=== PATIENT | female | born 1935 | race Caucasian/White ===

== ENCOUNTER 2016-01-14 10:55 | Outpatient (RCR) | payer MEDICARE ==
[2016-01-06 12:04] LABS: BASOPHILS # (AUTO) 0.1 10^3/uL (0.0-0.1); BASOPHILS % (AUTO) 1 % (0-10); EOSINOPHILS # (AUTO) 0.6 10^3/uL (0.0-0.3); EOSINOPHILS % (AUTO) 6 % (0-10); LYMPHOCYTES # (AUTO) 0.8 X 10^3 (1.0-4.0); LYMPHOCYTES % (AUTO) 7 % (12-44); MEAN CORPUSCULAR HEMOGLOBIN 24 PG (25-34); MEAN CORPUSCULAR HGB CONC 30 G/DL (32-36); MEAN CORPUSCULAR VOLUME 80 FL (80-99); MEAN PLATELET VOLUME 9.3 FL (7.4-10.4); MONOCYTES # (AUTO) 1.4 X 10^3 (0.0-1.0); MONOCYTES % (AUTO) 13 % (0-12); NEUTROPHILS # (AUTO) 7.8 X 10^3 (1.8-7.8); NEUTROPHILS % (AUTO) 73 % (42-75); PLATELET COUNT 612 10^3/uL (130-400); RED BLOOD COUNT 3.65 10^6/uL (4.35-5.85); RED CELL DISTRIBUTION WIDTH 15.9 % (10.0-14.5); WHITE BLOOD COUNT 10.7 10^3/uL (4.3-11.0)
[2016-01-06 12:27] LABS: ALANINE AMINOTRANSFERASE < 6 U/L (0-55); ALBUMIN 3.4 G/DL (3.2-4.5); ANION GAP 9 MMOL/L (5-14); ASPARTATE AMINO TRANSFERASE 8 U/L (5-34); BILIRUBIN,TOTAL 0.4 MG/DL (0.1-1.0); BLOOD UREA NITROGEN 13 MG/DL (7-18); BUN/CREATININE RATIO 13; CALCIUM 8.8 MG/DL (8.5-10.1); CARBON DIOXIDE 27 MMOL/L (21-32); CHLORIDE 101 MMOL/L (98-107); CREATININE SERUM 0.99 MG/DL (0.60-1.30); GFR ESTIMATED 54; GLUCOSE 98 MG/DL (70-105); POTASSIUM 5.1 MMOL/L (3.6-5.0); SODIUM 137 MMOL/L (135-145)
[2016-01-06 17:18] LABS: %SAT TOTAL IRON BINDING CAPIC 5 % (15-50); TIBC 229 ug/dL (280-380)
[2016-01-07 07:00] LABS: FERRITIN 762 ng/mL (15-150); UIBC 218 ug/dL (55-450)
[2016-01-10 09:39] LABS: JAK2 MUTATION Not Detected
[2016-01-11 09:56] LABS: BCR ABL FISH QL SEE FOOTNOTE
[~2016-01-14 10:55] MED LIST: ASP81TEC PO; BISO5TAB8 PO; FURO20TA PO; HYDR-3454 PO; LVT.025T PO; MULT-608 PO; OMEP-10 PO; PARO10TA21 PO; VISCOUS LIDOCAINE 2% PO
[2016-01-14] MEDS ORDERED: FLU TRIvalent (5 YOA+) 2016-17 (CANCER CTR) 0.5 ML IM ONE (12:15)
== END 2016-04-05 | disposition home or self-care (01) ==
LOC: ONC 10:55
PROVIDERS: ATTEND Internal Medicine Hematology & Oncology
DX: C82.90 Follicular lymphoma, unspecified, unspecified site (principal); Z85.3 Personal history of malignant neoplasm of breast; D50.9 Iron deficiency anemia, unspecified; I48.91 Unspecified atrial fibrillation; I50.9 Heart failure, unspecified; M17.0 Bilateral primary osteoarthritis of knee; Z95.0 Presence of cardiac pacemaker; Z90.11 Acquired absence of right breast and nipple; Z79.899 Other long term (current) drug therapy; Z92.21 Personal history of antineoplastic chemotherapy; Z23 Encounter for immunization
CPT/HCPCS: 36591; 80053; 81270; 82607; 82728; 82746; 83540; 85025; 85045; 88368; 88369; 90471; 99213

== ENCOUNTER → 2016-05-30 | Outpatient (CLI) | payer MEDICARE | LOC: FS 11:06 | PROVIDERS: ATTEND Internal Medicine Hematology & Oncology | DX: C82.90 Follicular lymphoma, unspecified, unspecified site (principal); Z85.3 Personal history of malignant neoplasm of breast; D50.9 Iron deficiency anemia, unspecified; I48.91 Unspecified atrial fibrillation; I50.9 Heart failure, unspecified; M17.0 Bilateral primary osteoarthritis of knee; Z95.0 Presence of cardiac pacemaker; Z90.11 Acquired absence of right breast and nipple; Z79.899 Other long term (current) drug therapy; Z92.21 Personal history of antineoplastic chemotherapy | CPT/HCPCS: 99213 ==

== ENCOUNTER → 2016-11-14 | Outpatient (CLI) | payer MEDICARE | LOC: FS 11-13 16:45 | PROVIDERS: ATTEND Internal Medicine Hematology & Oncology | DX: C82.28 Follicular lymphoma grade III, unspecified, lymph nodes of multiple sites (principal); Z85.3 Personal history of malignant neoplasm of breast; D50.9 Iron deficiency anemia, unspecified; I48.91 Unspecified atrial fibrillation; I50.9 Heart failure, unspecified; M17.0 Bilateral primary osteoarthritis of knee; Z95.0 Presence of cardiac pacemaker; Z90.11 Acquired absence of right breast and nipple; Z79.899 Other long term (current) drug therapy; Z92.21 Personal history of antineoplastic chemotherapy | CPT/HCPCS: 99213 ==

== ENCOUNTER 2017-02-10 15:14 | Emergency (ER) | payer MEDICARE ==
[~2017-02-10] VITALS: Ht 172.7 cm; Wt 79.8 kg
--- OUTSIDE RECORDS SUMMARY | 2017-02-10 15:20 | XMS REPORT | Continuity of Care Document ---
Author Author [employer] Organization [place] Address Unknown Phone Unavailable Care Team Providers Care Security Investigator Name Role Phone [employer] Unavailable Unavailable Problems Problem Status Onset Date Classification Date Reported Comments Source Other dyspnea and respiratory abnormality 09/29/2014 Diagnosis 10/03/2014 [facility], [facility] Other sleep disturbances Diagnosis 10/03/2014 [facility] Other hypersomnia 2014 Diagnosis 10/03/2014 [facility] Unspecified chest pain 09/29 Diagnosis 10/03/2014 [facility] Cardiac pacemaker in situ Diagnosis 10/03/2014 [facility] Paroxysmal supraventricular tachycardia 09/29/2014 Diagnosis 10/03/2014 [facility] Coronary atherosclerosis of unspecified type of vessel, point lay ira or graft 03/02/2014 Diagnosis 03/06/2014 [facility] Atrial fibrillation 2013 Diagnosis 03/06/2014 [facility] Preoperative respiratory examination 01/01/2014 Diagnosis 01/05/2014 [facility] Chronic diastolic heart failure 01/01/2014 Diagnosis [facility] Nonspecific abnormal results of function study of pulmonary system 01/01/2014 Diagnosis 01/05/2014 [facility] Obesity, unspecified 2013 Diagnosis 01/05/2014 [facility], [facility] Sinoatrial node dysfunction 12/01/2013 Diagnosis 2013 [facility] Unspecified essential hypertension 12/01/2013 Diagnosis 12/05/2013 [facility] Cardiac pacemaker in situ Diagnosis 12/05/2013 [facility] Palpitations 12/01/2013 Diagnosis 12/05/2013 [facility] Other chest pain 08/14/2013 Diagnosis 08/18/2013 [facility] Unspecified chest pain 07/31 Diagnosis 08/04/2013 [facility], [facility]. Coronary atherosclerosis of unspecified type of vessel, point lay ira or graft 07/22/2013 Diagnosis 07/26/2013 [facility] Paroxysmal atrial tachycardia (disorder) Active Problem 10/25/2014 [facility], [facility], [facility] Malignant tumor of breast (disorder) Active Problem 10/25 [facility], [facility], [facility] Coronary arteriosclerosis (disorder) Active Problem 10/25 [facility], [facility], [facility] Cardiac pacemaker, device (physical object) Active Problem 10/25/2014 [facility], [facility], [facility], [facility] Chest pain (finding) Active Problem 10/25/2014 [facility], [facility], [facility] Cough (finding) Active Problem 10/25/2014 [facility], [facility], [facility], [facility] Dizziness (finding) Active Problem 10/25/2014 [facility], [facility], [facility], [facility] Dyspnea (finding) Active Problem 10/25/2014 [facility], [facility], [facility], [facility] Gastroesophageal reflux disease (disorder) Active Problem 10/25/2014 [facility], [facility], [facility], [facility] Hypertensive disorder, systemic arterial (disorder) Active Problem 10/25/2014 [facility], [facility], [facility], [facility]. Hypothyroidism (disorder) Active Problem 10/25/2014 [facility], [facility], [facility] Lymphoma finding (finding) Active Problem 10/25/2014 [facility], [facility], [facility] Malaise and fatigue (finding) Active Problem 10/25/2014 [facility], [facility], [facility] Obesity (disorder) Active Problem 10/25/2014 [facility], [facility], [facility] Palpitations (finding) Active Problem 10/25/2014 [facility], [facility], [facility] Paroxysmal atrial fibrillation (disorder) Active Problem 10/25/2014 [facility], [facility], [facility] Sick sinus syndrome (disorder) Active Problem 10/25/2014 [facility], [facility], [facility] Medications Medication Details Route Status Patient Instructions Ordering Provider Order Date Source No Known Medications No known medications Active [facility] Allergies, Adverse Reactions, Alerts Substance Category Reaction Severity Reaction type Status Date Reported Comments Source Levofloxacin Assertion Drug allergy [facility], [facility], [facility], [facility] Morphine Assertion Drug allergy [facility], [facility], [facility], [facility]. Verapamil Assertion lip swelling Drug allergy [facility], [facility], [facility], [facility] Immunizations Immunization Date Given Site Status Last Updated Comments Source No data available for this section No data available for this section [facility], [facility], [facility], [facility] , [facility]. Results Vital Signs Encounters Location Location Details Encounter Type Encounter Number Reason For Visit Attending Provider ADM Date DC Date Status Source [facility]iology Services Clinic [id number] [facility] 07/22/2013 07/23/2013 [facility]patient [id number] [facility] 07/22/2013 07/23/2013 [facility], [facility], [facility] [id number] Noah Duran 08[facility]01/2013 [facility] [id number] [place] 08/14/2013 08/15/2013 [facility] [id number] [facility] 12/01/2013 12/02/2013 [facility], [facility] [id number] [facility] 12/06/2013 [facility] [id number] . CS Peripheral Vascular 12/05/2013 12/06/2013 [facility] [id number] 01/01/2014 01/02/2014 [facility] [id number] [facility] 01/07/2014 01[facility]09/2014 [facility] [id number] [facility] 03/02/2014 03/03/2014 [facility] [id number] [facility] 06/17/2014 06/18/2014 [facility] [id number] Mathieu Cruz 06/17/2014 06/18/2014 [facility] Control [facility] in Pulmonary Medicine Clinic [id number] Roberta Carrington 06/29/2014 06/30/2014 [facility] Clinic [id number] Reggie Koch 09/29/2014 09/30/2014 [facility] [id number] [facility] 09/29/2014 09/30/2014 [facility] [id number] [facility] 10/06/2014 [facility], [facility] [id number] Mathieu Cruz 10/21/2014 10/22/2014 [facility] Procedures Procedure Code Date Perfomer Comments Source LV CORS 07/31/2013 [facility], [facility]. No data available for this section [facility] Plan of Care Social History Assessment and Plan Family History Value Date Source Advance Directives Order Name Results Value Date Source
--- OUTSIDE RECORDS SUMMARY | 2017-02-10 15:23 | XMS REPORT | Continuity of Care Document ---
Author Author [facility] Organization [facility] Address Unknown Phone Unavailable Allergies Active Description Code Type Severity Reaction Onset Reported/Identified Relationship to Patient Clinical Status Yes morphine [id number] Drug Allergy Mild N/A 10/01/2013 Medications Problems Date Dx Coded Attending Type Code Diagnosis Diagnosed By 02/16/1624 WESTLEY MÉNDEZ Ot C82.90 FOLLICULAR LYMPHOMA, UNSPECIFIED, UNSPEC 02/16/1624 WESTLEY MÉNDEZ Ot D50.9 IRON DEFICIENCY ANEMIA, UNSPECIFIED 02/16/1624 WESTLEY MÉNDEZ Ot I48.91 UNSPECIFIED ATRIAL FIBRILLATION 02/16/1624 WESTLEY MÉNDEZ Ot I50.9 HEART FAILURE, UNSPECIFIED 02/16/1624 WESTLEY MÉNDEZ Ot 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 OF KNEE 02/16/1624 WESTLEY MÉNDEZ Ot Z79.899 OTHER [facility] (CURRENT) DRUG THERAPY 02/16/1624 WESTLEY MÉNDEZ Ot Z85.3 PERSONAL HISTORY OF MALIGNANT NEOPLASM O 02/16/1624 WESTLEY MÉNDEZ Ot Z90.11 ACQUIRED ABSENCE OF RIGHT BREAST AND NIP 02/16/1624 WESTLEY MÉNDEZ Ot Z92.21 PERSONAL HISTORY OF ANTINEOPLASTIC CHEMO 02/16/1624 WESTLEY MÉNDEZ Ot 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 PACEMAKER 10/02/2013 ERIC HODGE MD Ot 202.80 OTH LYMPHOMAS EXTRANODAL SOLID ORGAN U 10/02/2013 ERIC HODGE MD Ot 784.2 SWELLING IN HEAD NECK 03/18/2014 WESTLEY MÉNDEZ Ot 202.80 03/18/2014 WESTLEY MÉNDEZ Ot 585.3 03/18/2014 WESTLEY MÉNDEZ Ot V10.3 03/18/2014 WESTLEY MÉNDEZ Ot V45.01 03/18/2014 WESTLEY MÉNDEZ Ot V45.71 03/18/2014 DEV, BOBAN N Ot V58.69 03/18/2014 DEV, BOBAN N Ot V87.41 03/23/2014 DEV, BOBAN N Ot 202.80 03/23/2014 DEV, BOBAN N Ot 585.3 03/23/2014 DEV, BOBAN N Ot V10.3 03/23/2014 DEV, BOBAN N Ot V45.01 03/23/2014 DEV, BOBAN N Ot V45.71 03/23/2014 DEV, BOBAN N Ot V58.69 03/23/2014 DEV, BOBAN N Ot V87.41 10/07/2014 DEV, BOBAN N Ot 202.80 10/07/2014 DEV, BOBAN N Ot 244.9 10/07/2014 DEV, BOBAN N Ot 403.90 10/07/2014 DEV, BOBAN N Ot 585.3 10/07/2014 DEV, BOBAN N Ot V10.3 10/07/2014 DEV, BOBAN N Ot V45.01 10/07/2014 DEV, BOBAN N Ot V45.71 10/07/2014 DEV, BOBAN N Ot V58.69 10/07/2014 DEV, BOBAN N Ot V87.41 10/15/2014 DEV, BOBAN N Ot 202.80 10/15/2014 DEV, BOBAN N Ot 244.9 10/15/2014 DEV, BOBAN N Ot 403.90 10/15/2014 DEV, BOBAN N Ot 585.3 10/15/2014 DEV, BOBAN N Ot V10.3 10/15/2014 DEV, BOBAN N Ot V45.01 10/15/2014 DEV, BOBAN N Ot V45.71 10/15/2014 DEV, BOBAN N Ot V58.69 10/15/2014 DEV, BOBAN N Ot V87.41 04/09/2015 DEV, BOBAN N Ot C82.90 04/09/2015 DEV, BOBAN N Ot D50.9 04/09/2015 DEV, BOBAN N Ot I48.91 04/09/2015 DEV, BOBAN N Ot I50.9 04/09/2015 DEV, BOBAN N Ot M17.0 04/09/2015 DEV, BOBAN N Ot Z79.899 04/09/2015 DEV, BOBAN N Ot Z85.3 04/09/2015 DEV, BOBAN N Ot Z90.11 04/09/2015 DEV, BOBAN N Ot Z92.21 04/09/2015 DEV, BOBAN N Ot Z95.0 04/15/2015 DEV, BOBAN N Ot C82.90 04/15/2015 EDV, BOBAN N Ot D50.9 04/15/2015 DEV, BOBAN N Ot I48.91 04/15/2015 DEV, BOBAN N Ot I50.9 04/15/2015 DEV, BOBAN N Ot M17.0 04/15/2015 DEV, BOBAN N Ot Z79.899 04/15/2015 DEV, BOBAN N Ot Z85.3 04/15/2015 DEV, BOBAN N Ot Z90.11 04/15/2015 DEV, BOBAN N Ot Z92.21 04/15/2015 DEV, BOBAN N Ot Z95.0 04/30/2015 DEV, BOBAN N Ot C82.90 04/30/2015 DEV, BOBAN N Ot D50.9 04/30/2015 DEV, BOBAN N Ot I48.91 04/30/2015 DEV, BOBAN N Ot I50.9 04/30/2015 DEV, BOBAN N Ot M17.0 04/30/2015 DEV, BOBAN N Ot Z79.899 04/30/2015 DEV, BOBAN N Ot Z85.3 04/30/2015 DEV, BOBAN N Ot Z90.11 04/30/2015 DEV, BOBAN N Ot Z92.21 04/30/2015 DEV, BOBAN N Ot Z95.0 06/08/2015 DEV, BOBAN N Ot C82.90 06/08/2015 DEV, BOBAN N Ot D50.9 06/08/2015 DEV, BOBAN N Ot I48.91 06/08/2015 DEV, BOBAN N Ot I50.9 06/08/2015 DEV, BOBAN N Ot M17.0 06/08/2015 DEV, BOBAN N Ot Z79.899 06/08/2015 DEV, WESTLEY N Ot Z85.3 06/08/2015 DEV, WESTLEY N Ot Z90.11 06/08/2015 DEV, WESTLEY N Ot Z92.21 06/08/2015 DEV, WESTLEY N Ot Z95.0 06/30/2015 DEVWESTLEY N Ot C82.90 06/30/2015 DEVWESTLEY N Ot D50.9 06/30/2015 DEVWESTLEY N Ot I48.91 06/30/2015 DEV, WESTLEY N Ot I50.9 06/30/2015 DEV, WESTLEY N Ot M17.0 06/30/2015 DEV, WESTLEY N Ot Z79.899 06/30/2015 DEVWESTLEY N Ot Z85.3 06/30/2015 DEV WESTLEY N Ot Z90.11 06/30/2015 DEV, WESTLEY N Ot Z92.21 06/30/2015 DEVWESTLEY N Ot Z95.0 07/21/2015 DEVWESTLEY Ot C82.90 FOLLICULAR LYMPHOMA, UNSPECIFIED, UNSPEC 07/21/2015 DEVWESTLEY N Ot D50.9 IRON DEFICIENCY ANEMIA, UNSPECIFIED 07/21/2015 DEVWESTLEY N Ot I48.91 UNSPECIFIED ATRIAL FIBRILLATION 07/21/2015 DEVWESTLEY Ot I50.9 HEART FAILURE, UNSPECIFIED 07/21/2015 DEVWESTLEY N Ot 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 OF KNEE 07/21/2015 DEVWESTLEY N Ot Z79.899 OTHER [facility] (CURRENT) DRUG THERAPY 07/21/2015 DEVWESTLEY N Ot Z85.3 PERSONAL HISTORY OF MALIGNANT NEOPLASM O 07/21/2015 DEVWESTLEY N Ot Z90.11 ACQUIRED ABSENCE OF RIGHT BREAST AND NIP 07/21/2015 DEVWESTLEY N Ot Z92.21 PERSONAL HISTORY OF ANTINEOPLASTIC CHEMO 07/21/2015 WESTLEY MÉNDEZ N Ot 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 PACEMAKER 07/21/2015 WESTLEY MÉNDEZ N Ot C82.90 FOLLICULAR LYMPHOMA, UNSPECIFIED, UNSPEC 07/21/2015 WESTLEY MÉNDEZ N Ot D50.9 IRON DEFICIENCY ANEMIA, UNSPECIFIED 07/21/2015 WESTLEY MÉNDEZ N Ot I48.91 UNSPECIFIED ATRIAL FIBRILLATION 07/21/2015 WESTLEY MÉNDEZ N Ot I50.9 HEART FAILURE, UNSPECIFIED 07/21/2015 WESTLEY MÉNDEZ N Ot 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 OF KNEE 07/21/2015 WESTLEY MÉNDEZ N Ot Z79.899 OTHER [facility] (CURRENT) DRUG THERAPY 07/21/2015 WESTLEY MÉNDEZ N Ot Z85.3 PERSONAL HISTORY OF MALIGNANT NEOPLASM O 07/21/2015 WESTLEY MÉNDEZ N Ot Z90.11 ACQUIRED ABSENCE OF RIGHT BREAST AND NIP 07/21/2015 WESTLEY MÉNDEZ N Ot Z92.21 PERSONAL HISTORY OF ANTINEOPLASTIC CHEMO 07/21/2015 DEVWESTLEY BELL N Ot 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 PACEMAKER 07/28/2015 WESTLEY MÉNDEZ N Ot C82.90 FOLLICULAR LYMPHOMA, UNSPECIFIED, UNSPEC 07/28/2015 WESTLEY MÉNDEZ N Ot D50.9 IRON DEFICIENCY ANEMIA, UNSPECIFIED 07/28/2015 WESTLEY MÉNDEZ N Ot I48.91 UNSPECIFIED ATRIAL FIBRILLATION 07/28/2015 WESTLEY MÉNDEZ N Ot I50.9 HEART FAILURE, UNSPECIFIED 07/28/2015 WESTLEY MÉNDEZ N Ot 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 OF KNEE 07/28/2015 WESTLEY MÉNDEZ N Ot Z79.899 OTHER [facility] (CURRENT) DRUG THERAPY 07/28/2015 WESTLEY MÉNDEZ N Ot Z85.3 PERSONAL HISTORY OF MALIGNANT NEOPLASM O 07/28/2015 WESTLEY MÉNDEZ N Ot Z90.11 ACQUIRED ABSENCE OF RIGHT BREAST AND NIP 07/28/2015 WESTLEY MÉNDEZ N Ot Z92.21 PERSONAL HISTORY OF ANTINEOPLASTIC CHEMO 07/28/2015 WESTLEY MÉNDEZ N Ot 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 PACEMAKER 11/12/2015 WESTLEY MÉNDEZ N Ot C82.90 FOLLICULAR LYMPHOMA, UNSPECIFIED, UNSPEC 11/12/2015 WESTLEY MÉNDEZ N Ot D50.9 IRON DEFICIENCY ANEMIA, UNSPECIFIED 11/12/2015 WESTLEY MÉNDEZ N Ot I48.91 UNSPECIFIED ATRIAL FIBRILLATION 11/12/2015 WESTLEY MÉNDEZ N Ot I50.9 HEART FAILURE, UNSPECIFIED 11/12/2015 WESTLEY MÉNDEZ N Ot 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 OF KNEE 11/12/2015 WESTLEY MÉNDEZ N Ot Z79.899 OTHER [facility] (CURRENT) DRUG THERAPY 11/12/2015 WESTLEY MÉNDEZ N Ot Z85.3 PERSONAL HISTORY OF MALIGNANT NEOPLASM O 11/12/2015 WESTLEY MÉNDEZ N Ot Z90.11 ACQUIRED ABSENCE OF RIGHT BREAST AND NIP 11/12/2015 WESTLEY MÉNDEZ N Ot Z92.21 PERSONAL HISTORY OF ANTINEOPLASTIC CHEMO 11/12/2015 WESTLEY MÉNDEZ N Ot 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 PACEMAKER 11/18/2015 WESTLEY MÉNDEZ N Ot C82.90 FOLLICULAR LYMPHOMA, UNSPECIFIED, UNSPEC 11/18/2015 WESTLEY MÉNDEZ N Ot D50.9 IRON DEFICIENCY ANEMIA, UNSPECIFIED 11/18/2015 DVEWESTLEY BELL N Ot I48.91 UNSPECIFIED ATRIAL FIBRILLATION 11/18/2015 WESTLEY MÉNDEZ N Ot I50.9 HEART FAILURE, UNSPECIFIED 11/18/2015 WESTLEY MÉNDEZ N Ot 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 OF KNEE 11/18/2015 WESTLEY MÉNDEZ N Ot 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 11/18/2015 WESTLEY MÉNDEZ N Ot Z85.3 PERSONAL HISTORY OF MALIGNANT NEOPLASM O 11/18/2015 DEVWESTLEY BELL N Ot Z90.11 ACQUIRED ABSENCE OF RIGHT BREAST AND NIP 11/18/2015 WESTLEY MÉNDEZ N Ot Z92.21 PERSONAL HISTORY OF ANTINEOPLASTIC CHEMO 11/18/2015 WESTLEY MÉNDEZ N Ot 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 PACEMAKER 12/09/2015 WESTLEY MÉNDEZ N Ot C82.90 FOLLICULAR LYMPHOMA, UNSPECIFIED, UNSPEC 12/09/2015 WESTLEY MÉNDEZ N Ot D50.9 IRON DEFICIENCY ANEMIA, UNSPECIFIED 12/09/2015 WESTLEY MÉNDEZ N Ot I48.91 UNSPECIFIED ATRIAL FIBRILLATION 12/09/2015 WESTLEY MÉNDEZ N Ot I50.9 HEART FAILURE, UNSPECIFIED 12/09/2015 DEVWESTLEY N Ot 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 OF KNEE 12/09/2015 WESTLEY MÉNDEZ N Ot Z79.899 OTHER [facility] (CURRENT) DRUG THERAPY 12/09/2015 WESTLEY MÉNDEZ N Ot Z85.3 PERSONAL HISTORY OF MALIGNANT NEOPLASM O 12/09/2015 DEVWESTLEY BELL N Ot Z90.11 ACQUIRED ABSENCE OF RIGHT BREAST AND NIP 12/09/2015 WESTLEY MÉNDEZ N Ot Z92.21 PERSONAL HISTORY OF ANTINEOPLASTIC CHEMO 12/09/2015 WESTLEY MÉNDEZ N Ot 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 PACEMAKER 12/30/2015 WESTLEY MÉNDEZ N Ot C82.90 FOLLICULAR LYMPHOMA, UNSPECIFIED, UNSPEC 12/30/2015 WESTLEY MÉNDEZ N Ot D50.9 IRON DEFICIENCY ANEMIA, UNSPECIFIED 12/30/2015 WESTLEY MÉNDEZ N Ot I48.91 UNSPECIFIED ATRIAL FIBRILLATION 12/30/2015 WESTLEY MÉNDEZ N Ot I50.9 HEART FAILURE, UNSPECIFIED 12/30/2015 WESTLEY MÉNDEZ N Ot 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 OF KNEE 12/30/2015 WESTLEY MÉNDEZ N Ot 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 12/30/2015 WESTLEY MÉNDEZ N Ot Z85.3 PERSONAL HISTORY OF MALIGNANT NEOPLASM O 12/30/2015 DEVWESTLEY BELL N Ot Z90.11 ACQUIRED ABSENCE OF RIGHT BREAST AND NIP 12/30/2015 WESTLEY MÉNDEZ N Ot Z92.21 PERSONAL HISTORY OF ANTINEOPLASTIC CHEMO 12/30/2015 WESTLEY MÉNDEZ N Ot 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 PACEMAKER 01/03/2016 WESTLEY MÉNDEZ N Ot C82.90 FOLLICULAR LYMPHOMA, UNSPECIFIED, UNSPEC 01/03/2016 WESTLEY MÉNDEZ N Ot D50.9 IRON DEFICIENCY ANEMIA, UNSPECIFIED 01/03/2016 WESTLEY MÉNDEZ N Ot I48.91 UNSPECIFIED ATRIAL FIBRILLATION 01/03/2016 WESTLEY MÉNDEZ N Ot I50.9 HEART FAILURE, UNSPECIFIED 01/03/2016 WESTLEY MÉNDEZ N Ot 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 OF KNEE 01/03/2016 WESTLEY MÉNDEZ N Ot 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 01/03/2016 DEVWESTLEY N Ot Z85.3 PERSONAL HISTORY OF MALIGNANT NEOPLASM O 01/03/2016 DEVWESTLEY N Ot Z90.11 ACQUIRED ABSENCE OF RIGHT BREAST AND NIP 01/03/2016 DEVWESTLEY N Ot Z92.21 PERSONAL HISTORY OF ANTINEOPLASTIC CHEMO 01/03/2016 DEVWESTLEY BELL N Ot 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 PACEMAKER 01/07/2016 WESTLEY MÉNDEZ N Ot C82.90 FOLLICULAR LYMPHOMA, UNSPECIFIED, UNSPEC 01/07/2016 WESTLEY MÉNDEZ Ot D50.9 IRON DEFICIENCY ANEMIA, UNSPECIFIED 01/07/2016 WESTLEY MÉNDEZ Ot I48.91 UNSPECIFIED ATRIAL FIBRILLATION 01/07/2016 WESTLEY MÉNDEZ Ot I50.9 HEART FAILURE, UNSPECIFIED 01/07/2016 WESTLEY MÉNDEZ Ot 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 OF KNEE 01/07/2016 WESTLEY MÉNDEZ Ot Z79.899 OTHER [facility] (CURRENT) DRUG THERAPY 01/07/2016 WESTLEY MÉNDEZ Ot Z85.3 PERSONAL HISTORY OF MALIGNANT NEOPLASM O 01/07/2016 WESTLEY MÉNDEZ Ot Z90.11 ACQUIRED ABSENCE OF RIGHT BREAST AND NIP 01/07/2016 WESTLEY MÉNDEZ Ot Z92.21 PERSONAL HISTORY OF ANTINEOPLASTIC CHEMO 01/07/2016 WESTLEY MÉNDEZ Ot 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 PACEMAKER 01/11/2016 Ot 202.80 OTH LYMPHOMAS EXTRANODAL SOLID ORGAN U 01/11/2016 Ot 427.81 SINOATRIAL NODE DYSFUNCT 01/11/2016 Ot 585.3 CHRONIC KIDNEY DISEASE, STAGE III (MODER 01/11/2016 Ot 715.90 OSTEOARTHROS NOS-UNSPEC 01/11/2016 Ot 780.79 OTH MALAISE FATIGUE 01/11/2016 Ot V10.3 HX OF BREAST MALIGNANCY 01/11/2016 Ot V45.01 CARDIAC PACEMAKER IN SITU 01/11/2016 Ot V58.69 OTH MED,LT,CURRENT USE 01/11/2016 Ot V87.41 PERSONAL HISTORY OF ANTINEOPLASTIC CHEMO 01/11/2016 Ot 202.80 OTH LYMPHOMAS EXTRANODAL SOLID ORGAN U 01/11/2016 Ot 585.3 CHRONIC KIDNEY DISEASE, STAGE III (MODER 01/11/2016 Ot V45.01 CARDIAC PACEMAKER IN SITU 01/11/2016 Ot V58.69 OTH MED,LT,CURRENT USE 01/11/2016 Ot V87.41 PERSONAL HISTORY OF ANTINEOPLASTIC CHEMO 01/11/2016 Ot 202.80 OTH LYMPHOMAS EXTRANODAL SOLID ORGAN U 01/11/2016 Ot 585.3 CHRONIC KIDNEY DISEASE, STAGE III (MODER 01/11/2016 Ot 784.2 SWELLING IN HEAD NECK 01/11/2016 Ot V10.3 HX OF BREAST MALIGNANCY 01/11/2016 Ot V45.01 CARDIAC PACEMAKER IN SITU 01/11/2016 Ot V45.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 01/11/2016 Ot V58.69 OTH MED,LT,CURRENT USE 01/11/2016 Ot V87.41 PERSONAL HISTORY OF ANTINEOPLASTIC CHEMO 01/11/2016 Ot 202.80 OTH LYMPHOMAS EXTRANODAL SOLID ORGAN U 01/11/2016 Ot 202.80 OTH LYMPHOMAS EXTRANODAL SOLID ORGAN U 01/11/2016 Ot 311 DEPRESSIVE DISORDER NEC 01/11/2016 Ot 585.3 CHRONIC KIDNEY DISEASE, STAGE III (MODER 01/11/2016 Ot V10.3 HX OF BREAST MALIGNANCY 01/11/2016 Ot V45.01 CARDIAC PACEMAKER IN SITU 01/11/2016 Ot V45.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 01/11/2016 Ot V58.69 OTH MED,LT,CURRENT USE 01/11/2016 Ot V87.41 PERSONAL HISTORY OF ANTINEOPLASTIC CHEMO 01/11/2016 DEVWESTLEY BELL N Ot 202.80 OTH LYMPHOMAS EXTRANODAL SOLID ORGAN U 01/11/2016 DEVWESTLEY BELL N Ot 585.3 CHRONIC KIDNEY DISEASE, STAGE III (MODER 01/11/2016 DEVTHADDEUSAN N Ot V10.3 HX OF BREAST MALIGNANCY 01/11/2016 DEVTHADDEUSAN N Ot V45.01 CARDIAC PACEMAKER IN SITU 01/11/2016 DEVWESTLEY N Ot V45.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 01/11/2016 DEVWESTLEY N Ot V58.69 OTH MED,LT,CURRENT USE 01/11/2016 DEVTHADDEUSAN N Ot V87.41 PERSONAL HISTORY OF ANTINEOPLASTIC CHEMO 01/11/2016 DEV BOBAN N Ot 202.80 OTH LYMPHOMAS EXTRANODAL SOLID ORGAN U 01/11/2016 DEVTHADDEUSAN N Ot 585.3 CHRONIC KIDNEY DISEASE, STAGE III (MODER 01/11/2016 DEV BOBAN N Ot V10.3 HX OF BREAST MALIGNANCY 01/11/2016 DEV, BOBAN N Ot V45.01 CARDIAC PACEMAKER IN SITU 01/11/2016 DEV BOBAN N Ot V45.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 01/11/2016 DEV THADDEUSAN N Ot V58.69 OTH MED,LT,CURRENT USE 01/11/2016 WESTLEY MÉNDEZ N Ot V87.41 PERSONAL HISTORY OF ANTINEOPLASTIC CHEMO 01/11/2016 DEV BOBAN N Ot 202.80 OTH LYMPHOMAS EXTRANODAL SOLID ORGAN U 01/11/2016 WESTLEY MÉNDEZ N Ot 585.3 CHRONIC KIDNEY DISEASE, STAGE III (MODER 01/11/2016 DEVWESTLEY BELL N Ot V10.3 HX OF BREAST MALIGNANCY 01/11/2016 DEVTHADDEUSAN N Ot V45.01 CARDIAC PACEMAKER IN SITU 01/11/2016 DEVWESTLEY BELL N Ot V45.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 01/11/2016 DEVWESTLEY N Ot V58.69 OTH MED,LT,CURRENT USE 01/11/2016 DEV BOBAN N Ot V87.41 PERSONAL HISTORY OF ANTINEOPLASTIC CHEMO 01/11/2016 DEV BOBAN N Ot 202.80 OTH LYMPHOMAS EXTRANODAL SOLID ORGAN U 01/11/2016 DEV BOBAN N Ot 202.80 OTH LYMPHOMAS EXTRANODAL SOLID ORGAN U 01/11/2016 DEV BOBPRIMO N Ot 585.3 CHRONIC KIDNEY DISEASE, STAGE III (MODER 01/11/2016 DEVWESTLEY BELL N Ot V10.3 HX OF BREAST MALIGNANCY 01/11/2016 DEVTHADDEUSAN N Ot V45.01 CARDIAC PACEMAKER IN SITU 01/11/2016 WESTLEY MÉNDEZ N Ot V45.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 01/11/2016 WESTLEY MÉNDEZ N Ot V58.69 OTH MED,LT,CURRENT USE 01/11/2016 WESTLEY MÉNDEZ N Ot V87.41 PERSONAL HISTORY OF ANTINEOPLASTIC CHEMO 01/11/2016 NAVEEN JUSTIN, ERIC Peraza Ot 793.99 OTH NOSP (ABN) FINDINGS RADIOLOGICAL O 01/11/2016 ERIC HODGE MD Ot V10.79 HX-LYMPHATIC MALIGN NEC 01/11/2016 DEV BOBAN N Ot 202.80 OTH LYMPHOMAS EXTRANODAL SOLID ORGAN U 01/11/2016 DEV BOBAN N Ot 585.3 CHRONIC KIDNEY DISEASE, STAGE III (MODER 01/11/2016 DEVTHADDEUS BELLAN N Ot V10.3 HX OF BREAST MALIGNANCY 01/11/2016 DEV BOBAN N Ot V45.01 CARDIAC PACEMAKER IN SITU 01/11/2016 DEV, BOBAN N Ot V45.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 01/11/2016 WESTLEY MÉNDEZ N Ot V58.69 OTH MED,LT,CURRENT USE 01/11/2016 THADDEUS MÉNDEZAN N Ot V87.41 PERSONAL HISTORY OF ANTINEOPLASTIC CHEMO 01/11/2016 DEV THADDEUSPRIMO N Ot 202.80 OTH LYMPHOMAS EXTRANODAL SOLID ORGAN U 01/11/2016 DEVWESTLEY N Ot 244.9 HYPOTHYROIDISM NOS 01/11/2016 DEV, WESTLEY N Ot 403.90 HYPTNSV CHR KID DIS, UNSPEC, W CHR KD ST 01/11/2016 DEV WESTLEY N Ot 585.3 CHRONIC KIDNEY DISEASE, STAGE III (MODER 01/11/2016 WESTLEY MÉNDEZ N Ot V10.3 HX OF BREAST MALIGNANCY 01/11/2016 DEVWESTLEY N Ot V45.01 CARDIAC PACEMAKER IN SITU 01/11/2016 DEVWESTLEY N Ot V45.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 01/11/2016 DEVTHADDEUSPRIMO N Ot V58.69 OTH MED,LT,CURRENT USE 01/11/2016 WESTLEY MÉNDEZ N Ot V87.41 PERSONAL HISTORY OF ANTINEOPLASTIC CHEMO 01/11/2016 WESTLEY MÉNDEZ N Ot C82.90 FOLLICULAR LYMPHOMA, UNSPECIFIED, UNSPEC 01/11/2016 DEVWESTLEY N Ot D50.9 IRON DEFICIENCY ANEMIA, UNSPECIFIED 01/11/2016 THADDEUS MÉNDEZAN N Ot I48.91 UNSPECIFIED ATRIAL FIBRILLATION 01/11/2016 WESTLEY MÉNDEZ N Ot I50.9 HEART FAILURE, UNSPECIFIED 01/11/2016 WESTLEY MÉNDEZ N Ot 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 OF KNEE 01/11/2016 WESTLEY MÉNDEZ N Ot 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 01/11/2016 WESTLEY MÉNDEZ N Ot Z85.3 PERSONAL HISTORY OF MALIGNANT NEOPLASM O 01/11/2016 WESTLEY MÉNDEZ N Ot Z90.11 ACQUIRED ABSENCE OF RIGHT BREAST AND NIP 01/11/2016 WESTLEY MÉNDEZ N Ot Z92.21 PERSONAL HISTORY OF ANTINEOPLASTIC CHEMO 01/11/2016 WESTLEY MÉNDEZ N Ot 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 PACEMAKER 01/11/2016 WESTLEY MÉNDEZ N Ot C82.90 FOLLICULAR LYMPHOMA, UNSPECIFIED, UNSPEC 01/11/2016 DEVTHADDEUSAN N Ot D50.9 IRON DEFICIENCY ANEMIA, UNSPECIFIED 01/11/2016 DEV, BOBAN N Ot I48.91 UNSPECIFIED ATRIAL FIBRILLATION 01/11/2016 DEV, BOBAN N Ot I50.9 HEART FAILURE, UNSPECIFIED 01/11/2016 DEVWESTLEY N Ot 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 OF KNEE 01/11/2016 DEVTHADDEUSAN N Ot Z79.899 OTHER [facility] (CURRENT) DRUG THERAPY 01/11/2016 DEV, BOBAN N Ot Z85.3 PERSONAL HISTORY OF MALIGNANT NEOPLASM O 01/11/2016 DEV BOBAN N Ot Z90.11 ACQUIRED ABSENCE OF RIGHT BREAST AND NIP 01/11/2016 DEV, BOBAN N Ot Z92.21 PERSONAL HISTORY OF ANTINEOPLASTIC CHEMO 01/11/2016 DEV, BOBAN N Ot 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 PACEMAKER 01/11/2016 DEV, BOBAN N Ot C82.90 FOLLICULAR LYMPHOMA, UNSPECIFIED, UNSPEC 01/11/2016 DEV BOBAN N Ot D50.9 IRON DEFICIENCY ANEMIA, UNSPECIFIED 01/11/2016 DEV, BOBAN N Ot I48.91 UNSPECIFIED ATRIAL FIBRILLATION 01/11/2016 DEV BOBPRIMO N Ot I50.9 HEART FAILURE, UNSPECIFIED 01/11/2016 DEVWESTLEY N Ot 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 OF KNEE 01/11/2016 DEVTHADDEUSAN N Ot 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 01/11/2016 DEV, BOBAN N Ot Z85.3 PERSONAL HISTORY OF MALIGNANT NEOPLASM O 01/11/2016 DEV BOBPRIMO N Ot Z90.11 ACQUIRED ABSENCE OF RIGHT BREAST AND NIP 01/11/2016 DEV, BOBAN N Ot Z92.21 PERSONAL HISTORY OF ANTINEOPLASTIC CHEMO 01/11/2016 DEV, BOBAN N Ot 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 PACEMAKER 01/11/2016 DEV, BOBAN N Ot C82.90 FOLLICULAR LYMPHOMA, UNSPECIFIED, UNSPEC 01/11/2016 DEV BOBAN N Ot D50.9 IRON DEFICIENCY ANEMIA, UNSPECIFIED 01/11/2016 DEV, BOBAN N Ot I48.91 UNSPECIFIED ATRIAL FIBRILLATION 01/11/2016 DEV BOBAN N Ot I50.9 HEART FAILURE, UNSPECIFIED 01/11/2016 WESTLEY MÉNDEZ N Ot 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 OF KNEE 01/11/2016 WESTLEY MÉNDEZ N Ot 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 01/11/2016 WESTLEY MÉNDEZ N Ot Z85.3 PERSONAL HISTORY OF MALIGNANT NEOPLASM O 01/11/2016 WESTLEY MÉNDEZ N Ot Z90.11 ACQUIRED ABSENCE OF RIGHT BREAST AND NIP 01/11/2016 WESTLEY MÉNDEZ N Ot Z92.21 PERSONAL HISTORY OF ANTINEOPLASTIC CHEMO 01/11/2016 WESTLEY MÉNDEZ N Ot 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 PACEMAKER 01/11/2016 WESTLEY MÉNDEZ N Ot 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, UNSP, LYM 01/12/2016 DEV THADDEUSPRIMO N Ot 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, UNSP, LYM 01/18/2016 DEV THADDEUSPRIMO N Ot C82.90 FOLLICULAR LYMPHOMA, UNSPECIFIED, UNSPEC 01/18/2016 WESTLEY MÉNDEZ Tello Ot D50.9 IRON DEFICIENCY ANEMIA, UNSPECIFIED 01/18/2016 WESTLEY MÉNDEZ N Ot I48.91 UNSPECIFIED ATRIAL FIBRILLATION 01/18/2016 WESTLEY MÉNDEZ N Ot I50.9 HEART FAILURE, UNSPECIFIED 01/18/2016 WESTLEY MÉNDEZ N Ot 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 OF KNEE 01/18/2016 WESTLEY MÉNDEZ N Ot Z79.899 OTHER [facility] (CURRENT) DRUG THERAPY 01/18/2016 WESTLEY MÉNDEZ N Ot Z85.3 PERSONAL HISTORY OF MALIGNANT NEOPLASM O 01/18/2016 WESTLEY MÉNDEZ N Ot Z90.11 ACQUIRED ABSENCE OF RIGHT BREAST AND NIP 01/18/2016 WESTLEY MÉNDEZ N Ot Z92.21 PERSONAL HISTORY OF ANTINEOPLASTIC CHEMO 01/18/2016 WESTLEY MÉNDEZ N Ot 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 PACEMAKER 01/26/2016 DEVWESTLEY N Ot C82.90 FOLLICULAR LYMPHOMA, UNSPECIFIED, UNSPEC 01/26/2016 DEV THADDEUSPRIMO N Ot D50.9 IRON DEFICIENCY ANEMIA, UNSPECIFIED 01/26/2016 DEVTHADDEUSPRIMO N Ot I48.91 UNSPECIFIED ATRIAL FIBRILLATION 01/26/2016 DEVWESTLEY N Ot I50.9 HEART FAILURE, UNSPECIFIED 01/26/2016 WESTLEY MÉNDEZ Ot 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 OF KNEE 01/26/2016 WESTLEY MÉNDEZ Ot 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 01/26/2016 WESTLEY MÉNDEZ Ot Z85.3 PERSONAL HISTORY OF MALIGNANT NEOPLASM O 01/26/2016 WESTLEY MÉNDEZ Ot Z90.11 ACQUIRED ABSENCE OF RIGHT BREAST AND NIP 01/26/2016 WESTLEY MÉNDEZ Ot Z92.21 PERSONAL HISTORY OF ANTINEOPLASTIC CHEMO 01/26/2016 WESTLEY MÉNDEZ Ot 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 PACEMAKER 02/18/2016 Ot 202.80 OTH LYMPHOMAS EXTRANODAL SOLID ORGAN U 02/18/2016 Ot 427.81 SINOATRIAL NODE DYSFUNCT 02/18/2016 Ot 585.3 CHRONIC KIDNEY DISEASE, STAGE III (MODER 02/18/2016 Ot 715.90 OSTEOARTHROS NOS-UNSPEC 02/18/2016 Ot 780.79 OTH MALAISE FATIGUE 02/18/2016 Ot V10.3 HX OF BREAST MALIGNANCY 02/18/2016 Ot V45.01 CARDIAC PACEMAKER IN SITU 02/18/2016 Ot V58.69 OTH MED,LT,CURRENT USE 02/18/2016 Ot V87.41 PERSONAL HISTORY OF ANTINEOPLASTIC CHEMO 02/18/2016 Ot 202.80 OTH LYMPHOMAS EXTRANODAL SOLID ORGAN U 02/18/2016 Ot 585.3 CHRONIC KIDNEY DISEASE, STAGE III (MODER 02/18/2016 Ot V45.01 CARDIAC PACEMAKER IN SITU 02/18/2016 Ot V58.69 OTH MED,LT,CURRENT USE 02/18/2016 Ot V87.41 PERSONAL HISTORY OF ANTINEOPLASTIC CHEMO 02/18/2016 Ot 202.80 OTH LYMPHOMAS EXTRANODAL SOLID ORGAN U 02/18/2016 Ot 585.3 CHRONIC KIDNEY DISEASE, STAGE III (MODER 02/18/2016 Ot 784.2 SWELLING IN HEAD NECK 02/18/2016 Ot V10.3 HX OF BREAST MALIGNANCY 02/18/2016 Ot V45.01 CARDIAC PACEMAKER IN SITU 02/18/2016 Ot V45.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 02/18/2016 Ot V58.69 OTH MED,LT,CURRENT USE 02/18/2016 Ot V87.41 PERSONAL HISTORY OF ANTINEOPLASTIC CHEMO 02/18/2016 Ot 202.80 OTH LYMPHOMAS EXTRANODAL SOLID ORGAN U 02/18/2016 Ot 202.80 OTH LYMPHOMAS EXTRANODAL SOLID ORGAN U 02/18/2016 Ot 311 DEPRESSIVE DISORDER NEC 02/18/2016 Ot 585.3 CHRONIC KIDNEY DISEASE, STAGE III (MODER 02/18/2016 Ot V10.3 HX OF BREAST MALIGNANCY 02/18/2016 Ot V45.01 CARDIAC PACEMAKER IN SITU 02/18/2016 Ot V45.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 02/18/2016 Ot V58.69 OTH MED,LT,CURRENT USE 02/18/2016 Ot V87.41 PERSONAL HISTORY OF ANTINEOPLASTIC CHEMO 02/18/2016 DEVWESTLEY BELL N Ot 202.80 OTH LYMPHOMAS EXTRANODAL SOLID ORGAN U 02/18/2016 DEVWESTLEY BELL N Ot 585.3 CHRONIC KIDNEY DISEASE, STAGE III (MODER 02/18/2016 DEVWESTLEY BELL N Ot V10.3 HX OF BREAST MALIGNANCY 02/18/2016 DEVWESTLEY N Ot V45.01 CARDIAC PACEMAKER IN SITU 02/18/2016 DEVWESTLEY N Ot V45.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 02/18/2016 DEVWESTLEY N Ot V58.69 OTH MED,LT,CURRENT USE 02/18/2016 DEVWESTLEY N Ot V87.41 PERSONAL HISTORY OF ANTINEOPLASTIC CHEMO 02/18/2016 DEVWESTLEY N Ot 202.80 OTH LYMPHOMAS EXTRANODAL SOLID ORGAN U 02/18/2016 DEVWESTLEY BELL N Ot 585.3 CHRONIC KIDNEY DISEASE, STAGE III (MODER 02/18/2016 DEVWESTLEY BELL N Ot V10.3 HX OF BREAST MALIGNANCY 02/18/2016 DEVWESTLEY N Ot V45.01 CARDIAC PACEMAKER IN SITU 02/18/2016 DEVWESTLEY N Ot V45.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 02/18/2016 DEVWESTLEY N Ot V58.69 OTH MED,LT,CURRENT USE 02/18/2016 DEVTHADDEUSAN N Ot V87.41 PERSONAL HISTORY OF ANTINEOPLASTIC CHEMO 02/18/2016 DEVWESTLEY N Ot 202.80 OTH LYMPHOMAS EXTRANODAL SOLID ORGAN U 02/18/2016 DEVWESTLEY BELL N Ot 585.3 CHRONIC KIDNEY DISEASE, STAGE III (MODER 02/18/2016 WESTLEY MÉNDEZ N Ot V10.3 HX OF BREAST MALIGNANCY 02/18/2016 WESTLEY MÉNDEZ N Ot V45.01 CARDIAC PACEMAKER IN SITU 02/18/2016 WESTLEY MÉNDEZ N Ot V45.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 02/18/2016 WESTLEY MÉNDEZ N Ot V58.69 OTH MED,LT,CURRENT USE 02/18/2016 DEVWESTLEY BELL N Ot V87.41 PERSONAL HISTORY OF ANTINEOPLASTIC CHEMO 02/18/2016 WESTLEY MÉNDEZ N Ot 202.80 OTH LYMPHOMAS EXTRANODAL SOLID ORGAN U 02/18/2016 DEVWESTLEY N Ot 202.80 OTH LYMPHOMAS EXTRANODAL SOLID ORGAN U 02/18/2016 DEV BOBPRIMO N Ot 585.3 CHRONIC KIDNEY DISEASE, STAGE III (MODER 02/18/2016 WESTLEY MÉNDEZ N Ot V10.3 HX OF BREAST MALIGNANCY 02/18/2016 WESTLEY MÉNDEZ N Ot V45.01 CARDIAC PACEMAKER IN SITU 02/18/2016 WESTLEY MÉNDEZ N Ot V45.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 02/18/2016 WESTLEY MÉNDEZ N Ot V58.69 OTH MED,LT,CURRENT USE 02/18/2016 WESTLEY MÉNDEZ N Ot V87.41 PERSONAL HISTORY OF ANTINEOPLASTIC CHEMO 02/18/2016 NAVEEN JUSTIN, ERIC [place] Ot 793.99 OTH NOSP (ABN) FINDINGS RADIOLOGICAL O 02/18/2016 NAVEEN JUSTIN, ERIC Peraza Ot V10.79 HX-LYMPHATIC MALIGN NEC 02/18/2016 DEV, WESTLEY N Ot 202.80 OTH LYMPHOMAS EXTRANODAL SOLID ORGAN U 02/18/2016 WESTLEY MÉNDEZ N Ot 585.3 CHRONIC KIDNEY DISEASE, STAGE III (MODER 02/18/2016 WESTLEY MÉNDEZ N Ot V10.3 HX OF BREAST MALIGNANCY 02/18/2016 DEVWESTLEY N Ot V45.01 CARDIAC PACEMAKER IN SITU 02/18/2016 WESTLEY MÉNDEZ N Ot V45.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 02/18/2016 WESTLEY MÉNDEZ N Ot V58.69 OTH MED,LT,CURRENT USE 02/18/2016 WESTLEY MÉNDEZ N Ot V87.41 PERSONAL HISTORY OF ANTINEOPLASTIC CHEMO 02/18/2016 THADDEUS MÉNDEZAN N Ot 202.80 OTH LYMPHOMAS EXTRANODAL SOLID ORGAN U 02/18/2016 DEVWESTLEY N Ot 244.9 HYPOTHYROIDISM NOS 02/18/2016 DEV WESTLEY N Ot 403.90 HYPTNSV CHR KID DIS, UNSPEC, W CHR KD ST 02/18/2016 DEV WESTLEY N Ot 585.3 CHRONIC KIDNEY DISEASE, STAGE III (MODER 02/18/2016 DEVWESTLEY N Ot V10.3 HX OF BREAST MALIGNANCY 02/18/2016 DEVWESTLEY N Ot V45.01 CARDIAC PACEMAKER IN SITU 02/18/2016 DEVWESTLEY N Ot V45.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 02/18/2016 WESTLEY MÉNDEZ N Ot V58.69 OTH MED,LT,CURRENT USE 02/18/2016 DEVWESTLEY N Ot V87.41 PERSONAL HISTORY OF ANTINEOPLASTIC CHEMO 02/18/2016 WESTLEY MÉNDEZ N Ot C82.90 FOLLICULAR LYMPHOMA, UNSPECIFIED, UNSPEC 02/18/2016 WESTLEY MÉNDEZ N Ot D50.9 IRON DEFICIENCY ANEMIA, UNSPECIFIED 02/18/2016 WESTLEY MÉNDEZ N Ot I48.91 UNSPECIFIED ATRIAL FIBRILLATION 02/18/2016 WESTLEY MÉNDEZ N Ot I50.9 HEART FAILURE, UNSPECIFIED 02/18/2016 WESTLEY MÉNDEZ N Ot 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 OF KNEE 02/18/2016 WESTLEY MÉNDEZ N Ot 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 02/18/2016 WESTLEY MÉNDEZ N Ot Z85.3 PERSONAL HISTORY OF MALIGNANT NEOPLASM O 02/18/2016 WESTLEY MÉNDEZ N Ot Z90.11 ACQUIRED ABSENCE OF RIGHT BREAST AND NIP 02/18/2016 WESTLEY MÉNDEZ N Ot Z92.21 PERSONAL HISTORY OF ANTINEOPLASTIC CHEMO 02/18/2016 WESTLEY MÉNDEZ N Ot 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 PACEMAKER 02/18/2016 WESTLEY MÉNDEZ N Ot C82.90 FOLLICULAR LYMPHOMA, UNSPECIFIED, UNSPEC 02/18/2016 WESTLEY MÉNDEZ N Ot D50.9 IRON DEFICIENCY ANEMIA, UNSPECIFIED 02/18/2016 WESTLEY MÉNDEZ N Ot I48.91 UNSPECIFIED ATRIAL FIBRILLATION 02/18/2016 WESTLEY MÉNDEZ N Ot I50.9 HEART FAILURE, UNSPECIFIED 02/18/2016 WESTLEY MÉNDEZ N Ot 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 OF KNEE 02/18/2016 WESTLEY MÉNDEZ N Ot 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 02/18/2016 WESTLEY MÉNDEZ N Ot Z85.3 PERSONAL HISTORY OF MALIGNANT NEOPLASM O 02/18/2016 WESTLEY MÉNDEZ N Ot Z90.11 ACQUIRED ABSENCE OF RIGHT BREAST AND NIP 02/18/2016 WESTLEY MÉNDEZ N Ot Z92.21 PERSONAL HISTORY OF ANTINEOPLASTIC CHEMO 02/18/2016 WESTLEY MÉNDEZ N Ot 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 PACEMAKER 02/18/2016 WESTLEY MÉNDEZ N Ot C82.90 FOLLICULAR LYMPHOMA, UNSPECIFIED, UNSPEC 02/18/2016 WESTLEY MÉNDEZ N Ot D50.9 IRON DEFICIENCY ANEMIA, UNSPECIFIED 02/18/2016 WESTLEY MÉNDEZ N Ot I48.91 UNSPECIFIED ATRIAL FIBRILLATION 02/18/2016 WESTLEY MÉNDEZ N Ot I50.9 HEART FAILURE, UNSPECIFIED 02/18/2016 WESTLEY MÉNDEZ N Ot 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 OF KNEE 02/18/2016 WESTLEY MÉNDEZ N Ot Z79.899 OTHER [facility] (CURRENT) DRUG THERAPY 02/18/2016 WESTLEY MÉNDEZ N Ot Z85.3 PERSONAL HISTORY OF MALIGNANT NEOPLASM O 02/18/2016 WESTLEY MÉNDEZ N Ot Z90.11 ACQUIRED ABSENCE OF RIGHT BREAST AND NIP 02/18/2016 WESTLEY MÉNDEZ N Ot Z92.21 PERSONAL HISTORY OF ANTINEOPLASTIC CHEMO 02/18/2016 WESTLEY MÉNDEZ N Ot 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 PACEMAKER 02/18/2016 WESTLEY MÉNDEZ N Ot 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, UNSP, LYM 02/18/2016 WESTLEY MÉNDEZ N Ot C82.90 FOLLICULAR LYMPHOMA, UNSPECIFIED, UNSPEC 02/18/2016 WESTLEY MÉNDEZ N Ot D50.9 IRON DEFICIENCY ANEMIA, UNSPECIFIED 02/18/2016 WESTLEY MÉNDEZ N Ot I48.91 UNSPECIFIED ATRIAL FIBRILLATION 02/18/2016 WESTLEY MÉNDEZ N Ot I50.9 HEART FAILURE, UNSPECIFIED 02/18/2016 WESTLEY MÉNDEZ N Ot 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 OF KNEE 02/18/2016 WESTLEY MÉNDEZ N Ot Z23 ENCOUNTER FOR IMMUNIZATION 02/18/2016 WESTLEY MÉNDEZ Ot Z79.899 OTHER [facility] (CURRENT) DRUG THERAPY 02/18/2016 WESTLEY MÉNDEZ Ot Z85.3 PERSONAL HISTORY OF MALIGNANT NEOPLASM O 02/18/2016 WESTLEY MÉNDEZ Ot Z90.11 ACQUIRED ABSENCE OF RIGHT BREAST AND NIP 02/18/2016 WESTLEY MÉNDEZ Ot Z92.21 PERSONAL HISTORY OF ANTINEOPLASTIC CHEMO 02/18/2016 WESTLEY MÉNDEZ Ot 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 PACEMAKER 02/21/2016 Ot 202.80 OTH LYMPHOMAS EXTRANODAL SOLID ORGAN U 02/21/2016 Ot 585.3 CHRONIC KIDNEY DISEASE, STAGE III (MODER 02/21/2016 Ot V45.01 CARDIAC PACEMAKER IN SITU 02/21/2016 Ot V58.69 OTH MED,LT,CURRENT USE 02/21/2016 Ot V87.41 PERSONAL HISTORY OF ANTINEOPLASTIC CHEMO 02/21/2016 Ot 202.80 OTH LYMPHOMAS EXTRANODAL SOLID ORGAN U 02/21/2016 Ot 585.3 CHRONIC KIDNEY DISEASE, STAGE III (MODER 02/21/2016 Ot 784.2 SWELLING IN HEAD NECK 02/21/2016 Ot V10.3 HX OF BREAST MALIGNANCY 02/21/2016 Ot V45.01 CARDIAC PACEMAKER IN SITU 02/21/2016 Ot V45.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 02/21/2016 Ot V58.69 OTH MED,LT,CURRENT USE 02/21/2016 Ot V87.41 PERSONAL HISTORY OF ANTINEOPLASTIC CHEMO 02/21/2016 Ot 202.80 OTH LYMPHOMAS EXTRANODAL SOLID ORGAN U 02/21/2016 Ot 202.80 OTH LYMPHOMAS EXTRANODAL SOLID ORGAN U 02/21/2016 Ot 311 DEPRESSIVE DISORDER NEC 02/21/2016 Ot 585.3 CHRONIC KIDNEY DISEASE, STAGE III (MODER 02/21/2016 Ot V10.3 HX OF BREAST MALIGNANCY 02/21/2016 Ot V45.01 CARDIAC PACEMAKER IN SITU 02/21/2016 Ot V45.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 02/21/2016 Ot V58.69 OTH MED,LT,CURRENT USE 02/21/2016 Ot V87.41 PERSONAL HISTORY OF ANTINEOPLASTIC CHEMO 02/21/2016 WESTLEY MÉNDEZ Ot 202.80 OTH LYMPHOMAS EXTRANODAL SOLID ORGAN U 02/21/2016 WESTLEY MÉNDEZ N Ot 585.3 CHRONIC KIDNEY DISEASE, STAGE III (MODER 02/21/2016 DEVWESTLEY BELL N Ot V10.3 HX OF BREAST MALIGNANCY 02/21/2016 DEVWESTLEY N Ot V45.01 CARDIAC PACEMAKER IN SITU 02/21/2016 DEVWESTLYE N Ot V45.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 02/21/2016 DEVWESTLEY N Ot V58.69 OTH MED,LT,CURRENT USE 02/21/2016 DEV BOBAN N Ot V87.41 PERSONAL HISTORY OF ANTINEOPLASTIC CHEMO 02/21/2016 DEV BOBAN N Ot 202.80 OTH LYMPHOMAS EXTRANODAL SOLID ORGAN U 02/21/2016 WESTLEY MÉNDEZ N Ot 585.3 CHRONIC KIDNEY DISEASE, STAGE III (MODER 02/21/2016 DEVWESTLEY BELL N Ot V10.3 HX OF BREAST MALIGNANCY 02/21/2016 DEVWESTLEY N Ot V45.01 CARDIAC PACEMAKER IN SITU 02/21/2016 DEVWESTLEY N Ot V45.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 02/21/2016 DEVWESTLEY N Ot V58.69 OTH MED,LT,CURRENT USE 02/21/2016 DEV BOBAN N Ot V87.41 PERSONAL HISTORY OF ANTINEOPLASTIC CHEMO 02/21/2016 DEVWESTLEY N Ot 202.80 OTH LYMPHOMAS EXTRANODAL SOLID ORGAN U 02/21/2016 WESTLEY MÉNDEZ N Ot 585.3 CHRONIC KIDNEY DISEASE, STAGE III (MODER 02/21/2016 DEVWESTLEY BELL N Ot V10.3 HX OF BREAST MALIGNANCY 02/21/2016 DEVWESTLEY N Ot V45.01 CARDIAC PACEMAKER IN SITU 02/21/2016 DEVWESTLEY N Ot V45.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 02/21/2016 DEVWESTLEY N Ot V58.69 OTH MED,LT,CURRENT USE 02/21/2016 DEV BOBAN N Ot V87.41 PERSONAL HISTORY OF ANTINEOPLASTIC CHEMO 02/21/2016 DEV BOBAN N Ot 202.80 OTH LYMPHOMAS EXTRANODAL SOLID ORGAN U 02/21/2016 DEV BOBAN N Ot 202.80 OTH LYMPHOMAS EXTRANODAL SOLID ORGAN U 02/21/2016 DEV BOBPRIMO N Ot 585.3 CHRONIC KIDNEY DISEASE, STAGE III (MODER 02/21/2016 DEVTHADDEUS BELLPRIMO N Ot V10.3 HX OF BREAST MALIGNANCY 02/21/2016 DEV BOBAN N Ot V45.01 CARDIAC PACEMAKER IN SITU 02/21/2016 DEV BOBAN N Ot V45.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 02/21/2016 DEVWESTLEY N Ot V58.69 OTH MED,LT,CURRENT USE 02/21/2016 DEV BOBAN N Ot V87.41 PERSONAL HISTORY OF ANTINEOPLASTIC CHEMO 02/21/2016 NAVEEN JUSTIN, ERIC Peraza Ot 793.99 OTH NOSP (ABN) FINDINGS RADIOLOGICAL O 02/21/2016 ERIC HODGE MD Ot V10.79 HX-LYMPHATIC MALIGN NEC 02/21/2016 DEV, BOBAN N Ot 202.80 OTH LYMPHOMAS EXTRANODAL SOLID ORGAN U 02/21/2016 DEV BOBAN N Ot 585.3 CHRONIC KIDNEY DISEASE, STAGE III (MODER 02/21/2016 DEVWESTLEY BELL N Ot V10.3 HX OF BREAST MALIGNANCY 02/21/2016 DEV BOBAN N Ot V45.01 CARDIAC PACEMAKER IN SITU 02/21/2016 DEV BOBAN N Ot V45.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 02/21/2016 WESTLEY MÉNDEZ N Ot V58.69 OTH MED,LT,CURRENT USE 02/21/2016 DEV BOBAN N Ot V87.41 PERSONAL HISTORY OF ANTINEOPLASTIC CHEMO 02/21/2016 DEV BOBAN N Ot 202.80 OTH LYMPHOMAS EXTRANODAL SOLID ORGAN U 02/21/2016 DEV BOBAN N Ot 244.9 HYPOTHYROIDISM NOS 02/21/2016 DEV, BOBAN N Ot 403.90 HYPTNSV CHR KID DIS, UNSPEC, W CHR KD ST 02/21/2016 DEV, BOBAN N Ot 585.3 CHRONIC KIDNEY DISEASE, STAGE III (MODER 02/21/2016 DEVTHADDEUS BELLAN N Ot V10.3 HX OF BREAST MALIGNANCY 02/21/2016 DEV BOBAN N Ot V45.01 CARDIAC PACEMAKER IN SITU 02/21/2016 DEV BOBAN N Ot V45.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 02/21/2016 WESTLEY MÉNDEZ Ot V58.69 OTH MED,LT,CURRENT USE 02/21/2016 WESTLEY MÉNDEZ N Ot V87.41 PERSONAL HISTORY OF ANTINEOPLASTIC CHEMO 02/21/2016 WESTLEY MÉNDEZ N Ot C82.90 FOLLICULAR LYMPHOMA, UNSPECIFIED, UNSPEC 02/21/2016 WESTLEY MÉNDEZ N Ot D50.9 IRON DEFICIENCY ANEMIA, UNSPECIFIED 02/21/2016 WESTLEY MÉNDEZ N Ot I48.91 UNSPECIFIED ATRIAL FIBRILLATION 02/21/2016 WESTLEY MÉNDEZ N Ot I50.9 HEART FAILURE, UNSPECIFIED 02/21/2016 DEVWESTLEY BELL N Ot 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 OF KNEE 02/21/2016 WESTLEY MÉNDEZ N Ot 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 02/21/2016 WESTLEY MÉNDEZ N Ot Z85.3 PERSONAL HISTORY OF MALIGNANT NEOPLASM O 02/21/2016 DEVWESTLEY BELL N Ot Z90.11 ACQUIRED ABSENCE OF RIGHT BREAST AND NIP 02/21/2016 DEVWESTLEY BELL N Ot Z92.21 PERSONAL HISTORY OF ANTINEOPLASTIC CHEMO 02/21/2016 WESTLEY MÉNDEZ N Ot 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 PACEMAKER 02/21/2016 WESTLEY MÉNDEZ N Ot C82.90 FOLLICULAR LYMPHOMA, UNSPECIFIED, UNSPEC 02/21/2016 WESTLEY MÉNDEZ N Ot D50.9 IRON DEFICIENCY ANEMIA, UNSPECIFIED 02/21/2016 WESTLEY MÉNDEZ N Ot I48.91 UNSPECIFIED ATRIAL FIBRILLATION 02/21/2016 WESTLEY MÉNDEZ N Ot I50.9 HEART FAILURE, UNSPECIFIED 02/21/2016 WESTLEY MÉNDEZ N Ot 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 OF KNEE 02/21/2016 WESTLEY MÉNDEZ N Ot 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 02/21/2016 DEVWESTLEY N Ot Z85.3 PERSONAL HISTORY OF MALIGNANT NEOPLASM O 02/21/2016 DEVWESTLEY N Ot Z90.11 ACQUIRED ABSENCE OF RIGHT BREAST AND NIP 02/21/2016 DEV BOBPRIMO N Ot Z92.21 PERSONAL HISTORY OF ANTINEOPLASTIC CHEMO 02/21/2016 DEVWESTLEY N Ot 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 PACEMAKER 02/21/2016 WESTLEY MÉNDEZ N Ot C82.90 FOLLICULAR LYMPHOMA, UNSPECIFIED, UNSPEC 02/21/2016 WESTLEY MÉNDEZ N Ot D50.9 IRON DEFICIENCY ANEMIA, UNSPECIFIED 02/21/2016 WESTLEY MÉNDEZ N Ot I48.91 UNSPECIFIED ATRIAL FIBRILLATION 02/21/2016 WESTLEY MÉNDEZ N Ot I50.9 HEART FAILURE, UNSPECIFIED 02/21/2016 WESTLEY MÉNDEZ N Ot 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 OF KNEE 02/21/2016 WESTLEY MÉNDEZ N Ot 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 02/21/2016 WESTLEY MÉNDEZ N Ot Z85.3 PERSONAL HISTORY OF MALIGNANT NEOPLASM O 02/21/2016 WESTLEY MÉNDEZ N Ot Z90.11 ACQUIRED ABSENCE OF RIGHT BREAST AND NIP 02/21/2016 WESTLEY MÉNDEZ N Ot Z92.21 PERSONAL HISTORY OF ANTINEOPLASTIC CHEMO 02/21/2016 WESTLEY MÉNDEZ N Ot 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 PACEMAKER 02/21/2016 WESTLEY MÉNDEZ N Ot 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, UNSP, LYM 02/21/2016 WESTLEY MÉNDEZ N Ot C82.90 FOLLICULAR LYMPHOMA, UNSPECIFIED, UNSPEC 02/21/2016 WESTLEY MÉNDEZ N Ot D50.9 IRON DEFICIENCY ANEMIA, UNSPECIFIED 02/21/2016 WESTLEY MÉNDEZ N Ot I48.91 UNSPECIFIED ATRIAL FIBRILLATION 02/21/2016 WESTLEY MÉNDEZ N Ot I50.9 HEART FAILURE, UNSPECIFIED 02/21/2016 WESTLEY MÉNDEZ N Ot 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 OF KNEE 02/21/2016 WESTLEY MÉNEDZ N Ot Z23 ENCOUNTER FOR IMMUNIZATION 02/21/2016 WESTLEY MÉNDEZ N Ot Z79.899 OTHER [facility] (CURRENT) DRUG THERAPY 02/21/2016 WESTLEY MÉNDEZ N Ot Z85.3 PERSONAL HISTORY OF MALIGNANT NEOPLASM O 02/21/2016 WESTLEY MÉNDEZ N Ot Z90.11 ACQUIRED ABSENCE OF RIGHT BREAST AND NIP 02/21/2016 WESTLEY MÉNDEZ N Ot Z92.21 PERSONAL HISTORY OF ANTINEOPLASTIC CHEMO 02/21/2016 WESTLEY MÉNDEZ N Ot 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 PACEMAKER 02/23/2016 WESTLEY MÉNDEZ N Ot C82.90 FOLLICULAR LYMPHOMA, UNSPECIFIED, UNSPEC 02/23/2016 WESTLEY MÉNDEZ N Ot D50.9 IRON DEFICIENCY ANEMIA, UNSPECIFIED 02/23/2016 WESTLEY MÉNDEZ N Ot I48.91 UNSPECIFIED ATRIAL FIBRILLATION 02/23/2016 WESTLEY MÉNDEZ Tello Ot I50.9 HEART FAILURE, UNSPECIFIED 02/23/2016 WESTLEY MÉNDEZ N Ot 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 OF KNEE 02/23/2016 WESTLEY MÉNDEZ Tello Ot Z23 ENCOUNTER FOR IMMUNIZATION 02/23/2016 WESTLEY MÉNDEZ N Ot 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 02/23/2016 WESTLEY MÉNDEZ N Ot Z85.3 PERSONAL HISTORY OF MALIGNANT NEOPLASM O 02/23/2016 WESTLEY MÉNDEZ N Ot Z90.11 ACQUIRED ABSENCE OF RIGHT BREAST AND NIP 02/23/2016 WESTLEY MÉNDEZ N Ot Z92.21 PERSONAL HISTORY OF ANTINEOPLASTIC CHEMO 02/23/2016 WESTLEY MÉNDEZ N Ot 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 PACEMAKER 02/25/2016 DEV THADDEUSPRIMO N Ot 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, UNSP, LYM 03/01/2016 DEV THADDEUSPRIMO N Ot 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, UNSP, LYM 03/16/2016 DEV THADDEUSPRIMO N Ot C82.90 FOLLICULAR LYMPHOMA, UNSPECIFIED, UNSPEC 03/16/2016 WESTLEY MÉNDEZ N Ot D50.9 IRON DEFICIENCY ANEMIA, UNSPECIFIED 03/16/2016 WESTLEY MÉNDEZ Tello Ot I48.91 UNSPECIFIED ATRIAL FIBRILLATION 03/16/2016 WESTLEY MÉNDEZ Tello Ot I50.9 HEART FAILURE, UNSPECIFIED 03/16/2016 WESTLEY MÉNDEZ Tello Ot 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 OF KNEE 03/16/2016 WESTLEY MÉNDEZ Tello Ot Z79.899 OTHER [facility] (CURRENT) DRUG THERAPY 03/16/2016 WESTLEY MÉNDEZ N Ot Z85.3 PERSONAL HISTORY OF MALIGNANT NEOPLASM O 03/16/2016 WESTLEY MÉNDEZ N Ot Z90.11 ACQUIRED ABSENCE OF RIGHT BREAST AND NIP 03/16/2016 WESTLEY MÉNDEZ N Ot Z92.21 PERSONAL HISTORY OF ANTINEOPLASTIC CHEMO 03/16/2016 WESTLEY MÉNDEZ N Ot 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 PACEMAKER 03/22/2016 DEVWESTLEY N Ot C82.90 FOLLICULAR LYMPHOMA, UNSPECIFIED, UNSPEC 03/22/2016 WESTLEY MÉNDEZ N Ot D50.9 IRON DEFICIENCY ANEMIA, UNSPECIFIED 03/22/2016 WESTLEY MÉNDEZ N Ot I48.91 UNSPECIFIED ATRIAL FIBRILLATION 03/22/2016 WESTLEY MÉNDEZ Tello Ot I50.9 HEART FAILURE, UNSPECIFIED 03/22/2016 WESTLEY MÉNDEZ N Ot 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 OF KNEE 03/22/2016 WESTLEY MÉNDEZ N Ot 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 03/22/2016 WESTLEY MÉNDEZ N Ot Z85.3 PERSONAL HISTORY OF MALIGNANT NEOPLASM O 03/22/2016 WESTLEY MÉNDEZ N Ot Z90.11 ACQUIRED ABSENCE OF RIGHT BREAST AND NIP 03/22/2016 WESTLEY MÉNDEZ N Ot Z92.21 PERSONAL HISTORY OF ANTINEOPLASTIC CHEMO 03/22/2016 DEV WESTLEY N Ot 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 PACEMAKER 04/05/2016 DEV WESTLEY Javed Ot C82.90 FOLLICULAR LYMPHOMA, UNSPECIFIED, UNSPEC 04/05/2016 DEV THADDEUSPRIMO Tello Ot D50.9 IRON DEFICIENCY ANEMIA, UNSPECIFIED 04/05/2016 DEV THADDEUSPRIMO Tello Ot I48.91 UNSPECIFIED ATRIAL FIBRILLATION 04/05/2016 DEV THADDEUSPRIMO Tello Ot I50.9 HEART FAILURE, UNSPECIFIED 04/05/2016 WESTLEY MÉNDEZ Tello Ot 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 OF KNEE 04/05/2016 WESTLEY MÉNDEZ Tello Ot Z23 ENCOUNTER FOR IMMUNIZATION 04/05/2016 WESTLEY MÉNDEZ Tello Ot Z79.899 OTHER [facility] (CURRENT) DRUG THERAPY 04/05/2016 WESTLEY MÉNDEZ Tello Ot Z85.3 PERSONAL HISTORY OF MALIGNANT NEOPLASM O 04/05/2016 DEV THADDEUSPRIMO Tello Ot Z90.11 ACQUIRED ABSENCE OF RIGHT BREAST AND NIP 04/05/2016 DEV THADDEUSPRIMO N Ot Z92.21 PERSONAL HISTORY OF ANTINEOPLASTIC CHEMO 04/05/2016 DEV WESTLEY N Ot 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 PACEMAKER 04/06/2016 DEV WESTLEY N Ot C82.90 FOLLICULAR LYMPHOMA, UNSPECIFIED, UNSPEC 04/06/2016 DEV THADDEUSPRIMO N Ot D50.9 IRON DEFICIENCY ANEMIA, UNSPECIFIED 04/06/2016 DEV WESTLEY N Ot I48.91 UNSPECIFIED ATRIAL FIBRILLATION 04/06/2016 DEV BOBAN N Ot I50.9 HEART FAILURE, UNSPECIFIED 04/06/2016 WESTLEY MÉNDEZ N Ot 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 OF KNEE 04/06/2016 WESTLEY MÉNDEZ Tello Ot Z23 ENCOUNTER FOR IMMUNIZATION 04/06/2016 WESTLEY MÉNDEZ Tello Ot Z79.899 OTHER [facility] (CURRENT) DRUG THERAPY 04/06/2016 WESTLEY MÉNDEZ N Ot Z85.3 PERSONAL HISTORY OF MALIGNANT NEOPLASM O 04/06/2016 WESTLEY MÉNDEZ N Ot Z90.11 ACQUIRED ABSENCE OF RIGHT BREAST AND NIP 04/06/2016 WESTLEY MÉNDEZ N Ot Z92.21 PERSONAL HISTORY OF ANTINEOPLASTIC CHEMO 04/06/2016 WESTLEY MÉNDEZ N Ot 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 PACEMAKER 05/31/2016 DEV WESTLEY N Ot C82.90 FOLLICULAR LYMPHOMA, UNSPECIFIED, UNSPEC 05/31/2016 DEV THADDEUSPRIMO N Ot D50.9 IRON DEFICIENCY ANEMIA, UNSPECIFIED 05/31/2016 DEVWESTLEY N Ot I48.91 UNSPECIFIED ATRIAL FIBRILLATION 05/31/2016 DEV THADDEUSPRIMO N Ot I50.9 HEART FAILURE, UNSPECIFIED 05/31/2016 WESTLEY MÉNDEZ N Ot 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 OF KNEE 05/31/2016 WESTLEY MÉNDEZ N Ot 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 05/31/2016 WESTLEY MÉNDEZ N Ot Z85.3 PERSONAL HISTORY OF MALIGNANT NEOPLASM O 05/31/2016 WESTLEY MÉNDEZ N Ot Z90.11 ACQUIRED ABSENCE OF RIGHT BREAST AND NIP 05/31/2016 WESTLEY MÉNDEZ N Ot Z92.21 PERSONAL HISTORY OF ANTINEOPLASTIC CHEMO 05/31/2016 DEV THADDEUSPRIMO N Ot 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 PACEMAKER 06/05/2016 DEV WESTLEY N Ot C82.90 FOLLICULAR LYMPHOMA, UNSPECIFIED, UNSPEC 06/05/2016 DEV WESTLEY N Ot D50.9 IRON DEFICIENCY ANEMIA, UNSPECIFIED 06/05/2016 DEVWESTLEY N Ot I48.91 UNSPECIFIED ATRIAL FIBRILLATION 06/05/2016 DEV THADDEUSPRIMO N Ot I50.9 HEART FAILURE, UNSPECIFIED 06/05/2016 DEV THADDEUSPRIMO N Ot 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 OF KNEE 06/05/2016 DEV THADDEUSPRIMO N Ot 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 06/05/2016 WESTLEY MÉNDEZ N Ot Z85.3 PERSONAL HISTORY OF MALIGNANT NEOPLASM O 06/05/2016 WESTLEY MÉNDEZ N Ot Z90.11 ACQUIRED ABSENCE OF RIGHT BREAST AND NIP 06/05/2016 WESTLEY MÉNDEZ N Ot Z92.21 PERSONAL HISTORY OF ANTINEOPLASTIC CHEMO 06/05/2016 WESTLEY MÉNDEZ N Ot 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 PACEMAKER 06/20/2016 WESTLEY MÉNDEZ N Ot C82.90 FOLLICULAR LYMPHOMA, UNSPECIFIED, UNSPEC 06/20/2016 WESTLEY MÉNDEZ N Ot D50.9 IRON DEFICIENCY ANEMIA, UNSPECIFIED 06/20/2016 DEVWESTLEY BELL N Ot I48.91 UNSPECIFIED ATRIAL FIBRILLATION 06/20/2016 WESTLEY MÉNDEZ N Ot I50.9 HEART FAILURE, UNSPECIFIED 06/20/2016 WESTLEY MÉNDEZ N Ot 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 OF KNEE 06/20/2016 WESTLEY MÉNDEZ N Ot Z79.899 OTHER [facility] (CURRENT) DRUG THERAPY 06/20/2016 WESTLEY MÉNDEZ N Ot Z85.3 PERSONAL HISTORY OF MALIGNANT NEOPLASM O 06/20/2016 WESTLEY MÉNDEZ N Ot Z90.11 ACQUIRED ABSENCE OF RIGHT BREAST AND NIP 06/20/2016 WESTLYE MÉNDEZ N Ot Z92.21 PERSONAL HISTORY OF ANTINEOPLASTIC CHEMO 06/20/2016 WESTLEY MÉNDEZ N Ot 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 PACEMAKER 06/30/2016 WESTLEY MÉNDEZ N Ot C82.90 FOLLICULAR LYMPHOMA, UNSPECIFIED, UNSPEC 06/30/2016 WESTLEY MÉNDEZ N Ot D50.9 IRON DEFICIENCY ANEMIA, UNSPECIFIED 06/30/2016 DEVWESTLEY N Ot I48.91 UNSPECIFIED ATRIAL FIBRILLATION 06/30/2016 DEVWESTLEY N Ot I50.9 HEART FAILURE, UNSPECIFIED 06/30/2016 DEVWESTLEY N Ot 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 OF KNEE 06/30/2016 WESTLEY MÉNDEZ N Ot Z79.899 OTHER [facility] (CURRENT) DRUG THERAPY 06/30/2016 WESTLEY MÉNDEZ N Ot Z85.3 PERSONAL HISTORY OF MALIGNANT NEOPLASM O 06/30/2016 DEVWESTLEY N Ot Z90.11 ACQUIRED ABSENCE OF RIGHT BREAST AND NIP 06/30/2016 WESTLEY MÉNDEZ N Ot Z92.21 PERSONAL HISTORY OF ANTINEOPLASTIC CHEMO 06/30/2016 WESLTEY MÉNDEZ N Ot 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 PACEMAKER 12/08/2016 WESTLEY MÉNDEZ N Ot 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, UNSP, LYM 12/08/2016 WESTLEY MÉNDEZ N Ot D50.9 IRON DEFICIENCY ANEMIA, UNSPECIFIED 12/08/2016 WESTLEY MÉNDEZ N Ot I48.91 UNSPECIFIED ATRIAL FIBRILLATION 12/08/2016 WESTLEY MÉNDEZ N Ot I50.9 HEART FAILURE, UNSPECIFIED 12/08/2016 WESTLEY MÉNDEZ N Ot 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 OF KNEE 12/08/2016 WESTLEY MÉNDEZ N Ot Z79.899 OTHER [facility] (CURRENT) DRUG THERAPY 12/08/2016 WESTLEY MÉNDEZ N Ot Z85.3 PERSONAL HISTORY OF MALIGNANT NEOPLASM O 12/08/2016 WESTLEY MÉNDEZ N Ot Z90.11 ACQUIRED ABSENCE OF RIGHT BREAST AND NIP 12/08/2016 WESTLEY MÉNDEZ N Ot Z92.21 PERSONAL HISTORY OF ANTINEOPLASTIC CHEMO 12/08/2016 WESTLEY MÉNDEZ N Ot 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 PACEMAKER 12/13/2016 WESTLEY MÉNDEZ N Ot 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, UNSP, LYM 12/13/2016 WESTLEY MÉNDEZ N Ot D50.9 IRON DEFICIENCY ANEMIA, UNSPECIFIED 12/13/2016 WESTLEY MÉNDEZ N Ot I48.91 UNSPECIFIED ATRIAL FIBRILLATION 12/13/2016 WESTLEY MÉNDEZ N Ot I50.9 HEART FAILURE, UNSPECIFIED 12/13/2016 WESTLEY MÉNDEZ N Ot 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 OF KNEE 12/13/2016 WESTLEY MÉNDEZ N Ot Z79.899 OTHER [facility] (CURRENT) DRUG THERAPY 12/13/2016 WESTLEY MÉNDEZ N Ot Z85.3 PERSONAL HISTORY OF MALIGNANT NEOPLASM O 12/13/2016 WESTLEY MÉNDEZ N Ot Z90.11 ACQUIRED ABSENCE OF RIGHT BREAST AND NIP 12/13/2016 WESTLEY MÉNDEZ N Ot Z92.21 PERSONAL HISTORY OF ANTINEOPLASTIC CHEMO 12/13/2016 WESTLEY MÉNDEZ N Ot 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 PACEMAKER 12/25/2016 WESTLEY MÉNDEZ N Ot 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, UNSP, LYM 12/25/2016 WESTLEY MÉNDEZ N Ot D50.9 IRON DEFICIENCY ANEMIA, UNSPECIFIED 12/25/2016 WESTLEY MÉNDEZ N Ot I48.91 UNSPECIFIED ATRIAL FIBRILLATION 12/25/2016 WESTLEY MÉNDEZ N Ot I50.9 HEART FAILURE, UNSPECIFIED 12/25/2016 WESTLEY MÉNDEZ N Ot 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 OF KNEE 12/25/2016 WESTLEY MÉNDEZ N Ot 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 12/25/2016 WESTLEY MÉNDEZ N Ot Z85.3 PERSONAL HISTORY OF MALIGNANT NEOPLASM O 12/25/2016 WESTLEY MÉNDEZ N Ot Z90.11 ACQUIRED ABSENCE OF RIGHT BREAST AND NIP 12/25/2016 WESTLEY MÉNDEZ N Ot Z92.21 PERSONAL HISTORY OF ANTINEOPLASTIC CHEMO 12/25/2016 WESTLEY MÉNDEZ N Ot 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 PACEMAKER 01/23/2017 WESTLEY MÉNDEZ N Ot 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, UNSP, LYM 01/23/2017 WESTLEY MÉNDEZ N Ot D50.9 IRON DEFICIENCY ANEMIA, UNSPECIFIED 01/23/2017 WESTLEY MÉNDEZ N Ot I48.91 UNSPECIFIED ATRIAL FIBRILLATION 01/23/2017 WESTLEY MÉNDEZ N Ot I50.9 HEART FAILURE, UNSPECIFIED 01/23/2017 WESTLEY MÉNDEZ N Ot 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 OF KNEE 01/23/2017 WESTLEY MÉNDEZ N Ot Z79.899 OTHER [facility] (CURRENT) DRUG THERAPY 01/23/2017 WESTLEY MÉNDEZ N Ot Z85.3 PERSONAL HISTORY OF MALIGNANT NEOPLASM O 01/23/2017 WESTLEY MÉNDEZ N Ot Z90.11 ACQUIRED ABSENCE OF RIGHT BREAST AND NIP 01/23/2017 WESTLEY MÉNDEZ N Ot Z92.21 PERSONAL HISTORY OF ANTINEOPLASTIC CHEMO 01/23/2017 WESTLEY MÉNDEZ N Ot 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 PACEMAKER Procedures Results Encounters ACCT No. Visit Date/Time Discharge Status Pt. Type Provider Facility Loc./Unit Complaint [id number] 02/02/2017 10:02:00 2016 23:59:59 CLS Outpatient WETSLEY MÉNDEZ Tello [facility] [id number] 11/14/2016 13:49:00 2016 23:59:59 CLS Outpatient WESTLEY MÉNDEZ N [facility] FS [id number] 05/30/2016 11:06:00 2016 23:59:59 CLS Outpatient DEVWESTLEY BELL N [facility] FS [id number] 01/14/2016 10:55:00 2016 00:01:00 DIS Outpatient DEVWESTLEY BELL N [facility] ONC [id number] 02/22/2016 13:22:00 2015 23:59:59 CLS Outpatient WESTLEY MÉNDEZ N [facility] FS [id number] 01/11/2016 08:30:00 2015 23:59:59 CLS Outpatient DEVWESTLEY BELL N [facility] RAD LYMPHOMA [id number] 12/14/2015 12:23:00 2015 16:25:00 DIS Outpatient WESTLEY MÉNDEZ N [facility] ONC [id number] 12/28/2015 10:48:00 2015 23:59:59 CLS Outpatient WESTLEY MÉNDEZ N [facility] FS [id number] 04/23/2015 10:03:00 2015 00:01:00 DIS Outpatient WESTLEY MÉNDEZ N [facility] ONC [id number] 06/29/2015 10:53:00 2015 23:59:59 CLS Outpatient DEVWESTLEY BELL N [facility] FS [id number] 03/23/2015 13:46:00 2015 23:59:59 CLS Outpatient DEVWESTLEY BELL N [facility] FS [id number] 09/15/2014 10:07:00 2014 23:59:59 CLS Outpatient DEVWESTLEY BELL N [facility] FS [id number] 02/17/2014 10:25:00 2013 23:59:59 CLS Outpatient DEVWESTLEY N [facility] FS [id number] 10/01/2013 09:34:00 2013 09:30:00 DIS Outpatient ERIC HODGE MD [facility] SDC POSSIBLE LYMPHOMA [id number] 09/23/2013 10:06:00 2013 23:59:59 CLS Outpatient ERIC HODGE MD [facility] RAD HX OF CA, ABNORMAL AREA LFT TONSIL [id number] 09/09/2013 13:53:00 2013 23:59:59 CLS Outpatient WESTLEY MÉNDEZ [facility] FS [id number] 09/02/2013 08:50:00 2013 23:59:59 CLS Outpatient WESTLEY MÉNDEZ [facility] RAD LYMPHOMA [id number] 08/26/2013 10:59:00 2013 23:59:59 CLS Outpatient WESTLEY MÉNDEZ N [facility] FS [id number] 02/25/2013 12:38:00 2012 23:59:59 CLS Outpatient WESTLEY MÉNDEZ [facility] FS [id number] 08/27/2012 12:45:00 2012 23:59:59 CLS Outpatient WESTLEY MÉNDEZ [facility] FS [id number] 02/13/2012 11:05:00 Document Registration [id number] 09/07/2011 07:48:00 Document Registration [id number] 08/29/2011 13:07:00 Document Registration [id number] 02/21/2011 13:41:00 Document Registration [id number] 08/30/2010 13:58:00 Document Registration
[2017-02-10 16:06] LABS: BILIRUBIN,URINE NEGATIVE (NEGATIVE); KETONES,URINE NEGATIVE (NEGATIVE); LEUKOCYTE ESTERASE ,URINE NEGATIVE (NEGATIVE); NITRITE,URINE NEGATIVE (NEGATIVE); PH,URINE 7 (5-9); PROTEIN,URINE NEGATIVE (NEGATIVE); UROBILINOGEN,URINE NORMAL (NORMAL)
[2017-02-10 16:19] LABS: BASOPHILS # (AUTO) 0.1 10^3/uL (0.0-0.1); BASOPHILS % (AUTO) 1 % (0-10); EOSINOPHILS # (AUTO) 0.5 10^3/uL (0.0-0.3); EOSINOPHILS % (AUTO) 5 % (0-10); LYMPHOCYTES # (AUTO) 1.4 X 10^3 (1.0-4.0); LYMPHOCYTES % (AUTO) 14 % (12-44); MEAN CORPUSCULAR HEMOGLOBIN 26 PG (25-34); MEAN CORPUSCULAR HGB CONC 31 G/DL (32-36); MEAN CORPUSCULAR VOLUME 83 FL (80-99); MEAN PLATELET VOLUME 9.1 FL (7.4-10.4); MONOCYTES % (AUTO) 10 % (0-12); NEUTROPHILS # (AUTO) 6.8 X 10^3 (1.8-7.8); NEUTROPHILS % (AUTO) 70 % (42-75); PLATELET COUNT 624 10^3/uL (130-400); RED BLOOD COUNT 3.42 10^6/uL (4.35-5.85); WHITE BLOOD COUNT 9.6 10^3/uL (4.3-11.0)
[2017-02-10 16:19] LABS: SQUAMOUS EPITHELIAL CELL,UR 0-2 /HPF
[2017-02-10 16:37] LABS: ALBUMIN 3.4 GM/DL (3.2-4.5); BILIRUBIN,TOTAL 0.4 MG/DL (0.1-1.0); CREATININE SERUM 0.95 MG/DL (0.60-1.30); POTASSIUM 4.4 MMOL/L (3.6-5.0); TOTAL PROTEIN 6.6 GM/DL (6.4-8.2)
--- NOTE | 2017-02-10 17:31 | ED GU-Female ---
General Chief Complaint: -Female Stated Complaint: FREQ URINATION,WEAKNESS Nursing Triage Note: c/o generalized weakness x 2 weeks but worse today. Urinary frequency reported. Hx of leukemia. Nursing Sepsis Screen: No Definite Risk Source: patient, family (daughter) Exam Limitations: no limitations History of Present Illness Time seen by provider: 16:57 Initial Comments Patient presents to ER by private conveyance with her daughter and a chief complaint that for a few days now she's had frequency of urine as well as foul- smelling urine. She denies any discharge, fevers, chills, sweats, diarrhea or shortness of breath. She does have a long-standing history of breast cancer followed by non-Hodgkin's lymphoma followed most recently by an package dyer anemia of chronic disease and she is on Aranesp with Dr. Diaz, oncology. Most recently her hemoglobin was 8.9 last week. She says she gets dizzy which she describes as feeling like she could vomit and she has Zofran, meclizine, Ativan to treat this dizziness at home. She says these treatments are fairly effective. She is worried that she has a urinary tract infection. Allergies and Home Medications Allergies Coded Allergies: morphine (Unverified Allergy, Mild, 10/01/13) Home Medications Bisoprolol Fumarate 5 Mg Tablet, 5 MG PO DAILY, (Reported) Furosemide 20 Mg Tablet, 20 MG PO DAILY, (Reported) Hydrocodone Bit/Acetaminophen 1 Each Tablet, 1-2 TAB PO Q4H PRN for PAIN, #40 Prescribed by: SUZIE BEYER on 10/01/13 1450 Levothyroxine Sodium 25 Mcg Tablet, 1 EACH PO DAILY, #0 Prescribed by: SUZIE BEYER on 10/01/13 1040 Multivitamins 1 Tab Tablet, 1 TAB PO DAILY, (Reported) Omeprazole 20 Mg Capsule.dr, 20 MG PO DAILY, (Reported) Paroxetine Hcl 10 Mg Tablet, 10 MG PO DAILY, (Reported) [Viscous Lidocaine 2%] , 1 TSP PO PRN, #8 Prescribed by: SUZIE BEYER on 10/01/13 1450 Constitutional: No chills, No diaphoresis EENTM: No hearing loss, No ear pain Respiratory: No cough, No short of breath Cardiovascular: No chest pain, No palpitations Gastrointestinal: No abdominal pain, No constipation, No diarrhea, No loss of appetite Genitourinary: denies burning, denies discharge, denies dysuria, frequency, denies flank pain, denies hematuria, denies pain, other (malodorous urine) Musculoskeletal: No back pain, No joint pain Skin: No pruritus, No rash Past Gpguiaj-Oqudms-Gkipvq Hx Patient Social History Alcohol Use: Denies Use Recreational Drug Use: No Smoking Status: Never a Smoker Recent Foreign Travel: No Contact w/Someone Who Travel: No Recent Infectious Disease Expo: No Surgeries History of Surgeries: Yes Respiratory History of Respiratory Disorde: No Cardiovascular History of Cardiac Disorders: Yes (HAS PACEMAKER) Neurological History of Neurological Disord: No Reproductive System Hx Reproductive Disorders: No Musculoskeletal History of Musculoskeletal Dis: Yes (BAD KNEES USES CANE) Integumentary History of Skin or Integumenta: No Physical Exam Vital Signs Vital Sign - Last 12Hours 02/10/17 16:21 Temp 98.5 Pulse 62 B/P (MAP) 115/64 O2 Delivery Room Air Capillary Refill : Less Than 3 Seconds General Appearance: WD/WN, no apparent distress HEENT: PERRL/EOMI, pharynx normal Cardiovascular: normal peripheral pulses, no JVD Respiratory: no respiratory distress, no accessory muscle use Gastrointestinal: normal bowel sounds, non tender, soft, no organomegaly Extremities: non-tender, no calf tenderness, normal capillary refill Neurologic/Psychiatric: alert, normal mood/affect, oriented x 3 Skin: normal color, warm/dry Progress/Results/Core Measures Suspected Sepsis Recent Fever Within 48 Hours: No Infection Criteria Present: None New/Unexplained Altered Menta: No Sepsis Screen: No Definite Risk Sepsis Diagnosis: SIRS Temperature:98.5 Pulse: 62 Respiratory Rate: Laboratory Tests 02/10/17 16:10: White Blood Count 9.6 Blood Pressure 115 /64 Mean: 81 Laboratory Tests 02/10/17 16:10: Creatinine 0.95, Platelet Count 624H, Total Bilirubin 0.4 Results/Orders Lab Results Laboratory Tests Test 02/10/17 15:50 02/10/17 16:10 Range/Units Urine Color YELLOW Urine Clarity CLEAR Urine pH 7 5-9 Urine Specific [place] 1.005 L 1.016-1.022 Urine Protein NEGATIVE NEGATIVE Urine Glucose (UA) NEGATIVE NEGATIVE Urine Ketones NEGATIVE NEGATIVE Urine Nitrite NEGATIVE NEGATIVE Urine Bilirubin NEGATIVE NEGATIVE Urine Urobilinogen NORMAL NORMAL MG/DL Urine Leukocyte Esterase NEGATIVE NEGATIVE Urine RBC (Auto) NEGATIVE NEGATIVE Urine RBC NONE /HPF Urine WBC NONE /HPF Urine Squamous Epithelial Cells 0-2 /HPF Urine Crystals NONE /LPF Urine Bacteria NONE /HPF Urine Casts NONE /LPF Urine Mucus NEGATIVE /LPF Urine Culture Indicated NO White Blood Count 9.6 4.3-11.0 10^3/uL Red Blood Count 3.42 L 4.35-5.85 10^6/uL Hemoglobin 8.8 L 11.5-16.0 G/DL Hematocrit 29 L 35-52 % Mean Corpuscular Volume 83 80-99 FL Mean Corpuscular Hemoglobin 26 25-34 PG Mean Corpuscular Hemoglobin Concent 31 L 32-36 G/DL Red Cell Distribution Width 14.0 10.0-14.5 % Platelet Count 624 H 130-400 10^3/uL Mean Platelet Volume 9.1 7.4-10.4 FL Neutrophils (%) (Auto) 70 42-75 % Lymphocytes (%) (Auto) 14 12-44 % Monocytes (%) (Auto) 10 0-12 % Eosinophils (%) (Auto) 5 0-10 % Basophils (%) (Auto) 1 0-10 % Neutrophils # (Auto) 6.8 1.8-7.8 X 10^3 Lymphocytes # (Auto) 1.4 1.0-4.0 X 10^3 Monocytes # (Auto) 1.0 0.0-1.0 X 10^3 Eosinophils # (Auto) 0.5 H 0.0-0.3 10^3/uL Basophils # (Auto) 0.1 0.0-0.1 10^3/uL Sodium Level 138 135-145 MMOL/L Potassium Level 4.4 3.6-5.0 MMOL/L Chloride Level 101 98-107 MMOL/L Carbon Dioxide Level 27 21-32 MMOL/L Anion Gap 10 5-14 MMOL/L Blood Urea Nitrogen 17 7-18 MG/DL Creatinine 0.95 0.60-1.30 MG/DL Estimat Glomerular Filtration Rate 57 BUN/Creatinine Ratio 18 Glucose Level 147 H 70-105 MG/DL Calcium Level 9.0 8.5-10.1 MG/DL Total Bilirubin 0.4 0.1-1.0 MG/DL Aspartate Amino Transf (AST/SGOT) 10 5-34 U/L Alanine Aminotransferase (ALT/SGPT) 7 0-55 U/L Alkaline Phosphatase 76 40-136 U/L Total Protein 6.6 6.4-8.2 GM/DL Albumin 3.4 3.2-4.5 GM/DL My Orders Orders - KEITH PARKS Cbc With Automated Diff (02/10/17 15:50) Comprehensive Metabolic Panel (02/10/17 15:50) Ua Culture If Indicated (02/10/17 15:53) Vital Signs/I&O Vital Sign - Last 12Hours 02/10/17 16:21 Temp 98.5 Pulse 62 B/P (MAP) 115/64 O2 Delivery Room Air Capillary Refill : Less Than 3 Seconds Blood Pressure Mean: 81 Progress Note : Time: 17:28 Progress Note Urinalysis looks benign however we'll go ahead and order a culture. She may also be experiencing urethritis. I encourage her to drink plenty fluids. NSAIDs are not applicable to her late stage kidney disease. She has follow-up in a few days with Dr. Diaz. Her hemoglobin is stable from before at 0.8. White count not elevated. Departure Impression Impression: Primary Impression: Urinary frequency Disposition: 01 HOME, SELF-CARE Condition: Stable Departure-Patient Inst. Decision time for Depature: 17:30 Referrals: MAX MANUEL MD (PCP/Family) Primary Care Physician Patient Instructions: Urinary Obstruction (DC) Add. Discharge Instructions: Please follow up with your primary care physician as needed. Return to the ER if you experience fevers, nausea and vomiting which cannot be controlled with your medicines or shortness of breath/chest pain. Drink plenty of fluids. We will culture her urine and if it grows out any bacteria we will call you out some antibiotics. All discharge instructions reviewed with patient and/or family. Voiced understanding. KEITH PARKS Feb 10, 2017 17:31
[2017-02-10 17:52] VITALS: BP 123/66
== END 2017-02-10 17:52 | disposition home or self-care (01) ==
LOC: EDUNIT# 15:14 → ER 15:16
DX: R35.0 Frequency of micturition (principal); C85.80 Other specified types of non-Hodgkin lymphoma, unspecified site; Z85.3 Personal history of malignant neoplasm of breast; Z87.440 Personal history of urinary (tract) infections; Z95.0 Presence of cardiac pacemaker
CPT/HCPCS: 36415; 80053; 81000; 85025; 99282

== ENCOUNTER 2017-03-16 10:55 | Outpatient (RCR) | payer MEDICARE ==
[2017-01-05 14:36] LABS: BASOPHILS # (AUTO) 0.1 10^3/uL (0.0-0.1); BASOPHILS % (AUTO) 1 % (0-10); EOSINOPHILS # (AUTO) 0.4 10^3/uL (0.0-0.3); EOSINOPHILS % (AUTO) 3 % (0-10); HEMATOCRIT 30 % (35-52); HEMOGLOBIN 9.2 G/DL (11.5-16.0); LYMPHOCYTES # (AUTO) 1.5 X 10^3 (1.0-4.0); LYMPHOCYTES % (AUTO) 11 % (12-44); MEAN CORPUSCULAR HEMOGLOBIN 26 PG (25-34); MEAN CORPUSCULAR HGB CONC 31 G/DL (32-36); MEAN CORPUSCULAR VOLUME 85 FL (80-99); MEAN PLATELET VOLUME 9.1 FL (7.4-10.4); MONOCYTES # (AUTO) 1.6 X 10^3 (0.0-1.0); MONOCYTES % (AUTO) 12 % (0-12); NEUTROPHILS # (AUTO) 9.7 X 10^3 (1.8-7.8); NEUTROPHILS % (AUTO) 73 % (42-75); PLATELET COUNT 607 10^3/uL (130-400); RED BLOOD COUNT 3.48 10^6/uL (4.35-5.85); RED CELL DISTRIBUTION WIDTH 14.1 % (10.0-14.5); WHITE BLOOD COUNT 13.2 10^3/uL (4.3-11.0)
[2017-01-18 11:28] LABS: BASOPHILS # (AUTO) 0.1 10^3/uL (0.0-0.1); BASOPHILS % (AUTO) 1 % (0-10); EOSINOPHILS # (AUTO) 0.3 10^3/uL (0.0-0.3); EOSINOPHILS % (AUTO) 3 % (0-10); HEMATOCRIT 28 % (35-52); HEMOGLOBIN 8.8 G/DL (11.5-16.0); LYMPHOCYTES # (AUTO) 0.9 X 10^3 (1.0-4.0); LYMPHOCYTES % (AUTO) 8 % (12-44); MEAN CORPUSCULAR HEMOGLOBIN 27 PG (25-34); MEAN CORPUSCULAR HGB CONC 31 G/DL (32-36); MEAN CORPUSCULAR VOLUME 86 FL (80-99); MEAN PLATELET VOLUME 8.9 FL (7.4-10.4); MONOCYTES # (AUTO) 1.4 X 10^3 (0.0-1.0); MONOCYTES % (AUTO) 12 % (0-12); NEUTROPHILS # (AUTO) 8.3 X 10^3 (1.8-7.8); NEUTROPHILS % (AUTO) 76 % (42-75); PLATELET COUNT 568 10^3/uL (130-400); RED BLOOD COUNT 3.32 10^6/uL (4.35-5.85); RED CELL DISTRIBUTION WIDTH 13.8 % (10.0-14.5); WHITE BLOOD COUNT 10.9 10^3/uL (4.3-11.0)
[2017-02-02 10:22] LABS: BASOPHILS # (AUTO) 0.1 10^3/uL (0.0-0.1); BASOPHILS % (AUTO) 1 % (0-10); EOSINOPHILS # (AUTO) 0.4 10^3/uL (0.0-0.3); EOSINOPHILS % (AUTO) 3 % (0-10); HEMATOCRIT 29 % (35-52); HEMOGLOBIN 8.9 G/DL (11.5-16.0); LYMPHOCYTES % (AUTO) 8 % (12-44); MEAN CORPUSCULAR HEMOGLOBIN 26 PG (25-34); MEAN CORPUSCULAR HGB CONC 31 G/DL (32-36); MEAN CORPUSCULAR VOLUME 84 FL (80-99); MEAN PLATELET VOLUME 8.9 FL (7.4-10.4); MONOCYTES # (AUTO) 1.6 X 10^3 (0.0-1.0); MONOCYTES % (AUTO) 13 % (0-12); NEUTROPHILS # (AUTO) 9.2 X 10^3 (1.8-7.8); NEUTROPHILS % (AUTO) 75 % (42-75); PLATELET COUNT 627 10^3/uL (130-400); RED CELL DISTRIBUTION WIDTH 13.8 % (10.0-14.5); WHITE BLOOD COUNT 12.2 10^3/uL (4.3-11.0)
[2017-02-15 12:00] LABS: ABSOLUTE RETIC # 32 10e9/L (24-90); BASOPHILS # (AUTO) 0.1 10^3/uL (0.0-0.1); BASOPHILS % (AUTO) 1 % (0-10); EOSINOPHILS # (AUTO) 0.4 10^3/uL (0.0-0.3); EOSINOPHILS % (AUTO) 3 % (0-10); HEMATOCRIT 30 % (35-52); HEMOGLOBIN 9.1 G/DL (11.5-16.0); LYMPHOCYTES % (AUTO) 9 % (12-44); MEAN CORPUSCULAR HEMOGLOBIN 25 PG (25-34); MEAN CORPUSCULAR HGB CONC 31 G/DL (32-36); MEAN CORPUSCULAR VOLUME 83 FL (80-99); MONOCYTES # (AUTO) 1.2 X 10^3 (0.0-1.0); MONOCYTES % (AUTO) 10 % (0-12); NEUTROPHILS # (AUTO) 9.3 X 10^3 (1.8-7.8); NEUTROPHILS % (AUTO) 77 % (42-75); PLATELET COUNT 613 10^3/uL (130-400); RED BLOOD COUNT 3.58 10^6/uL (4.35-5.85); RETICULOCYTE % 0.88 % (0.50-2.40)
[2017-03-01 14:50] LABS: BASOPHILS # (AUTO) 0.1 10^3/uL (0.0-0.1); BASOPHILS % (AUTO) 1 % (0-10); EOSINOPHILS # (AUTO) 0.5 10^3/uL (0.0-0.3); EOSINOPHILS % (AUTO) 5 % (0-10); HEMATOCRIT 29 % (35-52); HEMOGLOBIN 8.8 G/DL (11.5-16.0); LYMPHOCYTES # (AUTO) 1.3 X 10^3 (1.0-4.0); LYMPHOCYTES % (AUTO) 12 % (12-44); MEAN CORPUSCULAR HEMOGLOBIN 25 PG (25-34); MEAN CORPUSCULAR HGB CONC 31 G/DL (32-36); MEAN CORPUSCULAR VOLUME 82 FL (80-99); MEAN PLATELET VOLUME 9.2 FL (7.4-10.4); MONOCYTES # (AUTO) 1.2 X 10^3 (0.0-1.0); MONOCYTES % (AUTO) 11 % (0-12); NEUTROPHILS # (AUTO) 7.4 X 10^3 (1.8-7.8); NEUTROPHILS % (AUTO) 71 % (42-75); PLATELET COUNT 597 10^3/uL (130-400); RED BLOOD COUNT 3.48 10^6/uL (4.35-5.85); RED CELL DISTRIBUTION WIDTH 14.5 % (10.0-14.5); WHITE BLOOD COUNT 10.5 10^3/uL (4.3-11.0)
[2017-03-01 15:07] LABS: ALANINE AMINOTRANSFERASE < 6 U/L (0-55); ALBUMIN 3.5 GM/DL (3.2-4.5); ALKALINE PHOSPHATASE 84 U/L (40-136); BILIRUBIN,TOTAL 0.3 MG/DL (0.1-1.0); BUN/CREATININE RATIO 17; CALCIUM 8.8 MG/DL (8.5-10.1); CARBON DIOXIDE 30 MMOL/L (21-32); CHLORIDE 100 MMOL/L (98-107); CREATININE SERUM 0.99 MG/DL (0.60-1.30); GFR ESTIMATED 54; GLUCOSE 99 MG/DL (70-105); POTASSIUM 4.8 MMOL/L (3.6-5.0); SODIUM 138 MMOL/L (135-145); TOTAL PROTEIN 6.7 GM/DL (6.4-8.2)
[~2017-03-16 10:55] MED LIST changes: +DARBEPOETIN 10 MCG/0.4 ML ARANESP IJ SCH
[2017-03-16 11:45] LABS: BASOPHILS # (AUTO) 0.1 10^3/uL (0.0-0.1); BASOPHILS % (AUTO) 1 % (0-10); EOSINOPHILS # (AUTO) 0.4 10^3/uL (0.0-0.3); EOSINOPHILS % (AUTO) 4 % (0-10); HEMATOCRIT 27 % (35-52); HEMOGLOBIN 8.1 G/DL (11.5-16.0); LYMPHOCYTES # (AUTO) 0.8 X 10^3 (1.0-4.0); LYMPHOCYTES % (AUTO) 8 % (12-44); MEAN CORPUSCULAR HEMOGLOBIN 25 PG (25-34); MEAN CORPUSCULAR HGB CONC 30 G/DL (32-36); MEAN CORPUSCULAR VOLUME 82 FL (80-99); MONOCYTES # (AUTO) 1.4 X 10^3 (0.0-1.0); MONOCYTES % (AUTO) 13 % (0-12); NEUTROPHILS # (AUTO) 8.3 X 10^3 (1.8-7.8); NEUTROPHILS % (AUTO) 76 % (42-75); PLATELET COUNT 615 10^3/uL (130-400); RED BLOOD COUNT 3.29 10^6/uL (4.35-5.85); RED CELL DISTRIBUTION WIDTH 14.8 % (10.0-14.5)
[2017-03-16] MEDS ORDERED: DARBEPOETIN 25 MCG/ML (CANCER CTR) 1 ML VIAL SC SCH (12:15)
== END 2017-03-22 | disposition home or self-care (01) ==
LOC: ONC 10:55
PROVIDERS: ATTEND Internal Medicine Hematology & Oncology
DX: C82.28 Follicular lymphoma grade III, unspecified, lymph nodes of multiple sites (principal); Z85.3 Personal history of malignant neoplasm of breast; D63.1 Anemia in chronic kidney disease; N18.3 Chronic kidney disease, stage 3 (moderate); D50.9 Iron deficiency anemia, unspecified; I48.91 Unspecified atrial fibrillation; I50.9 Heart failure, unspecified; M17.0 Bilateral primary osteoarthritis of knee; Z95.0 Presence of cardiac pacemaker; Z90.11 Acquired absence of right breast and nipple; Z79.899 Other long term (current) drug therapy; Z92.21 Personal history of antineoplastic chemotherapy
CPT/HCPCS: 36415; 80053; 82728; 83615; 85025; 85045; 96372

== ENCOUNTER 2017-03-29 09:57 | Outpatient (RCR) | payer MEDICARE ==
[~2017-03-29 09:57] MED LIST changes: -DARBEPOETIN 10 MCG/0.4 ML ARANESP IJ SCH
[2017-03-29 10:38] LABS: BASOPHILS # (AUTO) 0.1 10^3/uL (0.0-0.1); BASOPHILS % (AUTO) 1 % (0-10); EOSINOPHILS # (AUTO) 0.4 10^3/uL (0.0-0.3); EOSINOPHILS % (AUTO) 4 % (0-10); HEMATOCRIT 28 % (35-52); HEMOGLOBIN 8.5 G/DL (11.5-16.0); LYMPHOCYTES # (AUTO) 0.8 X 10^3 (1.0-4.0); LYMPHOCYTES % (AUTO) 7 % (12-44); MEAN CORPUSCULAR HEMOGLOBIN 24 PG (25-34); MEAN CORPUSCULAR HGB CONC 30 G/DL (32-36); MEAN CORPUSCULAR VOLUME 80 FL (80-99); MEAN PLATELET VOLUME 9.1 FL (7.4-10.4); MONOCYTES # (AUTO) 1.6 X 10^3 (0.0-1.0); MONOCYTES % (AUTO) 14 % (0-12); NEUTROPHILS # (AUTO) 8.4 X 10^3 (1.8-7.8); NEUTROPHILS % (AUTO) 75 % (42-75); PLATELET COUNT 647 10^3/uL (130-400); RED BLOOD COUNT 3.53 10^6/uL (4.35-5.85); RED CELL DISTRIBUTION WIDTH 14.9 % (10.0-14.5); WHITE BLOOD COUNT 11.2 10^3/uL (4.3-11.0)
[2017-03-29] MEDS ORDERED: DARBEPOETIN 25 MCG/ML (CANCER CTR) 1 ML VIAL SC SCH (10:45)
== END 2017-04-12 12:14 | disposition home or self-care (01) ==
LOC: ONC 09:57
PROVIDERS: ATTEND Internal Medicine Hematology & Oncology
DX: C82.28 Follicular lymphoma grade III, unspecified, lymph nodes of multiple sites (principal); D63.1 Anemia in chronic kidney disease; N18.3 Chronic kidney disease, stage 3 (moderate); D50.9 Iron deficiency anemia, unspecified; I48.91 Unspecified atrial fibrillation; I50.9 Heart failure, unspecified; M17.0 Bilateral primary osteoarthritis of knee; Z85.3 Personal history of malignant neoplasm of breast; Z95.0 Presence of cardiac pacemaker; Z90.11 Acquired absence of right breast and nipple; Z79.899 Other long term (current) drug therapy; Z92.21 Personal history of antineoplastic chemotherapy
CPT/HCPCS: 36591; 85025; 96372

== ENCOUNTER 2017-04-27 13:16 | Outpatient (RCR) | payer MEDICARE ==
[2017-04-12 15:53] LABS: BASOPHILS # (AUTO) 0.1 10^3/uL (0.0-0.1); BASOPHILS % (AUTO) 1 % (0-10); EOSINOPHILS # (AUTO) 0.5 10^3/uL (0.0-0.3); EOSINOPHILS % (AUTO) 5 % (0-10); HEMATOCRIT 26 % (35-52); HEMOGLOBIN 7.9 G/DL (11.5-16.0); LYMPHOCYTES % (AUTO) 10 % (12-44); MEAN CORPUSCULAR HEMOGLOBIN 24 PG (25-34); MEAN CORPUSCULAR HGB CONC 30 G/DL (32-36); MEAN CORPUSCULAR VOLUME 79 FL (80-99); MEAN PLATELET VOLUME 8.6 FL (7.4-10.4); MONOCYTES # (AUTO) 0.9 X 10^3 (0.0-1.0); MONOCYTES % (AUTO) 9 % (0-12); NEUTROPHILS # (AUTO) 7.3 X 10^3 (1.8-7.8); NEUTROPHILS % (AUTO) 75 % (42-75); PLATELET COUNT 592 10^3/uL (130-400); RED BLOOD COUNT 3.34 10^6/uL (4.35-5.85); RED CELL DISTRIBUTION WIDTH 15.2 % (10.0-14.5); WHITE BLOOD COUNT 9.8 10^3/uL (4.3-11.0)
[2017-04-12 16:15] LABS: ALBUMIN 3.3 GM/DL (3.2-4.5); BILIRUBIN,TOTAL 0.3 MG/DL (0.1-1.0); CALCIUM 8.8 MG/DL (8.5-10.1); CREATININE SERUM 1.03 MG/DL (0.60-1.30); POTASSIUM 4.5 MMOL/L (3.6-5.0); TOTAL PROTEIN 6.3 GM/DL (6.4-8.2)
[2017-04-16 08:44] LABS: MISC LAB TEST & RESULT SOL TRANS REC
[~2017-04-27 13:16] MED LIST changes: +DARBEPOETIN 40 MCG/ML (ARANESP) 1 ML VIAL SC SCH
[2017-04-27 13:35] LABS: BASOPHILS # (AUTO) 0.1 10^3/uL (0.0-0.1); BASOPHILS % (AUTO) 1 % (0-10); EOSINOPHILS # (AUTO) 0.5 10^3/uL (0.0-0.3); EOSINOPHILS % (AUTO) 5 % (0-10); HEMATOCRIT 27 % (35-52); HEMOGLOBIN 8.2 G/DL (11.5-16.0); LYMPHOCYTES % (AUTO) 10 % (12-44); MEAN CORPUSCULAR HEMOGLOBIN 23 PG (25-34); MEAN CORPUSCULAR HGB CONC 30 G/DL (32-36); MEAN CORPUSCULAR VOLUME 77 FL (80-99); MEAN PLATELET VOLUME 9.4 FL (7.4-10.4); MONOCYTES # (AUTO) 1.2 X 10^3 (0.0-1.0); MONOCYTES % (AUTO) 12 % (0-12); NEUTROPHILS # (AUTO) 7.3 X 10^3 (1.8-7.8); NEUTROPHILS % (AUTO) 73 % (42-75); PLATELET COUNT 600 10^3/uL (130-400); RED BLOOD COUNT 3.52 10^6/uL (4.35-5.85); RED CELL DISTRIBUTION WIDTH 15.7 % (10.0-14.5); WHITE BLOOD COUNT 10.1 10^3/uL (4.3-11.0)
== END 2017-05-08 12:55 | disposition home or self-care (01) ==
LOC: ONC 13:16
PROVIDERS: ATTEND Internal Medicine Hematology & Oncology
DX: C82.28 Follicular lymphoma grade III, unspecified, lymph nodes of multiple sites (principal); D63.1 Anemia in chronic kidney disease; N18.3 Chronic kidney disease, stage 3 (moderate); D50.9 Iron deficiency anemia, unspecified; I48.91 Unspecified atrial fibrillation; I50.9 Heart failure, unspecified; M17.0 Bilateral primary osteoarthritis of knee; Z85.3 Personal history of malignant neoplasm of breast; Z95.0 Presence of cardiac pacemaker; Z90.11 Acquired absence of right breast and nipple; Z79.899 Other long term (current) drug therapy; Z92.21 Personal history of antineoplastic chemotherapy
CPT/HCPCS: 36415; 36591; 80053; 82607; 82728; 82746; 83615; 85025; 96372

== ENCOUNTER 2017-06-21 15:10 | Outpatient (RCR) | payer MEDICARE ==
[2017-05-10 14:13] LABS: BASOPHILS # (AUTO) 0.1 10^3/uL (0.0-0.1); BASOPHILS % (AUTO) 1 % (0-10); EOSINOPHILS # (AUTO) 0.4 10^3/uL (0.0-0.3); EOSINOPHILS % (AUTO) 5 % (0-10); HEMATOCRIT 28 % (35-52); HEMOGLOBIN 8.5 G/DL (11.5-16.0); LYMPHOCYTES % (AUTO) 10 % (12-44); MEAN CORPUSCULAR HEMOGLOBIN 24 PG (25-34); MEAN CORPUSCULAR HGB CONC 31 G/DL (32-36); MEAN CORPUSCULAR VOLUME 77 FL (80-99); MEAN PLATELET VOLUME 8.5 FL (7.4-10.4); MONOCYTES # (AUTO) 1.1 X 10^3 (0.0-1.0); MONOCYTES % (AUTO) 11 % (0-12); NEUTROPHILS # (AUTO) 7.1 X 10^3 (1.8-7.8); NEUTROPHILS % (AUTO) 73 % (42-75); PLATELET COUNT 603 10^3/uL (130-400); RED BLOOD COUNT 3.59 10^6/uL (4.35-5.85); RED CELL DISTRIBUTION WIDTH 15.5 % (10.0-14.5); WHITE BLOOD COUNT 9.6 10^3/uL (4.3-11.0)
[2017-05-10 14:29] LABS: ALKALINE PHOSPHATASE 83 U/L (40-136); BILIRUBIN,TOTAL 0.5 MG/DL (0.1-1.0); BUN/CREATININE RATIO 22; CALCIUM 9.1 MG/DL (8.5-10.1); CARBON DIOXIDE 27 MMOL/L (21-32); CHLORIDE 102 MMOL/L (98-107); CREATININE SERUM 0.93 MG/DL (0.60-1.30); GFR ESTIMATED 58; GLUCOSE 95 MG/DL (70-105); SODIUM 139 MMOL/L (135-145)
[2017-05-10 14:30] LABS: ALANINE AMINOTRANSFERASE < 6 U/L (0-55); ALBUMIN 3.5 GM/DL (3.2-4.5); TOTAL PROTEIN 6.6 GM/DL (6.4-8.2)
[2017-05-25 14:16] LABS: BASOPHILS # (AUTO) 0.1 10^3/uL (0.0-0.1); BASOPHILS % (AUTO) 1 % (0-10); EOSINOPHILS # (AUTO) 0.4 10^3/uL (0.0-0.3); EOSINOPHILS % (AUTO) 4 % (0-10); HEMATOCRIT 28 % (35-52); HEMOGLOBIN 8.3 G/DL (11.5-16.0); LYMPHOCYTES # (AUTO) 1.2 X 10^3 (1.0-4.0); LYMPHOCYTES % (AUTO) 12 % (12-44); MEAN CORPUSCULAR HEMOGLOBIN 23 PG (25-34); MEAN CORPUSCULAR HGB CONC 30 G/DL (32-36); MEAN CORPUSCULAR VOLUME 78 FL (80-99); MONOCYTES # (AUTO) 0.8 X 10^3 (0.0-1.0); MONOCYTES % (AUTO) 9 % (0-12); NEUTROPHILS % (AUTO) 74 % (42-75); PLATELET COUNT 649 10^3/uL (130-400); RED BLOOD COUNT 3.55 10^6/uL (4.35-5.85); RED CELL DISTRIBUTION WIDTH 15.6 % (10.0-14.5); WHITE BLOOD COUNT 9.5 10^3/uL (4.3-11.0)
[2017-06-07 14:26] LABS: BASOPHILS # (AUTO) 0.1 10^3/uL (0.0-0.1); BASOPHILS % (AUTO) 1 % (0-10); EOSINOPHILS # (AUTO) 0.5 10^3/uL (0.0-0.3); EOSINOPHILS % (AUTO) 5 % (0-10); HEMATOCRIT 27 % (35-52); HEMOGLOBIN 8.3 G/DL (11.5-16.0); LYMPHOCYTES # (AUTO) 0.9 X 10^3 (1.0-4.0); LYMPHOCYTES % (AUTO) 10 % (12-44); MEAN CORPUSCULAR HEMOGLOBIN 24 PG (25-34); MEAN CORPUSCULAR HGB CONC 31 G/DL (32-36); MEAN CORPUSCULAR VOLUME 78 FL (80-99); MEAN PLATELET VOLUME 8.9 FL (7.4-10.4); MONOCYTES % (AUTO) 11 % (0-12); NEUTROPHILS # (AUTO) 6.3 X 10^3 (1.8-7.8); NEUTROPHILS % (AUTO) 73 % (42-75); PLATELET COUNT 577 10^3/uL (130-400); RED BLOOD COUNT 3.49 10^6/uL (4.35-5.85); RED CELL DISTRIBUTION WIDTH 15.9 % (10.0-14.5); WHITE BLOOD COUNT 8.7 10^3/uL (4.3-11.0)
[2017-06-07 14:40] LABS: SMEAR SCAN COMMENT YES
== END 2017-06-21 15:25 | disposition home or self-care (01) ==
LOC: ONC 15:10
PROVIDERS: ATTEND Internal Medicine Hematology & Oncology
DX: C82.28 Follicular lymphoma grade III, unspecified, lymph nodes of multiple sites (principal); D63.1 Anemia in chronic kidney disease; N18.3 Chronic kidney disease, stage 3 (moderate); D50.9 Iron deficiency anemia, unspecified; I48.91 Unspecified atrial fibrillation; I50.9 Heart failure, unspecified; M17.0 Bilateral primary osteoarthritis of knee; Z85.3 Personal history of malignant neoplasm of breast; Z95.0 Presence of cardiac pacemaker; Z90.11 Acquired absence of right breast and nipple; Z79.899 Other long term (current) drug therapy; Z92.21 Personal history of antineoplastic chemotherapy
CPT/HCPCS: 36415; 36591; 80053; 82728; 83615; 85025; 96372

== ENCOUNTER → 2017-08-31 | Outpatient (CLI) | payer MEDICARE ==
[~2017-08-31] MED LIST changes: -DARBEPOETIN 40 MCG/ML (ARANESP) 1 ML VIAL SC SCH
[2017-09-01 09:32] LABS: HEPATITIS C ANTIBODY C Non-Reactive (Non-Reactive)
== END ==
LOC: LAB 12:47
PROVIDERS: ATTEND Internal Medicine Rheumatology
DX: M19.91 Primary osteoarthritis, unspecified site (principal); Z11.59 Encounter for screening for other viral diseases; Z79.899 Other long term (current) drug therapy
CPT/HCPCS: 36415; 85652; 86038; 86141; 86200; 86430; 86480; 86705; 86706; 86803; 87340

== ENCOUNTER → 2017-08-31 | Outpatient (CLI) | payer MEDICARE, BC ==
--- NOTE | 2017-08-31 14:34 | Diagnostic Imaging Report ---
EXAMINATION: Bilateral feet at 2:33 p.m. INDICATION: Foot pain. Three views were obtained. There are no prior studies available for comparison. FINDINGS: There is no fracture, dislocation, or acute bony abnormality evident. The osseous structures are demineralized, and there are hallux valgus deformities of each first ray. There is also at least moderate degenerative disease of each first metatarsophalangeal joint. Similar degenerative changes are seen involving the DIP and PIP joints of the digits of each foot. The midfoot and the hindfoot show only mild degenerative changes. The soft tissues are unremarkable for an acute abnormality. There are vascular calcifications bilaterally. IMPRESSION: 1. There is no evidence for an acute bony abnormality. 2. The osseous structures are demineralized, and there are degenerative changes involving both feet. These degenerative changes seem to be more likely related to osteoarthritis than to rheumatoid arthritis. Clinical followup is recommended, however. Dictated by: Dictated on workstation # [id number]
--- NOTE | 2017-08-31 16:05 | Diagnostic Imaging Report ---
EXAMINATION: Bilateral hands at 02:26 p.m. INDICATION: Hand pain. FINDINGS: Three views of both hands were obtained. There are no prior studies available for comparison. There is no fracture, dislocation, or acute bony abnormality evident. The osseous structures are demineralized and there severe degenerative changes involving the DIP and PIP joints of each digit of each hand. There is also severe degenerative disease involving the carpal bones and the radiocarpal and triscaphe joints bilaterally. The soft tissues are unremarkable. IMPRESSION: 1. There is no evidence for an acute bony abnormality. 2. 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 These degenerative changes are more likely due to osteoarthritis than to rheumatoid arthritis. Clinical follow-up is recommended. Dictated by: Dictated on workstation # [id number]
== END ==
LOC: RAD 13:50
PROVIDERS: ATTEND Internal Medicine Rheumatology
DX: M81.0 Age-related osteoporosis without current pathological fracture (principal); M19.072 Primary osteoarthritis, left ankle and foot; M19.071 Primary osteoarthritis, right ankle and foot; M19.042 Primary osteoarthritis, left hand; M19.041 Primary osteoarthritis, right hand

== ENCOUNTER 2017-09-13 14:12 | Outpatient (RCR) | payer MEDICARE ==
[2017-06-21 15:44] LABS: ABSOLUTE RETIC # 19 10e9/L (24-90); BASOPHILS # (AUTO) 0.1 10^3/uL (0.0-0.1); BASOPHILS % (AUTO) 1 % (0-10); EOSINOPHILS # (AUTO) 0.5 10^3/uL (0.0-0.3); EOSINOPHILS % (AUTO) 6 % (0-10); HEMATOCRIT 27 % (35-52); LYMPHOCYTES # (AUTO) 1.1 X 10^3 (1.0-4.0); LYMPHOCYTES % (AUTO) 13 % (12-44); MEAN CORPUSCULAR HEMOGLOBIN 24 PG (25-34); MEAN CORPUSCULAR HGB CONC 30 G/DL (32-36); MEAN CORPUSCULAR VOLUME 78 FL (80-99); MEAN PLATELET VOLUME 9.1 FL (7.4-10.4); MONOCYTES # (AUTO) 1.1 X 10^3 (0.0-1.0); MONOCYTES % (AUTO) 13 % (0-12); NEUTROPHILS # (AUTO) 5.5 X 10^3 (1.8-7.8); NEUTROPHILS % (AUTO) 67 % (42-75); PLATELET COUNT 574 10^3/uL (130-400); RED BLOOD COUNT 3.41 10^6/uL (4.35-5.85); RED CELL DISTRIBUTION WIDTH 16.1 % (10.0-14.5); RETICULOCYTE % 0.55 % (0.50-2.40); WHITE BLOOD COUNT 8.2 10^3/uL (4.3-11.0)
[2017-06-21 16:27] LABS: ALANINE AMINOTRANSFERASE < 6 U/L (0-55); ALBUMIN 3.4 GM/DL (3.2-4.5); ALKALINE PHOSPHATASE 85 U/L (40-136); BILIRUBIN,TOTAL 0.3 MG/DL (0.1-1.0); BUN/CREATININE RATIO 18; CALCIUM 8.7 MG/DL (8.5-10.1); CARBON DIOXIDE 26 MMOL/L (21-32); CHLORIDE 102 MMOL/L (98-107); CREATININE SERUM 0.92 MG/DL (0.60-1.30); GFR ESTIMATED 59; GLUCOSE 114 MG/DL (70-105); POTASSIUM 4.6 MMOL/L (3.6-5.0); SODIUM 138 MMOL/L (135-145); TOTAL PROTEIN 6.1 GM/DL (6.4-8.2)
[2017-07-05 13:04] LABS: BASOPHILS # (AUTO) 0.1 10^3/uL (0.0-0.1); BASOPHILS % (AUTO) 1 % (0-10); EOSINOPHILS # (AUTO) 0.4 10^3/uL (0.0-0.3); EOSINOPHILS % (AUTO) 5 % (0-10); HEMATOCRIT 27 % (35-52); HEMOGLOBIN 7.9 G/DL (11.5-16.0); LYMPHOCYTES # (AUTO) 0.9 X 10^3 (1.0-4.0); LYMPHOCYTES % (AUTO) 10 % (12-44); MEAN CORPUSCULAR HEMOGLOBIN 23 PG (25-34); MEAN CORPUSCULAR HGB CONC 30 G/DL (32-36); MEAN CORPUSCULAR VOLUME 78 FL (80-99); MEAN PLATELET VOLUME 8.8 FL (7.4-10.4); MONOCYTES # (AUTO) 0.8 X 10^3 (0.0-1.0); MONOCYTES % (AUTO) 10 % (0-12); NEUTROPHILS # (AUTO) 6.2 X 10^3 (1.8-7.8); NEUTROPHILS % (AUTO) 74 % (42-75); PLATELET COUNT 602 10^3/uL (130-400); RED BLOOD COUNT 3.44 10^6/uL (4.35-5.85); RED CELL DISTRIBUTION WIDTH 16.1 % (10.0-14.5); WHITE BLOOD COUNT 8.4 10^3/uL (4.3-11.0)
[2017-07-05 13:25] LABS: ABSOLUTE RETIC # 29 10e9/L (24-90); RETICULOCYTE % 0.84 % (0.50-2.40)
[2017-07-05 13:53] LABS: ERYTHROCYTE SEDIMENTATION RATE 62 MM/HR (0-30)
[2017-07-19 15:05] LABS: BASOPHILS # (AUTO) 0.1 10^3/uL (0.0-0.1); BASOPHILS % (AUTO) 1 % (0-10); EOSINOPHILS # (AUTO) 0.4 10^3/uL (0.0-0.3); EOSINOPHILS % (AUTO) 6 % (0-10); HEMATOCRIT 25 % (35-52); HEMOGLOBIN 7.3 G/DL (11.5-16.0); LYMPHOCYTES % (AUTO) 13 % (12-44); MEAN CORPUSCULAR HEMOGLOBIN 23 PG (25-34); MEAN CORPUSCULAR HGB CONC 30 G/DL (32-36); MEAN CORPUSCULAR VOLUME 78 FL (80-99); MEAN PLATELET VOLUME 9.1 FL (7.4-10.4); MONOCYTES # (AUTO) 1.1 X 10^3 (0.0-1.0); MONOCYTES % (AUTO) 14 % (0-12); NEUTROPHILS # (AUTO) 5.1 X 10^3 (1.8-7.8); NEUTROPHILS % (AUTO) 66 % (42-75); PLATELET COUNT 567 10^3/uL (130-400); RED BLOOD COUNT 3.18 10^6/uL (4.35-5.85); WHITE BLOOD COUNT 7.7 10^3/uL (4.3-11.0)
[2017-08-02 13:52] LABS: ABSOLUTE RETIC # 27 10e9/L (24-90); BASOPHILS # (AUTO) 0.1 10^3/uL (0.0-0.1); BASOPHILS % (AUTO) 1 % (0-10); EOSINOPHILS # (AUTO) 0.4 10^3/uL (0.0-0.3); EOSINOPHILS % (AUTO) 5 % (0-10); HEMATOCRIT 27 % (35-52); HEMOGLOBIN 7.9 G/DL (11.5-16.0); LYMPHOCYTES # (AUTO) 0.9 X 10^3 (1.0-4.0); LYMPHOCYTES % (AUTO) 10 % (12-44); MEAN CORPUSCULAR HEMOGLOBIN 23 PG (25-34); MEAN CORPUSCULAR HGB CONC 30 G/DL (32-36); MEAN CORPUSCULAR VOLUME 77 FL (80-99); MEAN PLATELET VOLUME 8.7 FL (7.4-10.4); MONOCYTES # (AUTO) 0.9 X 10^3 (0.0-1.0); MONOCYTES % (AUTO) 11 % (0-12); NEUTROPHILS # (AUTO) 6.2 X 10^3 (1.8-7.8); NEUTROPHILS % (AUTO) 73 % (42-75); PLATELET COUNT 619 10^3/uL (130-400); RED BLOOD COUNT 3.46 10^6/uL (4.35-5.85); RED CELL DISTRIBUTION WIDTH 15.9 % (10.0-14.5); RETICULOCYTE % 0.78 % (0.50-2.40); WHITE BLOOD COUNT 8.5 10^3/uL (4.3-11.0)
[2017-08-02 14:13] LABS: ALANINE AMINOTRANSFERASE < 6 U/L (0-55); ALBUMIN 3.6 GM/DL (3.2-4.5); ALKALINE PHOSPHATASE 85 U/L (40-136); BILIRUBIN,TOTAL 0.3 MG/DL (0.1-1.0); BUN/CREATININE RATIO 21; CALCIUM 8.8 MG/DL (8.5-10.1); CARBON DIOXIDE 26 MMOL/L (21-32); CHLORIDE 104 MMOL/L (98-107); CREATININE SERUM 0.94 MG/DL (0.60-1.30); GFR ESTIMATED 57; GLUCOSE 145 MG/DL (70-105); POTASSIUM 4.8 MMOL/L (3.6-5.0); SODIUM 139 MMOL/L (135-145); TOTAL PROTEIN 6.3 GM/DL (6.4-8.2)
[2017-08-16 14:23] LABS: BASOPHILS # (AUTO) 0.1 10^3/uL (0.0-0.1); BASOPHILS % (AUTO) 2 % (0-10); EOSINOPHILS # (AUTO) 0.5 10^3/uL (0.0-0.3); EOSINOPHILS % (AUTO) 6 % (0-10); HEMATOCRIT 28 % (35-52); HEMOGLOBIN 8.7 G/DL (11.5-16.0); LYMPHOCYTES # (AUTO) 1.1 X 10^3 (1.0-4.0); LYMPHOCYTES % (AUTO) 14 % (12-44); MEAN CORPUSCULAR HEMOGLOBIN 24 PG (25-34); MEAN CORPUSCULAR HGB CONC 31 G/DL (32-36); MEAN CORPUSCULAR VOLUME 79 FL (80-99); MEAN PLATELET VOLUME 9.5 FL (7.4-10.4); MONOCYTES # (AUTO) 1.2 X 10^3 (0.0-1.0); MONOCYTES % (AUTO) 15 % (0-12); NEUTROPHILS # (AUTO) 5.2 X 10^3 (1.8-7.8); NEUTROPHILS % (AUTO) 65 % (42-75); PLATELET COUNT 525 10^3/uL (130-400); RED BLOOD COUNT 3.61 10^6/uL (4.35-5.85); RED CELL DISTRIBUTION WIDTH 18.1 % (10.0-14.5)
[2017-08-31 13:29] LABS: BASOPHILS # (AUTO) 0.1 10^3/uL (0.0-0.1); BASOPHILS % (AUTO) 0 % (0-10); EOSINOPHILS # (AUTO) 0.2 10^3/uL (0.0-0.3); EOSINOPHILS % (AUTO) 1 % (0-10); HEMATOCRIT 35 % (35-52); HEMOGLOBIN 10.9 G/DL (11.5-16.0); LYMPHOCYTES # (AUTO) 0.6 X 10^3 (1.0-4.0); LYMPHOCYTES % (AUTO) 3 % (12-44); MEAN CORPUSCULAR HGB CONC 31 G/DL (32-36); MEAN CORPUSCULAR VOLUME 79 FL (80-99); MONOCYTES # (AUTO) 0.7 X 10^3 (0.0-1.0); MONOCYTES % (AUTO) 3 % (0-12); NEUTROPHILS # (AUTO) 18.5 X 10^3 (1.8-7.8); NEUTROPHILS % (AUTO) 92 % (42-75); PLATELET COUNT 540 10^3/uL (130-400); RED BLOOD COUNT 4.45 10^6/uL (4.35-5.85); RED CELL DISTRIBUTION WIDTH 20.4 % (10.0-14.5); WHITE BLOOD COUNT 20.1 10^3/uL (4.3-11.0)
[2017-08-31 13:31] LABS: MEAN CORPUSCULAR HEMOGLOBIN 24 PG (25-34)
[~2017-09-13 14:12] MED LIST changes: +DARBEPOETIN 25 MCG/ML (CANCER CTR) 1 ML VIAL SC SCH; +DARBEPOETIN 40 MCG/ML (ARANESP) 1 ML VIAL SC SCH; +DARBEPOETIN 60 MCG/ML ARANESP (CANCER CTR) INJ SCH; +IRON SUCROSE 100 MG/5 ML (VENOFER) VIAL CANCER CTR IV SCH
[2017-09-13 14:43] LABS: BASOPHILS # (AUTO) 0.1 10^3/uL (0.0-0.1); BASOPHILS % (AUTO) 1 % (0-10); EOSINOPHILS # (AUTO) 0.1 10^3/uL (0.0-0.3); EOSINOPHILS % (AUTO) 1 % (0-10); HEMATOCRIT 39 % (35-52); HEMOGLOBIN 12.6 G/DL (11.5-16.0); LYMPHOCYTES # (AUTO) 0.9 X 10^3 (1.0-4.0); LYMPHOCYTES % (AUTO) 6 % (12-44); MEAN CORPUSCULAR HEMOGLOBIN 26 PG (25-34); MEAN CORPUSCULAR HGB CONC 32 G/DL (32-36); MEAN CORPUSCULAR VOLUME 81 FL (80-99); MEAN PLATELET VOLUME 10.5 FL (7.4-10.4); MONOCYTES # (AUTO) 0.8 X 10^3 (0.0-1.0); MONOCYTES % (AUTO) 6 % (0-12); NEUTROPHILS # (AUTO) 11.4 X 10^3 (1.8-7.8); NEUTROPHILS % (AUTO) 86 % (42-75); PLATELET COUNT 397 10^3/uL (130-400); RED BLOOD COUNT 4.82 10^6/uL (4.35-5.85); RED CELL DISTRIBUTION WIDTH 22.2 % (10.0-14.5); WHITE BLOOD COUNT 13.2 10^3/uL (4.3-11.0)
[2017-09-13 15:01] LABS: ALBUMIN 3.9 GM/DL (3.2-4.5); BILIRUBIN,TOTAL 0.7 MG/DL (0.1-1.0); CALCIUM 9.1 MG/DL (8.5-10.1); CREATININE SERUM 1.16 MG/DL (0.60-1.30); POTASSIUM 5.4 MMOL/L (3.6-5.0); TOTAL PROTEIN 6.3 GM/DL (6.4-8.2)
== END 2017-09-19 | disposition home or self-care (01) ==
LOC: ONC 14:12
PROVIDERS: ATTEND Internal Medicine Hematology & Oncology
DX: C82.28 Follicular lymphoma grade III, unspecified, lymph nodes of multiple sites (principal); D63.1 Anemia in chronic kidney disease; N18.3 Chronic kidney disease, stage 3 (moderate); D50.9 Iron deficiency anemia, unspecified; I48.91 Unspecified atrial fibrillation; I50.9 Heart failure, unspecified; M17.0 Bilateral primary osteoarthritis of knee; Z85.3 Personal history of malignant neoplasm of breast; Z95.0 Presence of cardiac pacemaker; Z90.11 Acquired absence of right breast and nipple; Z79.899 Other long term (current) drug therapy; Z92.21 Personal history of antineoplastic chemotherapy
CPT/HCPCS: 36415; 36591; 80053; 82728; 83615; 85025; 85045; 85652; 86141; 96372; 96374

== ENCOUNTER → 2017-09-13 | Outpatient (CLI) | payer MEDICARE, BC | LOC: LAB 08:00 | PROVIDERS: ATTEND Internal Medicine Rheumatology | DX: Z51.81 Encounter for therapeutic drug level monitoring (principal); Z79.899 Other long term (current) drug therapy ==

== ENCOUNTER 2017-09-27 13:54 | Outpatient (RCR) | payer MEDICARE, BC ==
[~2017-09-27 13:54] MED LIST changes: -DARBEPOETIN 25 MCG/ML (CANCER CTR) 1 ML VIAL SC SCH; -DARBEPOETIN 40 MCG/ML (ARANESP) 1 ML VIAL SC SCH
[2017-09-27 14:44] LABS: BASOPHILS # (AUTO) 0.1 10^3/uL (0.0-0.1); BASOPHILS % (AUTO) 1 % (0-10); EOSINOPHILS # (AUTO) 0.2 10^3/uL (0.0-0.3); EOSINOPHILS % (AUTO) 3 % (0-10); HEMATOCRIT 38 % (35-52); LYMPHOCYTES # (AUTO) 0.9 X 10^3 (1.0-4.0); LYMPHOCYTES % (AUTO) 11 % (12-44); MEAN CORPUSCULAR HEMOGLOBIN 26 PG (25-34); MEAN CORPUSCULAR HGB CONC 32 G/DL (32-36); MEAN CORPUSCULAR VOLUME 82 FL (80-99); MEAN PLATELET VOLUME 10.1 FL (7.4-10.4); MONOCYTES # (AUTO) 0.7 X 10^3 (0.0-1.0); MONOCYTES % (AUTO) 9 % (0-12); NEUTROPHILS # (AUTO) 6.1 X 10^3 (1.8-7.8); NEUTROPHILS % (AUTO) 77 % (42-75); PLATELET COUNT 388 10^3/uL (130-400)
== END 2017-10-11 11:01 | disposition home or self-care (01) ==
LOC: ONC 13:54
PROVIDERS: ATTEND Internal Medicine Hematology & Oncology
DX: C82.28 Follicular lymphoma grade III, unspecified, lymph nodes of multiple sites (principal); D63.1 Anemia in chronic kidney disease; N18.3 Chronic kidney disease, stage 3 (moderate); D50.9 Iron deficiency anemia, unspecified; I48.91 Unspecified atrial fibrillation; I50.9 Heart failure, unspecified; M17.0 Bilateral primary osteoarthritis of knee; Z85.3 Personal history of malignant neoplasm of breast; Z95.0 Presence of cardiac pacemaker; Z90.11 Acquired absence of right breast and nipple; Z79.899 Other long term (current) drug therapy; Z92.21 Personal history of antineoplastic chemotherapy
CPT/HCPCS: 36415; 85025; 96374

== ENCOUNTER 2017-12-06 14:16 | Outpatient (RCR) | payer MEDICARE, BC ==
[2017-10-11 11:27] LABS: BASOPHILS # (AUTO) 0.1 10^3/uL (0.0-0.1); BASOPHILS % (AUTO) 0 % (0-10); EOSINOPHILS # (AUTO) 0.3 10^3/uL (0.0-0.3); EOSINOPHILS % (AUTO) 2 % (0-10); HEMATOCRIT 36 % (35-52); HEMOGLOBIN 11.2 G/DL (11.5-16.0); LYMPHOCYTES # (AUTO) 0.8 X 10^3 (1.0-4.0); LYMPHOCYTES % (AUTO) 5 % (12-44); MEAN CORPUSCULAR HEMOGLOBIN 26 PG (25-34); MEAN CORPUSCULAR HGB CONC 32 G/DL (32-36); MEAN CORPUSCULAR VOLUME 84 FL (80-99); MEAN PLATELET VOLUME 9.4 FL (7.4-10.4); MONOCYTES # (AUTO) 1.4 X 10^3 (0.0-1.0); MONOCYTES % (AUTO) 9 % (0-12); NEUTROPHILS # (AUTO) 13.5 X 10^3 (1.8-7.8); NEUTROPHILS % (AUTO) 84 % (42-75); PLATELET COUNT 496 10^3/uL (130-400); RED BLOOD COUNT 4.26 10^6/uL (4.35-5.85); RED CELL DISTRIBUTION WIDTH 19.1 % (10.0-14.5)
[2017-10-25 14:20] LABS: BASOPHILS % (AUTO) 0 % (0-10); EOSINOPHILS # (AUTO) 0.1 10^3/uL (0.0-0.3); EOSINOPHILS % (AUTO) 1 % (0-10); HEMATOCRIT 36 % (35-52); HEMOGLOBIN 11.5 G/DL (11.5-16.0); LYMPHOCYTES # (AUTO) 0.7 X 10^3 (1.0-4.0); LYMPHOCYTES % (AUTO) 5 % (12-44); MEAN CORPUSCULAR HEMOGLOBIN 27 PG (25-34); MEAN CORPUSCULAR HGB CONC 32 G/DL (32-36); MEAN CORPUSCULAR VOLUME 84 FL (80-99); MONOCYTES # (AUTO) 0.8 X 10^3 (0.0-1.0); MONOCYTES % (AUTO) 6 % (0-12); NEUTROPHILS % (AUTO) 89 % (42-75); PLATELET COUNT 379 10^3/uL (130-400); RED BLOOD COUNT 4.32 10^6/uL (4.35-5.85); RED CELL DISTRIBUTION WIDTH 18.9 % (10.0-14.5); WHITE BLOOD COUNT 13.6 10^3/uL (4.3-11.0)
[2017-10-25 14:43] LABS: ALBUMIN 3.8 GM/DL (3.2-4.5); BILIRUBIN,TOTAL 0.4 MG/DL (0.1-1.0); CALCIUM 8.9 MG/DL (8.5-10.1); CREATININE SERUM 1.08 MG/DL (0.60-1.30); POTASSIUM 4.9 MMOL/L (3.6-5.0); TOTAL PROTEIN 5.9 GM/DL (6.4-8.2)
[2017-11-09 11:55] LABS: BASOPHILS # (AUTO) 0.1 10^3/uL (0.0-0.1); BASOPHILS % (AUTO) 0 % (0-10); EOSINOPHILS # (AUTO) 0.3 10^3/uL (0.0-0.3); EOSINOPHILS % (AUTO) 2 % (0-10); HEMATOCRIT 34 % (35-52); HEMOGLOBIN 10.9 G/DL (11.5-16.0); LYMPHOCYTES # (AUTO) 0.6 X 10^3 (1.0-4.0); LYMPHOCYTES % (AUTO) 5 % (12-44); MEAN CORPUSCULAR HEMOGLOBIN 28 PG (25-34); MEAN CORPUSCULAR HGB CONC 32 G/DL (32-36); MEAN CORPUSCULAR VOLUME 86 FL (80-99); MONOCYTES # (AUTO) 1.2 X 10^3 (0.0-1.0); MONOCYTES % (AUTO) 10 % (0-12); NEUTROPHILS # (AUTO) 9.2 X 10^3 (1.8-7.8); NEUTROPHILS % (AUTO) 82 % (42-75); PLATELET COUNT 328 10^3/uL (130-400); RED BLOOD COUNT 3.92 10^6/uL (4.35-5.85); RED CELL DISTRIBUTION WIDTH 17.5 % (10.0-14.5); WHITE BLOOD COUNT 11.2 10^3/uL (4.3-11.0)
[2017-11-22 12:47] LABS: BASOPHILS # (AUTO) 0.1 10^3/uL (0.0-0.1); BASOPHILS % (AUTO) 0 % (0-10); EOSINOPHILS # (AUTO) 0.2 10^3/uL (0.0-0.3); EOSINOPHILS % (AUTO) 2 % (0-10); HEMATOCRIT 34 % (35-52); HEMOGLOBIN 10.9 G/DL (11.5-16.0); LYMPHOCYTES # (AUTO) 0.6 X 10^3 (1.0-4.0); LYMPHOCYTES % (AUTO) 5 % (12-44); MEAN CORPUSCULAR HEMOGLOBIN 28 PG (25-34); MEAN CORPUSCULAR HGB CONC 32 G/DL (32-36); MEAN CORPUSCULAR VOLUME 87 FL (80-99); MEAN PLATELET VOLUME 9.3 FL (7.4-10.4); MONOCYTES # (AUTO) 0.8 X 10^3 (0.0-1.0); MONOCYTES % (AUTO) 7 % (0-12); NEUTROPHILS # (AUTO) 10.5 X 10^3 (1.8-7.8); NEUTROPHILS % (AUTO) 87 % (42-75); PLATELET COUNT 446 10^3/uL (130-400); RED BLOOD COUNT 3.96 10^6/uL (4.35-5.85); WHITE BLOOD COUNT 12.2 10^3/uL (4.3-11.0)
[~2017-12-06 14:16] MED LIST changes: +DARBEPOETIN 40 MCG/ML (ARANESP) 1 ML VIAL SC SCH; -IRON SUCROSE 100 MG/5 ML (VENOFER) VIAL CANCER CTR IV SCH
[2017-12-06 14:33] LABS: BASOPHILS # (AUTO) 0.1 10^3/uL (0.0-0.1); BASOPHILS % (AUTO) 1 % (0-10); EOSINOPHILS # (AUTO) 0.2 10^3/uL (0.0-0.3); EOSINOPHILS % (AUTO) 2 % (0-10); HEMATOCRIT 32 % (35-52); HEMOGLOBIN 10.2 G/DL (11.5-16.0); LYMPHOCYTES # (AUTO) 0.6 X 10^3 (1.0-4.0); LYMPHOCYTES % (AUTO) 6 % (12-44); MEAN CORPUSCULAR HEMOGLOBIN 28 PG (25-34); MEAN CORPUSCULAR HGB CONC 32 G/DL (32-36); MEAN CORPUSCULAR VOLUME 87 FL (80-99); MEAN PLATELET VOLUME 9.4 FL (7.4-10.4); MONOCYTES # (AUTO) 0.9 X 10^3 (0.0-1.0); MONOCYTES % (AUTO) 9 % (0-12); NEUTROPHILS # (AUTO) 8.5 X 10^3 (1.8-7.8); NEUTROPHILS % (AUTO) 83 % (42-75); PLATELET COUNT 424 10^3/uL (130-400); RED BLOOD COUNT 3.64 10^6/uL (4.35-5.85); RED CELL DISTRIBUTION WIDTH 14.9 % (10.0-14.5); WHITE BLOOD COUNT 10.2 10^3/uL (4.3-11.0)
[2017-12-06 14:53] LABS: ALBUMIN 3.5 GM/DL (3.2-4.5); BILIRUBIN,TOTAL 0.4 MG/DL (0.1-1.0); CALCIUM 9.2 MG/DL (8.5-10.1); CREATININE SERUM 1.03 MG/DL (0.60-1.30); TOTAL PROTEIN 6.1 GM/DL (6.4-8.2)
== END 2017-12-20 13:35 | disposition home or self-care (01) ==
LOC: ONC 14:16
PROVIDERS: ATTEND Internal Medicine Hematology & Oncology
DX: C82.28 Follicular lymphoma grade III, unspecified, lymph nodes of multiple sites (principal); D63.1 Anemia in chronic kidney disease; N18.3 Chronic kidney disease, stage 3 (moderate); D50.9 Iron deficiency anemia, unspecified; I48.91 Unspecified atrial fibrillation; I50.9 Heart failure, unspecified; M17.0 Bilateral primary osteoarthritis of knee; Z85.3 Personal history of malignant neoplasm of breast; Z95.0 Presence of cardiac pacemaker; Z90.11 Acquired absence of right breast and nipple; Z79.899 Other long term (current) drug therapy; Z92.21 Personal history of antineoplastic chemotherapy
CPT/HCPCS: 36415; 36591; 80053; 82728; 85025; 96372; 96374; 99213

== ENCOUNTER 2017-12-31 11:30 | Inpatient (IN) | payer MEDICARE, BC ==
[~2017-12-31] VITALS: Ht 172.7 cm; Wt 80.8 kg
[~2017-12-31 11:30] MED LIST changes: -DARBEPOETIN 40 MCG/ML (ARANESP) 1 ML VIAL SC SCH; -DARBEPOETIN 60 MCG/ML ARANESP (CANCER CTR) INJ SCH
[2017-12-31 14:00] VITALS: BP 123/73
--- OUTSIDE RECORDS SUMMARY | 2017-12-31 14:30 | XMS REPORT | Continuity of Care Document ---
Author Author [facility] Organization [facility] Address Unknown Phone Unavailable Allergies Active Description Code Type Severity Reaction Onset Reported/Identified Relationship to Patient Clinical Status Yes morphine [id number] Drug Allergy Mild N/A 10/01/2013 Medications There is no data. Problems Date Dx Coded Attending Type Code Diagnosis Diagnosed By 02/15/1100 SELINA FERNANDO MD, Ot 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, UNSP, LYM 02/15/1100 SELINA FERNANDO MD, Ot D50.9 IRON DEFICIENCY ANEMIA, UNSPECIFIED 02/15/1100 SELINA FERNANDO MD Ot D63.1 ANEMIA IN CHRONIC KIDNEY DISEASE 02/15/1100 SELINA FERNANDO MD Ot I48.91 UNSPECIFIED ATRIAL FIBRILLATION 02/15/1100 SELINA FERNANDO MD Ot I50.9 HEART FAILURE, UNSPECIFIED 02/15/1100 SELINA FERNANDO MD Ot 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 OF KNEE 02/15/1100 SELINA FERNANDO MD Ot N18.3 CHRONIC KIDNEY DISEASE, STAGE 3 (MODERAT 02/15/1100 SELINA FERNANDO MD Ot Z79.899 OTHER DIRECTOR OF LAND (CURRENT) DRUG THERAPY 02/15/1100 SELINA FERNANDO MD Ot Z85.3 PERSONAL HISTORY OF MALIGNANT NEOPLASM O 02/15/1100 SELINA FERNANDO MD Ot Z90.11 ACQUIRED ABSENCE OF RIGHT BREAST AND NIP 02/15/1100 SELINA FERNANDO MD Ot Z92.21 PERSONAL HISTORY OF ANTINEOPLASTIC CHEMO 02/15/1100 SELINA FERNANDO MD Ot 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 PACEMAKER 02/15/1213 WESTLEY MÉNDEZ Ot 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, UNSP, LYM 02/15/1213 WESTLEY MÉNDEZ Ot D50.9 IRON DEFICIENCY ANEMIA, UNSPECIFIED 02/15/1213 WESTLEY MÉNDEZ Ot D63.1 ANEMIA IN CHRONIC KIDNEY DISEASE 02/15/1213 WESTLEY MÉNDEZ Ot I48.91 UNSPECIFIED ATRIAL FIBRILLATION 02/15/1213 WESTLEY MÉNDEZ Ot I50.9 HEART FAILURE, UNSPECIFIED 02/15/1213 WESTLEY MÉNDEZ Ot 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 OF KNEE 02/15/1213 WESTLEY MÉNDEZ Ot N18.3 CHRONIC KIDNEY DISEASE, STAGE 3 (MODERAT 02/15/1213 WESTLEY MÉNDEZ Ot Z79.899 OTHER CORRECTION (CURRENT) DRUG THERAPY 02/15/1213 WESTLEY MÉNDEZ Ot Z85.3 PERSONAL HISTORY OF MALIGNANT NEOPLASM O 02/15/1213 WESTLEY MÉNDEZ Ot Z90.11 ACQUIRED ABSENCE OF RIGHT BREAST AND NIP 02/15/1213 WESTLEY MÉNDEZ Ot Z92.21 PERSONAL HISTORY OF ANTINEOPLASTIC CHEMO 02/15/1213 WESTLEY MÉNDEZ Ot 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 PACEMAKER 02/15/1254 SELINA FERNANDO MD, Ot 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, UNSP, LYM 02/15/1254 SELINA FERNANDO MD, Ot D50.9 IRON DEFICIENCY ANEMIA, UNSPECIFIED 02/15/1254 SELINA FERNANDO MD Ot D63.1 ANEMIA IN CHRONIC KIDNEY DISEASE 02/15/1254 SELINA FERNANDO MD Ot I48.91 UNSPECIFIED ATRIAL FIBRILLATION 02/15/1254 SELINA FERNANDO MD Ot I50.9 HEART FAILURE, UNSPECIFIED 02/15/1254 SELINA FERNANDO MD Ot 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 OF KNEE 02/15/1254 SELINA FERNANDO MD Ot N18.3 CHRONIC KIDNEY DISEASE, STAGE 3 (MODERAT 02/15/1254 SELINA FERNANDO MD Ot Z79.899 OTHER DIRECTOR OF LAND (CURRENT) DRUG THERAPY 02/15/1254 SELINA FERNANDO MD Ot Z85.3 PERSONAL HISTORY OF MALIGNANT NEOPLASM O 02/15/1254 SELINA FERNANDO MD Ot Z90.11 ACQUIRED ABSENCE OF RIGHT BREAST AND NIP 02/15/1254 SELINA FERNANDO MD Ot Z92.21 PERSONAL HISTORY OF ANTINEOPLASTIC CHEMO 02/15/1254 SELINA FERNANDO MD Ot 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 PACEMAKER 02/15/1334 SELINA FERNANDO MD, Ot 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, UNSP, LYM 02/15/1334 SELINA FERNANDO MD Ot D50.9 IRON DEFICIENCY ANEMIA, UNSPECIFIED 02/15/1334 SELINA FERNANDO MD Ot D63.1 ANEMIA IN CHRONIC KIDNEY DISEASE 02/15/1334 SELINA FERNANDO MD Ot I48.91 UNSPECIFIED ATRIAL FIBRILLATION 02/15/1334 SELINA FERNANDO MD Ot I50.9 HEART FAILURE, UNSPECIFIED 02/15/1334 SELINA FERNANDO MD Ot 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 OF KNEE 02/15/1334 SELINA FERNANDO MD Ot N18.3 CHRONIC KIDNEY DISEASE, STAGE 3 (MODERAT 02/15/1334 SELINA FERNANDO MD Ot Z79.899 OTHER CORRECTION (CURRENT) DRUG THERAPY 02/15/1334 SELINA FERNANDO MD Ot Z85.3 PERSONAL HISTORY OF MALIGNANT NEOPLASM O 02/15/1334 SELINA FERNANDO MD Ot Z90.11 ACQUIRED ABSENCE OF RIGHT BREAST AND NIP 02/15/1334 SELINA FERNANDO MD Ot Z92.21 PERSONAL HISTORY OF ANTINEOPLASTIC CHEMO 02/15/1334 SELINA FERNANDO MD Ot 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 PACEMAKER 02/16/1524 WESTLEY MÉNDEZ Ot 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, UNSP, LYM 02/16/1524 WESTLEY MÉNDEZ Ot D50.9 IRON DEFICIENCY ANEMIA, UNSPECIFIED 02/16/1524 WESTLEY MÉNDEZ Ot D63.1 ANEMIA IN CHRONIC KIDNEY DISEASE 02/16/1524 WESTLEY MÉNDEZ Ot I48.91 UNSPECIFIED ATRIAL FIBRILLATION 02/16/1524 WESTLEY MÉNDEZ Ot I50.9 HEART FAILURE, UNSPECIFIED 02/16/1524 WESTLEY MÉNDEZ Ot 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 OF KNEE 02/16/1524 WESTLEY MÉNDEZ Ot N18.3 CHRONIC KIDNEY DISEASE, STAGE 3 (MODERAT 02/16/1524 WESTLEY MÉNDEZ Ot Z79.899 OTHER DIRECTOR OF LAND (CURRENT) DRUG THERAPY 02/16/1524 WESTLEY MÉNDEZ Ot Z85.3 PERSONAL HISTORY OF MALIGNANT NEOPLASM O 02/16/1524 WESTLEY MÉNDEZ Ot Z90.11 ACQUIRED ABSENCE OF RIGHT BREAST AND NIP 02/16/1524 WESTLEY MÉNDEZ Ot Z92.21 PERSONAL HISTORY OF ANTINEOPLASTIC CHEMO 02/16/1524 WESTLEY MÉNDEZ Ot 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 PACEMAKER 02/16/1624 WESTLEY MÉNDEZ N Ot C82.90 FOLLICULAR LYMPHOMA, UNSPECIFIED, UNSPEC 02/16/1624 DEV WESTLEY Javed Ot D50.9 IRON DEFICIENCY ANEMIA, UNSPECIFIED 02/16/1624 DEV WESTLEY Javed Ot I48.91 UNSPECIFIED ATRIAL FIBRILLATION 02/16/1624 DEV WESTLEY Javed Ot I50.9 HEART FAILURE, UNSPECIFIED 02/16/1624 DEV WESTLEY Javed Ot 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 OF KNEE 02/16/1624 DEV WESTLEY Javed Ot Z79.899 OTHER DIRECTOR OF LAND (CURRENT) DRUG THERAPY 02/16/1624 DEV WESTLEY Javed Ot Z85.3 PERSONAL HISTORY OF MALIGNANT NEOPLASM O 02/16/1624 DEVWESTLEY Ot Z90.11 ACQUIRED ABSENCE OF RIGHT BREAST AND NIP 02/16/1624 DEVWESTLEY Ot Z92.21 PERSONAL HISTORY OF ANTINEOPLASTIC CHEMO 02/16/1624 DEVWESTLEY Ot 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 PACEMAKER 10/02/2013 NAVEEN JUSTIN, ERIC Peraza Ot 202.80 OTH LYMPHOMAS EXTRANODAL SOLID ORGAN U 10/02/2013 NAVEEN JUSTIN, ERIC [place]aza Ot 784.2 SWELLING IN HEAD NECK 03/18/2014 DEVTHADDEUS BELLAN N Ot 202.80 03/18/2014 DEVWESTLEY N Ot 585.3 03/18/2014 DEV, WESTLEY N Ot V10.3 03/18/2014 DEV, WESTLEY N Ot V45.01 03/18/2014 DEV, BOBAN N Ot V45.71 03/18/2014 DEV, BOBAN N Ot [...] 04/15/2015 DEV, BOBAN N Ot C82.90 04/15/2015 DEV, BOBAN N Ot D50.9 04/15/2015 DEV, BOBAN [...] DEV, BOBAN N Ot Z79.899 06/08/2015 DEV, BOBAN N Ot Z85.3 06/08/2015 DEV, BOBAN N Ot Z90.11 06/08/2015 DEV, BOBAN N Ot Z92.21 06/08/2015 DEV, BOBAN N Ot Z95.0 06/30/2015 DEV, BOBAN N Ot C82.90 06/30/2015 DEV, BOBAN N Ot D50.9 06/30/2015 DEV, BOBAN N Ot I48.91 06/30/2015 DEV, BOBAN N Ot I50.9 06/30/2015 DEV, BOBAN N Ot M17.0 06/30/2015 DEV, BOBAN N Ot Z79.899 06/30/2015 DEVWESTLEY BELL N Ot Z85.3 06/30/2015 DEVWESTLEY BELL N Ot Z90.11 06/30/2015 DEVWESTLEY BELL N Ot Z92.21 06/30/2015 WESTLEY MÉNDEZ N Ot Z95.0 07/21/2015 WESTLEY MÉNDEZ N Ot C82.90 FOLLICULAR LYMPHOMA, UNSPECIFIED, UNSPEC 07/21/2015 WESTLEY MÉNDEZ N Ot D50.9 IRON DEFICIENCY ANEMIA, UNSPECIFIED 07/21/2015 WESTLEY MÉNDEZ N Ot I48.91 UNSPECIFIED ATRIAL FIBRILLATION 07/21/2015 WESTLEY MÉNDEZ N Ot I50.9 HEART FAILURE, UNSPECIFIED 07/21/2015 WESTLEY MÉNDEZ N Ot 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 OF KNEE 07/21/2015 WESTLEY MÉNDEZ N Ot Z79.899 OTHER DIRECTOR OF LAND (CURRENT) DRUG THERAPY 07/21/2015 WESTLEY MÉNDEZ N Ot Z85.3 PERSONAL HISTORY OF MALIGNANT NEOPLASM O 07/21/2015 DEVWESTLEY BELL N Ot Z90.11 ACQUIRED ABSENCE [...] 07/21/2015 WESTLEY MÉNDEZ N Ot Z79.899 OTHER DIRECTOR OF LAND (CURRENT) DRUG THERAPY 07/21/2015 DEVWESTLEY BELL N Ot Z85.3 PERSONAL HISTORY OF MALIGNANT NEOPLASM O 07/21/2015 DEVWESTLEY BELL N Ot Z90.11 ACQUIRED ABSENCE OF RIGHT BREAST AND NIP 07/21/2015 DEVWESTLEY BELL N Ot Z92.21 PERSONAL HISTORY [...] 07/28/2015 WESTLEY MÉNDEZ N Ot Z79.899 OTHER CORRECTION (CURRENT) DRUG THERAPY 07/28/2015 WESTLEY MÉNDEZ N Ot Z85.3 PERSONAL HISTORY OF MALIGNANT NEOPLASM O 07/28/2015 WESTLEY MÉNDEZ N Ot Z90.11 ACQUIRED ABSENCE OF RIGHT BREAST AND NIP 07/28/2015 WESTLEY MÉNDEZ N Ot Z92.21 PERSONAL HISTORY OF ANTINEOPLASTIC CHEMO 07/28/2015 DEVWESTLEY BELL N Ot Z95.0 PRESENCE OF [...] 11/12/2015 WESTLEY MÉNDEZ N Ot Z79.899 OTHER DIRECTOR OF LAND (CURRENT) DRUG THERAPY 11/12/2015 WESTLEY MÉNDEZ N Ot Z85.3 PERSONAL HISTORY OF MALIGNANT NEOPLASM O 11/12/2015 DEVWESTLEY BELL N Ot Z90.11 ACQUIRED ABSENCE OF RIGHT BREAST AND NIP 11/12/2015 DEVWESTLEY BELL N Ot Z92.21 PERSONAL HISTORY OF ANTINEOPLASTIC CHEMO 11/12/2015 WESTLEY MÉNDEZ N Ot 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 PACEMAKER 11/18/2015 WESTLEY MÉNDEZ N Ot C82.90 FOLLICULAR LYMPHOMA, UNSPECIFIED, UNSPEC 11/18/2015 WESTLEY MÉNDEZ N Ot D50.9 IRON DEFICIENCY ANEMIA, UNSPECIFIED 11/18/2015 THADDEUS MÉNDEZAN N Ot I48.91 UNSPECIFIED ATRIAL FIBRILLATION 11/18/2015 WESTLEY MÉNDEZ N Ot I50.9 HEART FAILURE, UNSPECIFIED 11/18/2015 WESTLEY MÉNDEZ N Ot 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 OF KNEE 11/18/2015 WESTLEY MÉNDEZ N Ot Z79.899 OTHER CORRECTION (CURRENT) DRUG THERAPY 11/18/2015 WESTLEY MÉNDEZ N Ot Z85.3 PERSONAL HISTORY OF MALIGNANT NEOPLASM O 11/18/2015 DEVWESTLEY BELL N Ot Z90.11 ACQUIRED ABSENCE OF RIGHT BREAST AND NIP 11/18/2015 WESTLEY MÉNDEZ N Ot Z92.21 PERSONAL HISTORY OF ANTINEOPLASTIC CHEMO 11/18/2015 DEVWESTLEY BELL N Ot 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 PACEMAKER 12/09/2015 WESTLEY MÉNDEZ N Ot C82.90 FOLLICULAR LYMPHOMA, UNSPECIFIED, UNSPEC 12/09/2015 DEVWESTLEY BELL N Ot D50.9 IRON DEFICIENCY ANEMIA, UNSPECIFIED 12/09/2015 WESTLEY MÉNDEZ N Ot I48.91 UNSPECIFIED ATRIAL FIBRILLATION 12/09/2015 WESTLEY MÉNDEZ N Ot I50.9 HEART FAILURE, UNSPECIFIED 12/09/2015 DEVWESTLEY N Ot 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 OF KNEE 12/09/2015 WESTLEY MÉNDEZ N Ot Z79.899 OTHER DIRECTOR OF LAND (CURRENT) DRUG THERAPY 12/09/2015 WESTLEY MÉNDEZ N Ot Z85.3 PERSONAL HISTORY OF MALIGNANT NEOPLASM O 12/09/2015 DEVWESTLEY BELL N Ot Z90.11 ACQUIRED ABSENCE OF RIGHT BREAST AND NIP 12/09/2015 WESTLEY MÉNDEZ N Ot Z92.21 PERSONAL HISTORY OF ANTINEOPLASTIC CHEMO 12/09/2015 WESTLEY MÉNDEZ N Ot 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 PACEMAKER 12/30/2015 DEVTHADDEUSAN N Ot C82.90 FOLLICULAR LYMPHOMA, UNSPECIFIED, UNSPEC 12/30/2015 DEV BOBAN N Ot D50.9 IRON DEFICIENCY ANEMIA, UNSPECIFIED 12/30/2015 DVEWESTLEY N Ot I48.91 UNSPECIFIED ATRIAL FIBRILLATION 12/30/2015 DEVWESTLEY BELL N Ot I50.9 HEART FAILURE, UNSPECIFIED 12/30/2015 DEVWESTLEY N Ot 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 OF KNEE 12/30/2015 WESTLEY MÉNDEZ N Ot Z79.899 OTHER DIRECTOR OF LAND (CURRENT) DRUG THERAPY 12/30/2015 WESTLEY MÉNDEZ N Ot Z85.3 PERSONAL HISTORY OF MALIGNANT NEOPLASM O 12/30/2015 DEVWESTLEY BELL N Ot Z90.11 ACQUIRED ABSENCE OF RIGHT BREAST AND NIP 12/30/2015 WESTLEY MÉNDEZ N Ot Z92.21 PERSONAL HISTORY OF ANTINEOPLASTIC CHEMO 12/30/2015 DEVWESTLEY N Ot 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 PACEMAKER 01/03/2016 DEV THADDEUSPRIMO N Ot C82.90 FOLLICULAR LYMPHOMA, UNSPECIFIED, UNSPEC 01/03/2016 DEVWESTLEY N Ot D50.9 IRON DEFICIENCY ANEMIA, UNSPECIFIED 01/03/2016 DEV THADDEUSPRIMO N Ot I48.91 UNSPECIFIED ATRIAL FIBRILLATION 01/03/2016 DEVWESTLEY BELL N Ot I50.9 HEART FAILURE, UNSPECIFIED 01/03/2016 DEVWESTLEY N Ot 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 OF KNEE 01/03/2016 WESTLEY MÉNDEZ N Ot Z79.899 OTHER CORRECTION (CURRENT) DRUG THERAPY 01/03/2016 DEVWESTLEY N Ot Z85.3 PERSONAL HISTORY OF MALIGNANT NEOPLASM O 01/03/2016 DEVWESTLEY N Ot Z90.11 ACQUIRED ABSENCE OF RIGHT BREAST AND NIP 01/03/2016 WESTLEY MÉNDEZ N Ot Z92.21 PERSONAL HISTORY OF ANTINEOPLASTIC CHEMO 01/03/2016 WESTLEY MÉNDEZ N Ot 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 PACEMAKER 01/07/2016 WESTLEY MÉNDEZ N Ot C82.90 FOLLICULAR LYMPHOMA, UNSPECIFIED, UNSPEC 01/07/2016 WESTLEY MÉNDEZ N Ot D50.9 IRON DEFICIENCY ANEMIA, UNSPECIFIED 01/07/2016 DEVWESTLEY N Ot I48.91 UNSPECIFIED ATRIAL FIBRILLATION 01/07/2016 DEVWESTLEY N Ot I50.9 HEART FAILURE, UNSPECIFIED 01/07/2016 DEV BOBPRIMO N Ot 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 OF KNEE 01/07/2016 DEVWESTLEY N Ot Z79.899 OTHER DIRECTOR OF LAND (CURRENT) DRUG THERAPY 01/07/2016 DEVWESTLEY N Ot Z85.3 PERSONAL HISTORY OF MALIGNANT NEOPLASM O 01/07/2016 DEVWESTLEY N Ot Z90.11 ACQUIRED ABSENCE OF [...] PACEMAKER IN SITU 01/11/2016 Ot V58.69 OTH MED,LT, CURRENT USE 01/11/2016 Ot V87.41 PERSONAL HISTORY OF ANTINEOPLASTIC CHEMO 01/11/2016 Ot 202.80 OTH LYMPHOMAS EXTRANODAL SOLID ORGAN U 01/11/2016 Ot 585.3 CHRONIC KIDNEY DISEASE, STAGE III (MODER 01/11/2016 Ot V45.01 CARDIAC PACEMAKER IN SITU 01/11/2016 Ot V58.69 OTH MED,LT, CURRENT USE 01/11/2016 Ot V87.41 PERSONAL HISTORY OF ANTINEOPLASTIC CHEMO 01/11/2016 Ot 202.80 OTH LYMPHOMAS EXTRANODAL SOLID ORGAN U 01/11/2016 Ot 585.3 CHRONIC KIDNEY DISEASE, STAGE III (MODER 01/11/2016 Ot 784.2 SWELLING IN HEAD NECK 01/11/2016 Ot V10.3 HX OF BREAST MALIGNANCY 01/11/2016 Ot V45.01 CARDIAC PACEMAKER IN SITU 01/11/2016 Ot V45.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 01/11/2016 Ot V58.69 OTH MED,LT, CURRENT USE 01/11/2016 Ot V87.41 PERSONAL HISTORY OF [...] BREAST AND NIPPLE 01/11/2016 Ot V58.69 OTH MED,LT, CURRENT USE 01/11/2016 Ot V87.41 PERSONAL HISTORY OF ANTINEOPLASTIC CHEMO 01/11/2016 DEVTHADDEUSAN N Ot 202.80 OTH LYMPHOMAS EXTRANODAL SOLID ORGAN U 01/11/2016 DEVTHADDEUS BELLAN N Ot 585.3 CHRONIC KIDNEY DISEASE, STAGE III (MODER 01/11/2016 DEVTHADDEUSAN N Ot V10.3 HX OF BREAST MALIGNANCY 01/11/2016 DEVTHADDEUSAN N Ot V45.01 CARDIAC PACEMAKER IN SITU 01/11/2016 DEV BOBAN N Ot V45.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 01/11/2016 DEVWESTLEY N Ot V58.69 OTH MED,LT,CURRENT USE 01/11/2016 DEV BOBAN N Ot V87.41 PERSONAL HISTORY OF ANTINEOPLASTIC CHEMO 01/11/2016 DEV, BOBAN N Ot 202.80 OTH LYMPHOMAS EXTRANODAL SOLID ORGAN U 01/11/2016 DEV BOBAN N Ot 585.3 CHRONIC KIDNEY DISEASE, STAGE III (MODER 01/11/2016 DEV BOBAN N Ot V10.3 HX OF BREAST MALIGNANCY 01/11/2016 DEV BOBPRIMO N Ot V45.01 CARDIAC PACEMAKER IN SITU 01/11/2016 DEV BOBPRIMO N Ot V45.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 01/11/2016 DEVTHADDEUSAN N Ot V58.69 OTH MED,LT,CURRENT USE 01/11/2016 DEVTHADDEUSAN N Ot V87.41 PERSONAL HISTORY OF ANTINEOPLASTIC CHEMO 01/11/2016 DEV, BOBAN N Ot 202.80 OTH LYMPHOMAS EXTRANODAL SOLID ORGAN U 01/11/2016 DEV BOBAN N Ot 585.3 CHRONIC KIDNEY DISEASE, STAGE III (MODER 01/11/2016 DEV BOBAN N Ot V10.3 HX OF BREAST MALIGNANCY 01/11/2016 DEV, BOBAN N Ot V45.01 CARDIAC PACEMAKER IN SITU 01/11/2016 DEVTHADDEUSAN N Ot V45.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 01/11/2016 DEV BOBAN N Ot V58.69 OTH MED,LT,CURRENT USE 01/11/2016 DEV, BOBAN N Ot V87.41 PERSONAL HISTORY OF ANTINEOPLASTIC CHEMO 01/11/2016 DEV, BOBAN N Ot 202.80 OTH LYMPHOMAS EXTRANODAL SOLID ORGAN U 01/11/2016 DEV, BOBAN N Ot 202.80 OTH LYMPHOMAS EXTRANODAL SOLID ORGAN U 01/11/2016 DEV, BOBAN N Ot 585.3 CHRONIC KIDNEY DISEASE, STAGE III (MODER 01/11/2016 DEV, BOBAN N Ot V10.3 HX OF BREAST MALIGNANCY 01/11/2016 DEV, BOBAN N Ot V45.01 CARDIAC PACEMAKER IN SITU 01/11/2016 DEV, BOBAN N Ot V45.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 01/11/2016 DEV, BOBAN N Ot V58.69 OTH MED,LT,CURRENT USE 01/11/2016 DEV, BOBAN N Ot V87.41 PERSONAL HISTORY OF ANTINEOPLASTIC CHEMO 01/11/2016 NAVEEN JUSTIN, ERIC Peraza Ot 793.99 OTH NOSP (ABN) FINDINGS RADIOLOGICAL O 01/11/2016 NAVEEN JUSTIN, ERIC Peraza Ot V10.79 HX-LYMPHATIC MALIGN NEC 01/11/2016 DEV, BOBAN N Ot 202.80 OTH LYMPHOMAS EXTRANODAL SOLID ORGAN U 01/11/2016 DEV, BOBAN N Ot 585.3 CHRONIC KIDNEY DISEASE, STAGE III (MODER 01/11/2016 DEV, BOBAN N Ot V10.3 HX OF BREAST MALIGNANCY 01/11/2016 DEV, BOBAN N Ot V45.01 CARDIAC PACEMAKER IN SITU 01/11/2016 DEV, BOBAN N Ot V45.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 01/11/2016 DEV, BOBAN N Ot V58.69 OTH MED,LT,CURRENT USE 01/11/2016 DEV, BOBAN N Ot V87.41 PERSONAL HISTORY OF ANTINEOPLASTIC CHEMO 01/11/2016 DEV, BOBAN N Ot 202.80 OTH LYMPHOMAS EXTRANODAL SOLID ORGAN U 01/11/2016 DEV, BOBAN N Ot 244.9 HYPOTHYROIDISM NOS 01/11/2016 DEV, BOBAN N Ot 403.90 HYPTNSV CHR KID DIS, UNSPEC, W CHR KD ST 01/11/2016 DEV, BOBAN N Ot 585.3 CHRONIC KIDNEY DISEASE, STAGE III (MODER 01/11/2016 WESTLEY MÉNDEZ N Ot V10.3 HX OF BREAST MALIGNANCY 01/11/2016 WESTLEY MÉNDEZ N Ot V45.01 CARDIAC PACEMAKER IN SITU 01/11/2016 WESTLEY MÉNDEZ N Ot V45.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 01/11/2016 WESTLEY MÉNDEZ N Ot V58.69 OTH MED,LT,CURRENT USE 01/11/2016 WESTLEY MÉNDEZ N Ot V87.41 PERSONAL HISTORY OF ANTINEOPLASTIC CHEMO 01/11/2016 DEVTHADDEUSPRIMO N Ot C82.90 FOLLICULAR LYMPHOMA, UNSPECIFIED, UNSPEC 01/11/2016 DEVTHADDEUSPRIMO N Ot D50.9 IRON DEFICIENCY ANEMIA, UNSPECIFIED 01/11/2016 DEVWESTLEY N Ot I48.91 UNSPECIFIED ATRIAL FIBRILLATION 01/11/2016 DEVTHADDEUSPRIMO N Ot I50.9 HEART FAILURE, UNSPECIFIED 01/11/2016 DEVTHADDEUSPRIMO N Ot 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 OF KNEE 01/11/2016 DEVTHADDEUSPRIMO N Ot Z79.899 OTHER CORRECTION (CURRENT) DRUG THERAPY 01/11/2016 DEVTHADDEUSPRIMO N Ot Z85.3 PERSONAL HISTORY OF MALIGNANT NEOPLASM O 01/11/2016 DEV WESTLEY N Ot Z90.11 ACQUIRED ABSENCE OF RIGHT BREAST AND NIP 01/11/2016 WESTLEY MÉNDEZ N Ot Z92.21 PERSONAL HISTORY OF ANTINEOPLASTIC CHEMO 01/11/2016 DEVTHADDEUSPRIMO N Ot 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 PACEMAKER 01/11/2016 DEVWESTLEY N Ot C82.90 FOLLICULAR LYMPHOMA, UNSPECIFIED, UNSPEC 01/11/2016 DEV WESTLEY N Ot D50.9 IRON DEFICIENCY ANEMIA, UNSPECIFIED 01/11/2016 DEV WESTLEY N Ot I48.91 UNSPECIFIED ATRIAL FIBRILLATION 01/11/2016 DEVWESTLEY N Ot I50.9 HEART FAILURE, UNSPECIFIED 01/11/2016 DEVTHADDEUSPRIMO N Ot 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 OF KNEE 01/11/2016 DEVTHADDEUSPRIMO N Ot Z79.899 OTHER DIRECTOR OF LAND (CURRENT) DRUG THERAPY 01/11/2016 DEVWESTLEY N Ot Z85.3 PERSONAL HISTORY OF MALIGNANT NEOPLASM O 01/11/2016 WESTLEY MÉNDEZ N Ot Z90.11 ACQUIRED ABSENCE OF RIGHT BREAST AND NIP 01/11/2016 WESTLEY MÉNDEZ N Ot Z92.21 PERSONAL HISTORY OF ANTINEOPLASTIC CHEMO 01/11/2016 DEVWSETLEY N Ot 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 PACEMAKER 01/11/2016 WESTLEY MÉNDEZ N Ot C82.90 FOLLICULAR LYMPHOMA, UNSPECIFIED, UNSPEC 01/11/2016 DEVWESTLEY N Ot D50.9 IRON DEFICIENCY ANEMIA, UNSPECIFIED 01/11/2016 DEVWESTLEY N Ot I48.91 UNSPECIFIED ATRIAL FIBRILLATION 01/11/2016 DEVWESTLEY N Ot I50.9 HEART FAILURE, UNSPECIFIED 01/11/2016 DEVWESTLEY N Ot 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 OF KNEE 01/11/2016 DEVWESTLEY N Ot Z79.899 OTHER CORRECTION (CURRENT) DRUG THERAPY 01/11/2016 DEVWESTLEY N Ot Z85.3 PERSONAL HISTORY OF MALIGNANT NEOPLASM O 01/11/2016 DEVWESTLEY N Ot Z90.11 ACQUIRED ABSENCE OF RIGHT BREAST AND NIP 01/11/2016 DEVWESTLEY N Ot Z92.21 PERSONAL HISTORY OF ANTINEOPLASTIC CHEMO 01/11/2016 DEVWESTLEY N Ot 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 PACEMAKER 01/11/2016 WESTLEY MÉNDEZ N Ot C82.90 FOLLICULAR LYMPHOMA, UNSPECIFIED, UNSPEC 01/11/2016 WESTLEY MÉNDEZ N Ot D50.9 IRON DEFICIENCY ANEMIA, UNSPECIFIED 01/11/2016 DEVWESTLEY N Ot I48.91 UNSPECIFIED ATRIAL FIBRILLATION 01/11/2016 WESTLEY MÉNDEZ N Ot I50.9 HEART FAILURE, UNSPECIFIED 01/11/2016 DEVWESTLEY N Ot 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 OF KNEE 01/11/2016 DEVWESTLEY N Ot Z79.899 OTHER DIRECTOR OF LAND (CURRENT) DRUG THERAPY 01/11/2016 DEVWESTLEY N Ot Z85.3 PERSONAL HISTORY OF MALIGNANT NEOPLASM O 01/11/2016 DEVWESTLEY N Ot Z90.11 ACQUIRED ABSENCE OF RIGHT BREAST AND NIP 01/11/2016 DEVWESTLEY N Ot Z92.21 PERSONAL HISTORY OF ANTINEOPLASTIC CHEMO 01/11/2016 DEVWESTLEY N Ot 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 PACEMAKER 01/11/2016 WESTLEY MÉNDEZ N Ot 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, UNSP, LYM 01/12/2016 DEVWESTLEY BELL N Ot 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, UNSP, LYM 01/18/2016 WESTLEY MÉNDEZ N Ot C82.90 FOLLICULAR LYMPHOMA, UNSPECIFIED, UNSPEC 01/18/2016 WESTLEY MÉNDEZ N Ot D50.9 IRON DEFICIENCY ANEMIA, UNSPECIFIED 01/18/2016 WESTLEY MÉNDEZ N Ot I48.91 UNSPECIFIED ATRIAL FIBRILLATION 01/18/2016 WESTLEY MÉNDEZ N Ot I50.9 HEART FAILURE, UNSPECIFIED 01/18/2016 WESTLEY MÉNDEZ N Ot 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 OF KNEE 01/18/2016 WESTLEY MÉNDEZ N Ot Z79.899 OTHER DIRECTOR OF LAND (CURRENT) DRUG THERAPY 01/18/2016 DEVWESTLEY BELL N Ot Z85.3 PERSONAL HISTORY OF MALIGNANT NEOPLASM O 01/18/2016 WESTLEY MÉNDEZ N Ot Z90.11 ACQUIRED ABSENCE OF RIGHT BREAST AND NIP 01/18/2016 WESTLEY MÉNDEZ N Ot Z92.21 PERSONAL HISTORY OF ANTINEOPLASTIC CHEMO 01/18/2016 WESTLEY MÉNDEZ N Ot 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 PACEMAKER 01/26/2016 WESTLEY MÉNDEZ N Ot C82.90 FOLLICULAR LYMPHOMA, UNSPECIFIED, UNSPEC 01/26/2016 WESTLEY MÉNDEZ N Ot D50.9 IRON DEFICIENCY ANEMIA, UNSPECIFIED 01/26/2016 WESTLEY MÉNDEZ N Ot I48.91 UNSPECIFIED ATRIAL FIBRILLATION 01/26/2016 WESTLEY MÉNDEZ N Ot I50.9 HEART FAILURE, UNSPECIFIED 01/26/2016 WESTLEY MÉNDEZ N Ot 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 OF KNEE 01/26/2016 WESTLEY MÉNDEZ N Ot Z79.899 OTHER DIRECTOR OF LAND (CURRENT) DRUG THERAPY 01/26/2016 DEVWESTLEY BELL N Ot Z85.3 PERSONAL HISTORY OF MALIGNANT NEOPLASM O 01/26/2016 DEVWESTLEY BELL N Ot Z90.11 ACQUIRED ABSENCE OF RIGHT BREAST AND NIP 01/26/2016 WESTLEY MÉNDEZ N Ot Z92.21 PERSONAL HISTORY OF ANTINEOPLASTIC CHEMO 01/26/2016 WESTLEY MÉNDEZ N Ot 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 PACEMAKER 02/18/2016 Ot 202.80 OTH LYMPHOMAS EXTRANODAL SOLID ORGAN U 02/18/2016 Ot 427.81 SINOATRIAL NODE DYSFUNCT 02/18/2016 Ot 585.3 CHRONIC KIDNEY DISEASE, STAGE III (MODER 02/18/2016 Ot 715.90 OSTEOARTHROS NOS-UNSPEC 02/18/2016 Ot 780.79 OTH MALAISE FATIGUE 02/18/2016 Ot V10.3 HX OF BREAST MALIGNANCY 02/18/2016 Ot V45.01 CARDIAC PACEMAKER IN SITU 02/18/2016 Ot V58.69 OTH MED,LT, CURRENT USE 02/18/2016 Ot V87.41 PERSONAL HISTORY OF ANTINEOPLASTIC CHEMO 02/18/2016 Ot 202.80 OTH LYMPHOMAS EXTRANODAL SOLID ORGAN U 02/18/2016 Ot 585.3 CHRONIC KIDNEY DISEASE, STAGE III (MODER 02/18/2016 Ot V45.01 CARDIAC PACEMAKER IN SITU 02/18/2016 Ot V58.69 OTH MED,LT, CURRENT USE 02/18/2016 Ot V87.41 PERSONAL HISTORY OF ANTINEOPLASTIC CHEMO 02/18/2016 Ot 202.80 OTH LYMPHOMAS EXTRANODAL SOLID ORGAN U 02/18/2016 Ot 585.3 CHRONIC KIDNEY DISEASE, STAGE III (MODER 02/18/2016 Ot 784.2 SWELLING IN HEAD NECK 02/18/2016 Ot V10.3 HX OF BREAST MALIGNANCY 02/18/2016 Ot V45.01 CARDIAC PACEMAKER IN SITU 02/18/2016 Ot V45.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 02/18/2016 Ot V58.69 OTH MED,LT, CURRENT USE 02/18/2016 Ot V87.41 PERSONAL HISTORY OF [...] BREAST AND NIPPLE 02/18/2016 Ot V58.69 OTH MED,LT, CURRENT USE 02/18/2016 Ot V87.41 PERSONAL HISTORY OF ANTINEOPLASTIC CHEMO 02/18/2016 DEV, BOBAN N Ot 202.80 OTH LYMPHOMAS EXTRANODAL SOLID ORGAN U 02/18/2016 DEVTHADDEUS BELLAN N Ot 585.3 CHRONIC KIDNEY DISEASE, STAGE III (MODER 02/18/2016 DEVTHADDEUS BELLAN N Ot V10.3 HX OF BREAST MALIGNANCY 02/18/2016 DEV BOBAN N Ot V45.01 CARDIAC PACEMAKER IN SITU 02/18/2016 DEV, BOBAN N Ot V45.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 02/18/2016 DEV BOBAN N Ot V58.69 OTH MED,LT,CURRENT USE 02/18/2016 DEV, BOBAN N Ot V87.41 PERSONAL HISTORY OF ANTINEOPLASTIC CHEMO 02/18/2016 DEV, BOBAN N Ot 202.80 OTH LYMPHOMAS EXTRANODAL SOLID ORGAN U 02/18/2016 DEV, BOBAN N Ot 585.3 CHRONIC KIDNEY DISEASE, STAGE III (MODER 02/18/2016 DEVTHADDEUSAN N Ot V10.3 HX OF BREAST MALIGNANCY 02/18/2016 DEV BOBAN N Ot V45.01 CARDIAC PACEMAKER IN SITU 02/18/2016 DEV BOBAN N Ot V45.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 02/18/2016 DEV, BOBAN N Ot V58.69 OTH MED,LT,CURRENT USE 02/18/2016 DEV, BOBAN N Ot V87.41 PERSONAL HISTORY OF ANTINEOPLASTIC CHEMO 02/18/2016 DEV BOBAN N Ot 202.80 OTH LYMPHOMAS EXTRANODAL SOLID ORGAN U 02/18/2016 DEVWESTLEY N Ot 585.3 CHRONIC KIDNEY DISEASE, STAGE III (MODER 02/18/2016 DEVTHADDEUSAN N Ot V10.3 HX OF BREAST MALIGNANCY 02/18/2016 DEV BOBAN N Ot V45.01 CARDIAC PACEMAKER IN SITU 02/18/2016 DEV, BOBAN N Ot V45.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 02/18/2016 DEV BOBAN N Ot V58.69 OTH MED,LT,CURRENT USE 02/18/2016 DEV, BOBAN N Ot V87.41 PERSONAL HISTORY OF ANTINEOPLASTIC CHEMO 02/18/2016 DEV, BOBAN N Ot 202.80 OTH LYMPHOMAS EXTRANODAL SOLID ORGAN U 02/18/2016 DEV, BOBAN N Ot 202.80 OTH LYMPHOMAS EXTRANODAL SOLID ORGAN U 02/18/2016 DEV, BOBAN N Ot 585.3 CHRONIC KIDNEY DISEASE, STAGE III (MODER 02/18/2016 DEV, BOBAN N Ot V10.3 HX OF BREAST MALIGNANCY 02/18/2016 DEV, BOBAN N Ot V45.01 CARDIAC PACEMAKER IN SITU 02/18/2016 DEV, BOBAN N Ot V45.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 02/18/2016 DEV BOBAN N Ot V58.69 OTH MED,LT,CURRENT USE 02/18/2016 DEV, BOBAN N Ot V87.41 PERSONAL HISTORY OF ANTINEOPLASTIC CHEMO 02/18/2016 NAVEEN JUSTIN, ERIC Peraza Ot 793.99 OTH NOSP (ABN) FINDINGS RADIOLOGICAL O 02/18/2016 ERIC HODGE MD Ot V10.79 HX-LYMPHATIC MALIGN NEC 02/18/2016 DEV BOBAN N Ot 202.80 OTH LYMPHOMAS EXTRANODAL SOLID ORGAN U 02/18/2016 DEV BOBAN N Ot 585.3 CHRONIC KIDNEY DISEASE, STAGE III (MODER 02/18/2016 DEV BOBAN N Ot V10.3 HX OF BREAST MALIGNANCY 02/18/2016 DEV BOBAN N Ot V45.01 CARDIAC PACEMAKER IN SITU 02/18/2016 DEV, BOBAN N Ot V45.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 02/18/2016 DEV BOBAN N Ot V58.69 OTH MED,LT,CURRENT USE 02/18/2016 DEV, BOBAN N Ot V87.41 PERSONAL HISTORY OF ANTINEOPLASTIC CHEMO 02/18/2016 DEV BOBAN N Ot 202.80 OTH LYMPHOMAS EXTRANODAL SOLID ORGAN U 02/18/2016 DEV BOBAN N Ot 244.9 HYPOTHYROIDISM NOS 02/18/2016 DEV, BOBAN N Ot 403.90 HYPTNSV CHR KID DIS, UNSPEC, W CHR KD ST 02/18/2016 DEV, BOBAN N Ot 585.3 CHRONIC KIDNEY DISEASE, STAGE III (MODER 02/18/2016 DEV, BOBAN N Ot V10.3 HX OF BREAST MALIGNANCY 02/18/2016 DEV, BOBAN N Ot V45.01 CARDIAC PACEMAKER IN SITU 02/18/2016 DEV BOBAN N Ot V45.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 02/18/2016 WESTLEY MÉNDEZ N Ot V58.69 OTH MED,LT,CURRENT USE 02/18/2016 WESTLEY MÉNDEZ N Ot V87.41 PERSONAL HISTORY OF ANTINEOPLASTIC CHEMO 02/18/2016 WESTLEY MÉNDEZ N Ot C82.90 FOLLICULAR LYMPHOMA, UNSPECIFIED, UNSPEC 02/18/2016 WESTLEY MÉNDEZ N Ot D50.9 IRON DEFICIENCY ANEMIA, UNSPECIFIED 02/18/2016 DEVWESTLEY N Ot I48.91 UNSPECIFIED ATRIAL FIBRILLATION 02/18/2016 DEVWESTLEY N Ot I50.9 HEART FAILURE, UNSPECIFIED 02/18/2016 DEVWESTLEY N Ot 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 OF KNEE 02/18/2016 DEVWESTLEY N Ot Z79.899 OTHER DIRECTOR OF LAND (CURRENT) DRUG THERAPY 02/18/2016 DEVWESTLEY BELL N Ot Z85.3 PERSONAL HISTORY OF MALIGNANT NEOPLASM O 02/18/2016 DEVWESTLEY N Ot Z90.11 ACQUIRED ABSENCE OF RIGHT BREAST AND NIP 02/18/2016 DEVWESTLEY N Ot Z92.21 PERSONAL HISTORY OF ANTINEOPLASTIC CHEMO 02/18/2016 DEVWESTLEY N Ot 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 PACEMAKER 02/18/2016 WESTLEY MÉNDEZ N Ot C82.90 FOLLICULAR LYMPHOMA, UNSPECIFIED, UNSPEC 02/18/2016 WESTLEY MÉNDEZ N Ot D50.9 IRON DEFICIENCY ANEMIA, UNSPECIFIED 02/18/2016 DEVWESTLEY N Ot I48.91 UNSPECIFIED ATRIAL FIBRILLATION 02/18/2016 WESTLEY MÉNDEZ N Ot I50.9 HEART FAILURE, UNSPECIFIED 02/18/2016 DEVWESTLEY N Ot 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 OF KNEE 02/18/2016 DEVWESTLEY N Ot Z79.899 OTHER CORRECTION (CURRENT) DRUG THERAPY 02/18/2016 DEVWESTLEY N Ot Z85.3 PERSONAL HISTORY OF MALIGNANT NEOPLASM O 02/18/2016 DEVWESTLEY N Ot Z90.11 ACQUIRED ABSENCE OF RIGHT BREAST AND NIP 02/18/2016 DEVWESTLEY N Ot Z92.21 PERSONAL HISTORY OF ANTINEOPLASTIC CHEMO 02/18/2016 DEVWESTLEY N Ot 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 [...] 02/18/2016 WESTLEY MÉNDEZ N Ot Z79.899 OTHER CORRECTION (CURRENT) DRUG THERAPY 02/18/2016 WESTLEY MÉNDEZ N [...] I50.9 HEART FAILURE, UNSPECIFIED 02/18/2016 WESTLEY MÉNDEZ Ot 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 OF KNEE 02/18/2016 WESTLEY MÉNDEZ N Ot Z23 ENCOUNTER FOR IMMUNIZATION 02/18/2016 WESTLEY MÉNDEZ N Ot Z79.899 OTHER CORRECTION (CURRENT) DRUG THERAPY 02/18/2016 WESTLEY MÉNDEZ N [...] PACEMAKER IN SITU 02/21/2016 Ot V58.69 OTH MED,LT, CURRENT USE 02/21/2016 Ot V87.41 PERSONAL HISTORY OF ANTINEOPLASTIC CHEMO 02/21/2016 Ot 202.80 OTH LYMPHOMAS EXTRANODAL SOLID ORGAN U 02/21/2016 Ot 585.3 CHRONIC KIDNEY DISEASE, STAGE III (MODER 02/21/2016 Ot 784.2 SWELLING IN HEAD NECK 02/21/2016 Ot V10.3 HX OF BREAST MALIGNANCY 02/21/2016 Ot V45.01 CARDIAC PACEMAKER IN SITU 02/21/2016 Ot V45.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 02/21/2016 Ot V58.69 OTH MED,LT, CURRENT USE 02/21/2016 Ot V87.41 PERSONAL HISTORY OF [...] BREAST AND NIPPLE 02/21/2016 Ot V58.69 OTH MED,LT, CURRENT USE 02/21/2016 Ot V87.41 PERSONAL HISTORY OF ANTINEOPLASTIC CHEMO 02/21/2016 WESTLEY MÉNDEZ Ot 202.80 OTH LYMPHOMAS EXTRANODAL SOLID ORGAN U 02/21/2016 WESTLEY MÉNDEZ Ot 585.3 CHRONIC KIDNEY DISEASE, STAGE III (MODER 02/21/2016 WESTLEY MÉNDEZ Ot V10.3 HX OF BREAST MALIGNANCY 02/21/2016 WESTLEY MÉNDEZ Ot V45.01 CARDIAC PACEMAKER IN SITU 02/21/2016 WESTLEY MÉNDEZ N Ot V45.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 02/21/2016 WESTLEY MÉNDEZ Ot V58.69 OTH MED,LT,CURRENT USE 02/21/2016 WESTLEY MÉNDEZ Ot V87.41 PERSONAL HISTORY OF ANTINEOPLASTIC CHEMO 02/21/2016 DEV, BOBAN N Ot 202.80 OTH LYMPHOMAS EXTRANODAL SOLID ORGAN U 02/21/2016 DEV BOBAN N Ot 585.3 CHRONIC KIDNEY DISEASE, STAGE III (MODER 02/21/2016 DEVTHADDEUSAN N Ot V10.3 HX OF BREAST MALIGNANCY 02/21/2016 DEV, BOBAN N Ot V45.01 CARDIAC PACEMAKER IN SITU 02/21/2016 DEV, BOBAN N Ot V45.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 02/21/2016 DEV BOBAN N Ot V58.69 OTH MED,LT,CURRENT USE 02/21/2016 DEV, BOBAN N Ot V87.41 PERSONAL HISTORY OF ANTINEOPLASTIC CHEMO 02/21/2016 DEV, BOBAN N Ot 202.80 OTH LYMPHOMAS EXTRANODAL SOLID ORGAN U 02/21/2016 DEV BOBAN N Ot 585.3 CHRONIC KIDNEY DISEASE, STAGE III (MODER 02/21/2016 DEVTHADDEUSAN N Ot V10.3 HX OF BREAST MALIGNANCY 02/21/2016 DEV, BOBAN N Ot V45.01 CARDIAC PACEMAKER IN SITU 02/21/2016 DEV, BOBAN N Ot V45.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 02/21/2016 DEV, BOBAN N Ot V58.69 OTH MED,LT,CURRENT USE 02/21/2016 DEV, BOBAN N Ot V87.41 PERSONAL HISTORY OF ANTINEOPLASTIC CHEMO 02/21/2016 DEV, BOBAN N Ot 202.80 OTH LYMPHOMAS EXTRANODAL SOLID ORGAN U 02/21/2016 DEV, BOBAN N Ot 202.80 OTH LYMPHOMAS EXTRANODAL SOLID ORGAN U 02/21/2016 DEV BOBPRIMO N Ot 585.3 CHRONIC KIDNEY DISEASE, STAGE III (MODER 02/21/2016 DEV BOBAN N Ot V10.3 HX OF BREAST MALIGNANCY 02/21/2016 DEV, BOBAN N Ot V45.01 CARDIAC PACEMAKER IN SITU 02/21/2016 DEV, BOBAN N Ot V45.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 02/21/2016 DEV, BOBAN N Ot V58.69 OTH MED,LT,CURRENT USE 02/21/2016 DEV, BOBAN N Ot V87.41 PERSONAL HISTORY OF ANTINEOPLASTIC CHEMO 02/21/2016 NAVEEN JUSTIN, ERIC Peraza Ot 793.99 OTH NOSP (ABN) FINDINGS RADIOLOGICAL O 02/21/2016 NAVEEN JUSTIN, ERIC [place] Ot V10.79 HX-LYMPHATIC MALIGN NEC 02/21/2016 DEV, BOBAN N Ot 202.80 OTH LYMPHOMAS EXTRANODAL SOLID ORGAN U 02/21/2016 DEV, BOBAN N Ot 585.3 CHRONIC KIDNEY DISEASE, STAGE III (MODER 02/21/2016 DEV, BOBAN N Ot V10.3 HX OF BREAST MALIGNANCY 02/21/2016 DEV, BOBAN N Ot V45.01 CARDIAC PACEMAKER IN SITU 02/21/2016 DEV, BOBAN N Ot V45.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 02/21/2016 DEV, BOBAN N Ot V58.69 OTH MED,LT,CURRENT USE 02/21/2016 DEV, BOBAN N Ot V87.41 PERSONAL HISTORY OF ANTINEOPLASTIC CHEMO 02/21/2016 DEV, BOBAN N Ot 202.80 OTH LYMPHOMAS EXTRANODAL SOLID ORGAN U 02/21/2016 DEV, BOBAN N Ot 244.9 HYPOTHYROIDISM NOS 02/21/2016 DEV, BOBAN N Ot 403.90 HYPTNSV CHR KID DIS, UNSPEC, W CHR KD ST 02/21/2016 DEV, BOBAN N Ot 585.3 CHRONIC KIDNEY DISEASE, STAGE III (MODER 02/21/2016 DEV, BOBAN N Ot V10.3 HX OF BREAST MALIGNANCY 02/21/2016 DEV, BOBAN N Ot V45.01 CARDIAC PACEMAKER IN SITU 02/21/2016 DEV, BOBAN N Ot V45.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 02/21/2016 DEV, BOBAN N Ot V58.69 OTH MED,LT,CURRENT USE 02/21/2016 DEV, BOBAN N Ot V87.41 PERSONAL HISTORY OF ANTINEOPLASTIC CHEMO 02/21/2016 DEV, BOBAN N Ot C82.90 FOLLICULAR LYMPHOMA, UNSPECIFIED, UNSPEC 02/21/2016 DEV, BOBAN N Ot D50.9 IRON DEFICIENCY ANEMIA, UNSPECIFIED 02/21/2016 DEV, BOBAN N Ot I48.91 UNSPECIFIED ATRIAL FIBRILLATION 02/21/2016 DEV, BOBAN N Ot I50.9 HEART FAILURE, UNSPECIFIED 02/21/2016 DEV, BOBAN N Ot 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 OF KNEE 02/21/2016 DEVWESTLEY N Ot Z79.899 OTHER DIRECTOR OF LAND (CURRENT) DRUG THERAPY 02/21/2016 DEVWESTLEY N Ot Z85.3 PERSONAL HISTORY OF MALIGNANT NEOPLASM O 02/21/2016 DEVWESTLEY N Ot Z90.11 ACQUIRED ABSENCE OF RIGHT BREAST AND NIP 02/21/2016 WESTLEY MÉNDEZ N Ot Z92.21 PERSONAL HISTORY OF ANTINEOPLASTIC CHEMO 02/21/2016 DEVWESTLEY N Ot 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 PACEMAKER 02/21/2016 DEVWESTLEY N Ot C82.90 FOLLICULAR LYMPHOMA, UNSPECIFIED, UNSPEC 02/21/2016 DEVTHADDEUSAN N Ot D50.9 IRON DEFICIENCY ANEMIA, UNSPECIFIED 02/21/2016 DEV BOBAN N Ot I48.91 UNSPECIFIED ATRIAL FIBRILLATION 02/21/2016 DEVWESTLEY N Ot I50.9 HEART FAILURE, UNSPECIFIED 02/21/2016 DEVWESTLEY N Ot 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 OF KNEE 02/21/2016 DEVWESTLEY N Ot Z79.899 OTHER CORRECTION (CURRENT) DRUG THERAPY 02/21/2016 DEVWESTLEY N Ot Z85.3 PERSONAL HISTORY OF MALIGNANT NEOPLASM O 02/21/2016 DEVWESTLEY N Ot Z90.11 ACQUIRED ABSENCE OF RIGHT BREAST AND NIP 02/21/2016 WESTLEY MÉNDEZ N Ot Z92.21 PERSONAL HISTORY OF ANTINEOPLASTIC CHEMO 02/21/2016 DEVWESTLEY N Ot 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 PACEMAKER 02/21/2016 DEVWESTLEY N Ot C82.90 FOLLICULAR LYMPHOMA, UNSPECIFIED, UNSPEC 02/21/2016 DEVWESTLEY N Ot D50.9 IRON DEFICIENCY ANEMIA, UNSPECIFIED 02/21/2016 DEVWESTLEY N Ot I48.91 UNSPECIFIED ATRIAL FIBRILLATION 02/21/2016 DEVWESTLEY N Ot I50.9 HEART FAILURE, UNSPECIFIED 02/21/2016 DEVWESTLEY N Ot 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 OF KNEE 02/21/2016 DEVWESTLEY N Ot Z79.899 OTHER DIRECTOR OF LAND (CURRENT) DRUG THERAPY 02/21/2016 DEVWESTLEY N Ot Z85.3 PERSONAL HISTORY OF MALIGNANT NEOPLASM O 02/21/2016 DEV, BOBAN N Ot Z90.11 ACQUIRED ABSENCE OF [...] OF KNEE 02/21/2016 WESTLEY MÉNDEZ N Ot Z23 ENCOUNTER FOR IMMUNIZATION 02/21/2016 WESTLEY MÉNDEZ N Ot Z79.899 OTHER CORRECTION (CURRENT) DRUG THERAPY 02/21/2016 WESTLEY MÉNDEZ N Ot Z85.3 PERSONAL HISTORY OF MALIGNANT NEOPLASM O 02/21/2016 WESTLEY MÉNDEZ N Ot Z90.11 ACQUIRED ABSENCE OF RIGHT BREAST AND NIP 02/21/2016 WESTLEY MÉNDEZ N Ot Z92.21 PERSONAL HISTORY OF ANTINEOPLASTIC CHEMO 02/21/2016 WESTLEY MÉNDEZ N Ot 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 PACEMAKER 02/23/2016 WESTLEY MÉNEDZ N Ot C82.90 FOLLICULAR LYMPHOMA, UNSPECIFIED, UNSPEC 02/23/2016 WESTLEY MÉNDEZ N Ot D50.9 IRON DEFICIENCY ANEMIA, UNSPECIFIED 02/23/2016 WESTLEY MÉNDEZ N Ot I48.91 UNSPECIFIED ATRIAL FIBRILLATION 02/23/2016 WESTLEY MÉNDEZ N Ot I50.9 HEART FAILURE, UNSPECIFIED 02/23/2016 DEVWESTLEY N Ot 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 OF KNEE 02/23/2016 DEVWESTLEY N Ot Z23 ENCOUNTER FOR IMMUNIZATION 02/23/2016 WESTLEY MÉNDEZ N Ot Z79.899 OTHER DIRECTOR OF LAND (CURRENT) DRUG THERAPY 02/23/2016 DEVWESTLEY BELL N Ot Z85.3 PERSONAL HISTORY OF MALIGNANT NEOPLASM O 02/23/2016 DEVWESTLEY BELL N Ot Z90.11 ACQUIRED ABSENCE OF RIGHT BREAST AND NIP 02/23/2016 WESTLEY MÉNDEZ N Ot Z92.21 PERSONAL HISTORY OF ANTINEOPLASTIC CHEMO 02/23/2016 WESTLEY MÉNDEZ N Ot 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 PACEMAKER 02/25/2016 WESTLEY MÉNDEZ N Ot 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, UNSP, LYM 03/01/2016 WESTLEY MÉNDEZ N Ot 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, UNSP, LYM 03/16/2016 WESTLEY MÉNDEZ N Ot C82.90 FOLLICULAR LYMPHOMA, UNSPECIFIED, UNSPEC 03/16/2016 WESTLEY MÉNDEZ N Ot D50.9 IRON DEFICIENCY ANEMIA, UNSPECIFIED 03/16/2016 DEVWESTLEY BELL N Ot I48.91 UNSPECIFIED ATRIAL FIBRILLATION 03/16/2016 WESTLEY MÉNDEZ N Ot I50.9 HEART FAILURE, UNSPECIFIED 03/16/2016 WESTLEY MÉNDEZ N Ot 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 OF KNEE 03/16/2016 WESTLEY MÉNDEZ N Ot Z79.899 OTHER CORRECTION (CURRENT) DRUG THERAPY 03/16/2016 WESTLEY MÉNDEZ N Ot Z85.3 PERSONAL HISTORY OF MALIGNANT NEOPLASM O 03/16/2016 WESTLEY MÉNDEZ N Ot Z90.11 ACQUIRED ABSENCE OF RIGHT BREAST AND NIP 03/16/2016 WESTLEY MÉNDEZ N Ot Z92.21 PERSONAL HISTORY OF ANTINEOPLASTIC CHEMO 03/16/2016 WESTLEY MÉNDZE N Ot 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 PACEMAKER 03/22/2016 WESTLEY MÉNDEZ N Ot C82.90 FOLLICULAR LYMPHOMA, UNSPECIFIED, UNSPEC 03/22/2016 WESTLEY MÉNDEZ N Ot D50.9 IRON DEFICIENCY ANEMIA, UNSPECIFIED 03/22/2016 WESTLEY MÉNDEZ N Ot I48.91 UNSPECIFIED ATRIAL FIBRILLATION 03/22/2016 WESTLEY MÉNDEZ N Ot I50.9 HEART FAILURE, UNSPECIFIED 03/22/2016 DEV THADDEUSPRIMO N Ot 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 OF KNEE 03/22/2016 WESTLEY MÉNDEZ N Ot Z79.899 OTHER DIRECTOR OF LAND (CURRENT) DRUG THERAPY 03/22/2016 WESTLEY MÉNDEZ N Ot Z85.3 PERSONAL HISTORY OF MALIGNANT NEOPLASM O 03/22/2016 WESTLEY MÉNDEZ N Ot Z90.11 ACQUIRED ABSENCE OF RIGHT BREAST AND NIP 03/22/2016 WESTLEY MÉNDEZ N Ot Z92.21 PERSONAL HISTORY OF ANTINEOPLASTIC CHEMO 03/22/2016 DEV THADDEUSPRIMO N Ot 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 PACEMAKER 04/05/2016 WESTLEY MÉNDEZ N Ot C82.90 FOLLICULAR LYMPHOMA, UNSPECIFIED, UNSPEC 04/05/2016 WESTLEY MÉNDEZ N Ot D50.9 IRON DEFICIENCY ANEMIA, UNSPECIFIED 04/05/2016 WESTLEY MÉNDEZ N Ot I48.91 UNSPECIFIED ATRIAL FIBRILLATION 04/05/2016 DEV THADDEUSPRIMO N Ot I50.9 HEART FAILURE, UNSPECIFIED 04/05/2016 WESTLEY MÉNDEZ N Ot 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 OF KNEE 04/05/2016 DEV WESTLEY N Ot Z23 ENCOUNTER FOR IMMUNIZATION 04/05/2016 DEV WESTLEY N Ot Z79.899 OTHER DIRECTOR OF LAND (CURRENT) DRUG THERAPY 04/05/2016 DEV WESTLEY N Ot Z85.3 PERSONAL HISTORY OF MALIGNANT NEOPLASM O 04/05/2016 DEVWESTLEY N Ot Z90.11 ACQUIRED ABSENCE OF RIGHT BREAST AND NIP 04/05/2016 DEVWESTLEY Ot Z92.21 PERSONAL HISTORY OF ANTINEOPLASTIC CHEMO 04/05/2016 DEV THADDEUSPRIMO N Ot 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 PACEMAKER 04/06/2016 WESTLEY MÉNDEZ Tello Ot C82.90 FOLLICULAR LYMPHOMA, UNSPECIFIED, UNSPEC 04/06/2016 WESTLEY MÉNDEZ N Ot D50.9 IRON DEFICIENCY ANEMIA, UNSPECIFIED 04/06/2016 WESTLEY MÉNDEZ N Ot I48.91 UNSPECIFIED ATRIAL FIBRILLATION 04/06/2016 WESTLEY MÉNDEZ Tello Ot I50.9 HEART FAILURE, UNSPECIFIED 04/06/2016 DEV THADDEUSPRIMO Tello Ot 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 OF KNEE 04/06/2016 DEV WESTLEY N Ot Z23 ENCOUNTER FOR IMMUNIZATION 04/06/2016 DEVWESTLEY N Ot Z79.899 OTHER DIRECTOR OF LAND (CURRENT) DRUG THERAPY 04/06/2016 DEVWESTLEY N Ot Z85.3 PERSONAL HISTORY OF MALIGNANT NEOPLASM O 04/06/2016 DEV WESTLEY N Ot Z90.11 ACQUIRED ABSENCE OF RIGHT BREAST AND NIP 04/06/2016 DEV WESTLEY N Ot Z92.21 PERSONAL HISTORY OF ANTINEOPLASTIC CHEMO 04/06/2016 DEV WESTLEY N Ot 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 PACEMAKER 05/31/2016 WESTLEY MÉNDEZ N Ot C82.90 FOLLICULAR LYMPHOMA, UNSPECIFIED, UNSPEC 05/31/2016 WESTLEY MÉNDEZ N Ot D50.9 IRON DEFICIENCY ANEMIA, UNSPECIFIED 05/31/2016 WESTLEY MÉNDEZ N Ot I48.91 UNSPECIFIED ATRIAL FIBRILLATION 05/31/2016 WESTLEY MÉNDEZ N Ot I50.9 HEART FAILURE, UNSPECIFIED 05/31/2016 WESTLEY MÉNDEZ N Ot 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 OF KNEE 05/31/2016 WESTLEY MÉNDEZ N Ot Z79.899 OTHER CORRECTION (CURRENT) DRUG THERAPY 05/31/2016 WESTLEY MÉNDEZ N Ot Z85.3 PERSONAL HISTORY OF MALIGNANT NEOPLASM O 05/31/2016 WESTLEY MÉNDEZ N Ot Z90.11 ACQUIRED ABSENCE OF RIGHT BREAST AND NIP 05/31/2016 WESTLEY MÉNDEZ N Ot Z92.21 PERSONAL HISTORY OF ANTINEOPLASTIC CHEMO 05/31/2016 WESTLEY MÉNDEZ N Ot 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 PACEMAKER 06/05/2016 WESTLEY MÉNDEZ N Ot C82.90 FOLLICULAR LYMPHOMA, UNSPECIFIED, UNSPEC 06/05/2016 WESTLEY MÉNDEZ N Ot D50.9 IRON DEFICIENCY ANEMIA, UNSPECIFIED 06/05/2016 WESTLEY MÉNDEZ N Ot I48.91 UNSPECIFIED ATRIAL FIBRILLATION 06/05/2016 WESTLEY MÉNDEZ N Ot I50.9 HEART FAILURE, UNSPECIFIED 06/05/2016 WESTLEY MÉNDEZ N Ot 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 OF KNEE 06/05/2016 WESTLEY MÉNDEZ N Ot Z79.899 OTHER CORRECTION (CURRENT) DRUG THERAPY 06/05/2016 WESTLEY MÉNDEZ N [...] Ot D50.9 IRON DEFICIENCY ANEMIA, UNSPECIFIED 06/20/2016 WESTLEY MÉNDEZ N Ot I48.91 UNSPECIFIED ATRIAL FIBRILLATION 06/20/2016 WESTLEY MÉNDEZ N Ot I50.9 HEART FAILURE, UNSPECIFIED 06/20/2016 WESTLEY MÉNDEZ N Ot 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 OF KNEE 06/20/2016 WESTLEY MÉNDEZ N Ot Z79.899 OTHER CORRECTION (CURRENT) DRUG THERAPY 06/20/2016 WESTLEY MÉNDEZ N Ot Z85.3 PERSONAL HISTORY OF MALIGNANT NEOPLASM O 06/20/2016 WESTLEY MÉNDEZ N Ot Z90.11 ACQUIRED ABSENCE OF RIGHT BREAST AND NIP 06/20/2016 WESTLEY MÉNDEZ N Ot Z92.21 PERSONAL HISTORY OF ANTINEOPLASTIC CHEMO 06/20/2016 WESTLEY MÉNDEZ N Ot 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 PACEMAKER 06/30/2016 WESTLEY MÉNDEZ N Ot C82.90 FOLLICULAR LYMPHOMA, UNSPECIFIED, UNSPEC 06/30/2016 WESTLEY MÉNDEZ N Ot D50.9 IRON DEFICIENCY ANEMIA, UNSPECIFIED 06/30/2016 WESTLEY MÉNDEZ N Ot I48.91 UNSPECIFIED ATRIAL FIBRILLATION 06/30/2016 WESTLEY MÉNDEZ N Ot I50.9 HEART FAILURE, UNSPECIFIED 06/30/2016 WESTLEY MÉNDEZ N Ot 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 OF KNEE 06/30/2016 WESTLEY MÉNDEZ N Ot Z79.899 OTHER DIRECTOR OF LAND (CURRENT) DRUG THERAPY 06/30/2016 WESTLEY MÉNDEZ N Ot Z85.3 PERSONAL HISTORY OF MALIGNANT NEOPLASM O 06/30/2016 WESTLEY MÉNDEZ N Ot Z90.11 ACQUIRED ABSENCE OF RIGHT BREAST AND NIP 06/30/2016 WESTLEY MÉNDEZ N Ot Z92.21 PERSONAL HISTORY OF ANTINEOPLASTIC CHEMO 06/30/2016 WESTLEY MÉNDEZ N Ot 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 PACEMAKER 12/08/2016 WESTLEY MÉNDEZ N Ot 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, UNSP, LYM 12/08/2016 DEV WESTLEY N Ot D50.9 IRON DEFICIENCY ANEMIA, UNSPECIFIED 12/08/2016 WESTLEY MÉNDEZ N Ot I48.91 UNSPECIFIED ATRIAL FIBRILLATION 12/08/2016 WESTLEY MÉNDEZ N Ot I50.9 HEART FAILURE, UNSPECIFIED 12/08/2016 WESTLEY MÉNDEZ N Ot 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 OF KNEE 12/08/2016 WESTLEY MÉNDEZ N Ot Z79.899 OTHER CORRECTION (CURRENT) DRUG THERAPY 12/08/2016 WESTLEY MÉNDEZ N Ot Z85.3 PERSONAL HISTORY OF MALIGNANT NEOPLASM O 12/08/2016 WESTLEY MÉNDEZ N Ot Z90.11 ACQUIRED ABSENCE OF RIGHT BREAST AND NIP 12/08/2016 WESTLEY MÉNDEZ N Ot Z92.21 PERSONAL HISTORY OF ANTINEOPLASTIC CHEMO 12/08/2016 DEV THADDEUSPRIMO N Ot 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 PACEMAKER 12/13/2016 WESTLEY MÉNDEZ N Ot 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, UNSP, LYM 12/13/2016 DEVWESTLEY BELL N Ot D50.9 IRON DEFICIENCY ANEMIA, UNSPECIFIED 12/13/2016 DEVWESTLEY N Ot I48.91 UNSPECIFIED ATRIAL FIBRILLATION 12/13/2016 DEV THADDEUSPRIMO N Ot I50.9 HEART FAILURE, UNSPECIFIED 12/13/2016 DEV THADDEUSPRIMO N Ot 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 OF KNEE 12/13/2016 WESTLEY MÉNDEZ N Ot Z79.899 OTHER DIRECTOR OF LAND (CURRENT) DRUG THERAPY 12/13/2016 WESTLEY MÉNDEZ N Ot Z85.3 PERSONAL HISTORY OF MALIGNANT NEOPLASM O 12/13/2016 WESTLEY MÉNDEZ N Ot Z90.11 ACQUIRED ABSENCE OF RIGHT BREAST AND NIP 12/13/2016 WESTLEY MÉNDEZ N Ot Z92.21 PERSONAL HISTORY OF ANTINEOPLASTIC CHEMO 12/13/2016 WESTLEY MÉNDEZ N Ot 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 PACEMAKER 12/25/2016 WESTLEY MÉNDEZ N Ot 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, UNSP, LYM 12/25/2016 DEVTHADDEUSPRIMO N Ot D50.9 IRON DEFICIENCY ANEMIA, UNSPECIFIED 12/25/2016 DEVTHADDEUSPRIMO N Ot I48.91 UNSPECIFIED ATRIAL FIBRILLATION 12/25/2016 DEVWESTLEY N Ot I50.9 HEART FAILURE, UNSPECIFIED 12/25/2016 DEV BOBPRIMO N Ot 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 OF KNEE 12/25/2016 DEVWESTLEY N Ot Z79.899 OTHER CORRECTION (CURRENT) DRUG THERAPY 12/25/2016 DEV THADDEUSPRIMO N Ot Z85.3 PERSONAL HISTORY OF MALIGNANT NEOPLASM O 12/25/2016 DEV, THADDEUSPRIMO N Ot Z90.11 ACQUIRED ABSENCE OF RIGHT BREAST AND NIP 12/25/2016 EWSTLEY MÉNDEZ Ot Z92.21 PERSONAL HISTORY OF ANTINEOPLASTIC CHEMO 12/25/2016 WESTLEY MÉNDEZ Ot 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 PACEMAKER 01/23/2017 WESTLEY MÉNDEZ Ot 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, UNSP, LYM 01/23/2017 WESTLEY MÉNDEZ Ot D50.9 IRON DEFICIENCY ANEMIA, UNSPECIFIED 01/23/2017 WESTLEY MÉNDEZ Ot I48.91 UNSPECIFIED ATRIAL FIBRILLATION 01/23/2017 WESTLEY MÉNDEZ Ot I50.9 HEART FAILURE, UNSPECIFIED 01/23/2017 WESTLEY MÉNDEZ Ot 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 OF KNEE 01/23/2017 WESTLEY MÉNDEZ Tello Ot Z79.899 OTHER CORRECTION (CURRENT) DRUG THERAPY 01/23/2017 WESTLEY MÉNDEZ Tello Ot Z85.3 PERSONAL HISTORY OF MALIGNANT NEOPLASM O 01/23/2017 WESTLEY MÉNDEZ Ot Z90.11 ACQUIRED ABSENCE OF RIGHT BREAST AND NIP 01/23/2017 WESTLEY MÉNDEZ Ot Z92.21 PERSONAL HISTORY OF ANTINEOPLASTIC CHEMO 01/23/2017 WESTLEY MÉNDEZ Ot 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 PACEMAKER 02/10/2017 KEITH PARKS MD Ot 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, UNSPE 02/10/2017 KEITH PARKS MD Ot R35.0 FREQUENCY OF MICTURITION 02/10/2017 KEITH PARKS MD Ot Z85.3 PERSONAL HISTORY OF MALIGNANT NEOPLASM O 02/10/2017 KEITH PARKS MD Ot Z87.440 PERSONAL HISTORY OF URINARY (TRACT) INFE 02/10/2017 KEITH PARKS MD J Ot 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 PACEMAKER 02/16/2017 KEITH PARKS MD Ot 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, UNSPE 02/16/2017 KEITH PARKS MD J Ot R35.0 FREQUENCY OF MICTURITION 02/16/2017 KEITH PARKS MD J Ot Z85.3 PERSONAL HISTORY OF MALIGNANT NEOPLASM O 02/16/2017 KEITH PARKS MD Ot Z87.440 PERSONAL HISTORY OF URINARY (TRACT) INFE 02/16/2017 KEITH PARKS MD Ot 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 PACEMAKER 02/22/2017 WESTLEY MÉNDEZ Tello Ot 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, UNSP, LYM 02/22/2017 WESTLEY MÉNDEZ N Ot D50.9 IRON DEFICIENCY ANEMIA, UNSPECIFIED 02/22/2017 WESTLEY MÉNDEZ N Ot D63.1 ANEMIA IN CHRONIC KIDNEY DISEASE 02/22/2017 WESTLEY MÉNDEZ N Ot I48.91 UNSPECIFIED ATRIAL FIBRILLATION 02/22/2017 WESTLEY MÉNDEZ Tello Ot I50.9 HEART FAILURE, UNSPECIFIED 02/22/2017 WESTLEY MÉNDEZ N Ot 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 OF KNEE 02/22/2017 WESTLEY MÉNDEZ N Ot N18.3 CHRONIC KIDNEY DISEASE, STAGE 3 (MODERAT 02/22/2017 WESTLEY MÉNDEZ N Ot Z79.899 OTHER CORRECTION (CURRENT) DRUG THERAPY 02/22/2017 WESTLEY MÉNDEZ N Ot Z85.3 PERSONAL HISTORY OF MALIGNANT NEOPLASM O 02/22/2017 DEVWESTLEY BELL N Ot Z90.11 ACQUIRED ABSENCE OF RIGHT BREAST AND NIP 02/22/2017 WESTLEY MÉNDEZ N Ot Z92.21 PERSONAL HISTORY OF ANTINEOPLASTIC CHEMO 02/22/2017 WESTLEY MÉNDEZ Tello Ot 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 PACEMAKER 03/01/2017 WESTLEY MÉNDEZ Tello Ot 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, UNSP, LYM 03/01/2017 WESTLEY MÉNDEZ N Ot D50.9 IRON DEFICIENCY ANEMIA, UNSPECIFIED 03/01/2017 WESTLEY MÉNDEZ N Ot D63.1 ANEMIA IN CHRONIC KIDNEY DISEASE 03/01/2017 WESTLEY MÉNDEZ Tello Ot I48.91 UNSPECIFIED ATRIAL FIBRILLATION 03/01/2017 WESTLEY MÉNDEZ N Ot I50.9 HEART FAILURE, UNSPECIFIED 03/01/2017 WESTLEY MÉNDEZ N Ot 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 OF KNEE 03/01/2017 WESTLEY MÉNDEZ N Ot N18.3 CHRONIC KIDNEY DISEASE, STAGE 3 (MODERAT 03/01/2017 WESTLEY MÉNDEZ N Ot Z79.899 OTHER DIRECTOR OF LAND (CURRENT) DRUG THERAPY 03/01/2017 WESTLEY MÉNDEZ N Ot Z85.3 PERSONAL HISTORY OF MALIGNANT NEOPLASM O 03/01/2017 DEVWESTLEY BELL N Ot Z90.11 ACQUIRED ABSENCE OF RIGHT BREAST AND NIP 03/01/2017 WESTLEY MÉNDEZ N Ot Z92.21 PERSONAL HISTORY OF ANTINEOPLASTIC CHEMO 03/01/2017 WESTLEY MÉNDEZ N Ot 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 PACEMAKER 03/22/2017 WESTLEY MÉNDEZ N Ot 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, UNSP, LYM 03/22/2017 WESTLEY MÉNDEZ N Ot D50.9 IRON DEFICIENCY ANEMIA, UNSPECIFIED 03/22/2017 WESTLEY MÉNDEZ N Ot D63.1 ANEMIA IN CHRONIC KIDNEY DISEASE 03/22/2017 WESTLEY MÉNDEZ N Ot I48.91 UNSPECIFIED ATRIAL FIBRILLATION 03/22/2017 WESTLEY MÉNDEZ N Ot I50.9 HEART FAILURE, UNSPECIFIED 03/22/2017 DEVWESTLEY BELL N Ot 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 OF KNEE 03/22/2017 WESTLEY MÉNDEZ N Ot N18.3 CHRONIC KIDNEY DISEASE, STAGE 3 (MODERAT 03/22/2017 DEV THADDEUSPRIMO N Ot Z79.899 OTHER CORRECTION (CURRENT) DRUG THERAPY 03/22/2017 WESTLEY MÉNDEZ N Ot Z85.3 PERSONAL HISTORY OF MALIGNANT NEOPLASM O 03/22/2017 WESTLEY MÉNDEZ N Ot Z90.11 ACQUIRED ABSENCE OF RIGHT BREAST AND NIP 03/22/2017 WESTLEY MÉNDEZ N Ot Z92.21 PERSONAL HISTORY OF ANTINEOPLASTIC CHEMO 03/22/2017 WESTLEY MÉNDEZ N Ot 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 PACEMAKER 03/23/2017 WESTLEY MÉNDEZ N Ot 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, UNSP, LYM 03/23/2017 WESTLEY MÉNDEZ Tello Ot D50.9 IRON DEFICIENCY ANEMIA, UNSPECIFIED 03/23/2017 WESTLEY MÉNDEZ N Ot D63.1 ANEMIA IN CHRONIC KIDNEY DISEASE 03/23/2017 WESTLEY MÉNDEZ N Ot I48.91 UNSPECIFIED ATRIAL FIBRILLATION 03/23/2017 WESTLEY MÉNDEZ N Ot I50.9 HEART FAILURE, UNSPECIFIED 03/23/2017 DEV THADDEUSPRMIO N Ot 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 OF KNEE 03/23/2017 WESTLEY MÉNDEZ N Ot N18.3 CHRONIC KIDNEY DISEASE, STAGE 3 (MODERAT 03/23/2017 DEV, THADDEUSPRIMO N Ot Z79.899 OTHER CORRECTION (CURRENT) DRUG THERAPY 03/23/2017 DEVWESTLEY BELL N Ot Z85.3 PERSONAL HISTORY OF MALIGNANT NEOPLASM O 03/23/2017 WESTLEY MÉNDEZ N Ot Z90.11 ACQUIRED ABSENCE OF RIGHT BREAST AND NIP 03/23/2017 WESTLEY MÉNDEZ N Ot Z92.21 PERSONAL HISTORY OF ANTINEOPLASTIC CHEMO 03/23/2017 WESTLEY MÉNDEZ N Ot 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 PACEMAKER 03/30/2017 WESTLEY MÉNDEZ N Ot 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, UNSP, LYM 03/30/2017 WESTLEY MÉNDEZ N Ot D50.9 IRON DEFICIENCY ANEMIA, UNSPECIFIED 03/30/2017 WESTLEY MÉNDEZ N Ot D63.1 ANEMIA IN CHRONIC KIDNEY DISEASE 03/30/2017 WESTLEY MÉNDEZ N Ot I48.91 UNSPECIFIED ATRIAL FIBRILLATION 03/30/2017 WESTLEY MÉNDEZ N Ot I50.9 HEART FAILURE, UNSPECIFIED 03/30/2017 WESTLEY MÉNDEZ N Ot 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 OF KNEE 03/30/2017 WESTLEY MÉNDEZ N Ot N18.3 CHRONIC KIDNEY DISEASE, STAGE 3 (MODERAT 03/30/2017 WESTLEY MÉNDEZ N Ot Z79.899 OTHER CORRECTION (CURRENT) DRUG THERAPY 03/30/2017 WESTLEY MÉNDEZ N Ot Z85.3 PERSONAL HISTORY OF MALIGNANT NEOPLASM O 03/30/2017 WESTLEY MÉNDEZ N Ot Z90.11 ACQUIRED ABSENCE OF RIGHT BREAST AND NIP 03/30/2017 WESTLEY MÉNDEZ N Ot Z92.21 PERSONAL HISTORY OF ANTINEOPLASTIC CHEMO 03/30/2017 WESTLEY MÉNDEZ N Ot 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 PACEMAKER 04/12/2017 WESTLEY MÉNDEZ N Ot 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, UNSP, LYM 04/12/2017 WESTLEY MÉNDEZ N Ot D50.9 IRON DEFICIENCY ANEMIA, UNSPECIFIED 04/12/2017 WESTLEY MÉNDEZ N Ot D63.1 ANEMIA IN CHRONIC KIDNEY DISEASE 04/12/2017 WESTLEY MÉNDEZ N Ot I48.91 UNSPECIFIED ATRIAL FIBRILLATION 04/12/2017 WESTLEY MÉNDEZ N Ot I50.9 HEART FAILURE, UNSPECIFIED 04/12/2017 WESTLEY MÉNDEZ N Ot 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 OF KNEE 04/12/2017 WESTLEY MÉNDEZ N Ot N18.3 CHRONIC KIDNEY DISEASE, STAGE 3 (MODERAT 04/12/2017 WESTLEY MÉNDEZ N Ot Z79.899 OTHER DIRECTOR OF LAND (CURRENT) DRUG THERAPY 04/12/2017 WESTLEY MÉNDEZ N Ot Z85.3 PERSONAL HISTORY OF MALIGNANT NEOPLASM O 04/12/2017 WESTLEY MÉNDEZ N Ot Z90.11 ACQUIRED ABSENCE OF RIGHT BREAST AND NIP 04/12/2017 WESTLEY MÉNDEZ N Ot Z92.21 PERSONAL HISTORY OF ANTINEOPLASTIC CHEMO 04/12/2017 WESTLEY MÉNDEZ N Ot 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 PACEMAKER 04/30/2017 WESTLEY MÉNDEZ N Ot 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, UNSP, LYM 04/30/2017 WESTLEY MÉNDEZ N Ot D50.9 IRON DEFICIENCY ANEMIA, UNSPECIFIED 04/30/2017 WESTLEY MÉNDEZ N Ot D63.1 ANEMIA IN CHRONIC KIDNEY DISEASE 04/30/2017 WESTLEY MÉNDEZ N Ot I48.91 UNSPECIFIED ATRIAL FIBRILLATION 04/30/2017 WESTLEY MÉNDEZ N Ot I50.9 HEART FAILURE, UNSPECIFIED 04/30/2017 WESTLEY MÉNDEZ N Ot 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 OF KNEE 04/30/2017 WESTLEY MÉNDEZ N Ot N18.3 CHRONIC KIDNEY DISEASE, STAGE 3 (MODERAT 04/30/2017 WESTLEY MÉNDEZ N Ot Z79.899 OTHER CORRECTION (CURRENT) DRUG THERAPY 04/30/2017 WESTLEY MÉNDEZ N Ot Z85.3 PERSONAL HISTORY OF MALIGNANT NEOPLASM O 04/30/2017 WESTLEY MÉNDEZ N Ot Z90.11 ACQUIRED ABSENCE OF RIGHT BREAST AND NIP 04/30/2017 WESTLEY MÉNDEZ N Ot Z92.21 PERSONAL HISTORY OF ANTINEOPLASTIC CHEMO 04/30/2017 WESTLEY MÉNDEZ N Ot 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 PACEMAKER 05/08/2017 SELINA FERNANDO MD Ot 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, UNSP, LYM 05/08/2017 SELINA FERNANDO MD Ot D50.9 IRON DEFICIENCY ANEMIA, UNSPECIFIED 05/08/2017 SELINA FERNANDO MD Ot D63.1 ANEMIA IN CHRONIC KIDNEY DISEASE 05/08/2017 SELINA FERNANDO MD Ot I48.91 UNSPECIFIED ATRIAL FIBRILLATION 05/08/2017 SELINA FERNANDO MD Ot I50.9 HEART FAILURE, UNSPECIFIED 05/08/2017 SELINA FERNANDO MD Ot 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 OF KNEE 05/08/2017 SELINA FERNANDO MD Ot N18.3 CHRONIC KIDNEY DISEASE, STAGE 3 (MODERAT 05/08/2017 SELINA FERNANDO MD Ot Z79.899 OTHER DIRECTOR OF LAND (CURRENT) DRUG THERAPY 05/08/2017 SELINA FERNANDO MD Ot Z85.3 PERSONAL HISTORY OF MALIGNANT NEOPLASM O 05/08/2017 SELINA FERNANDO MD Ot Z90.11 ACQUIRED ABSENCE OF RIGHT BREAST AND NIP 05/08/2017 SELINA FERNANDO MD Ot Z92.21 PERSONAL HISTORY OF ANTINEOPLASTIC CHEMO 05/08/2017 SELINA FERNANDO MD Ot 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 PACEMAKER 06/06/2017 WESTLEY MÉNDEZ N Ot 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, UNSP, LYM 06/06/2017 WESTLEY MÉNDEZ N Ot D50.9 IRON DEFICIENCY ANEMIA, UNSPECIFIED 06/06/2017 DEVTHADDEUS BELLAN N Ot D63.1 ANEMIA IN CHRONIC KIDNEY DISEASE 06/06/2017 DEV, BOBAN N Ot I48.91 UNSPECIFIED ATRIAL FIBRILLATION 06/06/2017 THADDEUS MÉNDEZAN N Ot I50.9 HEART FAILURE, UNSPECIFIED 06/06/2017 THADDEUS MÉNDEZAN N Ot 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 OF KNEE 06/06/2017 WESTLEY MÉNDEZ N Ot N18.3 CHRONIC KIDNEY DISEASE, STAGE 3 (MODERAT 06/06/2017 WESTLEY MÉNDEZ N Ot Z79.899 OTHER DIRECTOR OF LAND (CURRENT) DRUG THERAPY 06/06/2017 WESTLEY MÉNDEZ N Ot Z85.3 PERSONAL HISTORY OF MALIGNANT NEOPLASM O 06/06/2017 WESTLEY MÉNDEZ N Ot Z90.11 ACQUIRED ABSENCE OF RIGHT BREAST AND NIP 06/06/2017 WESTLEY MÉNDEZ N Ot Z92.21 PERSONAL HISTORY OF ANTINEOPLASTIC CHEMO 06/06/2017 WESTLEY MÉNDEZ N Ot 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 PACEMAKER 06/13/2017 DEVTHADDEUSAN N Ot 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, UNSP, LYM 06/13/2017 DEVTHADDEUS BELLAN N Ot D50.9 IRON DEFICIENCY ANEMIA, UNSPECIFIED 06/13/2017 DEVTHADDEUSAN N Ot D63.1 ANEMIA IN CHRONIC KIDNEY DISEASE 06/13/2017 DEVTHADDEUSAN N Ot I48.91 UNSPECIFIED ATRIAL FIBRILLATION 06/13/2017 DEV, BOBAN N Ot I50.9 HEART FAILURE, UNSPECIFIED 06/13/2017 WESTLEY MÉNDEZ N Ot 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 OF KNEE 06/13/2017 WESTLEY MÉNDEZ N Ot N18.3 CHRONIC KIDNEY DISEASE, STAGE 3 (MODERAT 06/13/2017 WESTLEY MÉNDEZ N Ot Z79.899 OTHER DIRECTOR OF LAND (CURRENT) DRUG THERAPY 06/13/2017 WESTLEY MÉNDEZ N Ot Z85.3 PERSONAL HISTORY OF MALIGNANT NEOPLASM O 06/13/2017 WESTLEY MÉNDEZ N Ot Z90.11 ACQUIRED ABSENCE OF RIGHT BREAST AND NIP 06/13/2017 WESTLEY MÉNDEZ N Ot Z92.21 PERSONAL HISTORY OF ANTINEOPLASTIC CHEMO 06/13/2017 WESTLEY MÉNDEZ N Ot 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 PACEMAKER 06/21/2017 WESTLEY MÉNDEZ N Ot 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, UNSP, LYM 06/21/2017 WESTLEY MÉNDEZ N Ot D50.9 IRON DEFICIENCY ANEMIA, UNSPECIFIED 06/21/2017 WESTLEY MÉNDEZ N Ot D63.1 ANEMIA IN CHRONIC KIDNEY DISEASE 06/21/2017 WESTLEY MÉNDEZ N Ot I48.91 UNSPECIFIED ATRIAL FIBRILLATION 06/21/2017 WESTLEY MÉNDEZ N Ot I50.9 HEART FAILURE, UNSPECIFIED 06/21/2017 WESTLEY MÉNDEZ N Ot 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 OF KNEE 06/21/2017 WESTLEY MÉNDEZ N Ot N18.3 CHRONIC KIDNEY DISEASE, STAGE 3 (MODERAT 06/21/2017 WESTLEY MÉNDEZ N Ot Z79.899 OTHER DIRECTOR OF LAND (CURRENT) DRUG THERAPY 06/21/2017 WESTLEY MÉNDEZ N Ot Z85.3 PERSONAL HISTORY OF MALIGNANT NEOPLASM O 06/21/2017 WESTLEY MÉNDEZ N Ot Z90.11 ACQUIRED ABSENCE OF RIGHT BREAST AND NIP 06/21/2017 WESTLEY MÉNDEZ N Ot Z92.21 PERSONAL HISTORY OF ANTINEOPLASTIC CHEMO 06/21/2017 WESTLEY MÉNDEZ N Ot 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 PACEMAKER 06/22/2017 SELINA FERNANDO MD, Ot 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, UNSP, LYM 06/22/2017 SELINA FERNANDO MD Ot D50.9 IRON DEFICIENCY ANEMIA, UNSPECIFIED 06/22/2017 SELINA FERNANDO MD Ot D63.1 ANEMIA IN CHRONIC KIDNEY DISEASE 06/22/2017 SELINA FERNANDO MD Ot I48.91 UNSPECIFIED ATRIAL FIBRILLATION 06/22/2017 SELINA FERNANDO MD Ot I50.9 HEART FAILURE, UNSPECIFIED 06/22/2017 SELINA FERNANDO MD Ot 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 OF KNEE 06/22/2017 SELINA FERNANDO MD Ot N18.3 CHRONIC KIDNEY DISEASE, STAGE 3 (MODERAT 06/22/2017 SELINA FERNANDO MD Ot Z79.899 OTHER CORRECTION (CURRENT) DRUG THERAPY 06/22/2017 SELINA FERNANDO MD Ot Z85.3 PERSONAL HISTORY OF MALIGNANT NEOPLASM O 06/22/2017 SELINA FERNANDO MD Ot Z90.11 ACQUIRED ABSENCE OF RIGHT BREAST AND NIP 06/22/2017 SELINA FERNANDO MD Ot Z92.21 PERSONAL HISTORY OF ANTINEOPLASTIC CHEMO 06/22/2017 SELINA FERNANDO MD Ot 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 PACEMAKER 08/07/2017 SELINA FERNANDO MD Ot 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, UNSP, LYM 08/07/2017 SELINA FERNANDO MD Ot D50.9 IRON DEFICIENCY ANEMIA, UNSPECIFIED 08/07/2017 SELINA FERNANDO MD Ot D63.1 ANEMIA IN CHRONIC KIDNEY DISEASE 08/07/2017 SELINA FERNANDO MD Ot I48.91 UNSPECIFIED ATRIAL FIBRILLATION 08/07/2017 SELINA FERNANDO MD Ot I50.9 HEART FAILURE, UNSPECIFIED 08/07/2017 SELINA FERNANDO MD Ot 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 OF KNEE 08/07/2017 SELINA FERNANDO MD Ot N18.3 CHRONIC KIDNEY DISEASE, STAGE 3 (MODERAT 08/07/2017 SELINA FERNANDO MD Ot Z79.899 OTHER CORRECTION (CURRENT) DRUG THERAPY 08/07/2017 SELINA FERNANDO MD Ot Z85.3 PERSONAL HISTORY OF MALIGNANT NEOPLASM O 08/07/2017 SELINA FERNANDO MD Ot Z90.11 ACQUIRED ABSENCE OF RIGHT BREAST AND NIP 08/07/2017 SELINA FERNANDO MD Ot Z92.21 PERSONAL HISTORY OF ANTINEOPLASTIC CHEMO 08/07/2017 SELINA FERNANDO MD Ot 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 PACEMAKER 08/15/2017 SELINA FERNANDO MD Ot 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, UNSP, LYM 08/15/2017 SELINA FERNANDO MD Ot D50.9 IRON DEFICIENCY ANEMIA, UNSPECIFIED 08/15/2017 SELINA FERNANDO MD Ot D63.1 ANEMIA IN CHRONIC KIDNEY DISEASE 08/15/2017 SELINA FERNANDO MD Ot I48.91 UNSPECIFIED ATRIAL FIBRILLATION 08/15/2017 SELINA FERNANDO MD, Ot I50.9 HEART FAILURE, UNSPECIFIED 08/15/2017 SELINA FERNANDO MD Ot 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 OF KNEE 08/15/2017 SELINA FERNANDO MD Ot N18.3 CHRONIC KIDNEY DISEASE, STAGE 3 (MODERAT 08/15/2017 SELINA FERNANDO MD Ot Z79.899 OTHER CORRECTION (CURRENT) DRUG THERAPY 08/15/2017 SELINA FERNANDO MD Ot Z85.3 PERSONAL HISTORY OF MALIGNANT NEOPLASM O 08/15/2017 SELINA FERNANDO MD Ot Z90.11 ACQUIRED ABSENCE OF RIGHT BREAST AND NIP 08/15/2017 SELINA FERNANDO MD, Ot Z92.21 PERSONAL HISTORY OF ANTINEOPLASTIC CHEMO 08/15/2017 SELINA FERNANDO MD, Ot 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 PACEMAKER 08/31/2017 WESTLEY MÉNDEZ N Ot 202.80 OTH LYMPHOMAS EXTRANODAL SOLID ORGAN U 08/31/2017 WESTLEY MÉNDEZ N Ot 585.3 CHRONIC KIDNEY DISEASE, STAGE III (MODER 08/31/2017 DEV BOBAN N Ot V10.3 HX OF BREAST MALIGNANCY 08/31/2017 DEV BOBAN N Ot V45.01 CARDIAC PACEMAKER IN SITU 08/31/2017 DEV BOBAN N Ot V45.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 08/31/2017 DEV BOBAN N Ot V58.69 OTH MED,LT,CURRENT USE 08/31/2017 DEV BOBAN N Ot V87.41 PERSONAL HISTORY OF ANTINEOPLASTIC CHEMO 08/31/2017 DEV BOBAN N Ot 202.80 OTH LYMPHOMAS EXTRANODAL SOLID ORGAN U 08/31/2017 DEV BOBAN N Ot 585.3 CHRONIC KIDNEY DISEASE, STAGE III (MODER 08/31/2017 DEV BOBAN N Ot V10.3 HX OF BREAST MALIGNANCY 08/31/2017 DEV BOBAN N Ot V45.01 CARDIAC PACEMAKER IN SITU 08/31/2017 DEV BOBAN N Ot V45.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 08/31/2017 DEVTHADDEUSAN N Ot V58.69 OTH MED,LT,CURRENT USE 08/31/2017 DEV BOBAN N Ot V87.41 PERSONAL HISTORY OF ANTINEOPLASTIC CHEMO 08/31/2017 WESTLEY MÉNDEZ N Ot 202.80 OTH LYMPHOMAS EXTRANODAL SOLID ORGAN U 08/31/2017 WESTLEY MÉNDEZ N Ot 585.3 CHRONIC KIDNEY DISEASE, STAGE III (MODER 08/31/2017 WESTLEY MÉNDEZ N Ot V10.3 HX OF BREAST MALIGNANCY 08/31/2017 WESTLEY MÉNDEZ N Ot V45.01 CARDIAC PACEMAKER IN SITU 08/31/2017 DEVTHADDEUSAN N Ot V45.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 08/31/2017 DEV BOBAN N Ot V58.69 OTH MED,LT,CURRENT USE 08/31/2017 DEV BOBAN N Ot V87.41 PERSONAL HISTORY OF ANTINEOPLASTIC CHEMO 08/31/2017 DEV BOBAN N Ot 202.80 OTH LYMPHOMAS EXTRANODAL SOLID ORGAN U 08/31/2017 DEV BOBAN N Ot 202.80 OTH LYMPHOMAS EXTRANODAL SOLID ORGAN U 08/31/2017 WESTLEY MÉNDEZ N Ot 585.3 CHRONIC KIDNEY DISEASE, STAGE III (MODER 08/31/2017 WESTLEY MÉNDEZ N Ot V10.3 HX OF BREAST MALIGNANCY 08/31/2017 WESTLEY MÉNDEZ N Ot V45.01 CARDIAC PACEMAKER IN SITU 08/31/2017 WESTLEY MÉNDEZ N Ot V45.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 08/31/2017 WESTLEY MÉNDEZ N Ot V58.69 OTH MED,LT,CURRENT USE 08/31/2017 WESTLEY MÉNDEZ N Ot V87.41 PERSONAL HISTORY OF ANTINEOPLASTIC CHEMO 08/31/2017 NAVEEN JUSTIN, ERIC Peraza Ot 793.99 OTH NOSP (ABN) FINDINGS RADIOLOGICAL O 08/31/2017 ERIC HODGE MD Ot V10.79 HX-LYMPHATIC MALIGN NEC 08/31/2017 DEV WESTLEY N Ot 202.80 OTH LYMPHOMAS EXTRANODAL SOLID ORGAN U 08/31/2017 DEV BOBPRIMO N Ot 585.3 CHRONIC KIDNEY DISEASE, STAGE III (MODER 08/31/2017 WESTLEY MÉNDEZ N Ot V10.3 HX OF BREAST MALIGNANCY 08/31/2017 DEVTHADDEUSAN N Ot V45.01 CARDIAC PACEMAKER IN SITU 08/31/2017 WESTLEY MÉNDEZ N Ot V45.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 08/31/2017 WESTLEY MÉNDEZ N Ot V58.69 OTH MED,LT,CURRENT USE 08/31/2017 WESTLEY MÉNDEZ N Ot V87.41 PERSONAL HISTORY OF ANTINEOPLASTIC CHEMO 08/31/2017 WESTLEY MÉNDEZ N Ot 202.80 OTH LYMPHOMAS EXTRANODAL SOLID ORGAN U 08/31/2017 DEV WESTLEY N Ot 244.9 HYPOTHYROIDISM NOS 08/31/2017 DEV THADDEUSPRIMO N Ot 403.90 HYPTNSV CHR KID DIS, UNSPEC, W CHR KD ST 08/31/2017 WESTLEY MÉNDEZ N Ot 585.3 CHRONIC KIDNEY DISEASE, STAGE III (MODER 08/31/2017 DEV WESTLEY N Ot V10.3 HX OF BREAST MALIGNANCY 08/31/2017 DEV WESTLEY N Ot V45.01 CARDIAC PACEMAKER IN SITU 08/31/2017 DEV THADDEUSPRIMO N Ot V45.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 08/31/2017 WESTLEY MÉNDEZ N Ot V58.69 OTH MED,LT,CURRENT USE 08/31/2017 WESTLEY MÉNDEZ N Ot V87.41 PERSONAL HISTORY OF ANTINEOPLASTIC CHEMO 08/31/2017 DEVWESTLEY N Ot C82.90 FOLLICULAR LYMPHOMA, UNSPECIFIED, UNSPEC 08/31/2017 DEVWESTLEY N Ot D50.9 IRON DEFICIENCY ANEMIA, UNSPECIFIED 08/31/2017 DEV THADDEUSPRIMO N Ot I48.91 UNSPECIFIED ATRIAL FIBRILLATION 08/31/2017 DEVWESTLEY N Ot I50.9 HEART FAILURE, UNSPECIFIED 08/31/2017 DEVWESTLEY N Ot 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 OF KNEE 08/31/2017 DEV WESTLEY N Ot Z79.899 OTHER DIRECTOR OF LAND (CURRENT) DRUG THERAPY 08/31/2017 DEVWESTLEY N Ot Z85.3 PERSONAL HISTORY OF MALIGNANT NEOPLASM O 08/31/2017 WESTLEY MÉNDEZ N Ot Z90.11 ACQUIRED ABSENCE OF RIGHT BREAST AND NIP 08/31/2017 DEVWESTLEY N Ot Z92.21 PERSONAL HISTORY OF ANTINEOPLASTIC CHEMO 08/31/2017 WESTLEY MÉNDEZ N Ot 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 PACEMAKER 08/31/2017 WESTLEY MÉNDEZ N Ot C82.90 FOLLICULAR LYMPHOMA, UNSPECIFIED, UNSPEC 08/31/2017 DEVTHADDEUSAN N Ot D50.9 IRON DEFICIENCY ANEMIA, UNSPECIFIED 08/31/2017 DEV, BOBAN N Ot I48.91 UNSPECIFIED ATRIAL FIBRILLATION 08/31/2017 DEV, BOBAN N Ot I50.9 HEART FAILURE, UNSPECIFIED 08/31/2017 DEVWESTLEY N Ot 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 OF KNEE 08/31/2017 DEVWESTLEY N Ot Z79.899 OTHER CORRECTION (CURRENT) DRUG THERAPY 08/31/2017 DEVTHADDEUSAN N Ot Z85.3 PERSONAL HISTORY OF MALIGNANT NEOPLASM O 08/31/2017 DEV BOBAN N Ot Z90.11 ACQUIRED ABSENCE OF RIGHT BREAST AND NIP 08/31/2017 DEV, BOBAN N Ot Z92.21 PERSONAL HISTORY OF ANTINEOPLASTIC CHEMO 08/31/2017 DEV, BOBAN N Ot 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 PACEMAKER 08/31/2017 DEV, BOBAN N Ot C82.90 FOLLICULAR LYMPHOMA, UNSPECIFIED, UNSPEC 08/31/2017 DEV BOBPRIMO N Ot D50.9 IRON DEFICIENCY ANEMIA, UNSPECIFIED 08/31/2017 DEV BOBAN N Ot I48.91 UNSPECIFIED ATRIAL FIBRILLATION 08/31/2017 DEVWESTLEY N Ot I50.9 HEART FAILURE, UNSPECIFIED 08/31/2017 DEVWESTLEY N Ot 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 OF KNEE 08/31/2017 DEVWESTLEY N Ot Z79.899 OTHER CORRECTION (CURRENT) DRUG THERAPY 08/31/2017 DEVWESTLEY N Ot Z85.3 PERSONAL HISTORY OF MALIGNANT NEOPLASM O 08/31/2017 DEV BOBAN N Ot Z90.11 ACQUIRED ABSENCE OF RIGHT BREAST AND NIP 08/31/2017 DEV BOBAN N Ot Z92.21 PERSONAL HISTORY OF ANTINEOPLASTIC CHEMO 08/31/2017 DEV, BOBAN N Ot 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 PACEMAKER 08/31/2017 DEV BOBAN N Ot 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, UNSP, LYM 08/31/2017 DEV, BOBAN N Ot C82.90 FOLLICULAR LYMPHOMA, UNSPECIFIED, UNSPEC 08/31/2017 DEV BOBAN N Ot D50.9 IRON DEFICIENCY ANEMIA, UNSPECIFIED 08/31/2017 DEV, BOBAN N Ot I48.91 UNSPECIFIED ATRIAL FIBRILLATION 08/31/2017 DEVWESTLEY N Ot I50.9 HEART FAILURE, UNSPECIFIED 08/31/2017 DEVWESTLEY N Ot 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 OF KNEE 08/31/2017 DEVWESTLEY N Ot Z79.899 OTHER DIRECTOR OF LAND (CURRENT) DRUG THERAPY 08/31/2017 DEVWESTLEY N Ot Z85.3 PERSONAL HISTORY OF MALIGNANT NEOPLASM O 08/31/2017 DEVWESTLEY N Ot Z90.11 ACQUIRED ABSENCE OF RIGHT BREAST AND NIP 08/31/2017 DEV BOBAN N Ot Z92.21 PERSONAL HISTORY OF ANTINEOPLASTIC CHEMO 08/31/2017 DEV BOBAN N Ot 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 PACEMAKER 08/31/2017 DEV BOBAN N Ot C82.90 FOLLICULAR LYMPHOMA, UNSPECIFIED, UNSPEC 08/31/2017 DEVWESTLEY N Ot D50.9 IRON DEFICIENCY ANEMIA, UNSPECIFIED 08/31/2017 DEV BOBPRIMO N Ot I48.91 UNSPECIFIED ATRIAL FIBRILLATION 08/31/2017 DEVWESTLEY N Ot I50.9 HEART FAILURE, UNSPECIFIED 08/31/2017 DEVWESTLEY N Ot 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 OF KNEE 08/31/2017 DEVWESTLEY N Ot Z79.899 OTHER CORRECTION (CURRENT) DRUG THERAPY 08/31/2017 DEVWESTLEY N Ot Z85.3 PERSONAL HISTORY OF MALIGNANT NEOPLASM O 08/31/2017 DEVWESTLEY N Ot Z90.11 ACQUIRED ABSENCE OF RIGHT BREAST AND NIP 08/31/2017 DEVWESTLEY N Ot Z92.21 PERSONAL HISTORY OF ANTINEOPLASTIC CHEMO 08/31/2017 DEVWESTLEY N Ot 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 PACEMAKER 08/31/2017 DEVTHADDEUSAN N Ot 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, UNSP, LYM 08/31/2017 DEV, BOBAN N Ot D50.9 IRON DEFICIENCY ANEMIA, UNSPECIFIED 08/31/2017 DEV, BOBAN N Ot I48.91 UNSPECIFIED ATRIAL FIBRILLATION 08/31/2017 DEVWESTLEY N Ot I50.9 HEART FAILURE, UNSPECIFIED 08/31/2017 DEVWESTLEY N Ot 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 OF KNEE 08/31/2017 WESTLEY MÉNDEZ Ot Z79.899 OTHER DIRECTOR OF LAND (CURRENT) DRUG THERAPY 08/31/2017 WESTLEY MÉNDEZ Ot Z85.3 PERSONAL HISTORY OF MALIGNANT NEOPLASM O 08/31/2017 WESTLEY MÉNDEZ Ot Z90.11 ACQUIRED ABSENCE OF RIGHT BREAST AND NIP 08/31/2017 WESTLEY MÉNDEZ Ot Z92.21 PERSONAL HISTORY OF ANTINEOPLASTIC CHEMO 08/31/2017 WESTLEY MÉNDEZ Ot 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 PACEMAKER 08/31/2017 SELINA FERNANDO MD Ot 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, UNSP, LYM 08/31/2017 SELINA FERNANDO MD Ot D50.9 IRON DEFICIENCY ANEMIA, UNSPECIFIED 08/31/2017 SELINA FERNANDO MD Ot D63.1 ANEMIA IN CHRONIC KIDNEY DISEASE 08/31/2017 SELINA FERNANDO MD Ot I48.91 UNSPECIFIED ATRIAL FIBRILLATION 08/31/2017 SELINA FERNANDO MD Ot I50.9 HEART FAILURE, UNSPECIFIED 08/31/2017 SELINA FERNANDO MD Ot 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 OF KNEE 08/31/2017 SELINA FERNANDO MD Ot N18.3 CHRONIC KIDNEY DISEASE, STAGE 3 (MODERAT 08/31/2017 SELINA FERNANDO MD Ot Z79.899 OTHER DIRECTOR OF LAND (CURRENT) DRUG THERAPY 08/31/2017 SELINA FERNANDO MD Ot Z85.3 PERSONAL HISTORY OF MALIGNANT NEOPLASM O 08/31/2017 SELINA FERNANDO MD Ot Z90.11 ACQUIRED ABSENCE OF RIGHT BREAST AND NIP 08/31/2017 SELINA FERNANDO MD Ot Z92.21 PERSONAL HISTORY OF ANTINEOPLASTIC CHEMO 08/31/2017 SELINA FERNANDO MD Ot 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 PACEMAKER 09/03/2017 STACIE DOMINGUEZ MD Ot M19.041 PRIMARY OSTEOARTHRITIS, RIGHT HAND 09/03/2017 STACIE DOMINGUEZ MD Ot M19.042 PRIMARY OSTEOARTHRITIS, LEFT HAND 09/03/2017 STACIE DOMINGUEZ MD Ot M19.071 PRIMARY OSTEOARTHRITIS, RIGHT ANKLE AND 09/03/2017 STACIE DOMINGUEZ MD Ot M19.072 PRIMARY OSTEOARTHRITIS, LEFT ANKLE AND F 09/03/2017 STACIE DOMINGUEZ MD Ot M81.0 AGE-RELATED OSTEOPOROSIS W/O CURRENT PAT 09/03/2017 STACIE DOMINGUEZ MD Ot M19.91 PRIMARY OSTEOARTHRITIS, UNSPECIFIED SITE 09/03/2017 ANGELICA JUSTIN, STACIE Aquino Ot Z11.59 ENCOUNTER FOR SCREENING FOR OTHER VIRAL 09/03/2017 STACIE DOMINGUEZ MD Ot Z79.899 OTHER DIRECTOR OF LAND (CURRENT) DRUG THERAPY 09/07/2017 SELINA FERNANDO MD, Ot 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, UNSP, LYM 09/07/2017 SELINA FERNANDO MD Ot D50.9 IRON DEFICIENCY ANEMIA, UNSPECIFIED 09/07/2017 SELINA FERNANDO MD Ot D63.1 ANEMIA IN CHRONIC KIDNEY DISEASE 09/07/2017 SELINA FERNANDO MD Ot I48.91 UNSPECIFIED ATRIAL FIBRILLATION 09/07/2017 SELINA FERNANDO MD Ot I50.9 HEART FAILURE, UNSPECIFIED 09/07/2017 SELINA FERNANDO MD Ot 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 OF KNEE 09/07/2017 SELINA FERNANDO MD Ot N18.3 CHRONIC KIDNEY DISEASE, STAGE 3 (MODERAT 09/07/2017 SELINA FERNANDO MD Ot Z79.899 OTHER DIRECTOR OF LAND (CURRENT) DRUG THERAPY 09/07/2017 SELINA FERNANDO MD Ot Z85.3 PERSONAL HISTORY OF MALIGNANT NEOPLASM O 09/07/2017 SELINA FERNANDO MD Ot Z90.11 ACQUIRED ABSENCE OF RIGHT BREAST AND NIP 09/07/2017 SELINA FERNANDO MD Ot Z92.21 PERSONAL HISTORY OF ANTINEOPLASTIC CHEMO 09/07/2017 SELINA FERNANDO MD Ot 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 PACEMAKER 09/19/2017 SELINA FERNANDO MD Ot 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, UNSP, LYM 09/19/2017 SELINA FERNANDO MD Ot D50.9 IRON DEFICIENCY ANEMIA, UNSPECIFIED 09/19/2017 SELINA FERNANDO MD Ot D63.1 ANEMIA IN CHRONIC KIDNEY DISEASE 09/19/2017 SELINA FERNANDO MD Ot I48.91 UNSPECIFIED ATRIAL FIBRILLATION 09/19/2017 SELINA FERNANDO MD Ot I50.9 HEART FAILURE, UNSPECIFIED 09/19/2017 SELINA FERNANDO MD Ot 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 OF KNEE 09/19/2017 SELINA FERNANDO MD Ot N18.3 CHRONIC KIDNEY DISEASE, STAGE 3 (MODERAT 09/19/2017 SELINA FERNANDO MD Ot Z79.899 OTHER CORRECTION (CURRENT) DRUG THERAPY 09/19/2017 SELINA FERNANDO MD Ot Z85.3 PERSONAL HISTORY OF MALIGNANT NEOPLASM O 09/19/2017 SELINA FERNANDO MD Ot Z90.11 ACQUIRED ABSENCE OF RIGHT BREAST AND NIP 09/19/2017 SELINA FERNANDO MD Ot Z92.21 PERSONAL HISTORY OF ANTINEOPLASTIC CHEMO 09/19/2017 SELINA FERNANDO MD Ot 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 PACEMAKER 09/20/2017 SELINA FERNANDO MD Ot 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, UNSP, LYM 09/20/2017 SELINA FERNANDO MD Ot D50.9 IRON DEFICIENCY ANEMIA, UNSPECIFIED 09/20/2017 SELINA FERNANDO MD Ot D63.1 ANEMIA IN CHRONIC KIDNEY DISEASE 09/20/2017 SELINA FERNANDO MD Ot I48.91 UNSPECIFIED ATRIAL FIBRILLATION 09/20/2017 SELINA FERNANDO MD Ot I50.9 HEART FAILURE, UNSPECIFIED 09/20/2017 SELINA FERNANDO MD Ot 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 OF KNEE 09/20/2017 SELINA FERNANDO MD Ot N18.3 CHRONIC KIDNEY DISEASE, STAGE 3 (MODERAT 09/20/2017 SELINA FERNANDO MD Ot Z79.899 OTHER DIRECTOR OF LAND (CURRENT) DRUG THERAPY 09/20/2017 SELINA FERNANDO MD Ot Z85.3 PERSONAL HISTORY OF MALIGNANT NEOPLASM O 09/20/2017 SELINA FERNANDO MD Ot Z90.11 ACQUIRED ABSENCE OF RIGHT BREAST AND NIP 09/20/2017 SELINA FERNANDO MD Ot Z92.21 PERSONAL HISTORY OF ANTINEOPLASTIC CHEMO 09/20/2017 SELINA FERNANDO MD Ot 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 PACEMAKER 09/24/2017 STACIE DOMINGUEZ MD Ot M19.041 PRIMARY OSTEOARTHRITIS, RIGHT HAND 09/24/2017 STACIE DOMINGUEZ MD Ot M19.042 PRIMARY OSTEOARTHRITIS, LEFT HAND 09/24/2017 STACIE DOMINGUEZ MD Ot M19.071 PRIMARY OSTEOARTHRITIS, RIGHT ANKLE AND 09/24/2017 STACIE DOMINGUEZ MD Ot M19.072 PRIMARY OSTEOARTHRITIS, LEFT ANKLE AND F 09/24/2017 STACIE DOMINGUEZ MD Ot M81.0 AGE-RELATED OSTEOPOROSIS W/O CURRENT PAT 09/26/2017 STACIE DOMINGUEZ MD Ot M19.041 PRIMARY OSTEOARTHRITIS, RIGHT HAND 09/26/2017 STACIE DOMINGUEZ MD B Ot M19.042 PRIMARY OSTEOARTHRITIS, LEFT HAND 09/26/2017 STACIE DOMINGUEZ MD, Ot M19.071 PRIMARY OSTEOARTHRITIS, RIGHT ANKLE AND 09/26/2017 STACIE DOMINGUEZ MD, Ot M19.072 PRIMARY OSTEOARTHRITIS, LEFT ANKLE AND F 09/26/2017 STACIE DOMINGUEZ MD Ot M81.0 AGE-RELATED OSTEOPOROSIS W/O CURRENT PAT 09/28/2017 SELINA FERNANDO MD Ot 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, UNSP, LYM 09/28/2017 SELINA FERNANDO MD Ot D50.9 IRON DEFICIENCY ANEMIA, UNSPECIFIED 09/28/2017 SELINA FERNANDO MD Ot D63.1 ANEMIA IN CHRONIC KIDNEY DISEASE 09/28/2017 SELINA FERNANDO MD Ot I48.91 UNSPECIFIED ATRIAL FIBRILLATION 09/28/2017 SELINA EFRNANDO MD Ot I50.9 HEART FAILURE, UNSPECIFIED 09/28/2017 SELINA FERNANDO MD Ot 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 OF KNEE 09/28/2017 SELINA FERNANDO MD Ot N18.3 CHRONIC KIDNEY DISEASE, STAGE 3 (MODERAT 09/28/2017 SELINA FERNANDO MD Ot Z79.899 OTHER CORRECTION (CURRENT) DRUG THERAPY 09/28/2017 SELINA FERNANDO MD Ot Z85.3 PERSONAL HISTORY OF MALIGNANT NEOPLASM O 09/28/2017 SELINA FERNANDO MD Ot Z90.11 ACQUIRED ABSENCE OF RIGHT BREAST AND NIP 09/28/2017 SELINA FERNANDO MD Ot Z92.21 PERSONAL HISTORY OF ANTINEOPLASTIC CHEMO 09/28/2017 SELINA FERNANDO MD Ot 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 PACEMAKER 10/03/2017 SELINA FERNANDO MD Ot 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, UNSP, LYM 10/03/2017 SELINA FERNANDO MD Ot D50.9 IRON DEFICIENCY ANEMIA, UNSPECIFIED 10/03/2017 SELINA FERNANDO MD Ot D63.1 ANEMIA IN CHRONIC KIDNEY DISEASE 10/03/2017 SELINA FERNANDO MD Ot I48.91 UNSPECIFIED ATRIAL FIBRILLATION 10/03/2017 SELINA FERNANDO MD Ot I50.9 HEART FAILURE, UNSPECIFIED 10/03/2017 SELINA FERNANDO MD Ot 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 OF KNEE 10/03/2017 SELINA FERNANDO MD Ot N18.3 CHRONIC KIDNEY DISEASE, STAGE 3 (MODERAT 10/03/2017 SELINA FERNANDO MD Ot Z79.899 OTHER DIRECTOR OF LAND (CURRENT) DRUG THERAPY 10/03/2017 SELINA FERNANDO MD Ot Z85.3 PERSONAL HISTORY OF MALIGNANT NEOPLASM O 10/03/2017 SELINA FERNANDO MD Ot Z90.11 ACQUIRED ABSENCE OF RIGHT BREAST AND NIP 10/03/2017 SELINA FERNANDO MD Ot Z92.21 PERSONAL HISTORY OF ANTINEOPLASTIC CHEMO 10/03/2017 SELINA FERNANDO MD Ot 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 PACEMAKER 10/11/2017 SELINA FERNANDO MD Ot 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, UNSP, LYM 10/11/2017 SELINA FERNANDO MD Ot D50.9 IRON DEFICIENCY ANEMIA, UNSPECIFIED 10/11/2017 SELINA FERNANDO MD Ot D63.1 ANEMIA IN CHRONIC KIDNEY DISEASE 10/11/2017 SELINA FERNANDO MD Ot I48.91 UNSPECIFIED ATRIAL FIBRILLATION 10/11/2017 SELINA FERNANDO MD Ot I50.9 HEART FAILURE, UNSPECIFIED 10/11/2017 SELINA FERNANDO MD Ot 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 OF KNEE 10/11/2017 SELINA FERNANDO MD Ot N18.3 CHRONIC KIDNEY DISEASE, STAGE 3 (MODERAT 10/11/2017 SELINA FERNANDO MD Ot Z79.899 OTHER DIRECTOR OF LAND (CURRENT) DRUG THERAPY 10/11/2017 SELINA FERNANDO MD Ot Z85.3 PERSONAL HISTORY OF MALIGNANT NEOPLASM O 10/11/2017 SELINA FERNANDO MD Ot Z90.11 ACQUIRED ABSENCE OF RIGHT BREAST AND NIP 10/11/2017 SELINA FERNANDO MD Ot Z92.21 PERSONAL HISTORY OF ANTINEOPLASTIC CHEMO 10/11/2017 SELINA FERNANDO MD Ot 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 PACEMAKER 10/12/2017 SELINA FERNANDO MD Ot 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, UNSP, LYM 10/12/2017 SELINA FERNANDO MD Ot D50.9 IRON DEFICIENCY ANEMIA, UNSPECIFIED 10/12/2017 SELINA FERNANDO MD Ot D63.1 ANEMIA IN CHRONIC KIDNEY DISEASE 10/12/2017 SELINA FERNANDO MD Ot I48.91 UNSPECIFIED ATRIAL FIBRILLATION 10/12/2017 SELINA FERNANDO MD Ot I50.9 HEART FAILURE, UNSPECIFIED 10/12/2017 SELINA FERNANDO MD Ot 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 OF KNEE 10/12/2017 SELINA FERNANDO MD Ot N18.3 CHRONIC KIDNEY DISEASE, STAGE 3 (MODERAT 10/12/2017 SELINA FERNANDO MD Ot Z79.899 OTHER CORRECTION (CURRENT) DRUG THERAPY 10/12/2017 SELINA FERNANDO MD Ot Z85.3 PERSONAL HISTORY OF MALIGNANT NEOPLASM O 10/12/2017 SELINA FERNANDO MD Ot Z90.11 ACQUIRED ABSENCE OF RIGHT BREAST AND NIP 10/12/2017 SELINA FERNANDO MD Ot Z92.21 PERSONAL HISTORY OF ANTINEOPLASTIC CHEMO 10/12/2017 SELINA FERNANDO MD Ot 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 PACEMAKER 10/16/2017 DEV, BOBAN N Ot 202.80 OTH LYMPHOMAS EXTRANODAL SOLID ORGAN U 10/16/2017 DEV, BOBAN N Ot 585.3 CHRONIC KIDNEY DISEASE, STAGE III (MODER 10/16/2017 DEV, BOBAN N Ot V10.3 HX OF BREAST MALIGNANCY 10/16/2017 DEV, BOBAN N Ot V45.01 CARDIAC PACEMAKER IN SITU 10/16/2017 DEV, BOBAN N Ot V45.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 10/16/2017 DEV, BOBAN N Ot V58.69 OTH MED,LT,CURRENT USE 10/16/2017 DEV, BOBAN N Ot V87.41 PERSONAL HISTORY OF ANTINEOPLASTIC CHEMO 10/16/2017 DEV, BOBAN N Ot 202.80 OTH LYMPHOMAS EXTRANODAL SOLID ORGAN U 10/16/2017 DEV, BOBAN N Ot 585.3 CHRONIC KIDNEY DISEASE, STAGE III (MODER 10/16/2017 DEV, BOBAN N Ot V10.3 HX OF BREAST MALIGNANCY 10/16/2017 DEV, BOBAN N Ot V45.01 CARDIAC PACEMAKER IN SITU 10/16/2017 DEV, BOBAN N Ot V45.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 10/16/2017 DEV, BOBAN N Ot V58.69 OTH MED,LT,CURRENT USE 10/16/2017 DEV, BOBAN N Ot V87.41 PERSONAL HISTORY OF ANTINEOPLASTIC CHEMO 10/16/2017 DEV, BOBAN N Ot 202.80 OTH LYMPHOMAS EXTRANODAL SOLID ORGAN U 10/16/2017 DEV, BOBAN N Ot 585.3 CHRONIC KIDNEY DISEASE, STAGE III (MODER 10/16/2017 DEV, BOBAN N Ot V10.3 HX OF BREAST MALIGNANCY 10/16/2017 DEV, BOBAN N Ot V45.01 CARDIAC PACEMAKER IN SITU 10/16/2017 DEV, BOBAN N Ot V45.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 10/16/2017 DEVTHADDEUSAN N Ot V58.69 OTH MED,LT,CURRENT USE 10/16/2017 DEV, BOBAN N Ot V87.41 PERSONAL HISTORY OF ANTINEOPLASTIC CHEMO 10/16/2017 DEV BOBAN N Ot 202.80 OTH LYMPHOMAS EXTRANODAL SOLID ORGAN U 10/16/2017 DEV, BOBAN N Ot 202.80 OTH LYMPHOMAS EXTRANODAL SOLID ORGAN U 10/16/2017 DEV, BOBAN N Ot 585.3 CHRONIC KIDNEY DISEASE, STAGE III (MODER 10/16/2017 DEV BOBAN N Ot V10.3 HX OF BREAST MALIGNANCY 10/16/2017 DEV, BOBAN N Ot V45.01 CARDIAC PACEMAKER IN SITU 10/16/2017 DEV, BOBAN N Ot V45.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 10/16/2017 DEV, BOBAN N Ot V58.69 OTH MED,LT,CURRENT USE 10/16/2017 DEV, BOBAN N Ot V87.41 PERSONAL HISTORY OF ANTINEOPLASTIC CHEMO 10/16/2017 NAVEEN JUSTIN, ERIC Peraza Ot 793.99 OTH NOSP (ABN) FINDINGS RADIOLOGICAL O 10/16/2017 NAVEEN JUSTIN, ERIC Peraza Ot V10.79 HX-LYMPHATIC MALIGN NEC 10/16/2017 DEV, BOBAN N Ot 202.80 OTH LYMPHOMAS EXTRANODAL SOLID ORGAN U 10/16/2017 DEV BOBAN N Ot 585.3 CHRONIC KIDNEY DISEASE, STAGE III (MODER 10/16/2017 DEV BOBAN N Ot V10.3 HX OF BREAST MALIGNANCY 10/16/2017 DEV, BOBAN N Ot V45.01 CARDIAC PACEMAKER IN SITU 10/16/2017 DEV, BOBAN N Ot V45.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 10/16/2017 DEV, BOBAN N Ot V58.69 OTH MED,LT,CURRENT USE 10/16/2017 DEV, BOBAN N Ot V87.41 PERSONAL HISTORY OF ANTINEOPLASTIC CHEMO 10/16/2017 DEV, BOBAN N Ot 202.80 OTH LYMPHOMAS EXTRANODAL SOLID ORGAN U 10/16/2017 DEV, BOBAN N Ot 244.9 HYPOTHYROIDISM NOS 10/16/2017 DEV, BOBAN N Ot 403.90 HYPTNSV CHR KID DIS, UNSPEC, W CHR KD ST 10/16/2017 DEVWESTLEY N Ot 585.3 CHRONIC KIDNEY DISEASE, STAGE III (MODER 10/16/2017 WESTLEY MÉNDEZ N Ot V10.3 HX OF BREAST MALIGNANCY 10/16/2017 DEVWESTLEY N Ot V45.01 CARDIAC PACEMAKER IN SITU 10/16/2017 DEVWESTLEY N Ot V45.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 10/16/2017 DEVWESTLEY N Ot V58.69 OTH MED,LT,CURRENT USE 10/16/2017 DEVTHADDEUSAN N Ot V87.41 PERSONAL HISTORY OF ANTINEOPLASTIC CHEMO 10/16/2017 DEVWESTLEY N Ot C82.90 FOLLICULAR LYMPHOMA, UNSPECIFIED, UNSPEC 10/16/2017 DEV BOBPRIMO N Ot D50.9 IRON DEFICIENCY ANEMIA, UNSPECIFIED 10/16/2017 DEVTHADDEUSAN N Ot I48.91 UNSPECIFIED ATRIAL FIBRILLATION 10/16/2017 DEVWESTLEY N Ot I50.9 HEART FAILURE, UNSPECIFIED 10/16/2017 DEV BOBAN N Ot 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 OF KNEE 10/16/2017 DEVTHADDEUSAN N Ot Z79.899 OTHER DIRECTOR OF LAND (CURRENT) DRUG THERAPY 10/16/2017 WESTLEY MÉNDEZ N Ot Z85.3 PERSONAL HISTORY OF MALIGNANT NEOPLASM O 10/16/2017 WESTLEY MÉNDEZ N Ot Z90.11 ACQUIRED ABSENCE OF RIGHT BREAST AND NIP 10/16/2017 DEVWESTLEY N Ot Z92.21 PERSONAL HISTORY OF ANTINEOPLASTIC CHEMO 10/16/2017 DEVWESTLEY N Ot 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 PACEMAKER 10/16/2017 DEVWESTLEY N Ot C82.90 FOLLICULAR LYMPHOMA, UNSPECIFIED, UNSPEC 10/16/2017 DEVTHADDEUSAN N Ot D50.9 IRON DEFICIENCY ANEMIA, UNSPECIFIED 10/16/2017 DEV BOBPRIMO N Ot I48.91 UNSPECIFIED ATRIAL FIBRILLATION 10/16/2017 DEV BOBAN N Ot I50.9 HEART FAILURE, UNSPECIFIED 10/16/2017 DEVTHADDEUSAN N Ot 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 OF KNEE 10/16/2017 DEVWESTLEY N Ot Z79.899 OTHER CORRECTION (CURRENT) DRUG THERAPY 10/16/2017 DEVWESTLEY N Ot Z85.3 PERSONAL HISTORY OF MALIGNANT NEOPLASM O 10/16/2017 DEVWESTLEY N Ot Z90.11 ACQUIRED ABSENCE OF RIGHT BREAST AND NIP 10/16/2017 DEVTHADDEUSAN N Ot Z92.21 PERSONAL HISTORY OF ANTINEOPLASTIC CHEMO 10/16/2017 DEVWESTLEY N Ot 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 PACEMAKER 10/16/2017 DEV BOBAN N Ot C82.90 FOLLICULAR LYMPHOMA, UNSPECIFIED, UNSPEC 10/16/2017 DEV BOBAN N Ot D50.9 IRON DEFICIENCY ANEMIA, UNSPECIFIED 10/16/2017 DEV, BOBAN N Ot I48.91 UNSPECIFIED ATRIAL FIBRILLATION 10/16/2017 DEV, BOBAN N Ot I50.9 HEART FAILURE, UNSPECIFIED 10/16/2017 DEV, BOBAN N Ot 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 OF KNEE 10/16/2017 DEV, BOBAN N Ot Z79.899 OTHER CORRECTION (CURRENT) DRUG THERAPY 10/16/2017 DEVWESTLEY N Ot Z85.3 PERSONAL HISTORY OF MALIGNANT NEOPLASM O 10/16/2017 DEV BOBAN N Ot Z90.11 ACQUIRED ABSENCE OF RIGHT BREAST AND NIP 10/16/2017 DEVWESTLEY N Ot Z92.21 PERSONAL HISTORY OF ANTINEOPLASTIC CHEMO 10/16/2017 DEVWESTLEY N Ot 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 PACEMAKER 10/16/2017 DEVWESTLEY N Ot 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, UNSP, LYM 10/16/2017 DEV BOBAN N Ot C82.90 FOLLICULAR LYMPHOMA, UNSPECIFIED, UNSPEC 10/16/2017 DEV BOBPRIMO N Ot D50.9 IRON DEFICIENCY ANEMIA, UNSPECIFIED 10/16/2017 DEVTHADDEUSAN N Ot I48.91 UNSPECIFIED ATRIAL FIBRILLATION 10/16/2017 DEVWESTLEY N Ot I50.9 HEART FAILURE, UNSPECIFIED 10/16/2017 DEV BOBAN N Ot 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 OF KNEE 10/16/2017 DEVTHADDEUSAN N Ot Z79.899 OTHER DIRECTOR OF LAND (CURRENT) DRUG THERAPY 10/16/2017 DEVTHADDEUSAN N Ot Z85.3 PERSONAL HISTORY OF MALIGNANT NEOPLASM O 10/16/2017 DEV, BOBAN N Ot Z90.11 ACQUIRED ABSENCE OF RIGHT BREAST AND NIP 10/16/2017 DEVTHADDEUSAN N Ot Z92.21 PERSONAL HISTORY OF ANTINEOPLASTIC CHEMO 10/16/2017 DEV BOBAN N Ot 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 PACEMAKER 10/16/2017 DEV BOBAN N Ot C82.90 FOLLICULAR LYMPHOMA, UNSPECIFIED, UNSPEC 10/16/2017 DEVTHADDEUSAN N Ot D50.9 IRON DEFICIENCY ANEMIA, UNSPECIFIED 10/16/2017 DEV BOBAN N Ot I48.91 UNSPECIFIED ATRIAL FIBRILLATION 10/16/2017 DVE, BOBAN N Ot I50.9 HEART FAILURE, UNSPECIFIED 10/16/2017 DEV, BOBAN N Ot 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 OF KNEE 10/16/2017 DEV, BOBAN N Ot Z79.899 OTHER CORRECTION (CURRENT) DRUG THERAPY 10/16/2017 DEV BOBAN N Ot Z85.3 PERSONAL HISTORY OF MALIGNANT NEOPLASM O 10/16/2017 DEV BOBAN N Ot Z90.11 ACQUIRED ABSENCE OF RIGHT BREAST AND NIP 10/16/2017 DEVWESTLEY N Ot Z92.21 PERSONAL HISTORY OF ANTINEOPLASTIC CHEMO 10/16/2017 DEVWESTLEY N Ot 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 PACEMAKER 10/16/2017 DEVWESTLEY N Ot 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, UNSP, LYM 10/16/2017 DEV BOBAN N Ot D50.9 IRON DEFICIENCY ANEMIA, UNSPECIFIED 10/16/2017 DEVWESTLEY N Ot I48.91 UNSPECIFIED ATRIAL FIBRILLATION 10/16/2017 DEVWESTLEY N Ot I50.9 HEART FAILURE, UNSPECIFIED 10/16/2017 DEV BOBPRIMO N Ot 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 OF KNEE 10/16/2017 DEVTHADDEUSAN N Ot Z79.899 OTHER DIRECTOR OF LAND (CURRENT) DRUG THERAPY 10/16/2017 DEV, BOBAN N Ot Z85.3 PERSONAL HISTORY OF MALIGNANT NEOPLASM O 10/16/2017 DEV BOBAN N Ot Z90.11 ACQUIRED ABSENCE OF RIGHT BREAST AND NIP 10/16/2017 DEVWESTLEY N Ot Z92.21 PERSONAL HISTORY OF ANTINEOPLASTIC CHEMO 10/16/2017 DEV BOBAN N Ot 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 PACEMAKER 10/16/2017 STACIE DOMINGUEZ MD, Ot M19.91 PRIMARY OSTEOARTHRITIS, UNSPECIFIED SITE 10/16/2017 STACIE DOMINGUEZ MD Ot Z11.59 ENCOUNTER FOR SCREENING FOR OTHER VIRAL 10/16/2017 STACIE DOMINGUEZ MD, Ot Z79.899 OTHER CORRECTION (CURRENT) DRUG THERAPY 10/16/2017 STACIE DOMINGUEZ MD, Ot M19.041 PRIMARY OSTEOARTHRITIS, RIGHT HAND 10/16/2017 STACIE DOMINGUEZ MD, Ot M19.042 PRIMARY OSTEOARTHRITIS, LEFT HAND 10/16/2017 STACIE DOMINGUEZ MD, Ot M19.071 PRIMARY OSTEOARTHRITIS, RIGHT ANKLE AND 10/16/2017 STACIE DOMINGUEZ MD, Ot M19.072 PRIMARY OSTEOARTHRITIS, LEFT ANKLE AND F 10/16/2017 STACIE DOMINGUEZ MD, Ot M81.0 AGE-RELATED OSTEOPOROSIS W/O CURRENT PAT 10/16/2017 SELINA FERNANDO MD, Ot 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, UNSP, LYM 10/16/2017 SELINA FERNANDO MD Ot D50.9 IRON DEFICIENCY ANEMIA, UNSPECIFIED 10/16/2017 SELINA FERNANDO MD Ot D63.1 ANEMIA IN CHRONIC KIDNEY DISEASE 10/16/2017 SELINA FERNANDO MD Ot I48.91 UNSPECIFIED ATRIAL FIBRILLATION 10/16/2017 SELNIA FERNANDO MD, Ot I50.9 HEART FAILURE, UNSPECIFIED 10/16/2017 SELINA FERNANDO MD, Ot 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 OF KNEE 10/16/2017 SELINA FERNANDO MD Ot N18.3 CHRONIC KIDNEY DISEASE, STAGE 3 (MODERAT 10/16/2017 SELINA FERNANDO MD, Ot Z79.899 OTHER DIRECTOR OF LAND (CURRENT) DRUG THERAPY 10/16/2017 SELINA FERNANDO MD Ot Z85.3 PERSONAL HISTORY OF MALIGNANT NEOPLASM O 10/16/2017 SELINA FERNANDO MD Ot Z90.11 ACQUIRED ABSENCE OF RIGHT BREAST AND NIP 10/16/2017 SELINA FERNANDO MD Ot Z92.21 PERSONAL HISTORY OF ANTINEOPLASTIC CHEMO 10/16/2017 SELINA FERNANDO MD Ot 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 PACEMAKER 11/06/2017 SELINA FERNANDO MD, Ot 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, UNSP, LYM 11/06/2017 SELINA FERNANDO MD Ot D50.9 IRON DEFICIENCY ANEMIA, UNSPECIFIED 11/06/2017 KASSIE MD, MARKS Ot D63.1 ANEMIA IN CHRONIC KIDNEY DISEASE 11/06/2017 MARGARET FERNANDO MDNER Ot I48.91 UNSPECIFIED ATRIAL FIBRILLATION 11/06/2017 SELINA FERNANDO MD Ot I50.9 HEART FAILURE, UNSPECIFIED 11/06/2017 MARGARET FERNANDO MDNER Ot 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 OF KNEE 11/06/2017 SELINA FERNANDO MD Ot N18.3 CHRONIC KIDNEY DISEASE, STAGE 3 (MODERAT 11/06/2017 SELINA FERNANDO MD Ot Z79.899 OTHER DIRECTOR OF LAND (CURRENT) DRUG THERAPY 11/06/2017 SELINA FERNANDO MD Ot Z85.3 PERSONAL HISTORY OF MALIGNANT NEOPLASM O 11/06/2017 MARGARET FERNANDO MDNER Ot Z90.11 ACQUIRED ABSENCE OF RIGHT BREAST AND NIP 11/06/2017 SELINA FERNANDO MD Ot Z92.21 PERSONAL HISTORY OF ANTINEOPLASTIC CHEMO 11/06/2017 SELINA FERNANDO MD Ot 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 PACEMAKER 11/15/2017 SELINA FERNANDO MD Ot 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, UNSP, LYM 11/15/2017 SELINA FERNANDO MD Ot D50.9 IRON DEFICIENCY ANEMIA, UNSPECIFIED 11/15/2017 SELINA FERNANDO MD Ot D63.1 ANEMIA IN CHRONIC KIDNEY DISEASE 11/15/2017 SELINA FERNANDO MD Ot I48.91 UNSPECIFIED ATRIAL FIBRILLATION 11/15/2017 SELINA FERNANDO MD Ot I50.9 HEART FAILURE, UNSPECIFIED 11/15/2017 SELINA FERNANDO MD Ot 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 OF KNEE 11/15/2017 SELINA FERNANDO MD Ot N18.3 CHRONIC KIDNEY DISEASE, STAGE 3 (MODERAT 11/15/2017 SELINA FERNANDO MD Ot Z79.899 OTHER CORRECTION (CURRENT) DRUG THERAPY 11/15/2017 SELINA FERNANDO MD Ot Z85.3 PERSONAL HISTORY OF MALIGNANT NEOPLASM O 11/15/2017 MARGARET FERNANDO MDNER Ot Z90.11 ACQUIRED ABSENCE OF RIGHT BREAST AND NIP 11/15/2017 SELINA FERNANDO MD Ot Z92.21 PERSONAL HISTORY OF ANTINEOPLASTIC CHEMO 11/15/2017 MARGARET FERNANDO MDNER Ot 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 PACEMAKER 12/20/2017 SELINA FERNANDO MD Ot 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, UNSP, LYM 12/20/2017 SELINA FERNANDO MD Ot D50.9 IRON DEFICIENCY ANEMIA, UNSPECIFIED 12/20/2017 SELINA FERNANDO MD Ot D63.1 ANEMIA IN CHRONIC KIDNEY DISEASE 12/20/2017 SELINA FERNANDO MD Ot I48.91 UNSPECIFIED ATRIAL FIBRILLATION 12/20/2017 SELINA FERNANDO MD, Ot I50.9 HEART FAILURE, UNSPECIFIED 12/20/2017 SELINA FERNANDO MD Ot 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 OF KNEE 12/20/2017 SELINA FERNANDO MD Ot N18.3 CHRONIC KIDNEY DISEASE, STAGE 3 (MODERAT 12/20/2017 SELINA FERNANDO MD Ot Z79.899 OTHER CORRECTION (CURRENT) DRUG THERAPY 12/20/2017 SELINA FERNANDO MD Ot Z85.3 PERSONAL HISTORY OF MALIGNANT NEOPLASM O 12/20/2017 SELINA FERNANDO MD Ot Z90.11 ACQUIRED ABSENCE OF RIGHT BREAST AND NIP 12/20/2017 SELINA FERNANDO MD, Ot Z92.21 PERSONAL HISTORY OF ANTINEOPLASTIC CHEMO 12/20/2017 SELINA FERNANDO MD Ot 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 PACEMAKER 12/20/2017 WESTLEY MÉNDEZ N Ot 202.80 OTH LYMPHOMAS EXTRANODAL SOLID ORGAN U 12/20/2017 WESTLEY MÉNDEZ N Ot 585.3 CHRONIC KIDNEY DISEASE, STAGE III (MODER 12/20/2017 WESTLEY MÉNDEZ N Ot V10.3 HX OF BREAST MALIGNANCY 12/20/2017 WESTLEY MÉNDEZ N Ot V45.01 CARDIAC PACEMAKER IN SITU 12/20/2017 WESTLEY MÉNDEZ N Ot V45.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 12/20/2017 WESTLEY MÉNDEZ N Ot V58.69 OTH MED,LT,CURRENT USE 12/20/2017 WESTLEY MÉNDEZ N Ot V87.41 PERSONAL HISTORY OF ANTINEOPLASTIC CHEMO 12/20/2017 WESTLEY MÉNDEZ N Ot 202.80 OTH LYMPHOMAS EXTRANODAL SOLID ORGAN U 12/20/2017 WESTLEY MÉNDEZ N Ot 585.3 CHRONIC KIDNEY DISEASE, STAGE III (MODER 12/20/2017 WESTLEY MÉNDEZ N Ot V10.3 HX OF BREAST MALIGNANCY 12/20/2017 DEVWESTLEY N Ot V45.01 CARDIAC PACEMAKER IN SITU 12/20/2017 WESTLEY MÉNDEZ N Ot V45.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 12/20/2017 WESTLEY MÉNDEZ N Ot V58.69 OTH MED,LT,CURRENT USE 12/20/2017 DEV, BOBAN N Ot V87.41 PERSONAL HISTORY OF ANTINEOPLASTIC CHEMO 12/20/2017 DEV, BOBAN N Ot 202.80 OTH LYMPHOMAS EXTRANODAL SOLID ORGAN U 12/20/2017 DEV, BOBAN N Ot 585.3 CHRONIC KIDNEY DISEASE, STAGE III (MODER 12/20/2017 DEV BOBAN N Ot V10.3 HX OF BREAST MALIGNANCY 12/20/2017 DEV, BOBAN N Ot V45.01 CARDIAC PACEMAKER IN SITU 12/20/2017 DEV, BOBAN N Ot V45.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 12/20/2017 DEV, BOBAN N Ot V58.69 OTH MED,LT,CURRENT USE 12/20/2017 DEV, BOBAN N Ot V87.41 PERSONAL HISTORY OF ANTINEOPLASTIC CHEMO 12/20/2017 DEV, BOBAN N Ot 202.80 OTH LYMPHOMAS EXTRANODAL SOLID ORGAN U 12/20/2017 DEV, BOBAN N Ot 202.80 OTH LYMPHOMAS EXTRANODAL SOLID ORGAN U 12/20/2017 DEV, BOBAN N Ot 585.3 CHRONIC KIDNEY DISEASE, STAGE III (MODER 12/20/2017 DEV BOBAN N Ot V10.3 HX OF BREAST MALIGNANCY 12/20/2017 DEV, BOBAN N Ot V45.01 CARDIAC PACEMAKER IN SITU 12/20/2017 DEV, BOBAN N Ot V45.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 12/20/2017 DEV, BOBAN N Ot V58.69 OTH MED,LT,CURRENT USE 12/20/2017 DEV, BOBAN N Ot V87.41 PERSONAL HISTORY OF ANTINEOPLASTIC CHEMO 12/20/2017 ERIC HODGE MD Ot 793.99 OTH NOSP (ABN) FINDINGS RADIOLOGICAL O 12/20/2017 ERIC HODGE MD Ot V10.79 HX-LYMPHATIC MALIGN NEC 12/20/2017 DEV, BOBAN N Ot 202.80 OTH LYMPHOMAS EXTRANODAL SOLID ORGAN U 12/20/2017 DEV, BOBAN N Ot 585.3 CHRONIC KIDNEY DISEASE, STAGE III (MODER 12/20/2017 DEV BOBAN N Ot V10.3 HX OF BREAST MALIGNANCY 12/20/2017 DEV, BOBAN N Ot V45.01 CARDIAC PACEMAKER IN SITU 12/20/2017 WESTLEY MÉNDEZ N Ot V45.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 12/20/2017 DEV, WESTLEY N Ot V58.69 OTH MED,LT,CURRENT USE 12/20/2017 DEV, BOBAN N Ot V87.41 PERSONAL HISTORY OF ANTINEOPLASTIC CHEMO 12/20/2017 DEVWESTLEY N Ot 202.80 OTH LYMPHOMAS EXTRANODAL SOLID ORGAN U 12/20/2017 DEV BOBPRIMO N Ot 244.9 HYPOTHYROIDISM NOS 12/20/2017 DEV, BOBAN N Ot 403.90 HYPTNSV CHR KID DIS, UNSPEC, W CHR KD ST 12/20/2017 DEVWESTLEY N Ot 585.3 CHRONIC KIDNEY DISEASE, STAGE III (MODER 12/20/2017 WESTLEY MÉNDEZ N Ot V10.3 HX OF BREAST MALIGNANCY 12/20/2017 DEVWESTLEY N Ot V45.01 CARDIAC PACEMAKER IN SITU 12/20/2017 DEVWESTLEY N Ot V45.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 12/20/2017 DEV WESTLEY N Ot V58.69 OTH MED,LT,CURRENT USE 12/20/2017 DEV, BOBAN N Ot V87.41 PERSONAL HISTORY OF ANTINEOPLASTIC CHEMO 12/20/2017 DEV BOBPRIMO N Ot C82.90 FOLLICULAR LYMPHOMA, UNSPECIFIED, UNSPEC 12/20/2017 DEV BOBAN N Ot D50.9 IRON DEFICIENCY ANEMIA, UNSPECIFIED 12/20/2017 DEV, BOBPRIMO N Ot I48.91 UNSPECIFIED ATRIAL FIBRILLATION 12/20/2017 DEV BOBPRIMO N Ot I50.9 HEART FAILURE, UNSPECIFIED 12/20/2017 DEV BOBPRIMO N Ot 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 OF KNEE 12/20/2017 THADDEUS MÉNDEZAN N Ot Z79.899 OTHER DIRECTOR OF LAND (CURRENT) DRUG THERAPY 12/20/2017 WESTLEY MÉNDEZ N Ot Z85.3 PERSONAL HISTORY OF MALIGNANT NEOPLASM O 12/20/2017 DEV BOBPRIMO N Ot Z90.11 ACQUIRED ABSENCE OF RIGHT BREAST AND NIP 12/20/2017 WESTLEY MÉNDEZ N Ot Z92.21 PERSONAL HISTORY OF ANTINEOPLASTIC CHEMO 12/20/2017 DEV BOBPRIMO N Ot 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 PACEMAKER 12/20/2017 DEV, BOBAN N Ot C82.90 FOLLICULAR LYMPHOMA, UNSPECIFIED, UNSPEC 12/20/2017 DEV, BOBAN N Ot D50.9 IRON DEFICIENCY ANEMIA, UNSPECIFIED 12/20/2017 DEV, BOBAN N Ot I48.91 UNSPECIFIED ATRIAL FIBRILLATION 12/20/2017 DEV, BOBAN N Ot I50.9 HEART FAILURE, UNSPECIFIED 12/20/2017 DEV BOBAN N Ot 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 OF KNEE 12/20/2017 DEV BOBAN N Ot Z79.899 OTHER CORRECTION (CURRENT) DRUG THERAPY 12/20/2017 DEV, BOBAN N Ot Z85.3 PERSONAL HISTORY OF MALIGNANT NEOPLASM O 12/20/2017 DEV, BOBAN N Ot Z90.11 ACQUIRED ABSENCE OF RIGHT BREAST AND NIP 12/20/2017 DEV, BOBAN N Ot Z92.21 PERSONAL HISTORY OF ANTINEOPLASTIC CHEMO 12/20/2017 DEV, BOBAN N Ot 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 PACEMAKER 12/20/2017 DEV, BOBAN N Ot C82.90 FOLLICULAR LYMPHOMA, UNSPECIFIED, UNSPEC 12/20/2017 DEV, BOBAN N Ot D50.9 IRON DEFICIENCY ANEMIA, UNSPECIFIED 12/20/2017 DEV, BOBAN N Ot I48.91 UNSPECIFIED ATRIAL FIBRILLATION 12/20/2017 DEV BOBAN N Ot I50.9 HEART FAILURE, UNSPECIFIED 12/20/2017 DEV, BOBAN N Ot 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 OF KNEE 12/20/2017 DEV, BOBAN N Ot Z79.899 OTHER CORRECTION (CURRENT) DRUG THERAPY 12/20/2017 DEV, BOBAN N Ot Z85.3 PERSONAL HISTORY OF MALIGNANT NEOPLASM O 12/20/2017 DEV, BOBAN N Ot Z90.11 ACQUIRED ABSENCE OF RIGHT BREAST AND NIP 12/20/2017 DEV, BOBAN N Ot Z92.21 PERSONAL HISTORY OF ANTINEOPLASTIC CHEMO 12/20/2017 DEV, BOBAN N Ot 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 PACEMAKER 12/20/2017 DEV, BOBAN N Ot 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, UNSP, LYM 12/20/2017 DEV, BOBAN N Ot C82.90 FOLLICULAR LYMPHOMA, UNSPECIFIED, UNSPEC 12/20/2017 DEV, BOBAN N Ot D50.9 IRON DEFICIENCY ANEMIA, UNSPECIFIED 12/20/2017 DEV, BOBAN N Ot I48.91 UNSPECIFIED ATRIAL FIBRILLATION 12/20/2017 DEV, BOBAN N Ot I50.9 HEART FAILURE, UNSPECIFIED 12/20/2017 DEV, BOBAN N Ot 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 OF KNEE 12/20/2017 DEVTHADDEUSAN N Ot Z79.899 OTHER DIRECTOR OF LAND (CURRENT) DRUG THERAPY 12/20/2017 DEV, BOBAN N Ot Z85.3 PERSONAL HISTORY OF MALIGNANT NEOPLASM O 12/20/2017 DEV, BOBAN N Ot Z90.11 ACQUIRED ABSENCE OF RIGHT BREAST AND NIP 12/20/2017 DEV, BOBAN N Ot Z92.21 PERSONAL HISTORY OF ANTINEOPLASTIC CHEMO 12/20/2017 DEV, BOBAN N Ot 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 PACEMAKER 12/20/2017 DEV, BOBAN N Ot C82.90 FOLLICULAR LYMPHOMA, UNSPECIFIED, UNSPEC 12/20/2017 DEV BOBAN N Ot D50.9 IRON DEFICIENCY ANEMIA, UNSPECIFIED 12/20/2017 DEV, BOBAN N Ot I48.91 UNSPECIFIED ATRIAL FIBRILLATION 12/20/2017 DEV, BOBAN N Ot I50.9 HEART FAILURE, UNSPECIFIED 12/20/2017 DEV, BOBAN N Ot 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 OF KNEE 12/20/2017 DEVTHADDEUSAN N Ot Z79.899 OTHER CORRECTION (CURRENT) DRUG THERAPY 12/20/2017 DEV, BOBAN N Ot Z85.3 PERSONAL HISTORY OF MALIGNANT NEOPLASM O 12/20/2017 DEV, BOBAN N Ot Z90.11 ACQUIRED ABSENCE OF RIGHT BREAST AND NIP 12/20/2017 DEV, BOBAN N Ot Z92.21 PERSONAL HISTORY OF ANTINEOPLASTIC CHEMO 12/20/2017 DEV, BOBAN N Ot 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 PACEMAKER 12/20/2017 DEV, BOBAN N Ot 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, UNSP, LYM 12/20/2017 DEV, BOBAN N Ot D50.9 IRON DEFICIENCY ANEMIA, UNSPECIFIED 12/20/2017 DEV, BOBAN N Ot I48.91 UNSPECIFIED ATRIAL FIBRILLATION 12/20/2017 DEV, BOBAN N Ot I50.9 HEART FAILURE, UNSPECIFIED 12/20/2017 DEV, BOBAN N Ot 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 OF KNEE 12/20/2017 WESTLEY MÉNDEZ Ot Z79.899 OTHER DIRECTOR OF LAND (CURRENT) DRUG THERAPY 12/20/2017 WESTLEY MÉNDEZ Ot Z85.3 PERSONAL HISTORY OF MALIGNANT NEOPLASM O 12/20/2017 WESTLEY MÉNDEZ Ot Z90.11 ACQUIRED ABSENCE OF RIGHT BREAST AND NIP 12/20/2017 WESTLEY MÉNDEZ Ot Z92.21 PERSONAL HISTORY OF ANTINEOPLASTIC CHEMO 12/20/2017 WESTLEY MÉNDEZ Ot 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 PACEMAKER 12/20/2017 STACIE DOMINGUEZ MD, Ot M19.91 PRIMARY OSTEOARTHRITIS, UNSPECIFIED SITE 12/20/2017 STACIE DOMINGUEZ MD Ot Z11.59 ENCOUNTER FOR SCREENING FOR OTHER VIRAL 12/20/2017 STACIE DOMINGUEZ MD Ot Z79.899 OTHER DIRECTOR OF LAND (CURRENT) DRUG THERAPY 12/20/2017 STACIE DOMINGUEZ MD Ot M19.041 PRIMARY OSTEOARTHRITIS, RIGHT HAND 12/20/2017 STACIE DOMINGUEZ MD Ot M19.042 PRIMARY OSTEOARTHRITIS, LEFT HAND 12/20/2017 STACIE DOMINGUEZ MD Ot M19.071 PRIMARY OSTEOARTHRITIS, RIGHT ANKLE AND 12/20/2017 STACIE DOMINGUEZ MD Ot M19.072 PRIMARY OSTEOARTHRITIS, LEFT ANKLE AND F 12/20/2017 STACIE DOMINGUEZ MD Ot M81.0 AGE-RELATED OSTEOPOROSIS W/O CURRENT PAT 12/20/2017 Ot Z51.81 ENCOUNTER FOR THERAPEUTIC DRUG LEVEL MON 12/20/2017 Ot Z79.899 OTHER DIRECTOR OF LAND (CURRENT) DRUG THERAPY 12/20/2017 WESTLEY MÉNDEZ Ot 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, UNSP, LYM 12/20/2017 WESTLEY MÉNDEZ Ot D50.9 IRON DEFICIENCY ANEMIA, UNSPECIFIED 12/20/2017 WESTLEY MÉNDEZ Ot D63.1 ANEMIA IN CHRONIC KIDNEY DISEASE 12/20/2017 WESTLEY MÉNDEZ Ot I48.91 UNSPECIFIED ATRIAL FIBRILLATION 12/20/2017 WESTLEY MÉNDEZ Ot I50.9 HEART FAILURE, UNSPECIFIED 12/20/2017 WESTLEY MÉNDEZ Ot 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 OF KNEE 12/20/2017 WESTLEY MÉNDEZ Ot N18.3 CHRONIC KIDNEY DISEASE, STAGE 3 (MODERAT 12/20/2017 WESTLEY MÉNDEZ Ot Z79.899 OTHER CORRECTION (CURRENT) DRUG THERAPY 12/20/2017 WESTLEY MÉNDEZ N Ot Z85.3 PERSONAL HISTORY OF MALIGNANT NEOPLASM O 12/20/2017 WESTLEY MÉNDEZ N Ot Z90.11 ACQUIRED ABSENCE OF RIGHT BREAST AND NIP 12/20/2017 WESTLEY MÉNDEZ N Ot Z92.21 PERSONAL HISTORY OF ANTINEOPLASTIC CHEMO 12/20/2017 WESTLEY MÉNDEZ N Ot 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 PACEMAKER 12/21/2017 WESTLEY MÉNDEZ N Ot 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, UNSP, LYM 12/21/2017 WESTLEY MÉNDEZ N Ot D50.9 IRON DEFICIENCY ANEMIA, UNSPECIFIED 12/21/2017 WESTLEY MÉNDEZ Ot D63.1 ANEMIA IN CHRONIC KIDNEY DISEASE 12/21/2017 WESTLEY MÉNDEZ Ot I48.91 UNSPECIFIED ATRIAL FIBRILLATION 12/21/2017 WESTLEY MÉNDEZ Ot I50.9 HEART FAILURE, UNSPECIFIED 12/21/2017 WESTLEY MÉNDEZ Ot 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 OF KNEE 12/21/2017 WESTLEY MÉNDEZ N Ot N18.3 CHRONIC KIDNEY DISEASE, STAGE 3 (MODERAT 12/21/2017 WESTLEY MÉNDEZ Ot Z79.899 OTHER DIRECTOR OF LAND (CURRENT) DRUG THERAPY 12/21/2017 WESTLEY MÉNDEZ N Ot Z85.3 PERSONAL HISTORY OF MALIGNANT NEOPLASM O 12/21/2017 WESTLEY MÉNDEZ Ot Z90.11 ACQUIRED ABSENCE OF RIGHT BREAST AND NIP 12/21/2017 WESTLEY MÉNDEZ Ot Z92.21 PERSONAL HISTORY OF ANTINEOPLASTIC CHEMO 12/21/2017 WESTLEY MÉNDEZ N Ot 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 PACEMAKER Procedures There is no data. Results Test Result Range Complete urinalysis with reflex to culture - 02/10/17 15:50 Urine color determination YELLOW NRG Urine clarity determination CLEAR NRG Urine pH measurement by test strip 7 5-9 Specific gravity of urine by test strip 1.005 1.016- 1.022 Urine protein assay by test strip, semi-quantitative NEGATIVE NEGATIVE Urine glucose detection by automated test strip NEGATIVE NEGATIVE Erythrocytes detection in urine sediment by light microscopy NEGATIVE NEGATIVE Urine ketones detection by automated test strip NEGATIVE NEGATIVE Urine nitrite detection by test strip NEGATIVE NEGATIVE Urine total bilirubin detection by test strip NEGATIVE NEGATIVE Urine urobilinogen measurement by automated test strip (mass/volume) NORMAL NORMAL Urine leukocyte esterase detection by dipstick NEGATIVE NEGATIVE Automated urine sediment erythrocyte count by microscopy (number/high power field) NONE NRG Automated urine sediment leukocyte count by microscopy (number/high power field ) NONE NRG Bacteria detection in urine sediment by light microscopy NONE NRG Squamous epithelial cells detection in urine sediment by light microscopy 0-2 NRG Crystals detection in urine sediment by light microscopy NONE NRG Casts detection in urine sediment by light microscopy NONE NRG Mucus detection in urine sediment by light microscopy NEGATIVE NRG Complete urinalysis with reflex to culture NO NRG Complete blood count (CBC) with automated white blood cell (WBC) differential - 02/10/17 16:10 Blood leukocytes automated count (number/volume) 9.6 10*3/uL 4.3-11.0 Blood erythrocytes automated count (number/volume) 3.42 10*6/uL 4.35-5.85 Venous blood hemoglobin measurement (mass/volume) 8.8 g/dL 11.5-16.0 Blood hematocrit (volume fraction) 29 % 35-52 Automated erythrocyte mean corpuscular volume 83 [foz_us] 80-99 Automated erythrocyte mean corpuscular hemoglobin (mass per erythrocyte) 26 pg 25-34 Automated erythrocyte mean corpuscular hemoglobin concentration measurement ( mass/volume) 31 g/dL 32-36 Automated erythrocyte distribution width ratio 14.0 % 10.0-14.5 Automated blood platelet count (count/volume) 624 10*3/uL 130-400 Automated blood platelet mean volume measurement 9.1 [foz_us] 7.4-10.4 Automated blood neutrophils/100 leukocytes 70 % 42-75 Automated blood lymphocytes/100 leukocytes 14 % 12-44 Blood monocytes/100 leukocytes 10 % 0-12 Automated blood eosinophils/100 leukocytes 5 % 0-10 Automated blood basophils/100 leukocytes 1 % 0-10 Blood neutrophils automated count (number/volume) 6.8 10*3 1.8-7.8 Blood lymphocytes automated count (number/volume) 1.4 10*3 1.0-4.0 Blood monocytes automated count (number/volume) 1.0 10*3 0.0-1.0 Automated eosinophil count 0.5 10*3/uL 0.0-0.3 Automated blood basophil count (count/volume) 0.1 10*3/uL 0.0-0.1 Comprehensive metabolic panel - 02/10/17 16:10 Serum or plasma sodium measurement (moles/volume) 138 mmol/L 135-145 Serum or plasma potassium measurement (moles/volume) 4.4 mmol/L 3.6-5.0 Serum or plasma chloride measurement (moles/volume) 101 mmol/L 98-107 Carbon dioxide 27 mmol/L 21-32 Serum or plasma anion gap determination (moles/volume) 10 mmol/L 5-14 Serum or plasma urea nitrogen measurement (mass/volume) 17 mg/dL 7-18 Serum or plasma creatinine measurement (mass/volume) 0.95 mg/dL 0.60-1.30 Serum or plasma urea nitrogen/creatinine mass ratio 18 NRG Serum or plasma creatinine measurement with calculation of estimated glomerular filtration rate 57 NRG Serum or plasma glucose measurement (mass/volume) 147 mg/dL 70-105 Serum or plasma calcium measurement (mass/volume) 9.0 mg/dL 8.5-10.1 Serum or plasma total bilirubin measurement (mass/volume) 0.4 mg/dL 0.1-1.0 Serum or plasma alkaline phosphatase measurement (enzymatic activity/volume) 76 U/L 40-136 Serum or plasma aspartate aminotransferase measurement (enzymatic activity/ volume) 10 U/L 5-34 Serum or plasma alanine aminotransferase measurement (enzymatic activity/volume ) 7 U/L 0-55 Serum or plasma protein measurement (mass/volume) 6.6 g/dL 6.4-8.2 Serum or plasma albumin measurement (mass/volume) 3.4 g/dL 3.2-4.5 Complete blood count (CBC) with automated white blood cell (WBC) differential - 03/15/17 11:26 Blood leukocytes automated count (number/volume) 11.0 10*3/uL 4.3-11.0 Blood erythrocytes automated count (number/volume) 3.29 10*6/uL 4.35-5.85 Venous blood hemoglobin measurement (mass/volume) 8.1 g/dL 11.5-16.0 Blood hematocrit (volume fraction) 27 % 35-52 Automated erythrocyte mean corpuscular volume 82 [foz_us] 80-99 Automated erythrocyte mean corpuscular hemoglobin (mass per erythrocyte) 25 pg 25-34 Automated erythrocyte mean corpuscular hemoglobin concentration measurement ( mass/volume) 30 g/dL 32-36 Automated erythrocyte distribution width ratio 14.8 % 10.0-14.5 Automated blood platelet count (count/volume) 615 10*3/uL 130-400 Automated blood platelet mean volume measurement 9.0 [foz_us] 7.4-10.4 Automated blood neutrophils/100 leukocytes 76 % 42-75 Automated blood lymphocytes/100 leukocytes 8 % 12-44 Blood monocytes/100 leukocytes 13 % 0-12 Automated blood eosinophils/100 leukocytes 4 % 0-10 Automated blood basophils/100 leukocytes 1 % 0-10 Blood neutrophils automated count (number/volume) 8.3 10*3 1.8-7.8 Blood lymphocytes automated count (number/volume) 0.8 10*3 1.0-4.0 Blood monocytes automated count (number/volume) 1.4 10*3 0.0-1.0 Automated eosinophil count 0.4 10*3/uL 0.0-0.3 Automated blood basophil count (count/volume) 0.1 10*3/uL 0.0-0.1 Serum or plasma rheumatoid factor measurement (units/volume) - 08/31/17 12:55 Serum or plasma rheumatoid factor measurement (units/volume) NEGATIVE NEGATIVE Serum or plasma C reactive protein measurement (mass/volume) - 08/31/17 12:55 Serum or plasma C reactive protein measurement (mass/volume) 0.92 mg /dL 0.00-0.50 Erythrocyte sedimentation rate by westergren method - 08/31/17 12:55 Erythrocyte sedimentation rate by westergren method 7 mm 0-30 [id number] - 08/31/17 12:55 Screening antinuclear antibody (ZACKERY) assay by enzyme immunoassay <1: 80 <1:80 Serum hepatitis C virus antibody assay (units/volume) - 08/31/17 12:55 Serum hepatitis C virus antibody detection Non-Reactive Non-Reactive Serum cyclic citrullinated peptide antibody assay (units/volume) - 08/31/17 12: 55 Serum cyclic citrullinated peptide antibody assay (units/volume) < % 0.0-19.9 Hepatitis B profile - 08/31/17 12:55 Confirmatory quantitative serum or plasma hepatitis B virus surface antigen measurement Non-Reactive Non-Reactive Hepatitis B virus core IgM antibody assay Non-Reactive Non-Reactive Serum hepatitis B virus surface antibody assay (units/volume) < % >=12.00 QUANTIFERON-TB GOLD - 08/31/17 12:55 QuantiFERON-TB test TNP NRG Mitogen stimulated gamma interferon [units/volume] corrected for background in blood TNP NRG Mitogen stimulated gamma interferon [units/volume] in blood TNP NRG Qualitative QuantiFERON-TB gold in tube test TNP NRG Complete blood count (CBC) with automated white blood cell (WBC) differential - 10/11/17 11:20 Blood leukocytes automated count (number/volume) 16.0 10*3/uL 4.3-11.0 Blood erythrocytes automated count (number/volume) 4.26 10*6/uL 4.35-5.85 Venous blood hemoglobin measurement (mass/volume) 11.2 g/dL 11.5-16.0 Blood hematocrit (volume fraction) 36 % 35-52 Automated erythrocyte mean corpuscular volume 84 [foz_us] 80-99 Automated erythrocyte mean corpuscular hemoglobin (mass per erythrocyte) 26 pg 25-34 Automated erythrocyte mean corpuscular hemoglobin concentration measurement ( mass/volume) 32 g/dL 32-36 Automated erythrocyte distribution width ratio 19.1 % 10.0-14.5 Automated blood platelet count (count/volume) 496 10*3/uL 130-400 Automated blood platelet mean volume measurement 9.4 [foz_us] 7.4-10.4 Automated blood neutrophils/100 leukocytes 84 % 42-75 Automated blood lymphocytes/100 leukocytes 5 % 12-44 Blood monocytes/100 leukocytes 9 % 0-12 Automated blood eosinophils/100 leukocytes 2 % 0-10 Automated blood basophils/100 leukocytes 0 % 0-10 Blood neutrophils automated count (number/volume) 13.5 10*3 1.8-7.8 Blood lymphocytes automated count (number/volume) 0.8 10*3 1.0-4.0 Blood monocytes automated count (number/volume) 1.4 10*3 0.0-1.0 Automated eosinophil count 0.3 10*3/uL 0.0-0.3 Automated blood basophil count (count/volume) 0.1 10*3/uL 0.0-0.1 Encounters ACCT No. Visit Date/Time Discharge Status Pt. Type Provider Facility Loc./Unit Complaint [id number] 12/20/2017 13:38:00 12/20/2017 23:59:59 CLS Outpatient WESTLEY MÉNDEZ [facility] ONC [id number] 12/06/2017 14:16:00 12/20/2017 13:35:00 DIS Outpatient SELINA FERNANDO MD [facility] ONC [id number] 09/27/2017 13:54:00 10/11/2017 11:01:00 DIS Outpatient SELINA FERNANDO MD [facility] ONC [id number] 09/13/2017 14:12:00 09/19/2017 00:01:00 DIS Outpatient SELINA FERNANDO MD [facility] ONC [id number] 08/31/2017 13:50:00 08/31/2017 23:59:59 CLS Outpatient STACIE DOMINGUEZ MD [facility] RAD INFLAMMATORY ARTHRITIS [id number] 08/31/2017 12:47:00 08/31/2017 23:59:59 CLS Outpatient STACIE DOMINGUEZ MD [facility] LAB [id number] 06/21/2017 15:10:00 06/21/2017 15:25:00 DIS Outpatient WESTLEY MÉNDEZ [facility] ONC [id number] 04/27/2017 13:16:00 05/08/2017 12:55:00 DIS Outpatient SELINA FERNANDO MD [facility] ONC [id number] 03/29/2017 09:57:00 04/12/2017 12:14:00 DIS Outpatient WESTLEY MÉNDEZ [facility] ONC [id number] 03/16/2017 10:55:00 03/22/2017 00:01:00 DIS Outpatient WESTLEY MÉNDEZ [facility] ONC [id number] 02/10/2017 15:16:00 02/10/2017 17:52:00 DIS Emergency KEITH PARKS MD [facility] ER FREQ URINATION,WEAKNESS [id number] 11/14/2016 13:49:00 11/14/2016 23:59:59 CLS Outpatient WESTLEY MÉNDEZ [facility] FS [id number] 05/30/2016 11:06:00 05/30/2016 23:59:59 CLS Outpatient WESTLEY MÉNDEZ N [facility] FS [id number] 01/14/2016 10:55:00 04/05/2016 00:01:00 DIS Outpatient WESTLEY MÉNDEZ N [facility] ONC [id number] 02/22/2016 13:22:00 02/22/2016 23:59:59 CLS Outpatient WESTLEY MÉNDEZ N [facility] FS [id number] 01/11/2016 08:30:00 01/11/2016 23:59:59 CLS Outpatient WESTLEY MÉNDEZ N [facility] RAD LYMPHOMA [id number] 12/14/2015 12:23:00 01/03/2016 16:25:00 DIS Outpatient WESTLEY MÉNDEZ N [facility] ONC [id number] 12/28/2015 10:48:00 12/28/2015 23:59:59 CLS Outpatient WESTLEY MÉNDEZ N [facility] FS [id number] 04/23/2015 10:03:00 07/21/2015 00:01:00 DIS Outpatient WESTLEY MÉNDEZ N [facility] ONC [id number] 06/29/2015 10:53:00 06/29/2015 23:59:59 CLS Outpatient WESTLEY MÉNDEZ N [facility] FS [id number] 03/23/2015 13:46:00 03/23/2015 23:59:59 CLS Outpatient WESTLEY MÉNDEZ N [facility] FS [id number] 09/15/2014 10:07:00 09/15/2014 23:59:59 CLS Outpatient WESTLEY MÉNDEZ N [facility] FS [id number] 02/17/2014 10:25:00 02/17/2014 23:59:59 CLS Outpatient WESTLEY MÉNDEZ N [facility] FS [id number] 10/01/2013 09:34:00 10/02/2013 09:30:00 DIS Outpatient NAVEEN JUSTIN, ERIC [place] [facility] SDC POSSIBLE LYMPHOMA [id number] 09/23/2013 10:06:00 09/23/2013 23:59:59 CLS Outpatient NAVEEN JUSTIN, ERIC [place] [facility] RAD HX OF CA, ABNORMAL AREA LFT TONSIL [id number] 09/09/2013 13:53:00 09/09/2013 23:59:59 CLS Outpatient WESTLEY MÉNDEZ N [facility] FS [id number] 09/02/2013 08:50:00 09/02/2013 23:59:59 CLS Outpatient DEVWESTLEY BELL N [facility] RAD LYMPHOMA [id number] 08/26/2013 10:59:00 08/26/2013 23:59:59 CLS Outpatient DEVWESTLEY BELL N [facility] FS [id number] 02/25/2013 12:38:00 02/25/2013 23:59:59 CLS Outpatient DEVWESTLEY BELL N [facility] FS [id number] 08/27/2012 12:45:00 08/27/2012 23:59:59 CLS Outpatient DEVTHADDEUSPRIMO N [facility] FS [id number] 09/13/2017 08:00:00 Document Registration [id number] 02/13/2012 11:05:00 Document Registration [id number] 09/07/2011 07:48:00 Document Registration [id number] 08/29/2011 13:07:00 Document Registration [id number] 02/21/2011 13:41:00 Document Registration [id number] 08/30/2010 13:58:00 Document Registration [email or web address] 09/15/2014 10:08:45 ACT Document Registration
--- NOTE | 2017-12-31 15:06 | Occupational Therapy Eval ---
OT Evaluation-General/PLF Medical Diagnosis Admission Date Dec 31, 2017 at 13:36 Medical Diagnosis: left total hip Onset Date: Dec 31, 2017 Therapy Diagnosis Therapy Diagnosis: decreased self care skills Height/Weight Height (Feet): 5 Height (Inches): 8.00 Weight (Pounds): 176 Weight (Ounces): 0.0 Precautions Precautions/Isolations: Standard Precautions Comments hip precautions Referral Physician: Shree Medical History Pertinent Medical History: Atrial Fib, Breast CA S/P Mastectomy, GERD, HTN, Hypothroidism, OA, Rheumatoid Arthritis Additional Medical History aortic stenosis, CHF, sleep apnea, bilateral TKA, pacemaker Current History pt s/p elective left RIVAS Social History Home: Single Level Current Living Status: Alone Entry Into Home: Ramp ADL-Prior Level of Function Functional [place] Measure 0=Not Assessed/NA 4=Minimal Assistance 1=Total Assistance 5=Supervision or Setup 2=Maximal Assistance 6=Modified [place] 3=Moderate Assistance 7=Complete [place] ADL PLOF Comments Pt reports being independent at w/c level with basic self care tasks. Pt states she has not been ambulating for the last year. Uses power w/c inside home and manual w/c when outside. Pt states she is unable to propel manual w/c secondary to shoulder problems. Daughter does most of the cooking and cleaning. Uses 2L O2 at all times Self Care 6 Functional Cognition 6 DME/Equipment: Bath Chair, Grab Bars, Tall Toilet, Tub/Shower, Toilet/Riser DME/Equipment Comments Pt also has a walker, power w/c, manual w/c, and lift chair. Drive Self: No OT Current Status Subjective Pt sitting in w/c, agrees to therapy. Pt states she is not having any pain currently. Mental Status/Objective Patient Orientation: Person, Place, Situation Attachments: Oxygen (2L) Current Glasses/Contacts: Yes Hearing Aids: Yes (does not have them here) Dentures/Partials: No Hand Dominance: Left Upper Extremity ROM Impaired bilateral shoulders secondary to arthritis. Upper Extremity Coordination Intact Upper Extremity Strength decreased bilateral UE ADL-Treatment ADL-Current To therapy gym via w/c. Pt participated in UE assessment while seated. Pt has decreased ROM bilateral shoulders. Reviewed hip precautions and functional task completion. Pt states understanding of education, states she is motivated to improve. Will require adaptive equipment for LE dressing secondary to hip precautions. Pt sit to stand with mod assist and cues to push up from chair. Pt ambulated with FWW. Assist required to manage oxygen. Transfer to chair with FWW. Care transferred to AGUIRRE at this time for further treatment. Co-treat with PT secondary to decreased activity tolerance and strength. OT focusing on UE management and safety with PT focusing on transfers, LE management, and balance. Functional [place] Measure 0=Not Assessed/NA 4=Minimal Assistance 1=Total Assistance 5=Supervision or Setup 2=Maximal Assistance 6=Modified [place] 3=Moderate Assistance 7=Complete IndependenceIRFPAI Quality Coding Scale 6 Independent with activity with or without an assistive device 5 Patient requires set up or clean up by helper. Patient completes activity by themselves 4 Supervision or touching assist (CGA). [place] provide cues , steadying assist 3 The helper provides less than half the effort to complete the activity 2 The helper provides more than half the effort to complete the activity 1 Dependent. The helper does all the effort to complete an activity 7 Patient refused to complete or attempt activity 9 The patient did not perform the activity before the current illness or injury 88 Not attempted due to Medical conditions or safety concerns Education OT Patient Education: Rehab process Teaching Recipient: Patient Teaching Methods: Discussion Response to Teaching: Verbalize Understanding OT Short Term Goals Short Term Goals 1=Demonstrate adherence to instructed precautions during ADL tasks. 2=Patient will verbalize/demonstrate understanding of assistive devices/ modifications for ADL. 3=Patient will improve strength/tolerance for activity to enable patient to perform ADL's. OT Assisted Goals Front Desk Representative Goals Time Frame: Jan 21, 2018 Eating (FIM): 7 Eating (QC): 6 Groomin Oral Hygiene (QC): 6 Bathing(FIM): 5 Shower/Bathe Self (QC): 5 Upper Body Dressing(FIM): 6 Upper Body Dressing (QC): 6 Lower Body Dressing(FIM): 5 Lower Body Dressing (QC): 5 On/Off Footwear (QC): 5 Toileting(FIM): 6 Toileting Hygiene (QC): 6 Toilet/Commode Transfer(FIM): 6 Toilet/Commode Transfer (QC): 6 Shower Transfer(FIM): 5 Additional Goals: 1-Demonstrate ADL Tasks, 2-Verbalize Understanding, 3- ImproveStrength/[place] 1=Demonstrate adherence to instructed precautions during ADL tasks. 2=Patient will verbalize/demonstrate understanding of assistive devices/ modifications for ADL. 3=Patient will improve strength/tolerance for activity to enable patient to perform ADL's. Goals established to promote increased functional independence and allow safe discharge home. OT Education/Plan Problem List/Assessment Pt s/p left RIVAS with decreased ADL functioning, mobility, strength, and activity tolerance. Pt to benefit from skilled OT intervention for ADL training , transfers, strengthening, adaptive equipment training, and home safety education to increase level of independence and allow safe discharge plan. Discharge Recommendations Plan/Recommendations: Continue POC Treatment Plan/Plan of Care Patient would benefit from OT for education, treatment and training to promote independence in ADL's, mobility, safety and/or upper extremity function for ADL' s. Plan of Care: ADL Retraining, Functional Mobility, Group Exercise/Act as Ind, UE Funct Exercise/Act Treatment Duration: Jan 21, 2018 Frequency: At least 5 of 7 days/Wk (IRF) Estimated Hrs Per Day: 1.5 hours per day Agreement: Yes Rehab Potential: Good Time/GCodes Start Time: 13:40 Stop Time: 14:15 Total Time Billed (hr/min): 35 Billed Treatment Time 1 visit, EVL 10minutes ([id number]) FAx2 (25minutes) Co-treat with PT [id number] [place] OTERO OT Dec 31, 2017 15:06
--- NOTE | 2017-12-31 15:34 | Occupational Ther Daily Note ---
OT Current Status-Daily Note Subjective Took over care from OTR/L. No c/o pain. Agrees to therapy. Mental Status/Objective Patient Orientation: Person, Place, Time, Situation Functional [place] Measure 0=Not Assessed/NA 4=Minimal Assistance 1=Total Assistance 5=Supervision or Setup 2=Maximal Assistance 6=Modified [place] 3=Moderate Assistance 7=Complete [place] ADL-Treatment Co-treat with PT for skilled care secondary to decreased activity tolerance and strength. Pt has all lower body dressing AE. PT/AGUIRRE discussed ARU expectations/description. After therapy, pt sitting in recliner with call light /phone in reach. All needs met in room. Functional [place] Measure 0=Not Assessed/NA 4=Minimal Assistance 1=Total Assistance 5=Supervision or Setup 2=Maximal Assistance 6=Modified [place] 3=Moderate Assistance 7=Complete IndependenceIRFPAI Quality Coding Scale 6 Independent with activity with or without an assistive device 5 Patient requires set up or clean up by helper. Patient completes activity by themselves 4 Supervision or touching assist (CGA). [place] provide cues , steadying assist 3 The helper provides less than half the effort to complete the activity 2 The helper provides more than half the effort to complete the activity 1 Dependent. The helper does all the effort to complete an activity 7 Patient refused to complete or attempt activity 9 The patient did not perform the activity before the current illness or injury 88 Not attempted due to Medical conditions or safety concerns Grooming (FIM): 4 (Completed grooming with CGA in standing using FWW and sink for stability.) Oral Hygiene (QC): 4 Bathing (FIM): 3 (Pt completed sponge bath after set up. Pt able to completed upper body bathing. Max A for lower body bathing due to hip precautions. Will need to use AE for lower body dressing.) Bathing Location: L Arm, R Arm, L Upper Leg, R Upper Leg, Chest, Abdomen, Perineal Area Shower/Bathe Self (QC): 3 Upper Body (FIM): 5 (After set up, pt completes by self. Decreased UE ROM.) Upper Body Dressing (QC): 5 Lower Body Dressing (FIM): 2 (Max A due to hip precautions. Pt is able to pull up thighs and hike over hips.) Lower Body Dressing (QC): 2 On/Off Footwear (QC): 2 (Pt able to kick off shoes, assist to don.) Toileting (FIM): 3 (Pt able to manipulate clothing and cleanse harika area then reach buttock though ineffecient with cleansing. Assist with cleansing buttocks. CGA for safety.) Toileting Hygiene (QC): 3 Transfers (B, C, W/C) (FIM): 3 Toilet/Commode Transfer (FIM): 3 (Using elevated seat (BSC), grabbars and FWW pt completes with min A. Mod A with lower surface transfer.) Toilet Transfer (QC): 3 Education OT Patient Education: Purpose of tx/functional activities, Rehab process Teaching Recipient: Patient, Family Teaching Methods: Demonstration, Discussion Response to Teaching: Verbalize Understanding OT Short Term Goals Short Term Goals 1=Demonstrate adherence to instructed precautions during ADL tasks. 2=Patient will verbalize/demonstrate understanding of assistive devices/ modifications for ADL. 3=Patient will improve strength/tolerance for activity to enable patient to perform ADL's. OT Fermenting Cellar Dropper Goals Fermenting Cellar Dropper Goals 1=Demonstrate adherence to instructed precautions during ADL tasks. 2=Patient will verbalize/demonstrate understanding of assistive devices/ modifications for ADL. 3=Patient will improve strength/tolerance for activity to enable patient to perform ADL's. OT Education/Plan Discharge Recommendations Plan/Recommendations: Continue POC Treatment Plan/Plan of Care Patient would benefit from OT for education, treatment and training to promote independence in ADL's, mobility, safety and/or upper extremity function for ADL' s. Treatment Duration: Jan 21, 2018 Frequency: At least 5 of 7 days/Wk (IRF) Estimated Hrs Per Day: 1.5 hours per day Rehab Potential: Good Time/GCodes Start Time: 14:15 Stop Time: 15:20 Total Time Billed (hr/min): 65 Billed Treatment Time 1 visit-ADL 4 (65 min) KARAN KIRBY Dec 31, 2017 15:34
--- NOTE | 2017-12-31 15:36 | Physical Therapy Evaluation ---
PT Evaluation-General Medical Diagnosis Admission Date Dec 31, 2017 at 13:36 Medical Diagnosis: DJD left hip Onset Date: Dec 31, 2017 Therapy Diagnosis Therapy Diagnosis: weakness; abn gait Height/Weight Height (Feet): 5 Height (Inches): 8.00 Weight (Pounds): 176 Weight (Ounces): 0.0 Precautions Precautions/Isolations: Standard Precautions Weight Bear Status Right Lower Extremity: Right Full Weight Bearing Left Lower Extremity: Left Weight Bearing/Tolerated Referral Physician: Shree Reason for Referral: Evaluation/Treatment Medical History Pertinent Medical History: Arthritis Additional Medical History arthritis Current History Pt transferred to this ARU post elective left THR. Reviewed History: Yes Social History Home: Single Level Current Living Status: Alone (supportive family nearby) Entry Into Home: Ramp Prior/Core FIM Prior Level of Function Functional [place] Measure 0=Not Assessed/NA 4=Minimal Assistance 1=Total Assistance 5=Supervision or Setup 2=Maximal Assistance 6=Modified [place] 3=Moderate Assistance 7=Complete IndependenceIRFPAI Quality Coding Scale 6 Independent with activity with or without an assistive device 5 Patient requires set up or clean up by helper. Patient completes activity by themselves 4 Supervision or touching assist (CGA). [place] provide cues , steadying assist 3 The helper provides less than half the effort to complete the activity 2 The helper provides more than half the effort to complete the activity 1 Dependent. The helper does all the effort to complete an activity 7 Patient refused to complete or attempt activity 9 The patient did not perform the activity before the current illness or injury 88 Not attempted due to Medical conditions or safety concerns Bed Mobility: 7 Transfers (B,C,W/C) (FIM): 6 (Pt was using a WC for locomotion) Gait: 2 (4-5 steps in her home for about the last year.) Stairs: 0 Wheelchair Mobility: 6 (primary source of locomotion; she also has a powerchair. ) Prior Equipment Used: FWW, manual chair, power chair, lift recliner Pt reports she has not walked much in the past year. Reports she has a manual wc and uses a power chair primarily in her home. PT Evaluation-Current Subjective Agrees to PT. Pt is able to verbalize her hip precautions and expresses fear that she will dislocate her hip. Pain Numeric Pain Scale: 0-No Pain Location: No Pain Reported Comment: Pt reports she has not had pain since the surgery Pt/Family Goals Her goal is to return to ambulation in home and short community distances. Objective Patient Orientation: Person, Place, Time, Situation Problem Solving: Good Attachments: Oxygen (2 l/min; she uses this at home as well) ROM/Strength ROM Lower Extremities WFL; hip precautions left Strenght Lower Extremities Right LE strength is grossly 4/5 throughout; left LE is grossly 3/5 throughout. Integumentary/Posture Integumentary Refer to nursing notes. Bowel Incontinence: Yes Bladder Incontinence: Yes Posture Slightly forward flexed at hips, rounded shoulders in standing. Neuromuscular (Tone, Coordination, Reflexes) No functional deficits. Sensory Vision: Wears Glasses Hearing: Functional Hand Dominance: Left Sensation Right Upper Extremit: Intact Sensation Left Upper Extremity: Intact Sensation Right Lower Extremit: Intact Sensation Left Lower Extremity: Intact Transfers Functional [place] Measure 0=Not Assessed/NA 4=Minimal Assistance 1=Total Assistance 5=Supervision or Setup 2=Maximal Assistance 6=Modified [place] 3=Moderate Assistance 7=Complete IndependenceIRFPAI Quality Coding Scale 6 Independent with activity with or without an assistive device 5 Patient requires set up or clean up by helper. Patient completes activity by themselves 4 Supervision or touching assist (CGA). [place] provide cues , steadying assist 3 The helper provides less than half the effort to complete the activity 2 The helper provides more than half the effort to complete the activity 1 Dependent. The helper does all the effort to complete an activity 7 Patient refused to complete or attempt activity 9 The patient did not perform the activity before the current illness or injury 88 Not attempted due to Medical conditions or safety concerns Transfers (B, C, W/C) (FIM): 3 Scootin Rollin Roll Left to Right (QC): 4 Supine to/from Sit: 4 (CGA with left LE) Sit to/from Stand: 3 (mod assist from a standard height chair; min assist from elevated surface) bed t/f WC(FIM only if WC use): 4 Sit to Lying (QC): 4 Lying to Sitting/Side of Bed(Q: 4 Sit to Stand (QC): 3 Chair/Iai-ni-Suzsx Xfer(QC): 4 Car Transfer (QC): 3 (assist with left LE) Skilled cues for sequencing; education on hip precautions. Gait Does the Patient Walk?: Yes Mode of Locomotion: Both Anticipated Mode of Locomotion: Both Gait (FIM): 2 Distance (FIM): 2=872-50 ft Walk 10 feet (QC): 4 Walk 50 ft with 2 Turns(QC): 4 (CGa for safety and cues for sequencing. ) Walk 150 ft (QC): 88 Walking 10ft/uneven surface-QC: 4 Distance: 50 ft Gait Level of Assist: 4 Gait Persons Needed: 1 Gait Assistive Device: FWW Comments/Gait Description slightly forward flexed at hips and decreased step length. Wheelchair Training Does the Pt Use a Wheelchair?: Yes Wheelchair (FIM): 4 Wheelchair Distance (FIM): 3=150 ft Wheelchair Level of Assist: 4 Wheel 50 ft with 2 turns (QC): 4 Wheel 150 ft (QC): 4 Type of Wheelchair: Manual Stairs Stairs (FIM): 2 #of Steps: 1 Level of Assist: 4 (CGA for safety) 1 Step (curb) (QC): 4 4 Steps (QC): 88 Assistive Device: Walker 12 Steps (QC): 88 Pt has not attempted steps for over a year. Balance Sitting Static: Good Sitting Dynamic: Good Standing Static: Fair Standing Dynamic: Fair Picking up an Object (QC): 88 (hip precautions.) Treatment Worked on functional mobility; co treat with OT and as OT addressed ADL"s, PT addressed static and dynamic standing activities; multiple sit to stand transfers as she completed ADL"s, OT addressed self care as PT addressed safety with transfers as well as sequencing. Skilled cues for safety and maintenance of hip precautions as well as balance safety. Co treat with OT due to need for multiple cues and skill of 2 clinicians to complete ADLS and functional transfers safely. Assessment/Needs Post elective left THR with deficits noted in functional tranfers as well as gait. She will benefit from skilled PT intervnetion to work on functional mobility, strength, safety techniques and balance to return her to ambulation short distances in her home as well as to be mod indep with all functional mobility. Rehab Potential: Good PT Short Term Goals Short Term Goals Time Frame: Jan 07, 2018 Transfers (B,C,W/C) (FIM): 5 Gait (FIM): 4 PT Director Engineering Goals Assisted Goals PT Director Engineering Goals Time Frame: Jan 14, 2018 Transfers (B,C,W/C) (FIM): 7 Sit to Lying (QC): 6 Lying-Sitting on Side/Bed(QC): 6 Sit to Stand (QC): 6 Roll Left to Right (QC): 6 Chair/Yhv-hr-Wjksj Xfer(QC): 6 Car Transfer (QC): 6 Does the Patient Walk: Yes Gait (FIM): 6 Gait distance (FIM): 3=150 ft Walk 10 feet (QC): 6 Walk 10ft-Uneven Surface(QC): 6 Walk 50ft with 2 Turns (QC): 6 Walk 150 ft (QC): 6 Gait Level of Assist: 6 Gait Assistive Device: FWW Does the Pt use WC or Scooter?: Yes Wheelchair (FIM): 6 Wheelchair distance (FIM): 3=150 ft Wheel 50 feet with 2 turns (QC: 6 Stairs (FIM): 5 # of Steps: 4 1 Step (curb) (QC): 6 4 Steps (QC): 6 12 Steps (QC): 88 Picking up an Object (QC): 88 mod indep at home. PT Plan Problem List Problem List: Activity Tolerance, Functional Strength, Safety, Balance, Gait, Transfer, Bed Mobility Treatment/Plan Treatment Plan: Continue Plan of Care Treatment Plan: Bed Mobility, Education, Functional Activity [place], Functional Strength, Group Therapy, Gait, Safety, Therapeutic Exercise, Transfers Treatment Duration: Jan 14, 2018 Frequency: At least 5 of 7 days/Wk (IRF) Estimated Hrs Per Day: 1.5 hours per day Patient and/or Family Agrees t: Yes Safety Risks/Education Patient Education: Transfer Techniques, Safety Issues Teaching Recipient: Patient Teaching Methods: Discussion Response to Teaching: Reinforcement Needed Discharge Recommendations Therapy D/C Recommendations: Physical Therapy Home Care Time/GCodes Time In: 1330 Time Out: 1340 ([id number] (co treat with OT)) Total Billed Treatment Time: 90 Total Billed Treatment visit EVM 15 FA 75 KARAN MADERA PT Dec 31, 2017 15:36
[2017-12-31] MEDS ORDERED: CHOL10007 PO (16:13)
[2017-12-31] MEDS ORDERED: NITR0.4T42 SL (16:13)
[2017-12-31] MEDS ORDERED: LEVO75TA6 PO (16:13)
[2017-12-31] MEDS ORDERED: MULT1TAB69 PO (16:13)
[2017-12-31] MEDS ORDERED: CARV6.252 PO (16:13)
[2017-12-31] MEDS ORDERED: OMEP40CA36 PO (16:13)
[2017-12-31] MEDS ORDERED: HYDR200T46 PO (16:13)
[2017-12-31] MEDS ORDERED: MECL-106 PO (16:13)
[2017-12-31] MEDS ORDERED: [UNRECOGNIZED DRUG - CODE] PO (16:13)
[2017-12-31] MEDS ORDERED: PRED5TAB PO (16:13)
[2017-12-31] MEDS ORDERED: NITROGLYCERIN 0.4 MG SL TABS BTL 25'S SL PRN (16:15)
[2017-12-31] MEDS ORDERED: MECLIZINE 25 MG (ANTIVERT) TAB PO PRN (16:15)
[2017-12-31] MEDS ORDERED: ONDA4TAB11 PO (16:17)
[2017-12-31] MEDS ORDERED: SPIR25TA5 PO (16:17)
[2017-12-31] MEDS ORDERED: WARF-48 PO (16:17)
[2017-12-31] MEDS ORDERED: LORA0.5T PO (16:18)
[2017-12-31] MEDS ORDERED: DARB40DI IJ (16:18)
--- NOTE | 2017-12-31 16:21 | PM&R Post Admission Assessment ---
Post Admission Physician Asses Date seen by provider: Dec 31, 2017 Time seen by provider: 16:00 The preadmission screen agrees with the post admission assessment that the patient is a good candidate for inpatient rehabilitation. The patient will have a comprehensive program of inpatient rehabilitation with a goal of maximizing level of functional independence prior to discharge home with family and HHC. The patient will have PT/OT ninety minutes per day, each discipline, five days a week for 2 weeks for gait, strengthening, conditioning, balance, ADLs, any patient/family/caregiver training as necessary. Speech therapy to do cognitive assessment and treat as indicated. Rehabilitation nursing to assist with bowel, bladder, skin, wound care, medication administration, pain management. Frame Sample And Pattern Supervisor to assist with discharge planning, community reentry. SCD's and Coumadin for DVT prophylaxis. She appears to be well motivated to participate in three hours of therapy a day. She should be able to tolerate three hours of therapy a day from a medical and surgical standpoint. She should benefit from the three hours of therapy a day. She has a reasonable discharge plan, reasonable discharge rehabilitation goals and a supportive family. She has various comorbidities that need to be closely monitored with medications and treatments adjusted on a daily basis as needed. These include: 02 dependence chronic anemia A FIB RA GERD Hypothyroidism Barriers to discharge for this patient who had been independent prior to this are for her to be modified independent to supervision for ADLs and mobility skills prior to discharge home with family and HHC, so as to lessen the burden of the caregivers. Risks for this patient include: 1. Fall 2. Fracture 3. DVT 4. Pulmonary embolism 5. Wound infection 6. Skin breakdown 7. Contractures 8. Poorly controlled pain 9. Urinary retention 10. UTI 11. Respiratory infection 12. Aspiration 13.recurrent A FIB 14.Worsening anemia 15.Sub or supratherapeutic INR Estimated Length of Stay: 14days Prognosis: Rehab prognosis appears good for goal of discharge home with family and HHC modified independent to supervision for ADLs and mobility skills. Date Identified: Dec 31, 2017 Time Identified: 16:00 Action Plan to Resolve CSMI: Adjust Coumadin dosage as needed for post op therapeutic INR General: Alert, Oriented X3, Cooperative, No Acute Distress HEENT: Atraumatic, PERRLA, EOMI, Mucous Memb Moist/[place], Other (02 by N/C in place) Neck: Supple, No JVD Lungs: Clear to Auscultation Heart: Regular Rate Abdomen: Normal Bowel Sounds, Soft, No Tenderness Extremities: Other (Trace edema left ankle) Neuro: Other (Impaired Flex and abduction Both shoulders RT > left Strength LLE 3/5to 3+/5 RT 4/5) Psych/Mental Status: Mental Status NL TABBY MACHADO MD Dec 31, 2017 16:21
[2017-12-31] MEDS: warFARin 5 MG (COUMADIN) TAB PO SCH (16:35)
--- NOTE | 2017-12-31 17:51 | HISTORY AND PHYSICAL ---
DATE OF SERVICE: CHIEF COMPLAINT: Difficulty with walking. HISTORY OF PRESENT ILLNESS: The patient is an 82-year-old female, who lives in [place], [place] near [place], [place], who lives alone, but has family in the area. She had been modified independent for wheelchair mobility, but not ambulatory due to painful left hip. She has a history of osteoarthritis, rheumatoid arthritis and has had both knees replaced and has limited flexion and abduction in both shoulders. She is followed by a local refrigerator car icer and on Plaquenil as well as prednisone with her rheumatoid arthritis. She was admitted to [facility] on 12/25 for elective left total hip replacement for osteoarthritis with Dr. Connelly orthopedics. The patient was made weightbearing as tolerated. She is now referred to inpatient rehabilitation unit for ongoing orthopedic rehabilitation prior to discharge home. She presents to unit with her daughter and son. Currently, she is mod assist for transfers, min assist for gait with front wheel walker with assistance with O2 tether line, min assist for wheelchair propulsion, min assist for bed mobility. She is modified independent for eating, set up for grooming, min assist for upper body dressing, max assist for lower body dressing, mod assist with toileting. PAST MEDICAL HISTORY: Chronic kidney disease stage III, osteoarthritis, rheumatoid arthritis, coronary artery disease, hypertension, O2 dependence, which she relates to side effects from chemotherapy that which she received for non-Hodgkin's lymphoma. She is followed by Dr. Moncada, medical oncologist. Regarding his PCP, she is followed by [facility] physicians. PAST SURGICAL HISTORY: Bilateral total knee replacements, mastectomy for breast cancer, pacemaker. ALLERGIES: LEVAQUIN, MORPHINE, VERAPAMIL. FAMILY HISTORY: Noncontributory. SOCIAL HISTORY: Essentially as per above. She has a ramp going into her home and she lives in one story house. She is a .Her daughter does most of the cooking and cleaning She used a power chair inside her home and a manual w/c when outside.She was Independent at w/c level with basic self care tasks. REVIEW OF SYSTEMS: A 10-point review of systems significant for mild dyspnea on exertion, arthritic pain in the knees, hands and hip. MEDICATIONS: Tylenol 650 mg p.o. q.6 hours p.r.n. mild pain, Niferex 150 mg p.o. b.i.d., multivitamins 1 tablet p.o. daily, nitroglycerin 0.4 mg sublingual p.r.n. chest pain, Coreg 6.25 mg p.o. b.i.d., Zofran 4 mg p.o. q.8 hours p.r.n. nausea, levothyroxine 75 mcg p.o. daily, Antivert 25 mg p.o. t.i.d. p.r.n. dizziness, prednisone 5 mg p.o. daily, Plaquenil 200 mg p.o. b.i.d., vitamin D 1000 units p.o. daily, lorazepam 0.5 mg p.o. p.r.n. anxiety, omeprazole 40 mg p.o. daily, vitamin B12 3000 mcg p.o. daily, Coumadin 5 mg p.o. daily, spironolactone 25 mg p.o. at bedtime, Aranesp 40 mcg subcu every 2 weeks. PHYSICAL EXAMINATION: GENERAL: Significant for a pleasant female appearing her stated age, sitting in chair attempting to order a meal. VITAL SIGNS: O2 sat is more than 90% on 2 liters of O2 by nasal cannula. HEENT: Vision, speech, hearing grossly intact. No oral lesion is noted. O2 by nasal cannula in place. NECK: Supple without mass. HEART: Regular rhythm. CHEST: Clear. ABDOMEN: Soft, nontender, bowel sounds present. EXTREMITIES: Trace edema left ankle, no calf tenderness. MUSCULOSKELETAL: She has limited active range of motion both shoulders in flexion and abduction right more than left due to her rheumatoid arthritis. She has deformities consistent with rheumatoid arthritis present in both hands with functional finish production manager strength, but decreased strength in general. The coordination is intact. She has total hip precautions on the left. Strength right lower limb is 4/5, left lower limb 3/5 grossly throughout. Sensation is grossly intact to touch. Cognition grossly intact. IMPRESSION: 1. Ambulatory dysfunction secondary to rheumatoid arthritis affecting the knees, hips, shoulders and hands, status post left total hip replacement by Dr. Connelly [facility]. Weightbearing as tolerated. 2. Chronic anticoagulation. Coumadin restarted. Follow INR. 3. Respiratory insufficiency, on O2 by nasal cannula, chronic. 4. Anemia of chronic disease. 5. History of breast cancer status post mastectomy and chemo. 6. Atrial fibrillation, controlled with medication. 7. Hypertension, controlled with medication. 8. Gastroesophageal reflux disease, on medication. 9. Hypothyroidism, on replacement. 10. Status post pacemaker, remote. 11. Aortic stenosis. 12. Chronic steroid use. PLAN: The patient will have a comprehensive program of inpatient rehabilitation with goal of maximizing level of functional independence prior to discharge home with her children and home health care taking into consideration her multiple comorbidities and ongoing need for steroids and supplemental O2. The patient will have PT, OT 90 minutes per day each discipline 5 days a week for 2 weeks with the above goals in mind. Speech therapy to do cognitive assessment and treat as indicated. Please see post-admission physician evaluation, which is a separate document for details of plan of care. brick kiln worker to assist with discharge planning, community reentry. Follow up with [facility] physicians and Dr. Moncada as per their schedule check routine admission labs. Monitor INR and adjust Coumadin as necessary to achieve therapeutic INR. The patient has total hip precautions and is weightbearing as tolerated left lower limb. ESTIMATED LENGTH OF STAY: Two weeks. PROGNOSIS: Rehab prognosis appears good for goal of discharging home with family and home health care, hopefully modified independent to supervision for ADLs and mobility skills may continue to require wheelchair mobility due to multiple comorbidities osteoarthritis and rheumatoid arthritis and O2 dependence. DIET: Regular. CODE STATUS: Full code. Job ID: [id number] DocumentID: [id number] Dictated Date: 12/31/2017 16:34:10 Laboratory Technologist Date: 12/31/2017 17:50:41 Dictated By: TABBY MACHADO MD MTDD
[2017-12-31] MEDS: IRON POLYSAC 150 MG CAP (NIFEREX) PO SCH (18:48)
[2017-12-31] MEDS: HYDROXYCHLOROQUINE 200 MG (PLAQUENIL) TAB PO SCH (20:10)
[2017-12-31] MEDS: CARVEDILOL 6.25 MG (COREG) TAB PO SCH (20:10)
[2017-12-31] MEDS: ACETAMINOPHEN 325 MG TABLET PO PRN (20:13)
[2017-12-31] MEDS: LORazepam 0.5 MG (ATIVAN) TABLET PO PRN (21:27)
[2018-01-01 04:51] LABS: BASOPHILS # (AUTO) 0.1 10^3/uL (0.0-0.1); BASOPHILS % (AUTO) 1 % (0-10); EOSINOPHILS # (AUTO) 0.5 10^3/uL (0.0-0.3); EOSINOPHILS % (AUTO) 5 % (0-10); HEMATOCRIT 31 % (35-52); HEMOGLOBIN 9.7 G/DL (11.5-16.0); LYMPHOCYTES # (AUTO) 1.2 X 10^3 (1.0-4.0); LYMPHOCYTES % (AUTO) 14 % (12-44); MEAN CORPUSCULAR HEMOGLOBIN 29 PG (25-34); MEAN CORPUSCULAR HGB CONC 32 G/DL (32-36); MEAN CORPUSCULAR VOLUME 91 FL (80-99); MEAN PLATELET VOLUME 9.3 FL (7.4-10.4); MONOCYTES # (AUTO) 1.1 X 10^3 (0.0-1.0); MONOCYTES % (AUTO) 13 % (0-12); NEUTROPHILS # (AUTO) 5.7 X 10^3 (1.8-7.8); NEUTROPHILS % (AUTO) 68 % (42-75); PLATELET COUNT 369 10^3/uL (130-400); RED BLOOD COUNT 3.35 10^6/uL (4.35-5.85); RED CELL DISTRIBUTION WIDTH 14.3 % (10.0-14.5); WHITE BLOOD COUNT 8.5 10^3/uL (4.3-11.0)
[2018-01-01 05:14] VITALS: BP 165/77
[2018-01-01 05:16] LABS: INR 1.5 (0.8-1.4); PROTHROMBIN TIME PATIENT 17.7 SEC (12.2-14.7)
[2018-01-01 05:26] LABS: ALANINE AMINOTRANSFERASE 10 U/L (0-55); ALBUMIN 2.9 GM/DL (3.2-4.5); ALKALINE PHOSPHATASE 66 U/L (40-136); BILIRUBIN,TOTAL 0.7 MG/DL (0.1-1.0); BUN/CREATININE RATIO 20; CALCIUM 8.6 MG/DL (8.5-10.1); CARBON DIOXIDE 28 MMOL/L (21-32); CHLORIDE 103 MMOL/L (98-107); CREATININE SERUM 0.85 MG/DL (0.60-1.30); GFR ESTIMATED > 60; GLUCOSE 95 MG/DL (70-105); POTASSIUM 4.5 MMOL/L (3.6-5.0); SODIUM 140 MMOL/L (135-145); TOTAL PROTEIN 5.2 GM/DL (6.4-8.2)
[2018-01-01] MEDS: LEVOTHYROXINE 75 MCG (LEVOTHROID) TABLET PO SCH (06:38)
[2018-01-01] MEDS: CYANOCOBALAMIN 1,000 MCG (VITAMIN B-12) TABLET PO SCH (06:38)
[2018-01-01] MEDS: MULTIVIT W/MINERALS TAB (THERAGRAN M) PO SCH (06:38)
[2018-01-01] MEDS: IRON POLYSAC 150 MG CAP (NIFEREX) PO SCH ×2 (06:38→17:33)
[2018-01-01] MEDS: predniSONE 5 MG TAB PO SCH (06:38)
[2018-01-01] MEDS: VITAMIN D3 1,000 UNITS (CHOLECALCIFEROL) TABLET PO SCH (06:38)
[2018-01-01] MEDS: PANTOPRAZOLE 40 MG (PROTONIX) TAB PO SCH (06:38)
[2018-01-01] MEDS ORDERED: CYANOCOBALAMIN 1,000 MCG (VITAMIN B-12) TABLET PO SCH (07:00)
--- NOTE | 2018-01-01 08:57 | Occupational Ther Daily Note ---
OT Current Status-Daily Note Subjective Pt alert, sitting up in chair. Finished breakfast prior to therapy. Pt agrees to therapy. No c/o pain initially then requested Tylenol at end of OT session. Reported to nrsg. Pt becomes SOA with UE movement, O2 in place recovery time needed. Mental Status/Objective Patient Orientation: Person, Place, Time, Situation Functional [place] Measure 0=Not Assessed/NA 4=Minimal Assistance 1=Total Assistance 5=Supervision or Setup 2=Maximal Assistance 6=Modified [place] 3=Moderate Assistance 7=Complete [place] Attachments: Oxygen ADL-Treatment Pt required min A for sit to stand from elevated seat in recliner. CGA to ambulate to bathroom using FWW. Using grabbars, BSC and FWW pt able to transfer to/from toilet with CGA. Toileting CGA when standing to manipulate clothing and cleanse self. Verbal cues and mod A to go sit down/stand up from shower bench using FWW and grabbars. Will place higher chair in shower for easier sit to stand. Pt complete bathing using long handle sponge, grabbar, hand held shower and shower bench with supervision. Assist to dry lower legs and reach hand held shower due to decrease B shldr ROM. After set up, pt able to complete own upper body dressing. Using AE was able to don lower body clothing over feet and legs with min A then CGA in standing to hike pants over hips. Set up only to slid on shoes, wears compression stocking (assist to don/ doff). Sitting in w/c, pt is able to complete own grooming, mod I. Pt transferred back to recliner with CGA, using w/c cushion to elevate surface. Built up handles given to pt for utensils due to decreased ROM of B hands. Resource AE catalog given to pt and discussed FWW tray and bathroom equipment. Pt has tub/shower, room is very small and she has a tub transfer bench though it does not fit in bathroom. After therapy, pt sitting up in recliner with LE elevated. Call light/phone in reach. All needs met in room. Functional [place] Measure 0=Not Assessed/NA 4=Minimal Assistance 1=Total Assistance 5=Supervision or Setup 2=Maximal Assistance 6=Modified [place] 3=Moderate Assistance 7=Complete IndependenceIRFPAI Quality Coding Scale 6 Independent with activity with or without an assistive device 5 Patient requires set up or clean up by helper. Patient completes activity by themselves 4 Supervision or touching assist (CGA). [place] provide cues , steadying assist 3 The helper provides less than half the effort to complete the activity 2 The helper provides more than half the effort to complete the activity 1 Dependent. The helper does all the effort to complete an activity 7 Patient refused to complete or attempt activity 9 The patient did not perform the activity before the current illness or injury 88 Not attempted due to Medical conditions or safety concerns Grooming (FIM): 6 Oral Hygiene (QC): 6 Bathing (FIM): 4 Bathing Location: L Arm, R Arm, L Upper Leg, R Upper Leg, L Lower Leg ( including foot), R Lower Leg (including foot), Chest, Abdomen, Buttocks, Perineal Area Shower/Bathe Self (QC): 3 Upper Body (FIM): 5 Upper Body Dressing (QC): 5 Lower Body Dressing (FIM): 4 Lower Body Dressing (QC): 3 On/Off Footwear (QC): 5 Toileting (FIM): 4 Toileting Hygiene (QC): 3 Transfers (B, C, W/C) (FIM): 4 Toilet/Commode Transfer (FIM): 4 Toilet Transfer (QC): 3 Shower Transfer(FIM): 3 OT Short Term Goals Short Term Goals Transfers (B,C,W/C) (FIM): 5 1=Demonstrate adherence to instructed precautions during ADL tasks. 2=Patient will verbalize/demonstrate understanding of assistive devices/ modifications for ADL. 3=Patient will improve strength/tolerance for activity to enable patient to perform ADL's. OT Claims Account Specialist Goals Claims Account Specialist Goals Time Frame: Jan 21, 2018 Eating (FIM): 7 Eating (QC): 6 Groomin Oral Hygiene (QC): 6 Bathing(FIM): 5 Shower/Bathe Self (QC): 5 Upper Body Dressing(FIM): 6 Upper Body Dressing (QC): 6 Lower Body Dressing(FIM): 5 Lower Body Dressing (QC): 5 On/Off Footwear (QC): 5 Toileting(FIM): 6 Toileting Hygiene (QC): 6 Toilet/Commode Transfer(FIM): 6 Toilet/Commode Transfer (QC): 6 Shower Transfer(FIM): 5 Additional Goals: 1-Demonstrate ADL Tasks, 2-Verbalize Understanding, 3- ImproveStrength/[place] 1=Demonstrate adherence to instructed precautions during ADL tasks. 2=Patient will verbalize/demonstrate understanding of assistive devices/ modifications for ADL. 3=Patient will improve strength/tolerance for activity to enable patient to perform ADL's. OT Education/Plan Problem List/Assessment Pt s/p left RIVAS with decreased ADL functioning, mobility, strength, and activity tolerance. Pt to benefit from skilled OT intervention for ADL training , transfers, strengthening, adaptive equipment training, and home safety education to increase level of independence and allow safe discharge plan. Discharge Recommendations Plan/Recommendations: Continue POC Treatment Plan/Plan of Care Patient would benefit from OT for education, treatment and training to promote independence in ADL's, mobility, safety and/or upper extremity function for ADL' s. Plan of Care: ADL Retraining, Functional Mobility, Group Exercise/Act as Ind, UE Funct Exercise/Act Treatment Duration: Jan 21, 2018 Frequency: At least 5 of 7 days/Wk (IRF) Estimated Hrs Per Day: 1.5 hours per day Agreement: Yes Rehab Potential: Good Time/GCodes Start Time: 07:00 Stop Time: 08:30 Total Time Billed (hr/min): 90 Billed Treatment Time 1 visit-ADL 6 (90 min) KARAN KIRBY Jan 01, 2018 08:57
[2018-01-01] MEDS: HYDROXYCHLOROQUINE 200 MG (PLAQUENIL) TAB PO SCH ×2 (08:58→20:07)
[2018-01-01] MEDS: SPIRONOLACTONE 25 MG (ALDACTONE) TAB PO SCH (08:58)
[2018-01-01] MEDS: ACETAMINOPHEN 325 MG TABLET PO PRN (08:58)
[2018-01-01] MEDS: CARVEDILOL 6.25 MG (COREG) TAB PO SCH ×2 (08:58→20:07)
--- NOTE | 2018-01-01 09:43 | Physical Therapy Daily Note ---
PT Daily Note-Current Subjective Pt sitting in recliner upon arrival. Pt agrees to PT but is a little nervous about what is expected on ARU. Pain Numeric Pain Scale: 3 Location: Left Location Body Site: Hip Pain Description: Ache Comment: Pt reports pain in L hip at all times, pain in B shoulders when ambulating. Mental Status Patient Orientation: Person, Place, Time, Situation Attachments: Oxygen (2L ) Transfers Functional [place] Measure 0=Not Assessed/NA 4=Minimal Assistance 1=Total Assistance 5=Supervision or Setup 2=Maximal Assistance 6=Modified [place] 3=Moderate Assistance 7=Complete IndependenceIRFPAI Quality Coding Scale 6 Independent with activity with or without an assistive device 5 Patient requires set up or clean up by helper. Patient completes activity by themselves 4 Supervision or touching assist (CGA). [place] provide cues , steadying assist 3 The helper provides less than half the effort to complete the activity 2 The helper provides more than half the effort to complete the activity 1 Dependent. The helper does all the effort to complete an activity 7 Patient refused to complete or attempt activity 9 The patient did not perform the activity before the current illness or injury 88 Not attempted due to Medical conditions or safety concerns Scootin Sit to/from Stand: 3 Sit to Stand (QC): 3 Weight Bearing Right Lower Extremity: Right Full Weight Bearing Left Lower Extremity: Left Weight Bearing/Tolerated Gait Training Does the Patient Walk?: Yes Distance (FIM): 3=150 ft Distance: 75', 75' Walk 10 feet (QC): 4 Walk 50 ft with 2 Turns(QC): 4 Walk 150 ft (QC): 4 Gait Level of Assist: 4 Gait Persons Needed: 1 Gait Assistive Device: FWW Pt fatigues very easily due to SOA and soreness in B shoulders. Pt also reports Afib triggered when exerting too much. Pt takes frequent rest breaks. Exercises Seated Therapy Exercises: Sit to stand Seated Reps: 5 Treatments Pt has question over how her ARU schedule reads, how ARU works & expected progress/discharge timeframe that could be expected. LABORER STORES discusses these Pt education items. Pt completes Seated Ex in recliner. Nurse gives morning meds including Tylenol. Pt transfers from recliner at Min-Mod A using FWW, ambulates in hallway using FWW at CGA. Pt practices Sit to Stands from chair with pillow added to assist with transfer. Pt returns to room to use restroom then returns to recliner. Assessment Current Status: Good Progress Pt tries to push herself but SOA, Afib and weakness limits Activity Tolerance. Pt focuses on following Hip Precautions and not flopping when sitting. PT Short Term Goals Short Term Goals Time Frame: Jan 07, 2018 Transfers (B,C,W/C) (FIM): 5 Gait (FIM): 4 PT Dispute Resolution Analyst Goals Senior Living Goals PT Dispute Resolution Analyst Goals Time Frame: Jan 14, 2018 Transfers (B,C,W/C) (FIM): 7 Sit to Lying (QC): 6 Lying-Sitting on Side/Bed(QC): 6 Sit to Stand (QC): 6 Rollin Roll Left to Right (QC): 6 Chair/Gos-iw-Kbnup Xfer(QC): 6 Car Transfer (QC): 6 Does the Patient Walk: Yes Gait (FIM): 6 Gait distance (FIM): 3=150 ft Walk 10 feet (QC): 6 Walk 10ft-Uneven Surface(QC): 6 Walk 50ft with 2 Turns (QC): 6 Walk 150 ft (QC): 6 Gait Level of Assist: 6 Gait Assistive Device: FWW Does the Pt use WC or Scooter?: Yes Wheelchair (FIM): 6 Wheelchair distance (FIM): 3=150 ft Wheel 50 feet with 2 turns (QC: 6 Stairs (FIM): 5 # of Steps: 4 1 Step (curb) (QC): 6 4 Steps (QC): 6 12 Steps (QC): 88 Picking up an Object (QC): 88 PT Plan Problem List Problem List: Activity Tolerance, Functional Strength, Safety, Balance, Gait, Transfer Treatment/Plan Treatment Plan: Continue Plan of Care Treatment Plan: Bed Mobility, Education, Functional Activity Winifred, Functional Strength, Group Therapy, Gait, Safety, Therapeutic Exercise, Transfers Treatment Duration: Jan 14, 2018 Frequency: At least 5 of 7 days/Wk (IRF) Estimated Hrs Per Day: 1.5 hours per day Patient and/or Family Agrees t: Yes Safety Risks/Education Patient Education: Gait Training, Transfer Techniques, Reviewed Precautions, Correct Positioning, Safety Issues Teaching Recipient: Patient Teaching Methods: Demonstration, Discussion Response to Teaching: Verbalize Understanding Time/GCodes Time In: 830 Time Out: 930 Total Billed Treatment Time: 60 Total Billed Treatment FA x4 (60m) G Codes Necessary: SABRINA López LABORER STORES Jan 01, 2018 09:43
--- NOTE | 2018-01-01 14:22 | Physical Therapy Daily Note ---
PT Daily Note-Current Subjective Pt sitting in recliner visiting with Hearing Consultant upon arrival. Pt agrees to PT. Pain Numeric Pain Scale: 3 Location: Left Location Body Site: Hip Pain Description: Ache Mental Status Patient Orientation: Person, Place, Time, Situation Attachments: Oxygen Transfers Functional [place] Measure 0=Not Assessed/NA 4=Minimal Assistance 1=Total Assistance 5=Supervision or Setup 2=Maximal Assistance 6=Modified [place] 3=Moderate Assistance 7=Complete IndependenceIRFPAI Quality Coding Scale 6 Independent with activity with or without an assistive device 5 Patient requires set up or clean up by helper. Patient completes activity by themselves 4 Supervision or touching assist (CGA). [place] provide cues , steadying assist 3 The helper provides less than half the effort to complete the activity 2 The helper provides more than half the effort to complete the activity 1 Dependent. The helper does all the effort to complete an activity 7 Patient refused to complete or attempt activity 9 The patient did not perform the activity before the current illness or injury 88 Not attempted due to Medical conditions or safety concerns Scootin Supine to/from Sit: 5 Sit to/from Stand: 4 Sit to Lying (QC): 5 Sit to Stand (QC): 4 Weight Bearing Right Lower Extremity: Right Full Weight Bearing Left Lower Extremity: Left Weight Bearing/Tolerated Exercises Supine Ex: Ankle pumps, Quad Set, Glut sets, Heel Slides, Straight leg raise, Hip abd/add Supine Reps: 15 Treatments Pt completes transfer from recliner to EOB with bed raised. Pt lays Supine in bed and completes Supine Ex with a couple of rest breaks. Pt transfers back to recliner to await lunch she orders. Pt resting with all needs met. Assessment Current Status: Good Progress Pt is continuing to push self despite increasing in pain to 3/10 with Ex. PT Short Term Goals Short Term Goals Time Frame: Jan 07, 2018 Transfers (B,C,W/C) (FIM): 5 Gait (FIM): 4 PT Supervisor Estimator And Drafter Goals Supervisor Estimator And Drafter Goals PT Supervisor Estimator And Drafter Goals Time Frame: Jan 14, 2018 Transfers (B,C,W/C) (FIM): 7 Sit to Lying (QC): 6 Lying-Sitting on Side/Bed(QC): 6 Sit to Stand (QC): 6 Rollin Roll Left to Right (QC): 6 Chair/Zcj-be-Eqrub Xfer(QC): 6 Car Transfer (QC): 6 Does the Patient Walk: Yes Gait (FIM): 6 Gait distance (FIM): 3=150 ft Walk 10 feet (QC): 6 Walk 10ft-Uneven Surface(QC): 6 Walk 50ft with 2 Turns (QC): 6 Walk 150 ft (QC): 6 Gait Level of Assist: 6 Gait Assistive Device: FWW Does the Pt use WC or Scooter?: Yes Wheelchair (FIM): 6 Wheelchair distance (FIM): 3=150 ft Wheel 50 feet with 2 turns (QC: 6 Stairs (FIM): 5 # of Steps: 4 1 Step (curb) (QC): 6 4 Steps (QC): 6 12 Steps (QC): 88 Picking up an Object (QC): 88 PT Plan Problem List Problem List: Activity Tolerance, Functional Strength, Safety, Transfer Treatment/Plan Treatment Plan: Continue Plan of Care Treatment Plan: Bed Mobility, Education, Functional Activity Win[place], Functional Strength, Group Therapy, Gait, Safety, Therapeutic Exercise, Transfers Treatment Duration: Jan 14, 2018 Frequency: At least 5 of 7 days/Wk (IRF) Estimated Hrs Per Day: 1.5 hours per day Patient and/or Family Agrees t: Yes Safety Risks/Education Patient Education: Transfer Techniques, Correct Positioning, Safety Issues Teaching Recipient: Patient Teaching Methods: Discussion Response to Teaching: Verbalize Understanding Time/GCodes Time In: 1100 Time Out: 1130 Total Billed Treatment Time: 30 Total Billed Treatment 1, EX x2 (30m) G Codes Necessary: SABRINA López SOLDER CREAM MAKER Jan 01, 2018 14:22
--- NOTE | 2018-01-01 16:06 | ST Cognitive Linguistic Eval ---
Speech Evaluation-General Medical Diagnosis DJD left hip Onset Date: Dec 31, 2017 Therapy Diagnosis Therapy Diagnosis: Cogniton Precautions Precautions/Isolations: Fall Prevention, Standard Precautions Referral Referring Physician: Dr. Swann Reason for Referral: Evaluation/Treatment Medical History Pertinent Medical History: Arthritis Reviewed History: Yes Social History Current Living Status: Alone (supportive family nearby) Speech PLF-Current Status Prior Level of Function Pt was independent Subjective Pt up in chair. Pleasant and cooperative. Pain Numeric Pain Scale: 0-No Pain Language Eval: Auditory Comprehends Simple Yes/No Ques: Functional Follows 1-Step Commands: Functional Follows Complex Directions: Functional Follows General Conversations: Functional Language Eval: Verbal Language Completes Spontaneous Greeting: Functional Produces Auto, Serial Info: Functional Word Finding: Functional Requests Basic Needs: Functional States Basic Personal Info: Functional Expresses Complex Ideas: Functional Language Evaluation: Reading NT Objective Cognitive Domain Attention: WNL Memory: WNL Problem Solving: Functional Objective Results [facility] Cognitive/Communication Assessment was administered to assess cognitive -linguistic functioning. Results are as follows: Memory - 3 word recall was 3/3 correct for immediate, delayed and remote delay. Orientation was 100& correct Sequencing/organization - Pt was 4/4 correct. Problem Solving - Simple was 4/4 correct; Complex was 2/2 correct and Comparisons was 4/5 correct Speech/language WNL Oral Motor/Speech Production WNL Impression Functional cognitive-linguistic skills. Communication/Social Cognition Comprehension: 7 Expression: 7 Social Interaction: 7 Problem Solvin Memory: 7 Speech Patient Assess Expression of Ideas/Wants: Expression (4) Understanding Verbal Content: Understands (4) Brief Interview-Mental Status: Yes Repetition of Three Words: Three (3) Temporal Orientation: Year: Correct (3) Temporal Orientation: Month: Accurate within 5 days(2) Temporal Orientation: Day: Correct (1) Recall : Wear to say "Sock": Yes, no cue required (2) Recall : Color: Yes, no cue required (2) Recall : Bed: Yes, no cue required (2) Speech Short Term Goals Short Term Goals Short Term Goals no goals established as skilled ST not indicated. Speech Seat Cover Installer Goals Seat Cover Installer Goals no goals established as skilled ST not indicated Speech-Plan Patient/Family Goals Patient/Family Goals: to return home Treatment Plan Speech Therapy Treatment Plan: Discontinue ST no skilled ST indicated at this time as skills are functional. Frequency: Modified Program (IRF) (0) Estimated Hrs Per Day: Other Rehab Potential: Good Barriers to Learning: None identified Pt/Family Agrees to Plan: Yes Safety Risks/Education Teaching Recipient: Patient Teaching Methods: Discussion Response to Teaching: Verbalize Understanding Time Speech Therapy Time In: 10:00 Speech Therapy Time Out: 10:30 Total Billed Time: 30 Billed Treatment Time 1, [id number] Staton Jan 01, 2018 16:06
--- NOTE | 2018-01-01 16:38 | Individualized Plan of Care ---
Individualized Plan of Care Rehab Nursing IPOC Order Admission Date Dec 31, 2017 at 13:36 Current Orders Orders Ambulate 08,12,20 (12/31/17 14:01) Sequential Compression Device 08,20 (12/31/17 14:01) Dvt/Vte Risk - Notifiy Physici 08 (12/31/17 14:01) Speech Therapy Orders (12/31/17 14:01) Heart Healthy (12/31/17 Lunch) Consult Physician (12/31/17 14:29) Consult Physician (12/31/17 15:36) Protime With Inr (01/01/18 06:00) Admission Order(Inpt,Obs,Sdc) (12/31/17 15:50) Vital Signs: Routine (Order) ,16,00 (12/31/17 15:50) Automotive Service Cashier-Inpt Rehab Con (12/31/17 15:50) Rehab Nursing Orders-Ipoc (12/31/17 15:50) Physical Therapy Rehab Orders (12/31/17 15:50) Occupational Therapy Rehab Ord (12/31/17 15:50) Turn And Reposition Q2HR (12/31/17 15:50) Intake & Output 06,14,22 (12/31/17 15:50) Precautions (Aru) (12/31/17 15:50) Weekly Weight (Lbs) WEEK (12/31/17 15:50) Code/Resuscitation (12/31/17 15:50) Initiate Admission Nursing Pro .admission (12/31/17 15:50) Patient Visit (12/31/17 ) Pt Eval Moderate Complexity (12/31/17 ) Functional Activities, Ea 15 (12/31/17 ) Acetaminophen Tablet/Caplet (Tylenol T (12/31/17 16:15) Iron Polysaccaride Capsule (Niferex Caps (12/31/17 17:00) Therapeutic Multivitamin Tab (Vitamins, (01/01/18 07:00) Nitroglycerin 0.4 Mg Btl 25's (Nitrostat (12/31/17 16:15) Carvedilol Tablet (Coreg Tablet) (12/31/17 21:00) Levothyroxine Tablet (Synthroid Tablet) (01/01/18 06:30) Meclizine Tablet (Antivert Tablet) (12/31/17 16:15) Prednisone Tablet (Deltasone Tablet) (01/01/18 07:00) Cholecalciferol Capsule/Tablet (Vitamin (01/01/18 07:00) Lorazepam Tablet (Ativan Tablet) (12/31/17 16:15) Pantoprazole Tablet (Protonix Tablet) (01/01/18 07:00) Cyanocobalamin Tablet (Vitamin B-12 Tabl (01/01/18 07:00) Warfarin Tablet (Coumadin Tablet) (12/31/17 18:00) Spironolactone Tablet (Aldactone Tablet) (01/01/18 09:00) Hydroxychloroquine Sulfate (Plaquenil) (12/31/17 21:00) Darbepoetin Rafa (Hospital) (Aranesp Non (01/03/18 09:00) Cyanocobalamin Tablet (Vitamin B-12 Tabl (01/01/18 07:00) Cbc With Automated Diff (01/01/18 06:00) Comprehensive Metabolic Panel (01/01/18 06:00) Hemoglobin And Hematocrit (01/03/18 06:00) Functional Activities, Ea 15 (12/31/17 ) Patient Visit (01/01/18 ) Functional Activities, Ea 15 (01/01/18 ) Exercise Therap, Ea 15 Min (01/01/18 ) Rehab Nursing Orders: Ongoing Assess. of Cognitive Status, Ongoing Assess. of Function Status, Disease Management & Educaiton, DVT Prophylaxis, Fall Prevention, Fluid/Electrolyte/Nutrition Mgmt, Infection Prevention, Medication Management & Education, Management of Risks & Complications, Management of Skin Intergrity, Nutrition Management, Pain Management, Patient/Family Support PT IPOC Problem List: Activity Tolerance, Functional Strength, Safety, Transfer Treatment Plan: Continue Plan of Care Bed Mobility, Education, Functional Activity Winifred, Functional Strength, Group Therapy, Gait, Safety, Therapeutic Exercise, Transfers Treatment Duration: Jan 14, 2018 Frequency: At least 5 of 7 days/Wk (IRF) Estimated Hrs Per Day: 1.5 hours per day OT IPOC Problems: Decreased Activ Tolerance, Decreased UE Strength, Dependent Transfers , Impaired Bed Mobility, Impaired Funct Balance, Impaired I ADL's, Impaired Self -Care Skills OT Treatment, Training and Edu: Yes OT Problems Pt s/p left RIVAS with decreased ADL functioning, mobility, strength, and activity tolerance. Pt to benefit from skilled OT intervention for ADL training , transfers, strengthening, adaptive equipment training, and home safety education to increase level of independence and allow safe discharge plan. Plan of Care: ADL Retraining, Functional Mobility, Group Exercise/Act as Ind, UE Funct Exercise/Act Treatment Duration: Jan 21, 2018 Frequency: At least 5 of 7 days/Wk (IRF) Estimated Hrs Per Day: 1.[address] IPOC Speech Therapy Treatment Plan: Discontinue ST Treatment Duration: Jan 01, 2018 Frequency: Modified Program (IRF) Estimated Hrs Per Day: Other Automotive Service Cashier/Case Mgmt Automotive Service Cashier/Case Managemen: Discharge Planning, Patient/Family Counseling Dietitian/Email Production Consultant Dietitian/Email Production Consultant to monitor nutritional status and make changes and/or recommendations as needed and work with speech pathology on dietary upgrades as the occur. Physician IPOC Medical Issues being managed closely and that require the 24 hour availability of a physician: Chronic anticoagulation Resp insufficiency on 02 continuous Anemia of chronic d A FIB GERD Chronic steroid usage [facility] code 08.51 Etiologic DJD left hip Medical Issues: Bowel/Bladder Function, DVT Prophylaxis, Falls Precautions, Fluid/Electrolyte/Nutrition Balance, Infection Protection, Pain Management, Wound Care, Other (List) (as per above) Brief Synthesis of Preadmission Screen, Post-Admission Evaluation, and Therapy Evaluations: 82 yo female with RA/OA s/p Left THR at OSH referred to this facility for ongoing care and therapies .She lives alone near [facility] but has supportive family who live nearby She was utilizing a Powerchair and a Manual W/C for mobility prior to this due to Hip pain with WT bearing.PMH also significant for Resp insufficency on aND A FIB and chronic anticoagulation Medical Prognosis: Good Anticipated Length of Stay: 01-16-18 Modified Independent to supervision for adls and mobility skills Anticipated d/c Destination: Home with family and [facility] TABBY MACHADO MD Jan 01, 2018 16:38
--- NOTE | 2018-01-01 16:46 | PM & R (SOAP) Progress Note ---
Subjective This was a face to face visit with the patient. Date Seen by Provider: Jan 01, 2018 Time Seen by Provider: 08:00 Subjective/Events-last exam Patient was seen in his room this AM Patient Min assist for transfers Has limited endurance Lab INR and Albumin and HGB noted Time Identified: 08:00 Medication Intervention: INR noted subtherapeutic Review of Systems Musculoskeletal: shoulder pain, hand pain, leg pain Neurological: Weakness Objective Physician Exam Last Set of Vital Signs Vital Signs Date Time Temp Pulse Resp B/P (MAP) Pulse Ox O2 Delivery O2 Flow Rate FiO2 01/01/18 09:00 Nasal Cannula 2.00 01/01/18 05:14 97.8 77 18 165/77 (106) 94 Capillary Refill : I&O Intake and Output 01/01/18 00:00 Daily Weight Change No General: Alert, Oriented X3, Cooperative, No Acute Distress HEENT: Atraumatic, PERRLA, EOMI, Mucous Memb Moist/[place], Other (02 by N/C in place) Neck: Supple, No JVD Lungs: Clear to Auscultation Heart: Regular Rate Abdomen: Normal Bowel Sounds, Soft, No Tenderness Extremities: Other (Trace edema left ankle) Neuro: Other (Impaired Flex and abduction Both shoulders RT > left Strength LLE 3/5to 3+/5 RT 4/5) Psych/Mental Status: Mental Status NL Results Lab Data Laboratory Tests 01/01/18 04:40: White Blood Count 8.5, Red Blood Count 3.35L, Hemoglobin 9.7L, Hematocrit 31L, Mean Corpuscular Volume 91, Mean Corpuscular Hemoglobin 29, Mean Corpuscular Hemoglobin Concent 32, Red Cell Distribution Width 14.3, Platelet Count 369, Mean Platelet Volume 9.3, Neutrophils (%) (Auto) 68, Lymphocytes (%) (Auto) 14, Monocytes (%) (Auto) 13H, Eosinophils (%) (Auto) 5, Basophils (%) (Auto) 1, Neutrophils # (Auto) 5.7, Lymphocytes # (Auto) 1.2, Monocytes # (Auto) 1.1H, Eosinophils # (Auto) 0.5H, Basophils # (Auto) 0.1, Prothrombin Time 17.7H, INR Comment 1.5H, Sodium Level 140, Potassium Level 4.5, Chloride Level 103, Carbon Dioxide Level 28, Anion Gap 9, Blood Urea Nitrogen 17, Creatinine 0.85, Estimat Glomerular Filtration Rate > 60, BUN/Creatinine Ratio 20, Glucose Level 95, Calcium Level 8.6, Corrected Calcium 9.5, Total Bilirubin 0.7, Aspartate Amino Transf (AST/SGOT) 12, Alanine Aminotransferase (ALT/SGPT) 10, Alkaline Phosphatase 66, Total Protein 5.2L, Albumin 2.9L Assessment/Plan Assessment and Plan RA s/p LTHR Chronic anticoagulation with subtherapeutic INR Resp insufficiency on supplemental 02 Hx of breast ca s/p chemo and mastectomy HTN controlled with med A FIB controlled GERD on med Chronic steroid usage Anemia of chronic D S/P pacemaker remote Hypothyroidism on replacement\ Plan Continue Pt/OT Team Conference tomorrow Goal return home with family and HHC at Modified [place] to supervision level for adls and mobility skills Co-Morbidities that are continuing to impact the rehab process: (include details ) TABBY MACHADO MD Jan 01, 2018 16:46
[2018-01-01] MEDS: warFARin 5 MG (COUMADIN) TAB PO SCH (17:33)
[2018-01-01 18:06] VITALS: BP 143/78
[2018-01-01] MEDS: LORazepam 0.5 MG (ATIVAN) TABLET PO PRN (20:07)
--- NOTE | 2018-01-01 22:00 | CONSULTATION REPORT ---
DATE OF SERVICE: 01/01/2018 The patient is admitted to room 232. IMPRESSION: 1. An 82-year-old female admitted to inpatient rehabilitation unit after left hip replacement. 2. 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 Currently, on treatment with erythropoietic stimulating agent Aranesp. 3. History of non-Hodgkin's lymphoma, follicular large cell type, grade III, stage IIIB, status post chemotherapy with CNOP-R regimen for 6 cycles completed in 11/2004 followed by maintenance Rituxan x2 years. Clinically, no evidence of disease. 4. Remote history of right breast cancer, status post right modified radical mastectomy and axillary node dissection in 1987. 5. Sick sinus syndrome, status post pacemaker insertion in 08/2009. 6. History of atrial fibrillation and on anticoagulation with warfarin for stroke prophylaxis. 7. 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 RECOMMENDATIONS: 1. Continue inpatient rehabilitation as you are doing and discharged home when stable. 2. I will order Aranesp 40 mcg to be given on 01/02/2018 and follow the CBC once or twice weekly. If her hemoglobin level drops less than 9 or she becomes symptomatic, she may need packed red blood cell transfusion. 3. Continue anticoagulation for stroke prophylaxis because of atrial fibrillation. 4. We will follow the patient with you. BRIEF HISTORY: The patient is an 82-year-old female with remote history of right breast cancer requiring right modified radical mastectomy and axillary node dissection in 1987 as well as non-Hodgkin's lymphoma, follicular large cell type, grade III, stage IIIB and underwent chemotherapy with CNOP-R regimen for 6 cycles completed in 11/2004 followed by maintenance Rituxan x2 years. She has been doing well from this diagnosis when she was diagnosed with anemia of chronic disease and was requiring packed red blood cell transfusion. She was started on erythropoietic stimulating agent and iron supplementation with an improvement in the anemia and has not required a transfusion support. The patient underwent left hip replacement and is admitted to the inpatient rehabilitation unit. Hematology consultation was obtained for concurrent management of anemia. PAST MEDICAL HISTORY: Significant for anemia of chronic disease as mentioned above. This is due to chronic kidney disease, stage III to IV. She has been on erythropoietic stimulating agents with transfusion independence. She has previous malignancies with history of non-Hodgkin's lymphoma and right breast cancer as mentioned above and treated as mentioned above. She was more recently diagnosed with sick sinus syndrome requiring a pacemaker placement in 08/2009. Following this, she was diagnosed with atrial fibrillation and has been on anticoagulation with warfarin for stroke prophylaxis. She has a probable rheumatoid arthritis and has been on treatment with low dose prednisone for a long time. She has significant joint damage requiring both the knee replacements in the past and most recently left hip replacement. SOCIAL HISTORY: The patient is and lives near [place], [place]. No history of tobacco, alcohol or other recreational drug use. FAMILY HISTORY: Unremarkable and noncontributory. PHYSICAL EXAMINATION: GENERAL: Today showed an elderly female, well developed and nourished, awake and oriented and in no acute distress. VITAL SIGNS: Her temperature was 97.8, pulse rate of 77, respirations 18, blood pressure 165/77 with oxygen saturation of 94% on room air. HEENT: Normocephalic, extraocular muscles intact, conjunctivae slightly pale, oral mucosa moist. NECK: Supple, with no JVD. No cervical, supraclavicular or axillary lymphadenopathy palpable. CHEST: Showed a right modified radical mastectomy. LUNGS: Fairly clear to auscultation without wheezes or rales. CARDIOVASCULAR: Irregular with controlled rate. The patient had in the chest examination that pacemaker was present. ABDOMEN: Soft, nontender with no hepatosplenomegaly or other masses palpable. EXTREMITIES: Showed trace edema around the ankles. NEUROLOGIC: Showed no focal motor deficits. The patient is ambulating with a walker. LABORATORY DATA: CBC done today morning showed WBC 8.5, hemoglobin 9.7, MCV 91, platelet count 369,000 with neutrophil count 5.7, lymphocyte count 1.2 and monocyte count 1.1. Chemistry panel showed normal electrolytes. BUN was 17 and creatinine 0.85, GFR more than 60 mL per minute. Liver function studies were within normal limits except albumin level of 2.9. Protime was 17.7 with INR of 1.5. Previous GFR going back to 2013 was less than 60. Thank you for allowing me to participate in this patient's care. I will follow the patient with you and make appropriate recommendations. Job ID: [id number] DocumentID: [id number] Dictated Date: 01/01/2018 17:12:16 Atm Mechanic Date: 01/01/2018 21:59:00 Dictated By: WESTLEY MÉNDEZ MD [facility]AI HOSPITALGustavo
[2018-01-02 05:48] VITALS: BP 130/70
[2018-01-02] MEDS: VITAMIN D3 1,000 UNITS (CHOLECALCIFEROL) TABLET PO SCH (06:13)
[2018-01-02] MEDS: MULTIVIT W/MINERALS TAB (THERAGRAN M) PO SCH (06:13)
[2018-01-02] MEDS: IRON POLYSAC 150 MG CAP (NIFEREX) PO SCH ×2 (06:13→16:17)
[2018-01-02] MEDS: PANTOPRAZOLE 40 MG (PROTONIX) TAB PO SCH (06:14)
[2018-01-02] MEDS: predniSONE 5 MG TAB PO SCH (06:14)
[2018-01-02] MEDS: LEVOTHYROXINE 75 MCG (LEVOTHROID) TABLET PO SCH (06:14)
[2018-01-02] MEDS: CYANOCOBALAMIN 1,000 MCG (VITAMIN B-12) TABLET PO SCH (06:14)
[2018-01-02 06:18] LABS: HEMOGLOBIN 8.7 G/DL (11.5-16.0)
[2018-01-02 06:26] LABS: INR 1.6 (0.8-1.4); PROTHROMBIN TIME PATIENT 19.2 SEC (12.2-14.7)
--- NOTE | 2018-01-02 07:59 | Occupational Ther Daily Note ---
OT Current Status-Daily Note Subjective Pt alert, sitting in recliner. Pt agrees to therapy. Pt c/o heart skipping beat and SOA, 0710-O2 98, pulse 71, BP 115/66. Reported to nrsg. Mental Status/Objective Patient Orientation: Person, Place, Time, Situation Functional [place] Measure 0=Not Assessed/NA 4=Minimal Assistance 1=Total Assistance 5=Supervision or Setup 2=Maximal Assistance 6=Modified [place] 3=Moderate Assistance 7=Complete [place] Attachments: Oxygen (2L) ADL-Treatment Pt declined shower. Sitting at sink completed sponge bath and grooming. Pt completed all areas except lower legs. Pt took increased time to complete tasks due to decreased activity tolerance. Functional [place] Measure 0=Not Assessed/NA 4=Minimal Assistance 1=Total Assistance 5=Supervision or Setup 2=Maximal Assistance 6=Modified [place] 3=Moderate Assistance 7=Complete IndependenceIRFPAI Quality Coding Scale 6 Independent with activity with or without an assistive device 5 Patient requires set up or clean up by helper. Patient completes activity by themselves 4 Supervision or touching assist (CGA). [place] provide cues , steadying assist 3 The helper provides less than half the effort to complete the activity 2 The helper provides more than half the effort to complete the activity 1 Dependent. The helper does all the effort to complete an activity 7 Patient refused to complete or attempt activity 9 The patient did not perform the activity before the current illness or injury 88 Not attempted due to Medical conditions or safety concerns Grooming (FIM): 6 (Sitting in front of sink.) Bathing (FIM): 4 Bathing Location: L Arm, R Arm, L Upper Leg, R Upper Leg, Chest, Abdomen, Buttocks, Perineal Area Shower/Bathe Self (QC): 3 Upper Body (FIM): 5 (Set up only.) Upper Body Dressing (QC): 5 Lower Body Dressing (FIM): 5 (SBA using AE and FWW. LESLIE hose, assist to don/ doff.) Lower Body Dressing (QC): 4 Other Treatment Pt completed resistive clothes pins each hand. Pt demonstrated fatigue when completing task. After therapy, pt sitting in recliner with call light/phone. All needs met in room. OT Short Term Goals Short Term Goals Transfers (B,C,W/C) (FIM): 5 1=Demonstrate adherence to instructed precautions during ADL tasks. 2=Patient will verbalize/demonstrate understanding of assistive devices/ modifications for ADL. 3=Patient will improve strength/tolerance for activity to enable patient to perform ADL's. OT Water Softener Servicer And Installer Goals [facility] Goals Time Frame: Jan 21, 2018 Eating (FIM): 7 Eating (QC): 6 Groomin Oral Hygiene (QC): 6 Bathing(FIM): 5 Shower/Bathe Self (QC): 5 Upper Body Dressing(FIM): 6 Upper Body Dressing (QC): 6 Lower Body Dressing(FIM): 5 Lower Body Dressing (QC): 5 On/Off Footwear (QC): 5 Toileting(FIM): 6 Toileting Hygiene (QC): 6 Toilet/Commode Transfer(FIM): 6 Toilet/Commode Transfer (QC): 6 Shower Transfer(FIM): 5 Additional Goals: 1-Demonstrate ADL Tasks, 2-Verbalize Understanding, 3- ImproveStrength/Winifred 1=Demonstrate adherence to instructed precautions during ADL tasks. 2=Patient will verbalize/demonstrate understanding of assistive devices/ modifications for ADL. 3=Patient will improve strength/tolerance for activity to enable patient to perform ADL's. OT Education/Plan Problem List/Assessment Pt s/p left RIVAS with decreased ADL functioning, mobility, strength, and activity tolerance. Pt to benefit from skilled OT intervention for ADL training , transfers, strengthening, adaptive equipment training, and home safety education to increase level of independence and allow safe discharge plan. Discharge Recommendations Plan/Recommendations: Continue POC Treatment Plan/Plan of Care Patient would benefit from OT for education, treatment and training to promote independence in ADL's, mobility, safety and/or upper extremity function for ADL' s. Plan of Care: ADL Retraining, Functional Mobility, Group Exercise/Act as Ind, UE Funct Exercise/Act Treatment Duration: Jan 21, 2018 Frequency: At least 5 of 7 days/Wk (IRF) Estimated Hrs Per Day: 1.5 hours per day Agreement: Yes Rehab Potential: Good Time/GCodes Start Time: 07:00 Stop Time: 08:00 Total Time Billed (hr/min): 60 Billed Treatment Time 1 visit-ADL 3 (50 min) EX 1 (10 min) KARAN KIRBY Jan 02, 2018 07:59
--- NOTE | 2018-01-02 07:59 | PM & R (SOAP) Progress Note ---
Subjective This was a face to face visit with the patient. Date Seen by Provider: Jan 02, 2018 Time Seen by Provider: 07:50 Subjective/Events-last exam Patient was seen in her room this AM Patient Min assist for transfers Labs noted Appreciate DR Diaz note.Patient feels an occasional irregular HT beat No CP or Increased SOB Date Identified: Jan 02, 2018 Time Identified: 07:50 Medication Intervention: Labs INR noted Review of Systems Cardiovascular: Palpitations Musculoskeletal: leg pain Objective Physician Exam Last Set of Vital Signs Vital Signs Date Time Temp Pulse Resp B/P (MAP) Pulse Ox O2 Delivery O2 Flow Rate FiO2 01/02/18 05:48 97.6 74 18 130/70 (90) 99 Room Air 01/01/18 20:40 2.00 Capillary Refill : I&O Intake and Output 01/02/18 00:00 Intake Total 1500 ml Balance 1500 ml Intake Oral 1500 ml # Voids 6 # Bowel Movements 2 General: Alert, Oriented X3, Cooperative, No Acute Distress HEENT: Atraumatic, PERRLA, EOMI, Mucous Memb Moist/[place], Other (02 by N/C in place) Neck: Supple, No JVD Lungs: Clear to Auscultation Heart: Regular Rate Abdomen: Normal Bowel Sounds, Soft, No Tenderness Extremities: Other (Trace edema left ankle) Neuro: Other (Impaired Flex and abduction Both shoulders RT > left Strength LLE 3/5to 3+/5 RT 4/5) Psych/Mental Status: Mental Status NL Results Lab Data Laboratory Tests 01/01/18 04:40: White Blood Count 8.5, Red Blood Count 3.35L, Hemoglobin 9.7L, Hematocrit 31L, Mean Corpuscular Volume 91, Mean Corpuscular Hemoglobin 29, Mean Corpuscular Hemoglobin Concent 32, Red Cell Distribution Width 14.3, Platelet Count 369, Mean Platelet Volume 9.3, Neutrophils (%) (Auto) 68, Lymphocytes (%) (Auto) 14, Monocytes (%) (Auto) 13H, Eosinophils (%) (Auto) 5, Basophils (%) (Auto) 1, Neutrophils # (Auto) 5.7, Lymphocytes # (Auto) 1.2, Monocytes # (Auto) 1.1H, Eosinophils # (Auto) 0.5H, Basophils # (Auto) 0.1, Prothrombin Time 17.7H, INR Comment 1.5H, Sodium Level 140, Potassium Level 4.5, Chloride Level 103, Carbon Dioxide Level 28, Anion Gap 9, Blood Urea Nitrogen 17, Creatinine 0.85, Estimat Glomerular Filtration Rate > 60, BUN/Creatinine Ratio 20, Glucose Level 95, Calcium Level 8.6, Corrected Calcium 9.5, Total Bilirubin 0.7, Aspartate Amino Transf (AST/SGOT) 12, Alanine Aminotransferase (ALT/SGPT) 10, Alkaline Phosphatase 66, Total Protein 5.2L, Albumin 2.9L 01/02/18 06:00: Hemoglobin 8.7L, Hematocrit 27L, Prothrombin Time 19.2H, INR Comment 1.6H Assessment/Plan Assessment and Plan RA s/p left THR Chronic anticoagulation resp insuff on [id number] chronic HTN A FIB controlled GERD on med Chronic steroid usage Anemia of chronic D S/P pacemaker remote Hypothyroidism on replacement Plan Continue PT/OT F/U with DR rose prn Monitor INR and adjust Coumadin dosage as needed Team Conference later today see report for full functional update and POC and ELOS Co-Morbidities that are continuing to impact the rehab process: (include details ) TABBY MACHADO MD Jan 02, 2018 07:59
[2018-01-02] MEDS ORDERED: DARBEPOETIN 40 MCG/ML (ARANESP) 1 ML VIAL SC SCH (09:00)
--- NOTE | 2018-01-02 09:13 | Physical Therapy Daily Note ---
PT Daily Note-Current Subjective Pt sitting in recliner upon arrival. Pt agrees to PT. Pain Numeric Pain Scale: 2 Location: Left Location Body Site: Hip Pain Description: Ache, Tightness Mental Status Patient Orientation: Person, Place, Time, Situation Attachments: Oxygen (2L) Transfers Functional [place] Measure 0=Not Assessed/NA 4=Minimal Assistance 1=Total Assistance 5=Supervision or Setup 2=Maximal Assistance 6=Modified [place] 3=Moderate Assistance 7=Complete IndependenceIRFPAI Quality Coding Scale 6 Independent with activity with or without an assistive device 5 Patient requires set up or clean up by helper. Patient completes activity by themselves 4 Supervision or touching assist (CGA). [place] provide cues , steadying assist 3 The helper provides less than half the effort to complete the activity 2 The helper provides more than half the effort to complete the activity 1 Dependent. The helper does all the effort to complete an activity 7 Patient refused to complete or attempt activity 9 The patient did not perform the activity before the current illness or injury 88 Not attempted due to Medical conditions or safety concerns Scootin Sit to/from Stand: 4 Sit to Stand (QC): 4 Weight Bearing Right Lower Extremity: Right Full Weight Bearing Left Lower Extremity: Left Weight Bearing/Tolerated Gait Training Does the Patient Walk?: Yes Distance (FIM): 3=150 ft Distance: 50', 100', 100', 50' Walk 10 feet (QC): 5 Walk 50 ft with 2 Turns(QC): 5 Walk 150 ft (QC): 5 Gait Level of Assist: 5 Gait Persons Needed: 1 Gait Assistive Device: FWW Pt has slow sabina with slightly flexed posture at the hip. STOCK PATCH SAWYER gives VC to stay closer to FWW. Wheelchair Training Does the Pt Use a Wheelchair?: No Exercises Seated Therapy Exercises: Ankle pumps, Sit to stand (5 reps), Long arc quads, Hip flexion, Kicking activity Seated Reps: 20 Treatments Pt completes Seated Ex while discussing more SOA and occasional heart palpations that occur. Pt advises this happens at home and sees a Balance Clerk at [facility]. Pt wants to continue PT so she can get stronger and go home. Pt transfers from recliner to standing using FWW at [facility]. Pt ambulates in hallway and [facility] using FWW at close SBA. Pt takes rest breaks as needed and needs a pillow in chair to provide higher surface to stand from when completing Sit to Stand. Pt attempts to try NuStep but is unable to put LLE onto foot pedal. Pt report some discomfort so discontinued. Pt returns to room after short walk to use restroom. Pt returns to recliner to rest at end of tx with all needs met. Assessment Current Status: Fair Progress Pt continues to occasionally struggle with heart palpations and SOA due to heart complications. Pt sees a Cardiologists for these and will continue to follow up with pt. Pt also struggles with arthritis and this can sometimes limit mobility. Pt know Hip Precautions and abides by them. Pt would like discharge Sunday so family could pick her up if possible. PT Short Term Goals Short Term Goals Time Frame: Jan 07, 2018 Transfers (B,C,W/C) (FIM): 5 Gait (FIM): 4 PT Fci Goals Fci Goals PT Fci Goals Time Frame: Jan 14, 2018 Transfers (B,C,W/C) (FIM): 7 Sit to Lying (QC): 6 Lying-Sitting on Side/Bed(QC): 6 Sit to Stand (QC): 6 Rollin Roll Left to Right (QC): 6 Chair/Omg-rp-Cdbgp Xfer(QC): 6 Car Transfer (QC): 6 Does the Patient Walk: Yes Gait (FIM): 6 Gait distance (FIM): 3=150 ft Walk 10 feet (QC): 6 Walk 10ft-Uneven Surface(QC): 6 Walk 50ft with 2 Turns (QC): 6 Walk 150 ft (QC): 6 Gait Level of Assist: 6 Gait Assistive Device: FWW Does the Pt use WC or Scooter?: Yes Wheelchair (FIM): 6 Wheelchair distance (FIM): 3=150 ft Wheel 50 feet with 2 turns (QC: 6 Stairs (FIM): 5 # of Steps: 4 1 Step (curb) (QC): 6 4 Steps (QC): 6 12 Steps (QC): 88 Picking up an Object (QC): 88 PT Plan Problem List Problem List: Activity Tolerance, Functional Strength, Gait, Transfer Treatment/Plan Treatment Plan: Continue Plan of Care Treatment Plan: Bed Mobility, Education, Functional Activity Winifred, Functional Strength, Group Therapy, Gait, Safety, Therapeutic Exercise, Transfers Treatment Duration: Jan 14, 2018 Frequency: At least 5 of 7 days/Wk (IRF) Estimated Hrs Per Day: 1.5 hours per day Patient and/or Family Agrees t: Yes Safety Risks/Education Patient Education: Gait Training, Transfer Techniques, Correct Positioning, Safety Issues Teaching Recipient: Patient Teaching Methods: Discussion Response to Teaching: Verbalize Understanding Time/GCodes Time In: 800 Time Out: 900 Total Billed Treatment Time: 60 Total Billed Treatment 1, GT x2 (35m) & FA x2 (25m) G Codes Necessary: SABRINA López PTA Jan 02, 2018 09:13
[2018-01-02] MEDS: CARVEDILOL 6.25 MG (COREG) TAB PO SCH ×2 (09:17→21:03)
[2018-01-02] MEDS: SPIRONOLACTONE 25 MG (ALDACTONE) TAB PO SCH (09:17)
[2018-01-02] MEDS: HYDROXYCHLOROQUINE 200 MG (PLAQUENIL) TAB PO SCH ×2 (09:17→21:03)
[2018-01-02] MEDS: ACETAMINOPHEN 325 MG TABLET PO PRN (09:55)
--- NOTE | 2018-01-02 14:29 | History & Physicial (CHS) ---
HPI History of Present Illness: Source: patient Exam Limitations: no limitations Date seen by provider: Jan 02, 2018 Time Seen by Provider: 11:50 Attending Physician Mitch Swann MD PCP Lalita Perkins MD Consult Date of Admission Dec 31, 2017 at 13:36 Home Medications Home Medications Reviewed patient Home Medication Reconciliation performed by pharmacy medication reconciliations sterile technician and/or nursing. Patients Allergies have been reviewed. Allergies Coded Allergies: verapamil (Verified Allergy, Severe, 12/31/17) levofloxacin (Verified Allergy, Intermediate, 12/31/17) morphine (Unverified Allergy, Mild, 10/01/13) [id number] Hx Patient Social History Alcohol Use: Denies Use Recreational Drug Use: No Smoking Status: Never a Smoker Recent Foreign Travel: No Contact w/other who traveled: No Recent Hopitalizations: Yes Recent Infectious Disease Expo: No Physical Abuse Screen: No Sexual Abuse: No Immunizations Up To Date Date of Pneumonia Vaccine: Dec 31, 2014 Date of Influenza Vaccine: Dec 27, 2017 Past Medical History CHF, diastolic, pacemaker in place CKD not requiring dialysis RA Breast CA 1987 Non-Hodgkins Lymphoma 2004, in remission Family Medical History Significant Family History: Cancer, Diabetes, Hypertension Family History: Diabetes mellitus 19 MOTHER Neoplasm 19 FATHER G8 BROTHER G8 SISTER Review of Systems (CHC) Constitutional: No chills, No fever, No weakness EENTM: No vision loss, No epistaxis Respiratory: No cough, No dyspnea on exertion, No short of breath Cardiovascular: No chest pain; Hx of Intervention, palpitations Gastrointestinal: No abdominal pain, No constipation, No diarrhea Genitourinary: No dysuria, No frequency Musculoskeletal: No back pain; joint pain, joint swelling Skin: No dryness, No rash Psychiatric/Neurological: Denies Headache, Denies Numbness, Denies Paresthesia All Other Systems Reviewed Negative Unless Noted: Yes Reviewed Test Results Reviewed Test Results Lab Laboratory Tests Test 01/02/18 06:00 Range/Units Hemoglobin 8.7 L 11.5-16.0 G/DL Hematocrit 27 L 35-52 % Prothrombin Time 19.2 H 12.2-14.7 SEC INR Comment 1.6 H 0.8-1.4 Physical Exam-(CHC) Physical Exam Vital Signs VS - Last 72 Hours, by Label 12/31/17 12/31/17 12/31/17 01/01/18 14:00 14:43 23:59 05:14 Temp 98.4 97.8 Pulse 62 77 Resp 18 18 B/P (MAP) 123/73 (90) 165/77 (106) Pulse Ox 92 94 O2 Delivery Room Air Nasal Cannula Nasal Cannula Room Air O2 Flow Rate 2.00 2.00 01/01/18 01/01/18 01/01/18 01/01/18 07:41 09:00 18:06 20:40 Temp 98.2 Pulse 75 Resp 18 B/P (MAP) 143/78 (99) Pulse Ox 95 O2 Delivery Nasal Cannula Nasal Cannula Room Air Nasal Cannula O2 Flow Rate 2.00 2.00 2.00 01/02/18 01/02/18 01/02/18 05:48 09:00 11:13 Temp 97.6 Pulse 74 Resp 18 B/P (MAP) 130/70 (90) Pulse Ox 99 O2 Delivery Room Air Nasal Cannula Nasal Cannula O2 Flow Rate 2.00 2.00 Capillary Refill : General Appearance: WD/WN, no apparent distress Eyes: Bilateral Eye EOMI, Bilateral Eye Conjunctivae Pale (mildly) HEENT: pharynx normal Neck: non-tender, full range of motion, supple, normal inspection Respiratory: chest non-tender (R mastectomy evident), lungs clear, normal breath sounds, no respiratory distress, no accessory muscle use, other (NC in place) Cardiovascular: no murmur, irregularly irregular, other (regular rate, trace edema BLE, pacemaker) Gastrointestinal: normal bowel sounds, non tender, soft, no organomegaly Back: normal inspection, no vertebral tenderness Extremities: normal range of motion, non-tender, normal capillary refill Neurologic/Psychiatric: alert, normal mood/affect, oriented x 3 Skin: normal color, warm/dry Lymphatic: no adenopathy Assessment/Plan Assessment/Plan Admission Status: Inpatient Order (span 2 midnights) Reason for Inpatient Admission: Inpatient rehab following L THR (1) Anemia in chronic kidney disease Assessment & Plan: Hgb today was 8.7, was 9.7 yesterday. Pt will be receiving Aranesp injection from Dr. Gaspar. He is following pt and decide when a transfusion may be necessary. Qualifiers: Qualified Codes: N18.3 - Chronic kidney disease, stage 3 (moderate); D63.1 - Anemia in chronic kidney disease (2) CHF (congestive heart failure) Status: Chronic Assessment & Plan: Pt w/ pacemaker Continue home meds Qualifiers: (3) Atrial fibrillation Status: Chronic Assessment & Plan: Continue home meds Qualifiers: Qualified Codes: I48.0 - Paroxysmal atrial fibrillation (4) CKD (chronic kidney disease) Status: Chronic Assessment & Plan: Monitor for acute changes. Qualifiers: Qualified Codes: N18.3 - Chronic kidney disease, stage 3 (moderate) (5) Breast CA Status: Resolved (6) Non-Hodgkin lymphoma in remission Status: Resolved (7) Rheumatoid arthritis Status: Chronic Assessment & Plan: Continue home meds (8) Degenerative joint disease of left hip Assessment & Plan: Pt s/p L THR Dr. Swann is managing pt's rehab course. Clinical Quality Measures DVT/VTE Risk/Contraindication: Risk Factor Score Per Nursin RFS Level Per Nursing on Admit: 4+=Very High IVONNE EARL MEDICAL STUDENT Jan 02, 2018 14:29
--- NOTE | 2018-01-02 15:02 | Therapy Group Daily Note ---
Therapy Daily Group Note Patient Education Topic Other List Below (memory education strategies,ARU description/expectations) Exercises LE Seated Exercise, UE Exercise Other/Notes Pt ambulated using FWW to OT/PT group in [facility]. Group consisted of introductions (name, place living, most ornery trick), ARU description/ expectations, UE/LE seated exercises, memory strategy education and memory activity. Pt introduced self appropriately and actively listened to peers. Pt contributed to and initiated conversations throughout group. Pt was able to complete UE/LE exercises with decreased B shldr ROM, fatigued easily. Verbalized understanding and was able to give examples from personal experience. Pt was able to toss lópez bags at designated areas from a seated position. Completed memory activity appropriately and was able to match like pictures. Pt then ambulated back to room, requested to use bathroom (SBA for transfer/toileting) then sat in w/c after therapy. Call light/phone in reach, all needs met in room. Visitors present in room. Start Time: 13:00 Stop Time: 14:20 Total Billed Treatment Time: 80 Total Billed Treatment 1-GRP KARAN KIRBY Jan 02, 2018 15:02
[2018-01-02] MEDS: ENOXAPARIN 40 MG/0.4 ML (LOVENOX) SYR SC SCH (16:18)
[2018-01-02] MEDS: warFARin 5 MG (COUMADIN) TAB PO SCH (17:18)
[2018-01-02 17:24] VITALS: BP 146/68
[2018-01-02] MEDS ORDERED: diphenhydrAMINE 25 MG TAB (BENADRYL) PO ONE (20:56)
[2018-01-02] MEDS ORDERED: diphenhydrAMINE 25 MG TAB (BENADRYL) PO SCH (21:00)
[2018-01-02] MEDS: LORazepam 0.5 MG (ATIVAN) TABLET PO PRN (22:24)
[2018-01-03 05:44] VITALS: BP 132/67
[2018-01-03] MEDS: predniSONE 5 MG TAB PO SCH (06:15)
[2018-01-03] MEDS: PANTOPRAZOLE 40 MG (PROTONIX) TAB PO SCH (06:15)
[2018-01-03] MEDS: LEVOTHYROXINE 75 MCG (LEVOTHROID) TABLET PO SCH (06:15)
[2018-01-03] MEDS: MULTIVIT W/MINERALS TAB (THERAGRAN M) PO SCH (06:15)
[2018-01-03] MEDS: IRON POLYSAC 150 MG CAP (NIFEREX) PO SCH ×2 (06:15→17:12)
[2018-01-03] MEDS: CYANOCOBALAMIN 1,000 MCG (VITAMIN B-12) TABLET PO SCH (06:15)
[2018-01-03] MEDS: VITAMIN D3 1,000 UNITS (CHOLECALCIFEROL) TABLET PO SCH (06:15)
[2018-01-03 06:57] LABS: INR 1.5 (0.8-1.4); PROTHROMBIN TIME PATIENT 18.1 SEC (12.2-14.7)
--- NOTE | 2018-01-03 07:16 | Occupational Ther Daily Note ---
OT Current Status-Daily Note Subjective Pt alert, sitting in recliner. Pt agrees to therapy. Stated that she didn't sleep well because she was anxious all night. No c/o pain at this time. Mental Status/Objective Patient Orientation: Person, Place, Time, Situation Functional [place] Measure 0=Not Assessed/NA 4=Minimal Assistance 1=Total Assistance 5=Supervision or Setup 2=Maximal Assistance 6=Modified [place] 3=Moderate Assistance 7=Complete [place] Attachments: Oxygen (2L) ADL-Treatment Pt was able to retrieve clothing and transport to bathroom using FWW, supervision. Transferred to toilet with mod I using FWW, elevated seat and grabbars. Toileting mod I using FWW, elevated seat and grabbars. Transferred to w/c and complete grooming and dressing at w/c level, mod I. Pt able to use lower body dressing AE, mod I. Functional [place] Measure 0=Not Assessed/NA 4=Minimal Assistance 1=Total Assistance 5=Supervision or Setup 2=Maximal Assistance 6=Modified [place] 3=Moderate Assistance 7=Complete IndependenceIRFPAI Quality Coding Scale 6 Independent with activity with or without an assistive device 5 Patient requires set up or clean up by helper. Patient completes activity by themselves 4 Supervision or touching assist (CGA). [place] provide cues , steadying assist 3 The helper provides less than half the effort to complete the activity 2 The helper provides more than half the effort to complete the activity 1 Dependent. The helper does all the effort to complete an activity 7 Patient refused to complete or attempt activity 9 The patient did not perform the activity before the current illness or injury 88 Not attempted due to Medical conditions or safety concerns Grooming (FIM): 6 Oral Hygiene (QC): 6 Upper Body (FIM): 5 Upper Body Dressing (QC): 5 Lower Body Dressing (FIM): 5 Lower Body Dressing (QC): 5 On/Off Footwear (QC): 6 Toileting (FIM): 6 Toileting Hygiene (QC): 6 Transfers (B, C, W/C) (FIM): 6 Toilet/Commode Transfer (FIM): 6 Toilet Transfer (QC): 6 Other Treatment Pt ambulated slowly to therapy gym, SOA noted, no breaks. Pt completed 3 light resistance theraband exercises, SOA and recovery breaks taken, 2 sets 10 reps. Pt ambulated 1/2 way to room then required w/c. Pt transferred from w/c to recliner, mod I. After therapy, pt sitting in recliner with call light/phone in reach. All needs met in room. OT Short Term Goals Short Term Goals Transfers (B,C,W/C) (FIM): 5 1=Demonstrate adherence to instructed precautions during ADL tasks. 2=Patient will verbalize/demonstrate understanding of assistive devices/ modifications for ADL. 3=Patient will improve strength/tolerance for activity to enable patient to perform ADL's. OT Ceramics Teacher Goals Fdc Goals Time Frame: Jan 21, 2018 Eating (FIM): 7 Eating (QC): 6 Groomin Oral Hygiene (QC): 6 Bathing(FIM): 5 Shower/Bathe Self (QC): 5 Upper Body Dressing(FIM): 6 Upper Body Dressing (QC): 6 Lower Body Dressing(FIM): 5 Lower Body Dressing (QC): 5 On/Off Footwear (QC): 5 Toileting(FIM): 6 Toileting Hygiene (QC): 6 Toilet/Commode Transfer(FIM): 6 Toilet/Commode Transfer (QC): 6 Shower Transfer(FIM): 5 Additional Goals: 1-Demonstrate ADL Tasks, 2-Verbalize Understanding, 3- ImproveStrength/[place] 1=Demonstrate adherence to instructed precautions during ADL tasks. 2=Patient will verbalize/demonstrate understanding of assistive devices/ modifications for ADL. 3=Patient will improve strength/tolerance for activity to enable patient to perform ADL's. OT Education/Plan Problem List/Assessment Pt s/p left RIVAS with decreased ADL functioning, mobility, strength, and activity tolerance. Pt to benefit from skilled OT intervention for ADL training , transfers, strengthening, adaptive equipment training, and home safety education to increase level of independence and allow safe discharge plan. Discharge Recommendations Plan/Recommendations: Continue POC Treatment Plan/Plan of Care Patient would benefit from OT for education, treatment and training to promote independence in ADL's, mobility, safety and/or upper extremity function for ADL' s. Plan of Care: ADL Retraining, Functional Mobility, Group Exercise/Act as Ind, UE Funct Exercise/Act Treatment Duration: Jan 21, 2018 Frequency: At least 5 of 7 days/Wk (IRF) Estimated Hrs Per Day: 1.5 hours per day Agreement: Yes Rehab Potential: Good Time/GCodes Start Time: 07:00 Stop Time: 08:00 Total Time Billed (hr/min): 60 Billed Treatment Time 1 visit-ADL 3 (45 min) EX 1 (15 min) KARAN KIRBY Jan 03, 2018 07:16
[2018-01-03 08:22] VITALS: BP 109/66
[2018-01-03] MEDS: CARVEDILOL 6.25 MG (COREG) TAB PO SCH ×2 (08:28→20:15)
[2018-01-03] MEDS: SPIRONOLACTONE 25 MG (ALDACTONE) TAB PO SCH (08:28)
[2018-01-03] MEDS: HYDROXYCHLOROQUINE 200 MG (PLAQUENIL) TAB PO SCH ×2 (08:28→20:15)
[2018-01-03] MEDS ORDERED: DARBEPOETIN 40 MCG/ML (ARANESP) 1 ML VIAL SC SCH (09:00)
[2018-01-03] MEDS: ACETAMINOPHEN 325 MG TABLET PO PRN ×2 (09:21→20:15)
--- NOTE | 2018-01-03 11:07 | Physical Therapy Daily Note ---
PT Daily Note-Current Subjective Pt sitting in recliner upon arrival. Pt agrees to PT. Pt is excited for discharge in a couple of days. Pain Numeric Pain Scale: 5-Moderate Pain Location: Left Location Body Site: Hip Pain Description: Ache, Tightness Mental Status Patient Orientation: Person, Place, Time, Situation Attachments: Oxygen (2L) Transfers Functional [place] Measure 0=Not Assessed/NA 4=Minimal Assistance 1=Total Assistance 5=Supervision or Setup 2=Maximal Assistance 6=Modified [place] 3=Moderate Assistance 7=Complete IndependenceIRFPAI Quality Coding Scale 6 Independent with activity with or without an assistive device 5 Patient requires set up or clean up by helper. Patient completes activity by themselves 4 Supervision or touching assist (CGA). [place] provide cues , steadying assist 3 The helper provides less than half the effort to complete the activity 2 The helper provides more than half the effort to complete the activity 1 Dependent. The helper does all the effort to complete an activity 7 Patient refused to complete or attempt activity 9 The patient did not perform the activity before the current illness or injury 88 Not attempted due to Medical conditions or safety concerns Scootin Sit to/from Stand: 5 Sit to Stand (QC): 5 Car Transfer (QC): 5 Weight Bearing Right Lower Extremity: Right Full Weight Bearing Left Lower Extremity: Left Weight Bearing/Tolerated Gait Training Does the Patient Walk?: Yes Distance (FIM): 3=150 ft Distance: 150' Walk 10 feet (QC): 5 Walk 50 ft with 2 Turns(QC): 5 Walk 150 ft (QC): 5 Walking 10ft/uneven surface-QC: 5 Gait Level of Assist: 5 Gait Persons Needed: 1 Gait Assistive Device: FWW Pt walks with flexed posture at hip and slow sabina. Wheelchair Training Does the Pt Use a Wheelchair?: No Treatments Pt transfers from recliner to standing using FWW and LEARNING SUPPORT TEACHER to manage O2. Pt ambulates in hallway and Therapy [facility] with rest breaks as needed for SOA for Cardiac issues. Pt completes car transfer for possible discharge in a couple of days. Pt returns to room to rest in recliner at end of tx with all needs met. Assessment Current Status: Good Progress Pt is anxious for discharge in a couple days and will continue to push hard and not let anything keep her from discharging. Pt is aware there will still always be limitations due to ongoing Cardiac/SOA & arthritis. PT Short Term Goals Short Term Goals Time Frame: Jan 07, 2018 Transfers (B,C,W/C) (FIM): 5 Gait (FIM): 4 PT Farm Equipment Mechanic Goals Farm Equipment Mechanic Goals PT Farm Equipment Mechanic Goals Time Frame: Jan 14, 2018 Transfers (B,C,W/C) (FIM): 7 Sit to Lying (QC): 6 Lying-Sitting on Side/Bed(QC): 6 Sit to Stand (QC): 6 Rollin Roll Left to Right (QC): 6 Chair/[id number]-[id number] Xfer(QC): 6 Car Transfer (QC): 6 Does the Patient Walk: Yes Gait (FIM): 6 Gait distance (FIM): 3=150 ft Walk 10 feet (QC): 6 Walk 10ft-Uneven Surface(QC): 6 Walk 50ft with 2 Turns (QC): 6 Walk 150 ft (QC): 6 Gait Level of Assist: 6 Gait Assistive Device: FWW Does the Pt use WC or Scooter?: Yes Wheelchair (FIM): 6 Wheelchair distance (FIM): 3=150 ft Wheel 50 feet with 2 turns (QC: 6 Stairs (FIM): 5 # of Steps: 4 1 Step (curb) (QC): 6 4 Steps (QC): 6 12 Steps (QC): 88 Picking up an Object (QC): 88 PT Plan Problem List Problem List: Activity Tolerance, Functional Strength Treatment/Plan Treatment Plan: Continue Plan of Care Treatment Plan: Bed Mobility, Education, Functional Activity Win[place], Functional Strength, Group Therapy, Gait, Safety, Therapeutic Exercise, Transfers Treatment Duration: Jan 14, 2018 Frequency: At least 5 of 7 days/Wk (IRF) Estimated Hrs Per Day: 1.5 hours per day Patient and/or Family Agrees t: Yes Safety Risks/Education Patient Education: Gait Training, Transfer Techniques Teaching Recipient: Patient Teaching Methods: Discussion Response to Teaching: Verbalize Understanding Time/GCodes Time In: 845 Time Out: 930 Total Billed Treatment Time: 45 Total Billed Treatment 1, GT x2 (25m) & FA (20m) G Codes Necessary: SABRINA López LEARNING SUPPORT TEACHER Jan 03, 2018 11:07
--- NOTE | 2018-01-03 15:10 | Therapy Group Daily Note ---
Therapy Daily Group Note Patient Education Topic Home Safety Exercises LE Seated Exercise, UE Exercise Other/Notes Pt ambulated using FWW to OT/PT group in [facility]. Group consisted of introductions (name, place living, have you ever fallen), UE/LE seated exercises , home safety education and pt experiences/strategies for being safe at home.. Pt introduced self appropriately and actively listened to peers. Pt contributed to and initiated conversations throughout group. Pt was able to complete UE/LE exercises, fatigued easily. Verbalized understanding topics and was able to give examples from personal experience. Pt was able to stand for positioning change. Pt verbalized understanding of educational topic and discuss alternatives for home safety . Pt then ambulated using FWW back to room and sat in recliner after therapy. Call light/phone in reach, all needs met in room. Start Time: 13:00 Stop Time: 14:20 Total Billed Treatment Time: 80 Total Billed Treatment 1-GRP KARAN KIRBY Jan 03, 2018 15:09
[2018-01-03] MEDS: ENOXAPARIN 40 MG/0.4 ML (LOVENOX) SYR SC SCH (15:32)
[2018-01-03 16:35] VITALS: BP 144/81
[2018-01-03] MEDS: warFARin 7.5 MG (COUMADIN) TAB PO SCH (17:12)
--- NOTE | 2018-01-03 20:30 | PM & R (SOAP) Progress Note ---
Subjective This was a face to face visit with the patient. Date Seen by Provider: Jan 03, 2018 Time Seen by Provider: 20:25 Subjective/Events-last exam Patient was seen in her room this evening Case discussed with RN Lovenox added until INR therapeutic.Patient less anxious INR 1.5 HGB 8.7Patient SBA for transfers Date Identified: Jan 03, 2018 Time Identified: 15:00 Medication Intervention: Lovenox ordered until INR therapeutic Objective Physician Exam Last Set of Vital Signs Vital Signs Date Time Temp Pulse Resp B/P (MAP) Pulse Ox O2 Delivery O2 Flow Rate FiO2 01/03/18 16:51 Nasal Cannula 2.00 01/03/18 16:35 97.4 69 16 144/81 (102) 100 Capillary Refill : I&O Intake and Output 01/03/18 00:00 Intake Total 950 ml Balance 950 ml Intake Oral 950 ml # Voids 9 # Bowel Movements 2 General: Alert, Oriented X3, Cooperative, No Acute Distress HEENT: Atraumatic, PERRLA, EOMI, Mucous Memb Moist/[place], Other (02 by N/C in place) Neck: Supple, No JVD Lungs: Clear to Auscultation Heart: Regular Rate Abdomen: Normal Bowel Sounds, Soft, No Tenderness Extremities: Other (Trace edema left ankle) Neuro: Other (Impaired Flex and abduction Both shoulders RT > left Strength LLE 3/5to 3+/5 RT 4/5) Psych/Mental Status: Mental Status NL Results Lab Data Laboratory Tests 01/01/18 04:40: White Blood Count 8.5, Red Blood Count 3.35L, Hemoglobin 9.7L, Hematocrit 31L, Mean Corpuscular Volume 91, Mean Corpuscular Hemoglobin 29, Mean Corpuscular Hemoglobin Concent 32, Red Cell Distribution Width 14.3, Platelet Count 369, Mean Platelet Volume 9.3, Neutrophils (%) (Auto) 68, Lymphocytes (%) (Auto) 14, Monocytes (%) (Auto) 13H, Eosinophils (%) (Auto) 5, Basophils (%) (Auto) 1, Neutrophils # (Auto) 5.7, Lymphocytes # (Auto) 1.2, Monocytes # (Auto) 1.1H, Eosinophils # (Auto) 0.5H, Basophils # (Auto) 0.1, Prothrombin Time 17.7H, INR Comment 1.5H, Sodium Level 140, Potassium Level 4.5, Chloride Level 103, Carbon Dioxide Level 28, Anion Gap 9, Blood Urea Nitrogen 17, Creatinine 0.85, Estimat Glomerular Filtration Rate > 60, BUN/Creatinine Ratio 20, Glucose Level 95, Calcium Level 8.6, Corrected Calcium 9.5, Total Bilirubin 0.7, Aspartate Amino Transf (AST/SGOT) 12, Alanine Aminotransferase (ALT/SGPT) 10, Alkaline Phosphatase 66, Total Protein 5.2L, Albumin 2.9L 01/02/18 06:00: Hemoglobin 8.7L, Hematocrit 27L, Prothrombin Time 19.2H, INR Comment 1.6H 01/03/18 06:35: Prothrombin Time 18.1H, INR Comment 1.5H Assessment/Plan Assessment and Plan RA s/p left THR Hodgkins lymphoma in remission Postop anemia Chronic anticoagulation followed by [facility] Rashida [facility] resp insuff on 02 chronic HTN A FIB controlled GERD on med Chronic steroid use Anemia of chronic D S/P pacemaker remote Hypothyroidism on replacement Plan Continue PT/OT Monitor INR and adjust Coumadin dosage as needed F/U with DR rose best Co-Morbidities that are continuing to impact the rehab process: (include details ) TABBY MACHADO MD Jan 03, 2018 20:30
[2018-01-03] MEDS ORDERED: diphenhydrAMINE 25 MG TAB (BENADRYL) PO SCH (21:00)
[2018-01-04 06:00] VITALS: BP 125/72
[2018-01-04] MEDS: MULTIVIT W/MINERALS TAB (THERAGRAN M) PO SCH (06:06)
[2018-01-04] MEDS: predniSONE 5 MG TAB PO SCH (06:06)
[2018-01-04] MEDS: PANTOPRAZOLE 40 MG (PROTONIX) TAB PO SCH (06:06)
[2018-01-04] MEDS: VITAMIN D3 1,000 UNITS (CHOLECALCIFEROL) TABLET PO SCH (06:06)
[2018-01-04] MEDS: LEVOTHYROXINE 75 MCG (LEVOTHROID) TABLET PO SCH (06:06)
[2018-01-04] MEDS: IRON POLYSAC 150 MG CAP (NIFEREX) PO SCH ×2 (06:06→18:18)
[2018-01-04] MEDS: CYANOCOBALAMIN 1,000 MCG (VITAMIN B-12) TABLET PO SCH (06:07)
[2018-01-04 06:13] LABS: INR 1.7 (0.8-1.4); PROTHROMBIN TIME PATIENT 19.7 SEC (12.2-14.7)
--- NOTE | 2018-01-04 07:30 | Occupational Ther Daily Note ---
OT Current Status-Daily Note Subjective Pt alert, sitting in recliner. Pt agrees to therapy. No c/o pain at this time. Pt states that she had a good night's sleep. Mental Status/Objective Functional [place] Measure 0=Not Assessed/NA 4=Minimal Assistance 1=Total Assistance 5=Supervision or Setup 2=Maximal Assistance 6=Modified [place] 3=Moderate Assistance 7=Complete [place] ADL-Treatment Functional [place] Measure 0=Not Assessed/NA 4=Minimal Assistance 1=Total Assistance 5=Supervision or Setup 2=Maximal Assistance 6=Modified [place] 3=Moderate Assistance 7=Complete IndependenceIRFPAI Quality Coding Scale 6 Independent with activity with or without an assistive device 5 Patient requires set up or clean up by helper. Patient completes activity by themselves 4 Supervision or touching assist (CGA). [place] provide cues , steadying assist 3 The helper provides less than half the effort to complete the activity 2 The helper provides more than half the effort to complete the activity 1 Dependent. The helper does all the effort to complete an activity 7 Patient refused to complete or attempt activity 9 The patient did not perform the activity before the current illness or injury 88 Not attempted due to Medical conditions or safety concerns Eating (FIM): 6 (Built up handles on utensils. Pt able to open containers/ packages. ) Eating (QC): 6 Grooming (FIM): 6 (Sitting at sink, pt able to complete grooming.) Oral Hygiene (QC): 6 Bathing (FIM): 6 (Using elevated shower chair, grabbars, long handle sponge and grabbars pt is able to complete bathing.) Bathing Location: L Arm, R Arm, L Upper Leg, R Upper Leg, L Lower Leg ( including foot), R Lower Leg (including foot), Chest, Abdomen, Buttocks, Perineal Area Shower/Bathe Self (QC): 6 Upper Body (FIM): 6 (Retrieves clothing using FWW then dresses self.) Upper Body Dressing (QC): 6 Lower Body Dressing (FIM): 6 (Retrieves clothing using FWW then dresses self using AE.) Lower Body Dressing (QC): 6 On/Off Footwear (QC): 6 Toileting (FIM): 6 (Using elevated toilet seat and grabbars pt able to complete toileting.) Toileting Hygiene (QC): 6 Transfers (B, C, W/C) (FIM): 6 (Using FWW, pt able to complete from elevated surface.) Toilet/Commode Transfer (FIM): 6 (Using elevated toilet seat, grabbars and FWW. ) Toilet Transfer (QC): 6 Shower Transfer(FIM): 6 (Using elevated shower chair, grabbars and FWW pt able to complete transfer.) Other Treatment Pt was able to demonstrate HEP with light resistance theraband exercises for UE , 1 set 10 reps. Pt SOA with exercise. After therapy, pt sitting in recliner with call light/phone in reach, talking on cellphone. All needs met in room. OT Short Term Goals Short Term Goals Transfers (B,C,W/C) (FIM): 5 1=Demonstrate adherence to instructed precautions during ADL tasks. 2=Patient will verbalize/demonstrate understanding of assistive devices/ modifications for ADL. 3=Patient will improve strength/tolerance for activity to enable patient to perform ADL's. OT Shelter Goals Shelter Goals Time Frame: Jan 21, 2018 Eating (FIM): 7 (Built up handles on utensils due to decreased hand ROM.) Eating (QC): 6 (met) Groomin (met) Oral Hygiene (QC): 6 (met) Bathing(FIM): 5 (met) Shower/Bathe Self (QC): 5 (met) Upper Body Dressing(FIM): 6 (mt) Upper Body Dressing (QC): 6 (met) Lower Body Dressing(FIM): 5 (met) Lower Body Dressing (QC): 5 (met) On/Off Footwear (QC): 5 (met) Toileting(FIM): 6 (met) Toileting Hygiene (QC): 6 (me) Toilet/Commode Transfer(FIM): 6 (met) Toilet/Commode Transfer (QC): 6 (met) Shower Transfer(FIM): 5 (met) Additional Goals: 1-Demonstrate ADL Tasks, 2-Verbalize Understanding, 3- ImproveStrength/[place] 1=Demonstrate adherence to instructed precautions during ADL tasks. 2=Patient will verbalize/demonstrate understanding of assistive devices/ modifications for ADL. 3=Patient will improve strength/tolerance for activity to enable patient to perform ADL's. OT Education/Plan Problem List/Assessment Pt s/p left RIVAS with decreased ADL functioning, mobility, strength, and activity tolerance. Pt to benefit from skilled OT intervention for ADL training , transfers, strengthening, adaptive equipment training, and home safety education to increase level of independence and allow safe discharge plan. Discharge Recommendations Plan/Recommendations: Continue POC Treatment Plan/Plan of Care Patient would benefit from OT for education, treatment and training to promote independence in ADL's, mobility, safety and/or upper extremity function for ADL' s. Plan of Care: ADL Retraining, Functional Mobility, Group Exercise/Act as Ind, UE Funct Exercise/Act Treatment Duration: Jan 21, 2018 Frequency: At least 5 of 7 days/Wk (IRF) Estimated Hrs Per Day: 1.5 hours per day Agreement: Yes Rehab Potential: Good Time/GCodes Start Time: 07:00 Stop Time: 08:00 Total Time Billed (hr/min): 60 Billed Treatment Time 1 visit-ADL 3 (50 min) EX 1 (10 min) KARAN KIRBY Jan 04, 2018 07:30
[2018-01-04] MEDS: CARVEDILOL 6.25 MG (COREG) TAB PO SCH ×2 (08:44→20:19)
[2018-01-04] MEDS: SPIRONOLACTONE 25 MG (ALDACTONE) TAB PO SCH (08:44)
[2018-01-04] MEDS: HYDROXYCHLOROQUINE 200 MG (PLAQUENIL) TAB PO SCH ×2 (08:45→20:19)
[2018-01-04] MEDS: ACETAMINOPHEN 325 MG TABLET PO PRN ×2 (08:45→22:04)
--- NOTE | 2018-01-04 08:45 | PM & R (SOAP) Progress Note ---
Subjective This was a face to face visit with the patient. Date Seen by Provider: Jan 04, 2018 Time Seen by Provider: 07:45 Subjective/Events-last exam Patient was seen in her room this AM All set for discharge tomorrow Patient is followed by Physician at [facility] for INR.Will have f/u with ortho DR Connelly in [place] and Rheum at [facility].Hs a Integrative Medicine Physician in [place] as well.Patient SBA for transfers.Discharge/current meds reviewed Date Identified: Jan 04, 2018 Time Identified: 07:30 Medication Intervention: Discharge meds reviewed Objective Physician Exam Last Set of Vital Signs Vital Signs Date Time Temp Pulse Resp B/P (MAP) Pulse Ox O2 Delivery O2 Flow Rate FiO2 01/04/18 06:00 97.4 66 18 125/72 (89) 93 Room Air 01/03/18 20:30 2.00 Capillary Refill : I&O Intake and Output 01/04/18 00:00 Intake Total 840 ml Balance 840 ml Intake Oral 840 ml # Voids 8 General: Alert, Oriented X3, Cooperative, No Acute Distress HEENT: Atraumatic, PERRLA, EOMI, Mucous Memb Moist/[place], Other (02 by N/C in place) Neck: Supple, No JVD Lungs: Clear to Auscultation Heart: Regular Rate Abdomen: Normal Bowel Sounds, Soft, No Tenderness Extremities: Other (Trace edema left ankle) Neuro: Other (Impaired Flex and abduction Both shoulders RT > left Strength LLE 3/5to 3+/5 RT 4/5) Psych/Mental Status: Mental Status NL Results Lab Data Laboratory Tests 01/02/18 06:00: Hemoglobin 8.7L, Hematocrit 27L, Prothrombin Time 19.2H, INR Comment 1.6H 01/03/18 06:35: Prothrombin Time 18.1H, INR Comment 1.5H 01/04/18 05:50: Hemoglobin 8.6L, Prothrombin Time 19.7H, INR Comment 1.7H Assessment/Plan Assessment and Plan RA s/p Left THR Chronic anticoagulation Resp insuff on supplemental 02 ccchronic HTN A FIB controlled GERD on med Chronic steroid usage Anemia of chronic D due tamir CKD S/P pacemaker remote Hypothyroidism on replacement S/P RT Breast mastectomy for CA 1987 HX of NON HOdgkins Lymphoma s/p chemo [address] rose foote Plan Continue PT/OT Discharge tomorrow to home with family F/U with Physicians as per above NOTE The patient would like to be discharged this evening rather than tomorrow Defer to SW re this. Co-Morbidities that are continuing to impact the rehab process: (include details ) TABBY MACHADO MD Jan 04, 2018 08:45
[2018-01-04] MEDS ORDERED: IRON150C3 PO (08:57)
[2018-01-04] MEDS ORDERED: ACET325T49 PO (08:57)
--- NOTE | 2018-01-04 09:26 | D/C HH Face to Face Order ---
D/C Face to Face Orders Instructions for Patient [facility] [phone] Patient Instructions/FollowUp: Dr. Zac Perkins Physician to follow Patient: Dr. Perkins Discharge Diet for Home: Regular Diet Patient Data-Allergies,Ht & Wt Patient Allergies: Coded Allergies: verapamil (Verified Allergy, Severe, 12/31/17) levofloxacin (Verified Allergy, Intermediate, 12/31/17) morphine (Unverified Allergy, Mild, 10/01/13) Height (Feet): 5 Height (Inches): 8.00 Weight (Pounds): 178 Weight (Ounces): 3.2 Home Health Need/Face to Face Date of Face to Face: Jan 05, 2018 Clinical Findings: Generalized weakness and fatigue, Muscle weakness, Unsteady gait I have seen Pt [id number]: Yes Discharged To: Home Diagnosis/Conditions: Left total hip replacement Patient is Homebound due to: Tigist fall risk due to instabilty, Muscle weakness Homebound Status Due to the above stated illness, injury or surgical procedure (medical condition or diagnosis) and associated clinical findings, the patient is homebound because of his/her inability to leave home except with aid of a supportive device and/or person AND leaving the home requires a considerable and taxing effort or is medically contraindicated. Pt req the following assistanc: Walker Home Health Nursing Orders Home Health Services Order: Nursing Services, Health Care / Medical Job Titles-Evaluate & Treat, Physical Therapy-Evaluate & Treat RN to complete labs to ensure hemoglobin is stable Therapy Orders Therapy Orders: OT (must have SN or PT order), Physical Therapy Therapy Specific Orders: Eval assistive deivces, Teach enviro modifications/ safety, Gait training, Increase strength/endurance, Restore ROM Certify Stmt I certify that this patient is under my care and that I, a nurse practitioner or a physician; a administrative personal assistant working with me, had a face to face encounter that - meets the physician face to face encounter requirements with this patient as dated. I personally scribed for TABBY MACHADO MD ([facility]) on 01/04/18 at 09:26. Electronically submitted by Gabby Shah ([id number]). TABBY MACHADO MD Jan 04, 2018 09:26
--- NOTE | 2018-01-04 09:54 | Physical Therapy Daily Note ---
PT Daily Note-Current Subjective Pt. states she is ready to go home and feels confident she will do well there. States her family is very supportive and she will have plenty of assist. States she as a lift chair at home and other assistive items. Pt. states " I am doing better now than I have in quite a while" Pain Numeric Pain Scale: 0-No Pain Mental Status Patient Orientation: Normal For Age Transfers Functional [place] Measure 0=Not Assessed/NA 4=Minimal Assistance 1=Total Assistance 5=Supervision or Setup 2=Maximal Assistance 6=Modified [place] 3=Moderate Assistance 7=Complete IndependenceIRFPAI Quality Coding Scale 6 Independent with activity with or without an assistive device 5 Patient requires set up or clean up by helper. Patient completes activity by themselves 4 Supervision or touching assist (CGA). [place] provide cues , steadying assist 3 The helper provides less than half the effort to complete the activity 2 The helper provides more than half the effort to complete the activity 1 Dependent. The helper does all the effort to complete an activity 7 Patient refused to complete or attempt activity 9 The patient did not perform the activity before the current illness or injury 88 Not attempted due to Medical conditions or safety concerns Transfers (B, C, W/C) (FIM): 6 Scootin Rollin Roll Left to Right (QC): 5 Supine to/from Sit: 6 Sit to/from Stand: 6 Sit to Lying (QC): 5 Sit to Stand (QC): 5 Chair/Apc-yw-Sageq Xfer(QC): 5 Bed to/from Chair: 6 Car Transfer (QC): 5 Weight Bearing Right Lower Extremity: Right Full Weight Bearing Left Lower Extremity: Left Weight Bearing/Tolerated Gait Training Does the Patient Walk?: Yes Gait (FIM): 5 Distance (FIM): 1=496-74 ft (100,125) Walk 10 feet (QC): 5 Walk 50 ft with 2 Turns(QC): 5 Walking 10ft/uneven surface-QC: 5 Gait Level of Assist: 6 Gait Persons Needed: 0 Gait Assistive Device: FWW household exception Stair Training Stairs (FIM): 88 pt. has ramps and modifications in her home Balance Picking up an Object (QC): 88 Exercises Supine Ex: Ankle pumps, Quad Set, Rolling, Glut sets, Heel Slides, Short Arc Quads, Scooting, Straight leg raise (x3 only on left), Hip abd/add Supine Reps: 15 Seated Therapy Exercises: Ankle pumps, Sit to stand, Long arc quads, Hip abd/ add Seated Reps: 15 Treatments toileted indep x 2 during rx Assessment Current Status: Good Progress meets goals, feels stronger and more functional than before admit. Pt. has had limited distance for quite some time and FIMs at household exception for distance PT Short Term Goals Short Term Goals Time Frame: Jan 07, 2018 Transfers (B,C,W/C) (FIM): 5 Gait (FIM): 4 PT Dynamic Balancer Goals Dynamic Balancer Goals PT Alf Goals Time Frame: Jan 14, 2018 Transfers (B,C,W/C) (FIM): 7 Sit to Lying (QC): 6 Lying-Sitting on Side/Bed(QC): 6 Sit to Stand (QC): 6 Rollin Roll Left to Right (QC): 6 Chair/Vxv-zi-Wpkuq Xfer(QC): 6 Car Transfer (QC): 6 Does the Patient Walk: Yes Gait (FIM): 6 Gait distance (FIM): 3=150 ft Walk 10 feet (QC): 6 Walk 10ft-Uneven Surface(QC): 6 Walk 50ft with 2 Turns (QC): 6 Walk 150 ft (QC): 6 Gait Level of Assist: 6 Gait Assistive Device: FWW Does the Pt use WC or Scooter?: Yes Wheelchair (FIM): 6 Wheelchair distance (FIM): 3=150 ft Wheel 50 feet with 2 turns (QC: 6 Stairs (FIM): 5 # of Steps: 4 1 Step (curb) (QC): 6 4 Steps (QC): 6 12 Steps (QC): 88 Picking up an Object (QC): 88 PT Plan Treatment/Plan Treatment Plan: Continue Plan of Care Treatment Plan: Bed Mobility, Education, Functional Activity Winifred, Functional Strength, Group Therapy, Gait, Safety, Therapeutic Exercise, Transfers Treatment Duration: Jan 14, 2018 Frequency: At least 5 of 7 days/Wk (IRF) Estimated Hrs Per Day: 1.5 hours per day Patient and/or Family Agrees t: Yes Safety Risks/Education Patient Education: Gait Training, Transfer Techniques, Correct Positioning, Disease Process, Safety Issues Teaching Recipient: Patient Teaching Methods: Demonstration, Discussion Response to Teaching: Verbalize Understanding, Return Demonstration, Reinforcement Needed Time/GCodes Time In: 900 Time Out: 1000 Total Billed Treatment Time: 60 Total Billed Treatment 1,GT20m,FA25m,EX15m G Codes Necessary: MAHAMED Porras CHECKING DEPARTMENT SUPERVISOR Jan 04, 2018 09:54
--- NOTE | 2018-01-04 14:23 | Therapy Group Daily Note ---
Therapy Daily Group Note Patient Education Topic Energy Cons, Other List Below (benefits of exercise) Exercises LE Seated Exercise, UE Exercise Other/Notes Pt. participated in group PT OT session this date. Pt.ambulated to from [facility] with assist for O2 only. Pt. was social and introduced herself to others and engaged appropriately. Pt. did participate in seated U&L extremity exercise and lead an exercise as per a written illustrated hand out. Pts. were educated on and shared their experience regarding energy conservation hero in home environment. Pts. were also educated in benefits of exercise as it applies to multiple diagnoses. Pt. to room after Rx with SBassist, and antoni at hand. Start Time: 13:00 Stop Time: 14:10 Total Billed Treatment Time: 70 Total Billed Treatment 1,GRP MAHAMED BOLIVAR LEAD LEVEL DESIGNER Jan 04, 2018 14:23
[2018-01-04] MEDS: ENOXAPARIN 40 MG/0.4 ML (LOVENOX) SYR SC SCH (15:53)
[2018-01-04 16:11] VITALS: BP 124/70
[2018-01-04] MEDS: warFARin 7.5 MG (COUMADIN) TAB PO SCH (18:19)
[2018-01-05 05:16] LABS: INR 1.7 (0.8-1.4); PROTHROMBIN TIME PATIENT 20.3 SEC (12.2-14.7)
[2018-01-05 05:31] VITALS: BP 128/71
[2018-01-05] MEDS: VITAMIN D3 1,000 UNITS (CHOLECALCIFEROL) TABLET PO SCH (06:24)
[2018-01-05] MEDS: PANTOPRAZOLE 40 MG (PROTONIX) TAB PO SCH (06:24)
[2018-01-05] MEDS: LEVOTHYROXINE 75 MCG (LEVOTHROID) TABLET PO SCH (06:24)
[2018-01-05] MEDS: CYANOCOBALAMIN 1,000 MCG (VITAMIN B-12) TABLET PO SCH (06:24)
[2018-01-05] MEDS: predniSONE 5 MG TAB PO SCH (06:25)
[2018-01-05] MEDS: IRON POLYSAC 150 MG CAP (NIFEREX) PO SCH (06:25)
[2018-01-05] MEDS: MULTIVIT W/MINERALS TAB (THERAGRAN M) PO SCH (06:25)
--- NOTE | 2018-01-05 07:39 | PM & R (SOAP) Progress Note ---
Subjective This was a face to face visit with the patient. Date Seen by Provider: Jan 05, 2018 Time Seen by Provider: 07:25 Subjective/Events-last exam Patient was seen in her room this AM INR noted patient all set for discharge Date Identified: Jan 05, 2018 Time Identified: 07:25 Medication Intervention: Discharge meds reviewed Objective Physician Exam Last Set of Vital Signs Vital Signs Date Time Temp Pulse Resp B/P (MAP) Pulse Ox O2 Delivery O2 Flow Rate FiO2 01/05/18 07:22 Nasal Cannula 2.00 01/05/18 05:31 97.4 68 18 128/71 (90) 97 Capillary Refill : I&O Intake and Output 01/05/18 00:00 Intake Total 1270 ml Balance 1270 ml Intake Oral 1270 ml # Voids 8 General: Alert, Oriented X3, Cooperative, No Acute Distress HEENT: Atraumatic, PERRLA, EOMI, Mucous Memb Moist/[place], Other (02 by N/C in place) Neck: Supple, No JVD Lungs: Clear to Auscultation Heart: Regular Rate Abdomen: Normal Bowel Sounds, Soft, No Tenderness Extremities: Other (Trace edema left ankle) Neuro: Other (Impaired Flex and abduction Both shoulders RT > left Strength LLE 3/5to 3+/5 RT 4/5) Psych/Mental Status: Mental Status NL Results Lab Data Laboratory Tests 01/03/18 06:35: Prothrombin Time 18.1H, INR Comment 1.5H 01/04/18 05:50: Prothrombin Time 19.7H, INR Comment 1.7H, Hemoglobin 8.6L 01/05/18 04:52: Prothrombin Time 20.3H, INR Comment 1.7H Assessment/Plan Assessment and Plan Home today with family and HHC F/U with PCP and ortho See orders Co-Morbidities that are continuing to impact the rehab process: (include details ) TABBY MACHADO MD Jan 05, 2018 07:39
[2018-01-05] MEDS: HYDROXYCHLOROQUINE 200 MG (PLAQUENIL) TAB PO SCH (08:16)
[2018-01-05] MEDS: SPIRONOLACTONE 25 MG (ALDACTONE) TAB PO SCH (08:16)
[2018-01-05] MEDS: CARVEDILOL 6.25 MG (COREG) TAB PO SCH (08:16)
[2018-01-05] MEDS: ACETAMINOPHEN 325 MG TABLET PO PRN (08:17)
[2018-01-05 11:20] VITALS: BP 128/71
--- NOTE | 2018-01-08 10:55 | Therapy Team Discharge Summary ---
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 Prior to surgery, pt reports she had been using a wheelchair for all mobility and only performed SPT's. Her home is set up and accomodating for a wc. At admit to this unit, she was mod assist with transfers, walked short distances with assist , min assist with wc mobilty and was able to go up/down a curb step. Treatment consisted of LE strengthening, transfers, gait and functional mobility progression. Goals met to a satisfactory level and she is able to manage at home. At nv, she was mod indep with transfers, ambulated at mod indep level household distances (scoring a FIM 5). Stairs were not reassessed as she reports she did not do steps at home. Pt to discharge home, recommend [facility] PT to follow as necessary. [place] PT. Occupational Therapy Decreased Activ Tolerance, Decreased UE Strength, Dependent Transfers, Impaired Bed Mobility, Impaired Funct Balance, Impaired I ADL's, Impaired Self-Care Skills PT Turbine Assembler Goals [facility] Goals PT [facility] Goals Time Frame: Jan 14, 2018 Transfers (B,C,W/C) (FIM): 7 (scored 6) Roll Left to Right (QC): 6 Sit to Lying (QC): 6 Lying-Sitting on Side/Bed(QC): 6 Sit to Stand (QC): 6 Chair/Ycx-pl-Swczi Xfer(QC): 6 Car Transfer (QC): 6 Does the Patient Walk: Yes Gait (FIM): 6 (scored 5--mod indep at a household distance) Gait distance (FIM): 3=150 ft Walk 10 feet (QC): 6 Walk 10ft-Uneven Surface(QC): 6 Walk 50ft with 2 Turns (QC): 6 Walk 150 ft (QC): 6 Gait Level of Assist: 6 Gait Assistive Device: FWW Does the Pt use WC or Scooter?: Yes Wheelchair (FIM): 6 (DNT; pt ambulatory) Wheelchair distance (FIM): 3=150 ft Wheel 50 feet with 2 turns (QC: 6 Stairs (FIM): 5 (pt declined as she uses ramps) # of Steps: 4 1 Step (curb) (QC): 6 4 Steps (QC): 6 12 Steps (QC): 88 Picking up an Object (QC): 88 Goals met to a satisfactory level for discharge home as before. OT Turbine Assembler Goals [facility] Goals Time Frame: Jan 21, 2018 Eating (FIM): 7 (Built up handles on utensils due to decreased hand ROM.) Eating (QC): 6 (met) Oral Hygiene (QC): 6 (met) Grooming(FIM): 6 (met) Bathing(FIM): 5 (met) Shower/Bathe Self (QC): 5 (met) Upper Body Dressing(FIM): 6 (mt) Upper Body Dressing (QC): 6 (met) Lower Body Dressing(FIM): 5 (met) Lower Body Dressing (QC): 5 (met) On/Off Footwear (QC): 5 (met) Toileting(FIM): 6 (met) Toileting Hygiene (QC): 6 (me) Toilet/Commode Transfer(FIM): 6 (met) Toilet/Commode Transfer (QC): 6 (met) Shower Transfer(FIM): 5 (met) Additional Goals: 1-Demonstrate ADL Tasks, 2-Verbalize Understanding, 3- ImproveStrength/Winifred 1=Demonstrate adherence to instructed precautions during ADL tasks. 2=Patient will verbalize/demonstrate understanding of assistive devices/ modifications for ADL. 3=Patient will improve strength/tolerance for activity to enable patient to perform ADL's. Speech [facility] Goals [facility] Goals no goals established as skilled ST not indicated KARAN MADERA PT Jan 08, 2018 10:55
--- NOTE | 2018-01-09 14:59 | Therapy Team Discharge Summary ---
Therapy Discharge Summary Discharge Recommendations Date of Discharge Jan 05, 2018 at 11:20 Therapy D/C Recommendations: Physical Therapy Home Care Occupational Therapy Pt admitted to ARU following left RIVAS. On admission pt required mod assist with bathing, toileting, and toilet transfer; max assist with LE dressing; and CGA with grooming. Skilled OT intervention focused on ADL training, transfers, strengthening, and adaptive equipment training. Pt made good progress with therapy and by discharge is completing ADLs and transfers with modified independence. Pt met OT mcc goals. Pt discharged home. D/C ARU OT. Decreased Activ Tolerance, Decreased UE Strength, Dependent Transfers, Impaired Bed Mobility, Impaired Funct Balance, Impaired I ADL's, Impaired Self-Care Skills PT [facility]fp Goals Timber Incisor Operator Goals PT Timber Incisor Operator Goals Time Frame: Jan 14, 2018 Transfers (B,C,W/C) (FIM): 7 (scored 6) Roll Left to Right (QC): 6 Sit to Lying (QC): 6 Lying-Sitting on Side/Bed(QC): 6 Sit to Stand (QC): 6 Chair/Pdx-of-Oxnec Xfer(QC): 6 Car Transfer (QC): 6 Does the Patient Walk: Yes Gait (FIM): 6 (scored 5--mod indep at a household distance) Gait distance (FIM): 3=150 ft Walk 10 feet (QC): 6 Walk 10ft-Uneven Surface(QC): 6 Walk 50ft with 2 Turns (QC): 6 Walk 150 ft (QC): 6 Gait Level of Assist: 6 Gait Assistive Device: FWW Does the Pt use WC or Scooter?: Yes Wheelchair (FIM): 6 (DNT; pt ambulatory) Wheelchair distance (FIM): 3=150 ft Wheel 50 feet with 2 turns (QC: 6 Stairs (FIM): 5 (pt declined as she uses ramps) # of Steps: 4 1 Step (curb) (QC): 6 4 Steps (QC): 6 12 Steps (QC): 88 Picking up an Object (QC): 88 OT Timber Incisor Operator Goals [facility] Goals Time Frame: Jan 21, 2018 Eating (FIM): 7 (Built up handles on utensils due to decreased hand ROM.) Eating (QC): 6 (met) Oral Hygiene (QC): 6 (met) Grooming(FIM): 6 (met) Bathing(FIM): 5 (met) Shower/Bathe Self (QC): 5 (met) Upper Body Dressing(FIM): 6 (mt) Upper Body Dressing (QC): 6 (met) Lower Body Dressing(FIM): 5 (met) Lower Body Dressing (QC): 5 (met) On/Off Footwear (QC): 5 (met) Toileting(FIM): 6 (met) Toileting Hygiene (QC): 6 (me) Toilet/Commode Transfer(FIM): 6 (met) Toilet/Commode Transfer (QC): 6 (met) Shower Transfer(FIM): 5 (met) Additional Goals: 1-Demonstrate ADL Tasks, 2-Verbalize Understanding, 3- ImproveStrength/Winifred 1=Demonstrate adherence to instructed precautions during ADL tasks. 2=Patient will verbalize/demonstrate understanding of assistive devices/ modifications for ADL. 3=Patient will improve strength/tolerance for activity to enable patient to perform ADL's. Speech [facility] Goals [facility] Goals no goals established as skilled ST not indicated DENVER OTERO OT Jan 09, 2018 14:59
== END 2018-01-05 11:20 | disposition home health service (06) | DRG 560 ==
PROVIDERS: ADMIT Physical Medicine & Rehabilitation; ATTEND Physical Medicine & Rehabilitation
DX: Z47.1 Aftercare following joint replacement surgery (principal); Z96.642 Presence of left artificial hip joint; M06.9 Rheumatoid arthritis, unspecified; I13.0 Hypertensive heart and chronic kidney disease with heart failure and stage 1 through stage 4 chronic kidney disease, or unspecified chronic kidney disease; I50.32 Chronic diastolic (congestive) heart failure; I12.9 Hypertensive chronic kidney disease with stage 1 through stage 4 chronic kidney disease, or unspecified chronic kidney disease; N18.3 Chronic kidney disease, stage 3 (moderate); I25.10 Atherosclerotic heart disease of native coronary artery without angina pectoris; R06.89 Other abnormalities of breathing; D63.1 Anemia in chronic kidney disease; I48.0 Paroxysmal atrial fibrillation; K21.9 Gastro-esophageal reflux disease without esophagitis; E03.9 Hypothyroidism, unspecified; I35.0 Nonrheumatic aortic (valve) stenosis; Z99.81 Dependence on supplemental oxygen; Z79.01 Long term (current) use of anticoagulants; Z79.52 Long term (current) use of systemic steroids; Z95.0 Presence of cardiac pacemaker; Z85.72 Personal history of non-Hodgkin lymphomas; Z85.3 Personal history of malignant neoplasm of breast; Z90.11 Acquired absence of right breast and nipple
CPT/HCPCS: 36415; 80053; 85014; 85018; 85025; 85610; 90471

== ENCOUNTER 2018-03-05 13:28 | Outpatient (RCR) | payer MEDICARE, BC ==
[2017-12-20 13:51] LABS: BASOPHILS # (AUTO) 0.1 10^3/uL (0.0-0.1); BASOPHILS % (AUTO) 1 % (0-10); EOSINOPHILS # (AUTO) 0.1 10^3/uL (0.0-0.3); EOSINOPHILS % (AUTO) 1 % (0-10); HEMATOCRIT 34 % (35-52); HEMOGLOBIN 10.7 G/DL (11.5-16.0); LYMPHOCYTES # (AUTO) 0.6 X 10^3 (1.0-4.0); LYMPHOCYTES % (AUTO) 6 % (12-44); MEAN CORPUSCULAR HEMOGLOBIN 28 PG (25-34); MEAN CORPUSCULAR HGB CONC 32 G/DL (32-36); MEAN CORPUSCULAR VOLUME 88 FL (80-99); MEAN PLATELET VOLUME 9.5 FL (7.4-10.4); MONOCYTES # (AUTO) 0.9 X 10^3 (0.0-1.0); MONOCYTES % (AUTO) 8 % (0-12); NEUTROPHILS # (AUTO) 9.4 X 10^3 (1.8-7.8); NEUTROPHILS % (AUTO) 85 % (42-75); PLATELET COUNT 403 10^3/uL (130-400); RED BLOOD COUNT 3.82 10^6/uL (4.35-5.85); RED CELL DISTRIBUTION WIDTH 14.2 % (10.0-14.5); WHITE BLOOD COUNT 11.1 10^3/uL (4.3-11.0)
[2018-01-09 11:58] LABS: BASOPHILS # (AUTO) 0.1 10^3/uL (0.0-0.1); BASOPHILS % (AUTO) 1 % (0-10); EOSINOPHILS # (AUTO) 0.3 10^3/uL (0.0-0.3); EOSINOPHILS % (AUTO) 2 % (0-10); HEMATOCRIT 31 % (35-52); HEMOGLOBIN 9.7 G/DL (11.5-16.0); LYMPHOCYTES # (AUTO) 0.6 X 10^3 (1.0-4.0); LYMPHOCYTES % (AUTO) 4 % (12-44); MEAN CORPUSCULAR HEMOGLOBIN 28 PG (25-34); MEAN CORPUSCULAR HGB CONC 31 G/DL (32-36); MEAN CORPUSCULAR VOLUME 92 FL (80-99); MONOCYTES # (AUTO) 1.1 X 10^3 (0.0-1.0); MONOCYTES % (AUTO) 8 % (0-12); NEUTROPHILS # (AUTO) 11.9 X 10^3 (1.8-7.8); NEUTROPHILS % (AUTO) 85 % (42-75); PLATELET COUNT 511 10^3/uL (130-400); RED BLOOD COUNT 3.41 10^6/uL (4.35-5.85); RED CELL DISTRIBUTION WIDTH 14.2 % (10.0-14.5)
[2018-01-16 14:09] LABS: BASOPHILS # (AUTO) 0.1 10^3/uL (0.0-0.1); BASOPHILS % (AUTO) 0 % (0-10); EOSINOPHILS # (AUTO) 0.2 10^3/uL (0.0-0.3); EOSINOPHILS % (AUTO) 2 % (0-10); HEMATOCRIT 34 % (35-52); HEMOGLOBIN 10.4 G/DL (11.5-16.0); LYMPHOCYTES # (AUTO) 0.9 X 10^3 (1.0-4.0); LYMPHOCYTES % (AUTO) 7 % (12-44); MEAN CORPUSCULAR HEMOGLOBIN 28 PG (25-34); MEAN CORPUSCULAR HGB CONC 30 G/DL (32-36); MEAN CORPUSCULAR VOLUME 93 FL (80-99); MEAN PLATELET VOLUME 9.3 FL (7.4-10.4); MONOCYTES # (AUTO) 1.3 X 10^3 (0.0-1.0); MONOCYTES % (AUTO) 11 % (0-12); NEUTROPHILS # (AUTO) 9.5 X 10^3 (1.8-7.8); NEUTROPHILS % (AUTO) 80 % (42-75); PLATELET COUNT 515 10^3/uL (130-400); RED BLOOD COUNT 3.67 10^6/uL (4.35-5.85); WHITE BLOOD COUNT 11.9 10^3/uL (4.3-11.0)
[2018-01-16 14:24] LABS: ALBUMIN 3.7 GM/DL (3.2-4.5); BILIRUBIN,TOTAL 0.5 MG/DL (0.1-1.0); CALCIUM 9.1 MG/DL (8.5-10.1); CREATININE SERUM 1.14 MG/DL (0.60-1.30); POTASSIUM 5.1 MMOL/L (3.6-5.0); TOTAL PROTEIN 6.3 GM/DL (6.4-8.2)
[2018-01-23 15:18] LABS: BASOPHILS # (AUTO) 0.1 10^3/uL (0.0-0.1); BASOPHILS % (AUTO) 1 % (0-10); EOSINOPHILS # (AUTO) 0.1 10^3/uL (0.0-0.3); EOSINOPHILS % (AUTO) 1 % (0-10); HEMATOCRIT 35 % (35-52); HEMOGLOBIN 11.2 G/DL (11.5-16.0); LYMPHOCYTES # (AUTO) 0.7 X 10^3 (1.0-4.0); LYMPHOCYTES % (AUTO) 6 % (12-44); MEAN CORPUSCULAR HEMOGLOBIN 28 PG (25-34); MEAN CORPUSCULAR HGB CONC 32 G/DL (32-36); MEAN CORPUSCULAR VOLUME 89 FL (80-99); MEAN PLATELET VOLUME 9.7 FL (7.4-10.4); MONOCYTES # (AUTO) 0.9 X 10^3 (0.0-1.0); MONOCYTES % (AUTO) 8 % (0-12); NEUTROPHILS # (AUTO) 9.1 X 10^3 (1.8-7.8); NEUTROPHILS % (AUTO) 84 % (42-75); PLATELET COUNT 421 10^3/uL (130-400); RED BLOOD COUNT 3.94 10^6/uL (4.35-5.85); RED CELL DISTRIBUTION WIDTH 13.5 % (10.0-14.5); WHITE BLOOD COUNT 10.8 10^3/uL (4.3-11.0)
[2018-02-04 13:34] LABS: BASOPHILS # (AUTO) 0.1 10^3/uL (0.0-0.1); BASOPHILS % (AUTO) 1 % (0-10); EOSINOPHILS # (AUTO) 0.5 10^3/uL (0.0-0.3); EOSINOPHILS % (AUTO) 5 % (0-10); HEMATOCRIT 35 % (35-52); HEMOGLOBIN 10.7 G/DL (11.5-16.0); LYMPHOCYTES # (AUTO) 1.2 X 10^3 (1.0-4.0); LYMPHOCYTES % (AUTO) 11 % (12-44); MEAN CORPUSCULAR HEMOGLOBIN 27 PG (25-34); MEAN CORPUSCULAR HGB CONC 31 G/DL (32-36); MEAN CORPUSCULAR VOLUME 90 FL (80-99); MEAN PLATELET VOLUME 9.9 FL (7.4-10.4); MONOCYTES # (AUTO) 1.4 X 10^3 (0.0-1.0); MONOCYTES % (AUTO) 12 % (0-12); NEUTROPHILS # (AUTO) 8.1 X 10^3 (1.8-7.8); NEUTROPHILS % (AUTO) 72 % (42-75); PLATELET COUNT 391 10^3/uL (130-400); RED CELL DISTRIBUTION WIDTH 13.3 % (10.0-14.5); WHITE BLOOD COUNT 11.3 10^3/uL (4.3-11.0)
[2018-02-20 10:37] LABS: BASOPHILS # (AUTO) 0.1 10^3/uL (0.0-0.1); BASOPHILS % (AUTO) 1 % (0-10); EOSINOPHILS # (AUTO) 0.1 10^3/uL (0.0-0.3); EOSINOPHILS % (AUTO) 1 % (0-10); HEMATOCRIT 38 % (35-52); HEMOGLOBIN 11.8 G/DL (11.5-16.0); LYMPHOCYTES # (AUTO) 0.5 X 10^3 (1.0-4.0); LYMPHOCYTES % (AUTO) 3 % (12-44); MEAN CORPUSCULAR HEMOGLOBIN 27 PG (25-34); MEAN CORPUSCULAR HGB CONC 31 G/DL (32-36); MEAN CORPUSCULAR VOLUME 87 FL (80-99); MEAN PLATELET VOLUME 9.8 FL (7.4-10.4); MONOCYTES # (AUTO) 0.9 X 10^3 (0.0-1.0); MONOCYTES % (AUTO) 6 % (0-12); NEUTROPHILS % (AUTO) 90 % (42-75); PLATELET COUNT 414 10^3/uL (130-400); RED BLOOD COUNT 4.38 10^6/uL (4.35-5.85); RED CELL DISTRIBUTION WIDTH 13.4 % (10.0-14.5); WHITE BLOOD COUNT 14.5 10^3/uL (4.3-11.0)
[~2018-03-05 13:28] MED LIST changes: +ACET325T49 PO; +CARV6.252 PO; +CHOL10007 PO; +DARB40DI IJ; +DARBEPOETIN 40 MCG/ML (ARANESP) 1 ML VIAL SC SCH; +HYDR200T46 PO; +IRON150C3 PO; +LEVO75TA6 PO; +LORA0.5T PO; +MECL-106 PO; +MULT1TAB69 PO; +NITR0.4T42 SL; +OMEP40CA36 PO; +ONDA4TAB11 PO; +PRED5TAB PO; +SPIR25TA5 PO; +WARF-48 PO; +[UNRECOGNIZED DRUG - CODE] PO
[2018-03-05 14:06] LABS: BASOPHILS # (AUTO) 0.1 10^3/uL (0.0-0.1); BASOPHILS % (AUTO) 1 % (0-10); EOSINOPHILS # (AUTO) 0.2 10^3/uL (0.0-0.3); EOSINOPHILS % (AUTO) 1 % (0-10); HEMATOCRIT 37 % (35-52); HEMOGLOBIN 11.6 G/DL (11.5-16.0); LYMPHOCYTES # (AUTO) 0.6 X 10^3 (1.0-4.0); LYMPHOCYTES % (AUTO) 6 % (12-44); MEAN CORPUSCULAR HEMOGLOBIN 27 PG (25-34); MEAN CORPUSCULAR HGB CONC 32 G/DL (32-36); MEAN CORPUSCULAR VOLUME 86 FL (80-99); MEAN PLATELET VOLUME 9.7 FL (7.4-10.4); MONOCYTES # (AUTO) 0.7 X 10^3 (0.0-1.0); MONOCYTES % (AUTO) 6 % (0-12); NEUTROPHILS % (AUTO) 86 % (42-75); PLATELET COUNT 452 10^3/uL (130-400); RED BLOOD COUNT 4.24 10^6/uL (4.35-5.85); RED CELL DISTRIBUTION WIDTH 13.6 % (10.0-14.5); WHITE BLOOD COUNT 11.5 10^3/uL (4.3-11.0)
== END 2018-03-20 | disposition home or self-care (01) ==
LOC: ONC 13:28
PROVIDERS: ATTEND Internal Medicine Hematology & Oncology
DX: C82.28 Follicular lymphoma grade III, unspecified, lymph nodes of multiple sites (principal); D63.1 Anemia in chronic kidney disease; N18.3 Chronic kidney disease, stage 3 (moderate); D50.9 Iron deficiency anemia, unspecified; I48.91 Unspecified atrial fibrillation; I50.9 Heart failure, unspecified; M17.0 Bilateral primary osteoarthritis of knee; Z85.3 Personal history of malignant neoplasm of breast; Z95.0 Presence of cardiac pacemaker; Z90.11 Acquired absence of right breast and nipple; Z79.899 Other long term (current) drug therapy; Z92.21 Personal history of antineoplastic chemotherapy
CPT/HCPCS: 36415; 36591; 80053; 82728; 83615; 85025; 96372

== ENCOUNTER 2018-06-20 14:13 | Outpatient (RCR) | payer MEDICARE, BC ==
[2018-03-25 14:21] LABS: ABSOLUTE RETIC # 28 10e9/L (24-90); BASOPHILS # (AUTO) 0.1 10^3/uL (0.0-0.1); BASOPHILS % (AUTO) 0 % (0-10); EOSINOPHILS # (AUTO) 0.1 10^3/uL (0.0-0.3); EOSINOPHILS % (AUTO) 1 % (0-10); HEMATOCRIT 37 % (35-52); HEMOGLOBIN 11.3 G/DL (11.5-16.0); LYMPHOCYTES # (AUTO) 0.8 X 10^3 (1.0-4.0); LYMPHOCYTES % (AUTO) 6 % (12-44); MEAN CORPUSCULAR HEMOGLOBIN 27 PG (25-34); MEAN CORPUSCULAR HGB CONC 31 G/DL (32-36); MEAN CORPUSCULAR VOLUME 87 FL (80-99); MEAN PLATELET VOLUME 10.2 FL (7.4-10.4); MONOCYTES % (AUTO) 8 % (0-12); NEUTROPHILS # (AUTO) 11.5 X 10^3 (1.8-7.8); NEUTROPHILS % (AUTO) 86 % (42-75); PLATELET COUNT 448 10^3/uL (130-400); RED CELL DISTRIBUTION WIDTH 13.6 % (10.0-14.5); RETICULOCYTE % 0.67 % (0.50-2.40); WHITE BLOOD COUNT 13.4 10^3/uL (4.3-11.0)
[2018-03-25 14:42] LABS: CARBON DIOXIDE 26 MMOL/L (21-32); CHLORIDE 100 MMOL/L (98-107); POTASSIUM 5.2 MMOL/L (3.6-5.0); SODIUM 137 MMOL/L (135-145)
[2018-03-25 14:43] LABS: ALANINE AMINOTRANSFERASE < 6 U/L (0-55); ALKALINE PHOSPHATASE 89 U/L (40-136); BILIRUBIN,TOTAL 0.6 MG/DL (0.1-1.0); BUN/CREATININE RATIO 13; CALCIUM 9.3 MG/DL (8.5-10.1); CREATININE SERUM 1.31 MG/DL (0.60-1.30); GFR ESTIMATED 39; GLUCOSE 151 MG/DL (70-105); TOTAL PROTEIN 7.2 GM/DL (6.4-8.2)
[2018-04-18 11:01] LABS: BASOPHILS # (AUTO) 0.1 10^3/uL (0.0-0.1); BASOPHILS % (AUTO) 1 % (0-10); EOSINOPHILS # (AUTO) 0.2 10^3/uL (0.0-0.3); EOSINOPHILS % (AUTO) 2 % (0-10); HEMATOCRIT 36 % (35-52); HEMOGLOBIN 10.9 G/DL (11.5-16.0); LYMPHOCYTES # (AUTO) 0.5 X 10^3 (1.0-4.0); LYMPHOCYTES % (AUTO) 4 % (12-44); MEAN CORPUSCULAR HEMOGLOBIN 26 PG (25-34); MEAN CORPUSCULAR HGB CONC 31 G/DL (32-36); MEAN CORPUSCULAR VOLUME 86 FL (80-99); MEAN PLATELET VOLUME 9.8 FL (7.4-10.4); MONOCYTES % (AUTO) 7 % (0-12); NEUTROPHILS # (AUTO) 11.9 X 10^3 (1.8-7.8); NEUTROPHILS % (AUTO) 87 % (42-75); PLATELET COUNT 367 10^3/uL (130-400); RED CELL DISTRIBUTION WIDTH 13.8 % (10.0-14.5); WHITE BLOOD COUNT 13.7 10^3/uL (4.3-11.0)
[2018-05-09 12:09] LABS: BASOPHILS # (AUTO) 0.1 10^3/uL (0.0-0.1); BASOPHILS % (AUTO) 0 % (0-10); EOSINOPHILS # (AUTO) 0.2 10^3/uL (0.0-0.3); EOSINOPHILS % (AUTO) 2 % (0-10); HEMATOCRIT 34 % (35-52); HEMOGLOBIN 10.8 G/DL (11.5-16.0); LYMPHOCYTES # (AUTO) 0.6 X 10^3 (1.0-4.0); LYMPHOCYTES % (AUTO) 5 % (12-44); MEAN CORPUSCULAR HEMOGLOBIN 27 PG (25-34); MEAN CORPUSCULAR HGB CONC 32 G/DL (32-36); MEAN CORPUSCULAR VOLUME 85 FL (80-99); MEAN PLATELET VOLUME 9.7 FL (7.4-10.4); MONOCYTES # (AUTO) 0.8 X 10^3 (0.0-1.0); MONOCYTES % (AUTO) 7 % (0-12); NEUTROPHILS % (AUTO) 86 % (42-75); PLATELET COUNT 424 10^3/uL (130-400); RED CELL DISTRIBUTION WIDTH 14.8 % (10.0-14.5); WHITE BLOOD COUNT 11.7 10^3/uL (4.3-11.0)
[2018-05-30 11:01] LABS: BASOPHILS # (AUTO) 0.1 10^3/uL (0.0-0.1); BASOPHILS % (AUTO) 1 % (0-10); EOSINOPHILS # (AUTO) 0.6 10^3/uL (0.0-0.3); EOSINOPHILS % (AUTO) 5 % (0-10); HEMATOCRIT 32 % (35-52); HEMOGLOBIN 9.9 G/DL (11.5-16.0); LYMPHOCYTES # (AUTO) 1.1 X 10^3 (1.0-4.0); LYMPHOCYTES % (AUTO) 9 % (12-44); MEAN CORPUSCULAR HEMOGLOBIN 27 PG (25-34); MEAN CORPUSCULAR HGB CONC 31 G/DL (32-36); MEAN CORPUSCULAR VOLUME 87 FL (80-99); MEAN PLATELET VOLUME 9.7 FL (7.4-10.4); MONOCYTES # (AUTO) 1.2 X 10^3 (0.0-1.0); MONOCYTES % (AUTO) 10 % (0-12); NEUTROPHILS # (AUTO) 9.3 X 10^3 (1.8-7.8); NEUTROPHILS % (AUTO) 76 % (42-75); PLATELET COUNT 388 10^3/uL (130-400); RED CELL DISTRIBUTION WIDTH 14.6 % (10.0-14.5); WHITE BLOOD COUNT 12.2 10^3/uL (4.3-11.0)
[2018-05-30 11:29] LABS: SMEAR SCAN COMMENT YES
[2018-06-13 10:52] LABS: BASOPHILS # (AUTO) 0.1 10^3/uL (0.0-0.1); BASOPHILS % (AUTO) 1 % (0-10); EOSINOPHILS # (AUTO) 0.3 10^3/uL (0.0-0.3); EOSINOPHILS % (AUTO) 2 % (0-10); HEMATOCRIT 35 % (35-52); HEMOGLOBIN 10.8 G/DL (11.5-16.0); LYMPHOCYTES # (AUTO) 0.4 X 10^3 (1.0-4.0); LYMPHOCYTES % (AUTO) 3 % (12-44); MEAN CORPUSCULAR HEMOGLOBIN 27 PG (25-34); MEAN CORPUSCULAR HGB CONC 31 G/DL (32-36); MEAN CORPUSCULAR VOLUME 87 FL (80-99); MEAN PLATELET VOLUME 9.6 FL (7.4-10.4); MONOCYTES % (AUTO) 8 % (0-12); NEUTROPHILS # (AUTO) 11.4 X 10^3 (1.8-7.8); NEUTROPHILS % (AUTO) 87 % (42-75); PLATELET COUNT 468 10^3/uL (130-400); RED CELL DISTRIBUTION WIDTH 14.3 % (10.0-14.5); WHITE BLOOD COUNT 13.2 10^3/uL (4.3-11.0)
[2018-06-20 15:05] LABS: ABSOLUTE RETIC # 50 10e9/L (24-90); BASOPHILS # (AUTO) 0.1 10^3/uL (0.0-0.1); BASOPHILS % (AUTO) 1 % (0-10); EOSINOPHILS # (AUTO) 0.3 10^3/uL (0.0-0.3); EOSINOPHILS % (AUTO) 2 % (0-10); HEMATOCRIT 33 % (35-52); HEMOGLOBIN 10.2 G/DL (11.5-16.0); LYMPHOCYTES # (AUTO) 0.8 X 10^3 (1.0-4.0); LYMPHOCYTES % (AUTO) 7 % (12-44); MEAN CORPUSCULAR HEMOGLOBIN 27 PG (25-34); MEAN CORPUSCULAR HGB CONC 31 G/DL (32-36); MEAN CORPUSCULAR VOLUME 88 FL (80-99); MEAN PLATELET VOLUME 9.5 FL (7.4-10.4); MONOCYTES % (AUTO) 9 % (0-12); NEUTROPHILS # (AUTO) 9.5 X 10^3 (1.8-7.8); NEUTROPHILS % (AUTO) 82 % (42-75); PLATELET COUNT 458 10^3/uL (130-400); RED CELL DISTRIBUTION WIDTH 14.1 % (10.0-14.5); RETICULOCYTE % 1.35 % (0.50-2.40); WHITE BLOOD COUNT 11.6 10^3/uL (4.3-11.0)
[2018-06-20 15:21] LABS: ALBUMIN 3.7 GM/DL (3.2-4.5); BILIRUBIN,TOTAL 0.3 MG/DL (0.1-1.0); CALCIUM 9.2 MG/DL (8.5-10.1); CREATININE SERUM 1.12 MG/DL (0.60-1.30); POTASSIUM 4.8 MMOL/L (3.6-5.0); TOTAL PROTEIN 6.2 GM/DL (6.4-8.2)
== END 2018-06-23 | disposition home or self-care (01) ==
LOC: ONC 14:13
PROVIDERS: ATTEND Internal Medicine Hematology & Oncology
DX: C82.28 Follicular lymphoma grade III, unspecified, lymph nodes of multiple sites (principal); D63.1 Anemia in chronic kidney disease; N18.3 Chronic kidney disease, stage 3 (moderate); D50.9 Iron deficiency anemia, unspecified; I48.91 Unspecified atrial fibrillation; I50.9 Heart failure, unspecified; M17.0 Bilateral primary osteoarthritis of knee; Z85.3 Personal history of malignant neoplasm of breast; Z95.0 Presence of cardiac pacemaker; Z90.11 Acquired absence of right breast and nipple; Z79.899 Other long term (current) drug therapy; Z92.21 Personal history of antineoplastic chemotherapy
CPT/HCPCS: 36415; 36591; 80053; 82728; 83540; 83615; 85025; 85045; 96372

== ENCOUNTER → 2018-08-17 | Emergency (ER) | payer MEDICARE, BC ==
[~2018-08-17] VITALS: Ht 172.7 cm; Wt 81.6 kg
[~2018-08-17] MED LIST changes: +AMOX-358 PO; +AUGMENTIN 875 MG TAB (AMOXICILLIN/CLAVULANATE) PO ONE; -DARBEPOETIN 40 MCG/ML (ARANESP) 1 ML VIAL SC SCH
[2018-08-17 17:59] LABS: BASOPHILS # (AUTO) 0.1 10^3/uL (0.0-0.1); BASOPHILS % (AUTO) 1 % (0-10); EOSINOPHILS # (AUTO) 0.5 10^3/uL (0.0-0.3); EOSINOPHILS % (AUTO) 6 % (0-10); HEMATOCRIT 28 % (35-52); HEMOGLOBIN 8.6 G/DL (11.5-16.0); LYMPHOCYTES # (AUTO) 0.6 X 10^3 (1.0-4.0); LYMPHOCYTES % (AUTO) 7 % (12-44); MEAN CORPUSCULAR HEMOGLOBIN 27 PG (25-34); MEAN CORPUSCULAR HGB CONC 31 G/DL (32-36); MEAN CORPUSCULAR VOLUME 88 FL (80-99); MEAN PLATELET VOLUME 9.9 FL (7.4-10.4); MONOCYTES # (AUTO) 0.9 X 10^3 (0.0-1.0); MONOCYTES % (AUTO) 10 % (0-12); NEUTROPHILS # (AUTO) 6.8 X 10^3 (1.8-7.8); NEUTROPHILS % (AUTO) 77 % (42-75); PLATELET COUNT 340 10^3/uL (130-400); RED CELL DISTRIBUTION WIDTH 13.2 % (10.0-14.5); WHITE BLOOD COUNT 8.9 10^3/uL (4.3-11.0)
[2018-08-17 18:15] LABS: BAND NEUTROPHILS 0 %; BASOPHILS % (MANUAL) 0 %; EOSINOPHILS % (MANUAL) 3 %; LYMPHOCYTES % (MANUAL) 8 %; MONOCYTES % (MANUAL) 11 %; NEUTROPHILS % (MANUAL) 78 %; RBC MORPH NORMAL
[2018-08-17 18:17] LABS: ALANINE AMINOTRANSFERASE 6 U/L (0-55); ALBUMIN 3.1 GM/DL (3.2-4.5); ALKALINE PHOSPHATASE 69 U/L (40-136); BILIRUBIN,TOTAL 0.2 MG/DL (0.1-1.0); BUN/CREATININE RATIO 22; CALCIUM 7.9 MG/DL (8.5-10.1); CARBON DIOXIDE 22 MMOL/L (21-32); CHLORIDE 107 MMOL/L (98-107); GFR ESTIMATED 53; GLUCOSE 93 MG/DL (70-105); POTASSIUM 4.6 MMOL/L (3.6-5.0); SODIUM 138 MMOL/L (135-145); TOTAL PROTEIN 5.3 GM/DL (6.4-8.2)
[2018-08-17 18:23] LABS: PROTHROMBIN TIME PATIENT 23.4 SEC (12.2-14.7)
[2018-08-17 18:29] LABS: BILIRUBIN,URINE NEGATIVE (NEGATIVE); CLARITY,URINE CLEAR; COLOR,URINE YELLOW; GLUCOSE, URINE (UA) NEGATIVE (NEGATIVE); KETONES,URINE NEGATIVE (NEGATIVE); LEUKOCYTE ESTERASE ,URINE NEGATIVE (NEGATIVE); NITRITE,URINE NEGATIVE (NEGATIVE); PH,URINE 6 (5-9); PROTEIN,URINE NEGATIVE (NEGATIVE); UROBILINOGEN,URINE NORMAL (NORMAL)
[2018-08-17 18:30] VITALS: BP_SYST 126; BP_SYST 132; BP_SYST 156; BP_DIAS 82; BP_DIAS 84; BP_DIAS 88
[2018-08-17 18:36] LABS: BACTERIA,URINE NEGATIVE /HPF; SQUAMOUS EPITHELIAL CELL,UR RARE /HPF; WBC,URINE RARE /HPF
--- NOTE | 2018-08-17 18:57 | NUR ---
report from cory heck.
--- NOTE | 2018-08-17 19:07 | ED General ---
General Chief Complaint: Dizziness/Syncope Stated Complaint: VOMITING,CATALAN Nursing Triage Note: Pt to ED in wheelchair. Pt normally uses walker. Pt c/o vertigo, lightheadedness, nausea, vomiting, headache. Pt reports trying zofran, meclizine, and ativan at home with no relief. Daughter reports two weeks ago pt had tightness in jaw, heaviness in chest, SOB and pain down left arm. Pt did not seek treatment for those symptoms at that time. Pt reports normally wearing 2 L NC at home, but having to bump O2 to 3 L this week. Nursing Sepsis Screen: No Definite Risk Source of Information: Patient Exam Limitations: No Limitations History of Present Illness Date Seen by Provider: Aug 17, 2018 Time Seen by Provider: 17:35 Initial Comments Patient presents to the ER with her daughter and chief complaint of vertiginous dizziness. She's had this episode before. She was told it was probably because of fluid buildup in her middle ear or labyrinthitis. She has been taking Zyrtec and Flonase for the past week trying to get the symptoms to resolve and they have not. She's had no fevers or chills but she is having increased pressure discharge and pain in her maxillary and frontal sinuses and suspect she might have a sinus infection. She says when she gets the vertigo she takes Ativan and meclizine. She took both today and they did not help her vertigo. She was having some nausea take Zofran earlier and it went away. She vomited within 20 minutes of taking the Ativan so she's not sure that she really got any evident. She is almost out nausea medicine. She is on warfarin with a history of non-Hodgkin's lymphoma in remission, paroxysmal atrial fibrillation. Her PT-INR last week on her home machine was 2.3. Also has a history of not being out produce red blood cells so she is followed by Dr. Diaz and he gives her shots to keep her hemoglobin up. She is on prednisone as well as Plaquenil for her rheumatoid arthritis. Allergies and Home Medications Allergies Coded Allergies: verapamil (Verified Allergy, Severe, 12/31/17) levofloxacin (Verified Allergy, Intermediate, 12/31/17) morphine (Unverified Allergy, Mild, 10/01/13) Home Medications Acetaminophen 325 Mg Tablet, 650 MG PO Q4H PRN for PAIN-MILD Prescribed by: TABBY E MACHADO on 01/04/18856 Carvedilol 6.25 Mg Tablet, 6.25 MG PO BID, (Reported) Cholecalciferol (Vitamin D3) 1,000 Unit Capsule, 1,000 UNIT PO DAILY, (Reported) Cyanocobalamin (Vitamin B-12) 3,000 Mcg Capsule, 3,000 MCG PO DAILY, (Reported) Darbepoetin Rafa in Polysorbat 40 Mcg/0.4 Ml Syringe, 40 MCG IJ EVERY 2 WEEKS, (Reported) Hydroxychloroquine Sulfate 200 Mg Tablet, 200 MG PO BID, (Reported) Iron Polysaccharide Complex 150 Mg Capsule, 150 MG PO BID WITH MEALS Prescribed by: TABBY MACHADO on 01/04/18856 Levothyroxine Sodium 75 Mcg Tablet, 75 MCG PO DAILY, (Reported) Meclizine HCl 25 Mg Tablet, 25 MG PO TID PRN for DIZZINESS, (Reported) Multivitamin 1 Each Tablet, 1 TAB PO DAILY, (Reported) Nitroglycerin 0.4 Mg Tab.subl, 0.4 MG SL UD PRN for CHEST PAIN, (Reported) Omeprazole 40 Mg Capsule.dr, 40 MG PO DAILY, (Reported) Prednisone 5 Mg Tablet, 5 MG PO DAILY, (Reported) Spironolactone 25 Mg Tablet, 25 MG PO HS, (Reported) Warfarin Sodium 5 Mg Tablet, 5 MG PO 1800, (Reported) Patient Home Medication List Home Medication List Reviewed: Yes Review of Systems Review of Systems Constitutional: see HPI; No chills, No diaphoresis; dizziness; No fever EENTM: see HPI, nose congestion, nose pain; No ear discharge, No ear pain Respiratory: No cough, No short of breath Cardiovascular: No chest pain, No edema Gastrointestinal: No abdominal pain, No constipation, No diarrhea, No nausea, No vomiting Genitourinary: No discharge, No dysuria Past Ivpmnou-Fqjmqh-Cvoecg Hx Patient Social History Alcohol Use: Denies Use Recreational Drug Use: No Smoking Status: Never a Smoker Recent Foreign Travel: No Contact w/Someone Who Travel: No Recent Infectious Disease Expo: No Recent Hopitalizations: Yes Immunizations Up To Date Date of Pneumonia Vaccine: Dec 31, 2014 Date of Influenza Vaccine: Dec 27, 2017 Seasonal Allergies Seasonal Allergies: No Past Medical History Surgeries: Yes (mastectomy, knees, hip) Hysterectomy, Orthopedic, Thyroidectomy, Tonsillectomy Respiratory: Yes COPD Currently Using CPAP: No Currently Using BIPAP: No Cardiac: Yes (HAS PACEMAKER, "stiff heart") Hypertension Neurological: No Reproductive Disorders: No 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 Genitourinary: Yes UTI-Chronic Gastrointestinal: No Musculoskeletal: Yes Arthritis, Rheumatoid Arthritis Endocrine: Yes (thyroidectomy) HEENT: Yes Cataract, Macular Degeneration Loss of Vision: Denies Hearing Impairment: Hard of Hearing Cancer: Yes Breast, Lymphoma Did You Recieve Any Treatments: Yes What Type of Treatment Did You: Chemotherapy Psychosocial: No Anxiety Integumentary: No Blood Disorders: No Family Medical History Diabetes mellitus 19 MOTHER Neoplasm 19 FATHER G8 BROTHER G8 SISTER Cancer, Diabetes, Hypertension Physical Exam Vital Signs Vital Signs - First Documented 08/17/18 16:35 Temp 97.2 Pulse 60 Resp 15 B/P (MAP) 122/66 (84) Pulse Ox 96 O2 Delivery Nasal Cannula O2 Flow Rate 2.00 Capillary Refill : Less Than 3 Seconds Height, Weight, BMI Height: 5'8.00" Weight: 180lbs. 3.2oz. [id number]; 26.8 BMI Method:Stated General Appearance: No Apparent Distress, WD/WN Eyes: Bilateral Eye Normal Inspection, Bilateral Eye PERRL, Bilateral Eye EOMI HEENT: PERRL/EOMI, Pharynx Normal, Moist Mucous Membranes, TM Abnormal (L), TM Abnormal (R) (bilateral otitis media with effusion but no erythema or bulging or loss of landmarks on the tympanic membrane.) Neck: Full Range of Motion, Normal Inspection, Non Tender, Supple Respiratory: Chest Non Tender, Lungs Clear, Normal Breath Sounds, No Accessory Muscle Use, No Respiratory Distress Cardiovascular: Regular Rate, Rhythm, Normal Peripheral Pulses Gastrointestinal: Normal Bowel Sounds, Non Tender, Soft Extremity: Normal Inspection, Normal Range of Motion, Non Tender Neurologic/Psychiatric: Alert, Oriented x3, No Motor/Sensory Deficits Skin: Normal Color, Warm/Dry Progress/Results/Core Measures Suspected Sepsis Recent Fever Within 48 Hours: No Infection Criteria Present: None New/Unexplained Altered Menta: No Sepsis Screen: No Definite Risk SIRS Temperature:97.2 Pulse: 64 Respiratory Rate: 15 Laboratory Tests 08/17/18 17:45: White Blood Count 8.9 Blood Pressure 126 /88 Mean: 101 Laboratory Tests 08/17/18 17:40: INR Comment 2.0H 08/17/18 17:45: Creatinine 1.00, Platelet Count 340, Total Bilirubin 0.2 Results/Orders Lab Results Laboratory Tests Test 08/17/18 17:40 08/17/18 17:45 08/17/18 18:19 Range/Units Prothrombin Time 23.4 H 12.2-14.7 SEC INR Comment 2.0 H 0.8-1.4 Activated Partial Thromboplast Time 41 H 24-35 SEC White Blood Count 8.9 4.3-11.0 10^3/uL Red Blood Count 3.14 L 4.35-5.85 10^6/uL Hemoglobin 8.6 L 11.5-16.0 G/DL Hematocrit 28 L 35-52 % Mean Corpuscular Volume 88 80-99 FL Mean Corpuscular Hemoglobin 27 25-34 PG Mean Corpuscular Hemoglobin Concent 31 L 32-36 G/DL Red Cell Distribution Width 13.2 10.0-14.5 % Platelet Count 340 130-400 10^3/uL Mean Platelet Volume 9.9 7.4-10.4 FL Neutrophils (%) (Auto) 77 H 42-75 % Lymphocytes (%) (Auto) 7 L 12-44 % Monocytes (%) (Auto) 10 0-12 % Eosinophils (%) (Auto) 6 0-10 % Basophils (%) (Auto) 1 0-10 % Neutrophils # (Auto) 6.8 1.8-7.8 X 10^3 Lymphocytes # (Auto) 0.6 L 1.0-4.0 X 10^3 Monocytes # (Auto) 0.9 0.0-1.0 X 10^3 Eosinophils # (Auto) 0.5 H 0.0-0.3 10^3/uL Basophils # (Auto) 0.1 0.0-0.1 10^3/uL Neutrophils % (Manual) 78 % Lymphocytes % (Manual) 8 % Monocytes % (Manual) 11 % Eosinophils % (Manual) 3 % Basophils % (Manual) 0 % Band Neutrophils 0 % Blood Morphology Comment NORMAL Sodium Level 138 135-145 MMOL/L Potassium Level 4.6 3.6-5.0 MMOL/L Chloride Level 107 98-107 MMOL/L Carbon Dioxide Level 22 21-32 MMOL/L Anion Gap 9 5-14 MMOL/L Blood Urea Nitrogen 22 H 7-18 MG/DL Creatinine 1.00 0.60-1.30 MG/DL Estimat Glomerular Filtration Rate 53 BUN/Creatinine Ratio 22 Glucose Level 93 70-105 MG/DL Calcium Level 7.9 L 8.5-10.1 MG/DL Corrected Calcium 8.6 8.5-10.1 MG/DL Total Bilirubin 0.2 0.1-1.0 MG/DL Aspartate Amino Transf (AST/SGOT) 9 5-34 U/L Alanine Aminotransferase (ALT/SGPT) 6 0-55 U/L Alkaline Phosphatase 69 40-136 U/L Troponin I < 0.028 <0.028 NG/ML C-Reactive Protein High Sensitivity 3.54 H 0.00-0.50 MG/DL Total Protein 5.3 L 6.4-8.2 GM/DL Albumin 3.1 L 3.2-4.5 GM/DL Urine Color YELLOW Urine Clarity CLEAR Urine pH 6 5-9 Urine Specific [place] 1.015 L 1.016-1.022 Urine Protein NEGATIVE NEGATIVE Urine Glucose (UA) NEGATIVE NEGATIVE Urine Ketones NEGATIVE NEGATIVE Urine Nitrite NEGATIVE NEGATIVE Urine Bilirubin NEGATIVE NEGATIVE Urine Urobilinogen NORMAL NORMAL MG/DL Urine Leukocyte Esterase NEGATIVE NEGATIVE Urine RBC (Auto) NEGATIVE NEGATIVE Urine RBC NONE /HPF Urine WBC RARE /HPF Urine Squamous Epithelial Cells RARE /HPF Urine Crystals NONE /LPF Urine Bacteria NEGATIVE /HPF Urine Casts NONE /LPF Urine Mucus NEGATIVE /LPF Urine Culture Indicated NO My Orders Orders - KEITH PARKS Cbc With Automated Diff (08/17/18 17:43) Comprehensive Metabolic Panel (08/17/18 17:43) Hs C Reactive Protein (08/17/18 17:43) Troponin I (08/17/18 17:43) Ua Culture If Indicated (08/17/18 17:43) Ekg Tracing (08/17/18 17:43) Continuous Ekg Monitoring (08/17/18 17:43) Orthostatic Vital Signs (Adult (08/17/18 17:43) Manual Differential (08/17/18 17:45) Protime With Inr (08/17/18 18:10) Partial Thromboplastin Time (08/17/18 18:10) Amoxicillin/Clavulanate Tablet (Augmenti (08/17/18 18:15) Medications Given in ED Current Medications Medications Dose Ordered Sig/[place] Route Start Time Stop Time Status Last Admin Dose Admin Amoxicillin/ Clavulanate Potassium 875 mg ONCE ONCE PO 08/17/18 18:15 08/17/18 18:16 DC 08/17/18 18:30 875 MG Vital Signs/I&O 08/17/18 08/17/18 16:35 18:30 Temp 97.2 Pulse 60 60 68 64 Resp 15 B/P (MAP) 122/66 (84) 132/84 (100) 156/82 (106) 126/88 (101) Pulse Ox 96 O2 Delivery Nasal Cannula O2 Flow Rate 2.00 Capillary Refill : Less Than 3 Seconds Blood Pressure Mean: 101 Progress Note : Time: 19:07 Progress Note Head impulse, nystagmus negative and test of skew were negative. No evidence of a central source of her long-standing vertigo. She does have clear effusions bilateral temp tympanic membrane's and she is Junior on Zyrtec and Flonase. She also has tenderness in her frontal and maxillary sinuses to direct palpation as well as discharge from the nose consistent with sinusitis. We'll put her on an antibiotic. For her headache that she was gets with her vertigo we have offered her opiates that she has declined. She's already taken Tylenol. With her warfarin usage she should probably avoid NSAIDs. She is willing to continue just use Tylenol until antibiotics start helping. We will also encourage her to every hour to put a possible nasal saline up each nostril. ECG Initial ECG Impression Date: Aug 17, 2018 Initial ECG Impression Time: 17:54 Initial ECG Rate: 60 Initial ECG Rhythm: Normal Sinus Initial ECG Intervals: Normal Initial ECG Impression: Normal Comment Negative for ST elevation or depression. Departure Impression Primary Impression: Vertigo Additional Impressions: Maxillary sinusitis, acute Qualified Codes: J01.01 - Acute recurrent maxillary sinusitis Bilateral otitis media with effusion Disposition: HOME, SELF-CARE Condition: Stable Departure-Patient Inst. Decision time for Depature: 19:11 Referrals: NO,LOCAL PHYSICIAN (PCP/Family) Primary Care Physician Patient Instructions: Sinusitis, Adult (DC) Add. Discharge Instructions: Drink lots of fluids. Use nasal saline 1-2 puffs each nostril every hour until you start to feel relief. Continue the Flonase and Zyrtec. Continue the meclizine and Ativan as necessary for your vertigo. Use the Zofran 1-2 tablets every 6 hours as needed to control your nausea. drawer upfitter the Augmentin tomorrow and start it in the morning and one tablet twice a day for 10 days. Tylenol 1000 mg every 8 hours as necessary for pain. All discharge instructions reviewed with patient and/or family. Voiced understanding. Scripts Ondansetron (Ondansetron Odt) 4 Mg Tab.rapdis 4-8 MG PO Q6H PRN for NAUSEA/VOMITING-1ST LINE, #30 TAB 0 Refills Prov: KEITH PARKS 08/17/18 Amoxicillin/Potassium Clav (Augmentin 875-125 Tablet) 1 Each Tablet 1 EACH PO BID for 10 Days, #19 TAB 0 Refills Prov: KEITH PARKS 08/17/18 KEITH PARKS Aug 17, 2018 19:07
--- NOTE | 2018-08-17 19:40 | NUR ---
pt alert gcs 15. pt here with daughter per daughter. pt denies pain and dyspnea and no acute sighns of dyspnea noted. pt still c/o dizziness but denies nausea and no v/d noted in er visit. pt is up for d/c and pt agreed. i d/cd the port iv access w/o problems. pt on o2 here in er 2/n/c which pt says she is on 09/10.
[2018-08-17 19:43] VITALS: BP 112/93
[2018-08-17 19:53] VITALS: BP 112/93
--- NOTE | 2018-08-17 19:53 | NUR ---
d/c instructions to pt amd family. told to read all papers. scripts faxed. pt left in w/c with family . i helped pt to car. pt and family knows f/u. i went over the handtyped by information on the chart. iv d/cd by me prior to d/c.
--- OUTSIDE RECORDS SUMMARY | 2018-08-17 21:11 | XMS REPORT ---
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 133972425 Problem Rheumatoid arthritis without rheumatoid factor, right hand M06.041 Active 443999036 Problem Paroxysmal atrial fibrillation I48.0 Active [id number] ALLERGIES No Information ENCOUNTERS Encounter Location Date Diagnosis [address] [address] May, Rheumatoid arthritis without rheumatoid factor, left hand M06.042 and Rheumatoid arthritis without rheumatoid factor, right hand M06.[address] [address] May, Paroxysmal atrial fibrillation I48.[address] [address] Apr, Paroxysmal atrial fibrillation I48.[address] [address] Apr, Paroxysmal atrial fibrillation I48.[address] [address] Mar, [facility] [address] [facility] [id number] [place] [address] Mar, IMMUNIZATIONS No Known Immunizations SOCIAL HISTORY Never Assessed REASON FOR VISIT PLAN OF CARE VITAL SIGNS MEDICATIONS Medication Instructions Dosage Frequency Start Date End Date Duration Status Warfarin Sodium 5 MG Orally Once a day 1 tablet 24h Apr, 30 days Active RESULTS No Results PROCEDURES No Known procedures INSTRUCTIONS MEDICATIONS ADMINISTERED No Known Medications
== END | disposition home or self-care (01) ==
LOC: EDUNIT# 16:32 → ER 16:33
DX: J01.00 Acute maxillary sinusitis, unspecified (principal); R42 Dizziness and giddiness; H65.93 Unspecified nonsuppurative otitis media, bilateral; I48.0 Paroxysmal atrial fibrillation; J44.9 Chronic obstructive pulmonary disease, unspecified; I10 Essential (primary) hypertension; F41.9 Anxiety disorder, unspecified; M06.9 Rheumatoid arthritis, unspecified; Z79.01 Long term (current) use of anticoagulants; Z85.72 Personal history of non-Hodgkin lymphomas; Z79.52 Long term (current) use of systemic steroids; Z90.89 Acquired absence of other organs; Z85.3 Personal history of malignant neoplasm of breast; Z82.49 Family history of ischemic heart disease and other diseases of the circulatory system; Z92.21 Personal history of antineoplastic chemotherapy; Z95.0 Presence of cardiac pacemaker; Z87.440 Personal history of urinary (tract) infections; Z90.710 Acquired absence of both cervix and uterus
CPT/HCPCS: 36415; 80053; 81000; 84484; 85007; 85027; 85610; 85730; 86141; 93005

== ENCOUNTER 2018-09-05 13:35 | Outpatient (RCR) | payer MEDICARE, BC ==
[2018-06-26 14:39] LABS: BASOPHILS # (AUTO) 0.1 10^3/uL (0.0-0.1); BASOPHILS % (AUTO) 1 % (0-10); EOSINOPHILS # (AUTO) 0.3 10^3/uL (0.0-0.3); EOSINOPHILS % (AUTO) 2 % (0-10); HEMATOCRIT 34 % (35-52); HEMOGLOBIN 10.3 G/DL (11.5-16.0); LYMPHOCYTES # (AUTO) 0.7 X 10^3 (1.0-4.0); LYMPHOCYTES % (AUTO) 6 % (12-44); MEAN CORPUSCULAR HEMOGLOBIN 27 PG (25-34); MEAN CORPUSCULAR HGB CONC 31 G/DL (32-36); MEAN CORPUSCULAR VOLUME 88 FL (80-99); MEAN PLATELET VOLUME 9.6 FL (7.4-10.4); MONOCYTES # (AUTO) 0.7 X 10^3 (0.0-1.0); MONOCYTES % (AUTO) 6 % (0-12); NEUTROPHILS # (AUTO) 10.6 X 10^3 (1.8-7.8); NEUTROPHILS % (AUTO) 86 % (42-75); PLATELET COUNT 409 10^3/uL (130-400); WHITE BLOOD COUNT 12.4 10^3/uL (4.3-11.0)
[2018-07-11 11:17] LABS: BASOPHILS # (AUTO) 0.1 10^3/uL (0.0-0.1); BASOPHILS % (AUTO) 0 % (0-10); EOSINOPHILS # (AUTO) 0.3 10^3/uL (0.0-0.3); EOSINOPHILS % (AUTO) 3 % (0-10); HEMATOCRIT 38 % (35-52); HEMOGLOBIN 11.6 G/DL (11.5-16.0); LYMPHOCYTES # (AUTO) 0.7 X 10^3 (1.0-4.0); LYMPHOCYTES % (AUTO) 6 % (12-44); MEAN CORPUSCULAR HEMOGLOBIN 27 PG (25-34); MEAN CORPUSCULAR HGB CONC 31 G/DL (32-36); MEAN CORPUSCULAR VOLUME 88 FL (80-99); MEAN PLATELET VOLUME 9.7 FL (7.4-10.4); MONOCYTES # (AUTO) 0.5 X 10^3 (0.0-1.0); MONOCYTES % (AUTO) 4 % (0-12); NEUTROPHILS # (AUTO) 9.8 X 10^3 (1.8-7.8); NEUTROPHILS % (AUTO) 87 % (42-75); PLATELET COUNT 456 10^3/uL (130-400); RED CELL DISTRIBUTION WIDTH 13.7 % (10.0-14.5); WHITE BLOOD COUNT 11.3 10^3/uL (4.3-11.0)
[2018-07-24 13:10] LABS: BASOPHILS # (AUTO) 0.1 10^3/uL (0.0-0.1); BASOPHILS % (AUTO) 0 % (0-10); EOSINOPHILS # (AUTO) 0.3 10^3/uL (0.0-0.3); EOSINOPHILS % (AUTO) 2 % (0-10); HEMATOCRIT 36 % (35-52); HEMOGLOBIN 11.1 G/DL (11.5-16.0); LYMPHOCYTES # (AUTO) 0.5 X 10^3 (1.0-4.0); LYMPHOCYTES % (AUTO) 4 % (12-44); MEAN CORPUSCULAR HEMOGLOBIN 27 PG (25-34); MEAN CORPUSCULAR HGB CONC 31 G/DL (32-36); MEAN CORPUSCULAR VOLUME 87 FL (80-99); MEAN PLATELET VOLUME 9.9 FL (7.4-10.4); MONOCYTES # (AUTO) 0.9 X 10^3 (0.0-1.0); MONOCYTES % (AUTO) 7 % (0-12); NEUTROPHILS # (AUTO) 12.6 X 10^3 (1.8-7.8); NEUTROPHILS % (AUTO) 88 % (42-75); PLATELET COUNT 370 10^3/uL (130-400); RED CELL DISTRIBUTION WIDTH 13.5 % (10.0-14.5); WHITE BLOOD COUNT 14.4 10^3/uL (4.3-11.0)
[2018-08-08 12:44] LABS: BASOPHILS # (AUTO) 0.1 10^3/uL (0.0-0.1); BASOPHILS % (AUTO) 1 % (0-10); EOSINOPHILS # (AUTO) 0.4 10^3/uL (0.0-0.3); EOSINOPHILS % (AUTO) 3 % (0-10); HEMATOCRIT 36 % (35-52); HEMOGLOBIN 11.1 G/DL (11.5-16.0); LYMPHOCYTES # (AUTO) 0.6 X 10^3 (1.0-4.0); LYMPHOCYTES % (AUTO) 5 % (12-44); MEAN CORPUSCULAR HEMOGLOBIN 27 PG (25-34); MEAN CORPUSCULAR HGB CONC 31 G/DL (32-36); MEAN CORPUSCULAR VOLUME 86 FL (80-99); MEAN PLATELET VOLUME 9.8 FL (7.4-10.4); MONOCYTES # (AUTO) 0.6 X 10^3 (0.0-1.0); MONOCYTES % (AUTO) 5 % (0-12); NEUTROPHILS # (AUTO) 10.1 X 10^3 (1.8-7.8); NEUTROPHILS % (AUTO) 86 % (42-75); PLATELET COUNT 403 10^3/uL (130-400); RED CELL DISTRIBUTION WIDTH 13.7 % (10.0-14.5); WHITE BLOOD COUNT 11.8 10^3/uL (4.3-11.0)
[2018-08-19 15:38] LABS: BASOPHILS # (AUTO) 0.1 10^3/uL (0.0-0.1); BASOPHILS % (AUTO) 1 % (0-10); EOSINOPHILS # (AUTO) 0.2 10^3/uL (0.0-0.3); EOSINOPHILS % (AUTO) 2 % (0-10); HEMATOCRIT 34 % (35-52); HEMOGLOBIN 10.5 G/DL (11.5-16.0); LYMPHOCYTES # (AUTO) 0.7 X 10^3 (1.0-4.0); LYMPHOCYTES % (AUTO) 7 % (12-44); MEAN CORPUSCULAR HEMOGLOBIN 27 PG (25-34); MEAN CORPUSCULAR HGB CONC 31 G/DL (32-36); MEAN CORPUSCULAR VOLUME 86 FL (80-99); MEAN PLATELET VOLUME 9.9 FL (7.4-10.4); MONOCYTES # (AUTO) 0.6 X 10^3 (0.0-1.0); MONOCYTES % (AUTO) 7 % (0-12); NEUTROPHILS # (AUTO) 7.8 X 10^3 (1.8-7.8); NEUTROPHILS % (AUTO) 83 % (42-75); PLATELET COUNT 350 10^3/uL (130-400); RED CELL DISTRIBUTION WIDTH 13.1 % (10.0-14.5); WHITE BLOOD COUNT 9.4 10^3/uL (4.3-11.0)
[2018-08-19 15:45] LABS: SMEAR SCAN COMMENT YES
[~2018-09-05 13:35] MED LIST changes: -AUGMENTIN 875 MG TAB (AMOXICILLIN/CLAVULANATE) PO ONE; +DARBEPOETIN 10 MCG/0.4 ML ARANESP IJ SCH; +DARBEPOETIN 40 MCG/ML (ARANESP) 1 ML VIAL SC SCH
[2018-09-05 14:04] LABS: ABSOLUTE RETIC # 34 10e9/L (24-90); BASOPHILS # (AUTO) 0.1 10^3/uL (0.0-0.1); BASOPHILS % (AUTO) 1 % (0-10); EOSINOPHILS # (AUTO) 0.4 10^3/uL (0.0-0.3); EOSINOPHILS % (AUTO) 4 % (0-10); HEMATOCRIT 35 % (35-52); HEMOGLOBIN 11.1 G/DL (11.5-16.0); LYMPHOCYTES # (AUTO) 0.7 X 10^3 (1.0-4.0); LYMPHOCYTES % (AUTO) 6 % (12-44); MEAN CORPUSCULAR HEMOGLOBIN 27 PG (25-34); MEAN CORPUSCULAR HGB CONC 31 G/DL (32-36); MEAN CORPUSCULAR VOLUME 86 FL (80-99); MEAN PLATELET VOLUME 9.9 FL (7.4-10.4); MONOCYTES # (AUTO) 0.7 X 10^3 (0.0-1.0); MONOCYTES % (AUTO) 6 % (0-12); NEUTROPHILS % (AUTO) 84 % (42-75); PLATELET COUNT 447 10^3/uL (130-400); RED CELL DISTRIBUTION WIDTH 13.4 % (10.0-14.5); RETICULOCYTE % 0.82 % (0.50-2.40); WHITE BLOOD COUNT 11.9 10^3/uL (4.3-11.0)
[2018-09-05 14:31] LABS: ALANINE AMINOTRANSFERASE < 6 U/L (0-55); ALBUMIN 3.8 GM/DL (3.2-4.5); ALKALINE PHOSPHATASE 93 U/L (40-136); BILIRUBIN,TOTAL 0.4 MG/DL (0.1-1.0); BUN/CREATININE RATIO 15; CALCIUM 9.1 MG/DL (8.5-10.1); CARBON DIOXIDE 23 MMOL/L (21-32); CHLORIDE 101 MMOL/L (98-107); CREATININE SERUM 1.35 MG/DL (0.60-1.30); GFR ESTIMATED 38; GLUCOSE 139 MG/DL (70-105); POTASSIUM 5.3 MMOL/L (3.6-5.0); SODIUM 133 MMOL/L (135-145); TOTAL PROTEIN 6.5 GM/DL (6.4-8.2)
== END 2018-09-24 | disposition home or self-care (01) ==
LOC: ONC 13:35
PROVIDERS: ATTEND Internal Medicine Hematology & Oncology
DX: C82.28 Follicular lymphoma grade III, unspecified, lymph nodes of multiple sites (principal); D63.1 Anemia in chronic kidney disease; N18.3 Chronic kidney disease, stage 3 (moderate); D50.9 Iron deficiency anemia, unspecified; I48.91 Unspecified atrial fibrillation; I50.9 Heart failure, unspecified; M17.0 Bilateral primary osteoarthritis of knee; Z85.3 Personal history of malignant neoplasm of breast; Z95.0 Presence of cardiac pacemaker; Z90.11 Acquired absence of right breast and nipple; Z79.899 Other long term (current) drug therapy; Z92.21 Personal history of antineoplastic chemotherapy
CPT/HCPCS: 36415; 36591; 80053; 82728; 83615; 85025; 85045; 96372

== ENCOUNTER 2018-12-19 10:45 | Outpatient (RCR) | payer MEDICARE, BC ==
[2018-09-26 10:18] LABS: BASOPHILS # (AUTO) 0.1 10^3/uL (0.0-0.1); BASOPHILS % (AUTO) 1 % (0-10); EOSINOPHILS # (AUTO) 0.3 10^3/uL (0.0-0.3); EOSINOPHILS % (AUTO) 3 % (0-10); HEMATOCRIT 33 % (35-52); HEMOGLOBIN 10.3 G/DL (11.5-16.0); LYMPHOCYTES # (AUTO) 0.6 X 10^3 (1.0-4.0); LYMPHOCYTES % (AUTO) 6 % (12-44); MEAN CORPUSCULAR HEMOGLOBIN 27 PG (25-34); MEAN CORPUSCULAR HGB CONC 31 G/DL (32-36); MEAN CORPUSCULAR VOLUME 87 FL (80-99); MEAN PLATELET VOLUME 9.9 FL (7.4-10.4); MONOCYTES % (AUTO) 10 % (0-12); NEUTROPHILS # (AUTO) 8.4 X 10^3 (1.8-7.8); NEUTROPHILS % (AUTO) 81 % (42-75); PLATELET COUNT 347 10^3/uL (130-400); RED CELL DISTRIBUTION WIDTH 13.8 % (10.0-14.5); WHITE BLOOD COUNT 10.4 10^3/uL (4.3-11.0)
[2018-10-18 12:47] LABS: BASOPHILS # (AUTO) 0.1 10^3/uL (0.0-0.1); BASOPHILS % (AUTO) 1 % (0-10); EOSINOPHILS # (AUTO) 0.2 10^3/uL (0.0-0.3); EOSINOPHILS % (AUTO) 2 % (0-10); HEMATOCRIT 34 % (35-52); HEMOGLOBIN 10.6 G/DL (11.5-16.0); LYMPHOCYTES # (AUTO) 0.6 X 10^3 (1.0-4.0); LYMPHOCYTES % (AUTO) 5 % (12-44); MEAN CORPUSCULAR HEMOGLOBIN 27 PG (25-34); MEAN CORPUSCULAR HGB CONC 31 G/DL (32-36); MEAN CORPUSCULAR VOLUME 88 FL (80-99); MEAN PLATELET VOLUME 10.2 FL (7.4-10.4); MONOCYTES # (AUTO) 0.6 X 10^3 (0.0-1.0); MONOCYTES % (AUTO) 5 % (0-12); NEUTROPHILS # (AUTO) 10.7 X 10^3 (1.8-7.8); NEUTROPHILS % (AUTO) 88 % (42-75); PLATELET COUNT 357 10^3/uL (130-400); RED CELL DISTRIBUTION WIDTH 13.9 % (10.0-14.5); WHITE BLOOD COUNT 12.2 10^3/uL (4.3-11.0)
[2018-11-07 13:23] LABS: ABSOLUTE RETIC # 27 10e9/L (24-90); BASOPHILS # (AUTO) 0.1 10^3/uL (0.0-0.1); BASOPHILS % (AUTO) 1 % (0-10); EOSINOPHILS # (AUTO) 0.2 10^3/uL (0.0-0.3); EOSINOPHILS % (AUTO) 1 % (0-10); HEMATOCRIT 36 % (35-52); HEMOGLOBIN 11.2 G/DL (11.5-16.0); LYMPHOCYTES # (AUTO) 0.5 X 10^3 (1.0-4.0); LYMPHOCYTES % (AUTO) 4 % (12-44); MEAN CORPUSCULAR HEMOGLOBIN 27 PG (25-34); MEAN CORPUSCULAR HGB CONC 31 G/DL (32-36); MEAN CORPUSCULAR VOLUME 87 FL (80-99); MEAN PLATELET VOLUME 10.2 FL (7.4-10.4); MONOCYTES # (AUTO) 0.9 X 10^3 (0.0-1.0); MONOCYTES % (AUTO) 7 % (0-12); NEUTROPHILS # (AUTO) 11.1 X 10^3 (1.8-7.8); NEUTROPHILS % (AUTO) 87 % (42-75); PLATELET COUNT 429 10^3/uL (130-400); RED CELL DISTRIBUTION WIDTH 13.8 % (10.0-14.5); RETICULOCYTE % 0.65 % (0.50-2.40); WHITE BLOOD COUNT 12.7 10^3/uL (4.3-11.0)
[2018-11-07 13:40] LABS: BILIRUBIN,TOTAL 0.5 MG/DL (0.1-1.0); CALCIUM 9.3 MG/DL (8.5-10.1); CREATININE SERUM 1.52 MG/DL (0.60-1.30); POTASSIUM 5.7 MMOL/L (3.6-5.0); TOTAL PROTEIN 6.8 GM/DL (6.4-8.2)
[2018-11-28 10:28] LABS: BASOPHILS % (AUTO) 0 % (0-10); EOSINOPHILS # (AUTO) 0.1 10^3/uL (0.0-0.3); EOSINOPHILS % (AUTO) 1 % (0-10); HEMATOCRIT 33 % (35-52); HEMOGLOBIN 10.1 G/DL (11.5-16.0); LYMPHOCYTES # (AUTO) 0.5 X 10^3 (1.0-4.0); LYMPHOCYTES % (AUTO) 4 % (12-44); MEAN CORPUSCULAR HEMOGLOBIN 27 PG (25-34); MEAN CORPUSCULAR HGB CONC 31 G/DL (32-36); MEAN CORPUSCULAR VOLUME 88 FL (80-99); MEAN PLATELET VOLUME 9.8 FL (7.4-10.4); MONOCYTES # (AUTO) 1.2 X 10^3 (0.0-1.0); MONOCYTES % (AUTO) 9 % (0-12); NEUTROPHILS # (AUTO) 10.5 X 10^3 (1.8-7.8); NEUTROPHILS % (AUTO) 85 % (42-75); PLATELET COUNT 361 10^3/uL (130-400); RED CELL DISTRIBUTION WIDTH 14.3 % (10.0-14.5); WHITE BLOOD COUNT 12.3 10^3/uL (4.3-11.0)
[~2018-12-19 10:45] MED LIST changes: +DARBEPOETIN 25 MCG/ML (CANCER CTR) 1 ML VIAL SC SCH; -DARBEPOETIN 40 MCG/ML (ARANESP) 1 ML VIAL SC SCH
[2018-12-19 11:14] LABS: BASOPHILS # (AUTO) 0.1 10^3/uL (0.0-0.1); BASOPHILS % (AUTO) 1 % (0-10); EOSINOPHILS # (AUTO) 0.3 10^3/uL (0.0-0.3); EOSINOPHILS % (AUTO) 2 % (0-10); HEMATOCRIT 35 % (35-52); HEMOGLOBIN 10.7 G/DL (11.5-16.0); LYMPHOCYTES # (AUTO) 0.5 X 10^3 (1.0-4.0); LYMPHOCYTES % (AUTO) 4 % (12-44); MEAN CORPUSCULAR HEMOGLOBIN 28 PG (25-34); MEAN CORPUSCULAR HGB CONC 31 G/DL (32-36); MEAN CORPUSCULAR VOLUME 90 FL (80-99); MEAN PLATELET VOLUME 10.1 FL (7.4-10.4); MONOCYTES # (AUTO) 0.8 X 10^3 (0.0-1.0); MONOCYTES % (AUTO) 6 % (0-12); NEUTROPHILS # (AUTO) 11.6 X 10^3 (1.8-7.8); NEUTROPHILS % (AUTO) 88 % (42-75); PLATELET COUNT 374 10^3/uL (130-400); RED CELL DISTRIBUTION WIDTH 14.2 % (10.0-14.5); WHITE BLOOD COUNT 13.3 10^3/uL (4.3-11.0)
== END 2018-12-25 | disposition home or self-care (01) ==
LOC: ONC 10:45
PROVIDERS: ATTEND Internal Medicine Hematology & Oncology
DX: C82.28 Follicular lymphoma grade III, unspecified, lymph nodes of multiple sites (principal); D63.1 Anemia in chronic kidney disease; N18.3 Chronic kidney disease, stage 3 (moderate); D50.9 Iron deficiency anemia, unspecified; I48.91 Unspecified atrial fibrillation; I50.9 Heart failure, unspecified; M17.0 Bilateral primary osteoarthritis of knee; Z85.3 Personal history of malignant neoplasm of breast; Z95.0 Presence of cardiac pacemaker; Z90.11 Acquired absence of right breast and nipple; Z79.899 Other long term (current) drug therapy; Z92.21 Personal history of antineoplastic chemotherapy
CPT/HCPCS: 36415; 36591; 80053; 82728; 83615; 85025; 85045; 96372; 99213

== ENCOUNTER 2019-04-03 12:19 | Outpatient (RCR) | payer MEDICARE, BC ==
[2019-01-09 13:55] LABS: BASOPHILS % (AUTO) 0 % (0-10); EOSINOPHILS # (AUTO) 0.2 10^3/uL (0.0-0.3); EOSINOPHILS % (AUTO) 2 % (0-10); HEMATOCRIT 35 % (35-52); HEMOGLOBIN 10.7 G/DL (11.5-16.0); LYMPHOCYTES # (AUTO) 0.8 X 10^3 (1.0-4.0); LYMPHOCYTES % (AUTO) 6 % (12-44); MEAN CORPUSCULAR HEMOGLOBIN 27 PG (25-34); MEAN CORPUSCULAR HGB CONC 31 G/DL (32-36); MEAN CORPUSCULAR VOLUME 89 FL (80-99); MONOCYTES # (AUTO) 1.2 X 10^3 (0.0-1.0); MONOCYTES % (AUTO) 9 % (0-12); NEUTROPHILS # (AUTO) 11.1 X 10^3 (1.8-7.8); NEUTROPHILS % (AUTO) 83 % (42-75); PLATELET COUNT 357 10^3/uL (130-400); RED CELL DISTRIBUTION WIDTH 14.3 % (10.0-14.5); WHITE BLOOD COUNT 13.3 10^3/uL (4.3-11.0)
[2019-01-09 14:14] LABS: ALBUMIN 3.7 GM/DL (3.2-4.5); BILIRUBIN,TOTAL 0.3 MG/DL (0.1-1.0); CALCIUM 8.7 MG/DL (8.5-10.1); CREATININE SERUM 1.34 MG/DL (0.60-1.30); POTASSIUM 4.9 MMOL/L (3.6-5.0); TOTAL PROTEIN 6.2 GM/DL (6.4-8.2)
[2019-01-30 12:56] LABS: BASOPHILS % (AUTO) 0 % (0-10); EOSINOPHILS # (AUTO) 0.2 10^3/uL (0.0-0.3); EOSINOPHILS % (AUTO) 2 % (0-10); HEMATOCRIT 36 % (35-52); HEMOGLOBIN 11.1 G/DL (11.5-16.0); LYMPHOCYTES # (AUTO) 0.5 X 10^3 (1.0-4.0); LYMPHOCYTES % (AUTO) 3 % (12-44); MEAN CORPUSCULAR HEMOGLOBIN 28 PG (25-34); MEAN CORPUSCULAR HGB CONC 31 G/DL (32-36); MEAN CORPUSCULAR VOLUME 89 FL (80-99); MEAN PLATELET VOLUME 9.9 FL (7.4-10.4); MONOCYTES % (AUTO) 7 % (0-12); NEUTROPHILS # (AUTO) 12.3 X 10^3 (1.8-7.8); NEUTROPHILS % (AUTO) 88 % (42-75); PLATELET COUNT 379 10^3/uL (130-400); RED CELL DISTRIBUTION WIDTH 14.1 % (10.0-14.5); WHITE BLOOD COUNT 13.9 10^3/uL (4.3-11.0)
[2019-02-19 14:09] LABS: BASOPHILS # (AUTO) 0.1 10^3/uL (0.0-0.1); BASOPHILS % (AUTO) 0 % (0-10); EOSINOPHILS # (AUTO) 0.3 10^3/uL (0.0-0.3); EOSINOPHILS % (AUTO) 2 % (0-10); HEMATOCRIT 34 % (35-52); HEMOGLOBIN 10.4 G/DL (11.5-16.0); LYMPHOCYTES # (AUTO) 0.6 X 10^3 (1.0-4.0); LYMPHOCYTES % (AUTO) 5 % (12-44); MEAN CORPUSCULAR HEMOGLOBIN 28 PG (25-34); MEAN CORPUSCULAR HGB CONC 31 G/DL (32-36); MEAN CORPUSCULAR VOLUME 90 FL (80-99); MONOCYTES # (AUTO) 1.1 X 10^3 (0.0-1.0); MONOCYTES % (AUTO) 8 % (0-12); NEUTROPHILS # (AUTO) 11.6 X 10^3 (1.8-7.8); NEUTROPHILS % (AUTO) 85 % (42-75); PLATELET COUNT 380 10^3/uL (130-400); RED CELL DISTRIBUTION WIDTH 13.6 % (10.0-14.5); WHITE BLOOD COUNT 13.6 10^3/uL (4.3-11.0)
[2019-03-13 15:05] LABS: BASOPHILS % (AUTO) 0 % (0-10); EOSINOPHILS # (AUTO) 0.5 10^3/uL (0.0-0.3); EOSINOPHILS % (AUTO) 5 % (0-10); HEMATOCRIT 33 % (35-52); HEMOGLOBIN 10.2 G/DL (11.5-16.0); LYMPHOCYTES # (AUTO) 1.1 X 10^3 (1.0-4.0); LYMPHOCYTES % (AUTO) 10 % (12-44); MEAN CORPUSCULAR HEMOGLOBIN 28 PG (25-34); MEAN CORPUSCULAR HGB CONC 31 G/DL (32-36); MEAN CORPUSCULAR VOLUME 91 FL (80-99); MONOCYTES # (AUTO) 1.3 X 10^3 (0.0-1.0); MONOCYTES % (AUTO) 13 % (0-12); NEUTROPHILS # (AUTO) 7.3 X 10^3 (1.8-7.8); NEUTROPHILS % (AUTO) 71 % (42-75); PLATELET COUNT 380 10^3/uL (130-400); RED CELL DISTRIBUTION WIDTH 13.5 % (10.0-14.5); WHITE BLOOD COUNT 10.2 10^3/uL (4.3-11.0)
[~2019-04-03 12:19] MED LIST changes: +CYANOCOBALAMIN INJ 1000 MCG/ML (CANCER CENTER) INJ ONE; -DARBEPOETIN 25 MCG/ML (CANCER CTR) 1 ML VIAL SC SCH; +OMEP40CA27 PO; -OMEP40CA36 PO
[2019-04-03 13:16] LABS: BASOPHILS % (AUTO) 0 % (0-10); EOSINOPHILS # (AUTO) 0.2 10^3/uL (0.0-0.3); EOSINOPHILS % (AUTO) 1 % (0-10); HEMATOCRIT 35 % (35-52); HEMOGLOBIN 10.9 G/DL (11.5-16.0); LYMPHOCYTES # (AUTO) 0.5 X 10^3 (1.0-4.0); LYMPHOCYTES % (AUTO) 4 % (12-44); MEAN CORPUSCULAR HEMOGLOBIN 28 PG (25-34); MEAN CORPUSCULAR HGB CONC 31 G/DL (32-36); MEAN CORPUSCULAR VOLUME 89 FL (80-99); MEAN PLATELET VOLUME 9.8 FL (7.4-10.4); MONOCYTES # (AUTO) 1.1 X 10^3 (0.0-1.0); MONOCYTES % (AUTO) 8 % (0-12); NEUTROPHILS # (AUTO) 11.8 X 10^3 (1.8-7.8); NEUTROPHILS % (AUTO) 87 % (42-75); PLATELET COUNT 416 10^3/uL (130-400); RED CELL DISTRIBUTION WIDTH 13.7 % (10.0-14.5); WHITE BLOOD COUNT 13.5 10^3/uL (4.3-11.0)
[2019-04-03 13:35] LABS: BILIRUBIN,TOTAL 0.4 MG/DL (0.1-1.0); CALCIUM 8.8 MG/DL (8.5-10.1); CREATININE SERUM 1.38 MG/DL (0.60-1.30); POTASSIUM 5.8 MMOL/L (3.6-5.0); TOTAL PROTEIN 6.6 GM/DL (6.4-8.2)
== END 2019-04-09 | disposition home or self-care (01) ==
LOC: ONC 12:19
PROVIDERS: ATTEND Internal Medicine Hematology & Oncology
DX: C82.28 Follicular lymphoma grade III, unspecified, lymph nodes of multiple sites (principal); D63.1 Anemia in chronic kidney disease; N18.3 Chronic kidney disease, stage 3 (moderate); D50.9 Iron deficiency anemia, unspecified; I49.5 Sick sinus syndrome; Z95.0 Presence of cardiac pacemaker; Z90.11 Acquired absence of right breast and nipple; Z79.899 Other long term (current) drug therapy; Z85.3 Personal history of malignant neoplasm of breast
CPT/HCPCS: 36415; 36591; 80053; 82728; 84443; 85025; 96372

== ENCOUNTER 2019-07-23 11:08 | Outpatient (RCR) | payer MEDICARE, BC ==
[2019-04-25 14:34] LABS: BASOPHILS # (AUTO) 0.1 10^3/uL (0.0-0.1); BASOPHILS % (AUTO) 1 % (0-10); EOSINOPHILS # (AUTO) 0.2 10^3/uL (0.0-0.3); EOSINOPHILS % (AUTO) 1 % (0-10); HEMATOCRIT 34 % (35-52); HEMOGLOBIN 10.8 G/DL (11.5-16.0); LYMPHOCYTES # (AUTO) 0.7 X 10^3 (1.0-4.0); LYMPHOCYTES % (AUTO) 5 % (12-44); MEAN CORPUSCULAR HEMOGLOBIN 28 PG (25-34); MEAN CORPUSCULAR HGB CONC 31 G/DL (32-36); MEAN CORPUSCULAR VOLUME 89 FL (80-99); MEAN PLATELET VOLUME 10.2 FL (7.4-10.4); MONOCYTES # (AUTO) 0.9 X 10^3 (0.0-1.0); MONOCYTES % (AUTO) 7 % (0-12); NEUTROPHILS # (AUTO) 11.4 X 10^3 (1.8-7.8); NEUTROPHILS % (AUTO) 87 % (42-75); PLATELET COUNT 381 10^3/uL (130-400); RED CELL DISTRIBUTION WIDTH 13.7 % (10.0-14.5); WHITE BLOOD COUNT 13.2 10^3/uL (4.3-11.0)
[2019-05-15 11:34] LABS: BASOPHILS # (AUTO) 0.1 10^3/uL (0.0-0.1); BASOPHILS % (AUTO) 0 % (0-10); EOSINOPHILS # (AUTO) 0.2 10^3/uL (0.0-0.3); EOSINOPHILS % (AUTO) 2 % (0-10); HEMATOCRIT 35 % (35-52); HEMOGLOBIN 10.7 G/DL (11.5-16.0); LYMPHOCYTES # (AUTO) 0.6 X 10^3 (1.0-4.0); LYMPHOCYTES % (AUTO) 5 % (12-44); MEAN CORPUSCULAR HEMOGLOBIN 27 PG (25-34); MEAN CORPUSCULAR HGB CONC 30 G/DL (32-36); MEAN CORPUSCULAR VOLUME 90 FL (80-99); MEAN PLATELET VOLUME 9.9 FL (7.4-10.4); MONOCYTES % (AUTO) 8 % (0-12); NEUTROPHILS # (AUTO) 10.9 X 10^3 (1.8-7.8); NEUTROPHILS % (AUTO) 86 % (42-75); PLATELET COUNT 404 10^3/uL (130-400); RED CELL DISTRIBUTION WIDTH 13.7 % (10.0-14.5); WHITE BLOOD COUNT 12.7 10^3/uL (4.3-11.0)
[2019-06-05 15:01] LABS: BASOPHILS # (AUTO) 0.1 10^3/uL (0.0-0.1); BASOPHILS % (AUTO) 1 % (0-10); EOSINOPHILS # (AUTO) 0.5 10^3/uL (0.0-0.3); EOSINOPHILS % (AUTO) 5 % (0-10); HEMATOCRIT 35 % (35-52); HEMOGLOBIN 10.8 G/DL (11.5-16.0); LYMPHOCYTES # (AUTO) 1.1 X 10^3 (1.0-4.0); LYMPHOCYTES % (AUTO) 11 % (12-44); MEAN CORPUSCULAR HEMOGLOBIN 28 PG (25-34); MEAN CORPUSCULAR HGB CONC 31 G/DL (32-36); MEAN CORPUSCULAR VOLUME 90 FL (80-99); MEAN PLATELET VOLUME 10.1 FL (7.4-10.4); MONOCYTES # (AUTO) 1.4 X 10^3 (0.0-1.0); MONOCYTES % (AUTO) 14 % (0-12); NEUTROPHILS # (AUTO) 7.1 X 10^3 (1.8-7.8); NEUTROPHILS % (AUTO) 71 % (42-75); PLATELET COUNT 340 10^3/uL (130-400); RED CELL DISTRIBUTION WIDTH 13.8 % (10.0-14.5); WHITE BLOOD COUNT 10.1 10^3/uL (4.3-11.0)
[2019-06-26 10:08] LABS: ABSOLUTE RETIC # 33 10e9/L (24-90); BASOPHILS # (AUTO) 0.1 10^3/uL (0.0-0.1); BASOPHILS % (AUTO) 0 % (0-10); EOSINOPHILS # (AUTO) 0.2 10^3/uL (0.0-0.3); EOSINOPHILS % (AUTO) 2 % (0-10); HEMATOCRIT 35 % (35-52); HEMOGLOBIN 10.8 G/DL (11.5-16.0); LYMPHOCYTES # (AUTO) 0.6 X 10^3 (1.0-4.0); LYMPHOCYTES % (AUTO) 5 % (12-44); MEAN CORPUSCULAR HEMOGLOBIN 28 PG (25-34); MEAN CORPUSCULAR HGB CONC 31 G/DL (32-36); MEAN CORPUSCULAR VOLUME 89 FL (80-99); MONOCYTES # (AUTO) 1.2 X 10^3 (0.0-1.0); MONOCYTES % (AUTO) 9 % (0-12); NEUTROPHILS # (AUTO) 10.7 X 10^3 (1.8-7.8); NEUTROPHILS % (AUTO) 84 % (42-75); PLATELET COUNT 331 10^3/uL (130-400); RED CELL DISTRIBUTION WIDTH 13.7 % (10.0-14.5); RETICULOCYTE % 0.85 % (0.50-2.40); WHITE BLOOD COUNT 12.7 10^3/uL (4.3-11.0)
[2019-06-26 10:19] LABS: ALBUMIN 3.8 GM/DL (3.2-4.5); POTASSIUM 5.7 MMOL/L (3.6-5.0)
[2019-06-26 10:21] LABS: CALCIUM 8.6 MG/DL (8.5-10.1)
[2019-06-26 10:22] LABS: TOTAL PROTEIN 6.3 GM/DL (6.4-8.2)
[2019-06-26 10:24] LABS: BILIRUBIN,TOTAL 0.4 MG/DL (0.1-1.0)
[2019-06-26 10:26] LABS: CREATININE SERUM 1.19 MG/DL (0.60-1.30)
[~2019-07-23 11:08] MED LIST changes: -CYANOCOBALAMIN INJ 1000 MCG/ML (CANCER CENTER) INJ ONE; +DARBEPOETIN 25 MCG/ML (CANCER CTR) 1 ML VIAL SC SCH; -MECL-106 PO; +MECL-149 PO
[2019-07-23 11:28] LABS: BASOPHILS # (AUTO) 0.1 10^3/uL (0.0-0.1); BASOPHILS % (AUTO) 0 % (0-10); EOSINOPHILS # (AUTO) 0.2 10^3/uL (0.0-0.3); EOSINOPHILS % (AUTO) 2 % (0-10); HEMATOCRIT 35 % (35-52); HEMOGLOBIN 10.8 G/DL (11.5-16.0); LYMPHOCYTES # (AUTO) 0.7 X 10^3 (1.0-4.0); LYMPHOCYTES % (AUTO) 5 % (12-44); MEAN CORPUSCULAR HEMOGLOBIN 28 PG (25-34); MEAN CORPUSCULAR HGB CONC 31 G/DL (32-36); MEAN CORPUSCULAR VOLUME 89 FL (80-99); MEAN PLATELET VOLUME 9.9 FL (7.4-10.4); MONOCYTES # (AUTO) 1.1 X 10^3 (0.0-1.0); MONOCYTES % (AUTO) 7 % (0-12); NEUTROPHILS # (AUTO) 13.6 X 10^3 (1.8-7.8); NEUTROPHILS % (AUTO) 87 % (42-75); PLATELET COUNT 375 10^3/uL (130-400); RED CELL DISTRIBUTION WIDTH 13.8 % (10.0-14.5); WHITE BLOOD COUNT 15.7 10^3/uL (4.3-11.0)
== END 2019-07-24 | disposition home or self-care (01) ==
LOC: ONC 11:08
PROVIDERS: ATTEND Internal Medicine Hematology & Oncology
DX: C82.28 Follicular lymphoma grade III, unspecified, lymph nodes of multiple sites (principal); D63.1 Anemia in chronic kidney disease; N18.3 Chronic kidney disease, stage 3 (moderate); D50.9 Iron deficiency anemia, unspecified; I49.5 Sick sinus syndrome; Z95.0 Presence of cardiac pacemaker; Z90.11 Acquired absence of right breast and nipple; Z79.899 Other long term (current) drug therapy; Z85.3 Personal history of malignant neoplasm of breast; Z92.21 Personal history of antineoplastic chemotherapy
CPT/HCPCS: 36591; 80053; 82728; 83615; 85025; 85045; 96372

== ENCOUNTER 2019-11-13 11:17 | Outpatient (RCR) | payer MEDICARE, BC ==
[2019-08-20 10:25] LABS: BASOPHILS # (AUTO) 0.1 10^3/uL (0.0-0.1); BASOPHILS % (AUTO) 0 % (0-10); EOSINOPHILS # (AUTO) 0.3 10^3/uL (0.0-0.3); EOSINOPHILS % (AUTO) 2 % (0-10); HEMATOCRIT 34 % (35-52); HEMOGLOBIN 10.6 G/DL (11.5-16.0); LYMPHOCYTES # (AUTO) 0.6 X 10^3 (1.0-4.0); LYMPHOCYTES % (AUTO) 4 % (12-44); MEAN CORPUSCULAR HEMOGLOBIN 28 PG (25-34); MEAN CORPUSCULAR HGB CONC 31 G/DL (32-36); MEAN CORPUSCULAR VOLUME 91 FL (80-99); MEAN PLATELET VOLUME 10.2 FL (7.4-10.4); MONOCYTES # (AUTO) 1.5 X 10^3 (0.0-1.0); MONOCYTES % (AUTO) 10 % (0-12); NEUTROPHILS # (AUTO) 12.6 X 10^3 (1.8-7.8); NEUTROPHILS % (AUTO) 84 % (42-75); PLATELET COUNT 339 10^3/uL (130-400); RED CELL DISTRIBUTION WIDTH 13.5 % (10.0-14.5)
[2019-08-20 11:31] LABS: SMEAR SCAN COMMENT YES
[2019-09-18 11:09] LABS: ABSOLUTE RETIC # 25 10e9/L (24-90); BASOPHILS # (AUTO) 0.1 10^3/uL (0.0-0.1); BASOPHILS % (AUTO) 0 % (0-10); EOSINOPHILS # (AUTO) 0.2 10^3/uL (0.0-0.3); EOSINOPHILS % (AUTO) 2 % (0-10); HEMATOCRIT 35 % (35-52); HEMOGLOBIN 10.7 G/DL (11.5-16.0); LYMPHOCYTES # (AUTO) 0.5 X 10^3 (1.0-4.0); LYMPHOCYTES % (AUTO) 3 % (12-44); MEAN CORPUSCULAR HEMOGLOBIN 28 PG (25-34); MEAN CORPUSCULAR HGB CONC 31 G/DL (32-36); MEAN CORPUSCULAR VOLUME 91 FL (80-99); MEAN PLATELET VOLUME 10.4 FL (7.4-10.4); MONOCYTES # (AUTO) 1.3 X 10^3 (0.0-1.0); MONOCYTES % (AUTO) 9 % (0-12); NEUTROPHILS # (AUTO) 12.7 X 10^3 (1.8-7.8); NEUTROPHILS % (AUTO) 86 % (42-75); PLATELET COUNT 335 10^3/uL (130-400); RED CELL DISTRIBUTION WIDTH 13.4 % (10.0-14.5); RETICULOCYTE % 0.66 % (0.50-2.40); WHITE BLOOD COUNT 14.7 10^3/uL (4.3-11.0)
[2019-09-18 11:46] LABS: ALBUMIN 3.9 GM/DL (3.2-4.5); BILIRUBIN,TOTAL 0.4 MG/DL (0.1-1.0); CALCIUM 8.7 MG/DL (8.5-10.1); CREATININE SERUM 1.33 MG/DL (0.60-1.30); POTASSIUM 5.6 MMOL/L (3.6-5.0); TOTAL PROTEIN 6.4 GM/DL (6.4-8.2)
[2019-10-16 11:09] LABS: BASOPHILS # (AUTO) 0.1 10^3/uL (0.0-0.1); BASOPHILS % (AUTO) 0 % (0-10); EOSINOPHILS # (AUTO) 0.3 10^3/uL (0.0-0.3); EOSINOPHILS % (AUTO) 2 % (0-10); HEMATOCRIT 34 % (35-52); HEMOGLOBIN 10.5 G/DL (11.5-16.0); LYMPHOCYTES # (AUTO) 0.6 X 10^3 (1.0-4.0); LYMPHOCYTES % (AUTO) 4 % (12-44); MEAN CORPUSCULAR HEMOGLOBIN 28 PG (25-34); MEAN CORPUSCULAR HGB CONC 31 G/DL (32-36); MEAN CORPUSCULAR VOLUME 90 FL (80-99); MEAN PLATELET VOLUME 10.2 FL (7.4-10.4); MONOCYTES # (AUTO) 1.2 X 10^3 (0.0-1.0); MONOCYTES % (AUTO) 8 % (0-12); NEUTROPHILS # (AUTO) 13.1 X 10^3 (1.8-7.8); NEUTROPHILS % (AUTO) 86 % (42-75); PLATELET COUNT 353 10^3/uL (130-400); RED CELL DISTRIBUTION WIDTH 13.3 % (10.0-14.5); WHITE BLOOD COUNT 15.3 10^3/uL (4.3-11.0)
[~2019-11-13 11:17] MED LIST changes: -DARBEPOETIN 10 MCG/0.4 ML ARANESP IJ SCH; +MULT-567 PO; -MULT1TAB69 PO
[2019-11-13 11:32] LABS: BASOPHILS # (AUTO) 0.1 10^3/uL (0.0-0.1); BASOPHILS % (AUTO) 0 % (0-10); EOSINOPHILS # (AUTO) 0.3 10^3/uL (0.0-0.3); EOSINOPHILS % (AUTO) 2 % (0-10); HEMATOCRIT 35 % (35-52); HEMOGLOBIN 10.5 G/DL (11.5-16.0); LYMPHOCYTES # (AUTO) 0.6 X 10^3 (1.0-4.0); LYMPHOCYTES % (AUTO) 4 % (12-44); MEAN CORPUSCULAR HEMOGLOBIN 27 PG (25-34); MEAN CORPUSCULAR HGB CONC 30 G/DL (32-36); MEAN CORPUSCULAR VOLUME 90 FL (80-99); MEAN PLATELET VOLUME 9.8 FL (7.4-10.4); MONOCYTES # (AUTO) 1.3 X 10^3 (0.0-1.0); MONOCYTES % (AUTO) 8 % (0-12); NEUTROPHILS # (AUTO) 13.8 X 10^3 (1.8-7.8); NEUTROPHILS % (AUTO) 86 % (42-75); PLATELET COUNT 391 10^3/uL (130-400); RED CELL DISTRIBUTION WIDTH 13.7 % (10.0-14.5); WHITE BLOOD COUNT 16.1 10^3/uL (4.3-11.0)
== END 2019-11-18 | disposition home or self-care (01) ==
LOC: ONC 11:17
PROVIDERS: ATTEND Internal Medicine Hematology & Oncology
DX: C82.28 Follicular lymphoma grade III, unspecified, lymph nodes of multiple sites (principal); D63.1 Anemia in chronic kidney disease; N18.3 Chronic kidney disease, stage 3 (moderate); D50.9 Iron deficiency anemia, unspecified; I49.5 Sick sinus syndrome; Z95.0 Presence of cardiac pacemaker; Z90.11 Acquired absence of right breast and nipple; Z79.899 Other long term (current) drug therapy; Z85.3 Personal history of malignant neoplasm of breast; Z92.21 Personal history of antineoplastic chemotherapy
CPT/HCPCS: 36591; 80053; 82728; 83615; 85025; 85045; 96372

== ENCOUNTER 2020-03-04 09:27 | Outpatient (RCR) | payer MEDICARE, BC ==
[2019-12-09 13:59] LABS: ABSOLUTE RETIC # 35 10e9/uL (24-90); BASOPHILS # (AUTO) 0.1 10^3/uL (0.0-0.1); BASOPHILS % (AUTO) 1 % (0-10); EOSINOPHILS # (AUTO) 0.3 10^3/uL (0.0-0.3); EOSINOPHILS % (AUTO) 2 % (0-10); HEMATOCRIT 34 % (35-52); HEMOGLOBIN 10.6 g/dL (11.5-16.0); LYMPHOCYTES # (AUTO) 0.6 10^3/uL (1.0-4.0); LYMPHOCYTES % (AUTO) 4 % (12-44); MEAN CORPUSCULAR HEMOGLOBIN 28 pg (25-34); MEAN CORPUSCULAR HGB CONC 31 g/dL (32-36); MEAN CORPUSCULAR VOLUME 91 fL (80-99); MEAN PLATELET VOLUME 10.2 fL (9.0-12.2); MONOCYTES % (AUTO) 7 % (0-12); NEUTROPHILS # (AUTO) 11.3 10^3/uL (1.8-7.8); NEUTROPHILS % (AUTO) 85 % (42-75); PLATELET COUNT 347 10^3/uL (130-400); RETICULOCYTE % 0.91 % (0.50-2.40); WHITE BLOOD COUNT 13.3 10^3/uL (4.3-11.0)
[2019-12-09 14:20] LABS: ALBUMIN 3.8 GM/DL (3.2-4.5); BILIRUBIN,TOTAL 0.4 MG/DL (0.1-1.0); CALCIUM 8.7 MG/DL (8.5-10.1); CREATININE SERUM 1.26 MG/DL (0.60-1.30); POTASSIUM 5.7 MMOL/L (3.6-5.0); TOTAL PROTEIN 6.4 GM/DL (6.4-8.2)
[2020-01-07 10:28] LABS: BASOPHILS # (AUTO) 0.1 10^3/uL (0.0-0.1); BASOPHILS % (AUTO) 1 % (0-10); EOSINOPHILS # (AUTO) 0.4 10^3/uL (0.0-0.3); EOSINOPHILS % (AUTO) 3 % (0-10); HEMATOCRIT 33 % (35-52); HEMOGLOBIN 10.3 g/dL (11.5-16.0); LYMPHOCYTES # (AUTO) 0.6 10^3/uL (1.0-4.0); LYMPHOCYTES % (AUTO) 4 % (12-44); MEAN CORPUSCULAR HEMOGLOBIN 28 pg (25-34); MEAN CORPUSCULAR HGB CONC 31 g/dL (32-36); MEAN CORPUSCULAR VOLUME 91 fL (80-99); MEAN PLATELET VOLUME 10.5 fL (9.0-12.2); MONOCYTES # (AUTO) 1.4 10^3/uL (0.0-1.0); MONOCYTES % (AUTO) 9 % (0-12); NEUTROPHILS % (AUTO) 84 % (42-75); PLATELET COUNT 339 10^3/uL (130-400); WHITE BLOOD COUNT 15.5 10^3/uL (4.3-11.0)
[2020-02-03 14:53] LABS: BASOPHILS # (AUTO) 0.1 10^3/uL (0.0-0.1); BASOPHILS % (AUTO) 1 % (0-10); EOSINOPHILS # (AUTO) 0.3 10^3/uL (0.0-0.3); EOSINOPHILS % (AUTO) 2 % (0-10); HEMATOCRIT 35 % (35-52); HEMOGLOBIN 10.6 g/dL (11.5-16.0); LYMPHOCYTES # (AUTO) 0.6 10^3/uL (1.0-4.0); LYMPHOCYTES % (AUTO) 5 % (12-44); MEAN CORPUSCULAR HEMOGLOBIN 28 pg (25-34); MEAN CORPUSCULAR HGB CONC 31 g/dL (32-36); MEAN CORPUSCULAR VOLUME 92 fL (80-99); MEAN PLATELET VOLUME 10.4 fL (9.0-12.2); MONOCYTES # (AUTO) 0.9 10^3/uL (0.0-1.0); MONOCYTES % (AUTO) 6 % (0-12); NEUTROPHILS # (AUTO) 11.5 10^3/uL (1.8-7.8); NEUTROPHILS % (AUTO) 86 % (42-75); PLATELET COUNT 361 10^3/uL (130-400); WHITE BLOOD COUNT 13.3 10^3/uL (4.3-11.0)
[~2020-03-04 09:27] MED LIST changes: +FLU QUADRIvalent (3YOA+) 2020-21 0.5 ML (CANCER CTR) IM ONE
[2020-03-04 09:47] LABS: ABSOLUTE RETIC # 41 10e9/uL (24-90); BASOPHILS # (AUTO) 0.1 10^3/uL (0.0-0.1); BASOPHILS % (AUTO) 1 % (0-10); EOSINOPHILS # (AUTO) 0.3 10^3/uL (0.0-0.3); EOSINOPHILS % (AUTO) 3 % (0-10); HEMATOCRIT 34 % (35-52); HEMOGLOBIN 10.5 g/dL (11.5-16.0); LYMPHOCYTES # (AUTO) 0.6 10^3/uL (1.0-4.0); LYMPHOCYTES % (AUTO) 5 % (12-44); MEAN CORPUSCULAR HEMOGLOBIN 28 pg (25-34); MEAN CORPUSCULAR HGB CONC 31 g/dL (32-36); MEAN CORPUSCULAR VOLUME 91 fL (80-99); MEAN PLATELET VOLUME 10.5 fL (9.0-12.2); MONOCYTES % (AUTO) 7 % (0-12); NEUTROPHILS % (AUTO) 84 % (42-75); PLATELET COUNT 305 10^3/uL (130-400); RETICULOCYTE % 1.09 % (0.50-2.40)
== END 2020-03-08 | disposition home or self-care (01) ==
LOC: ONC 09:27
PROVIDERS: ATTEND Internal Medicine Hematology & Oncology
DX: Z45.2 Encounter for adjustment and management of vascular access device (principal); D50.9 Iron deficiency anemia, unspecified; D63.1 Anemia in chronic kidney disease; N18.30 Chronic kidney disease, stage 3 unspecified; I25.10 Atherosclerotic heart disease of native coronary artery without angina pectoris; K21.9 Gastro-esophageal reflux disease without esophagitis; I49.5 Sick sinus syndrome; Z95.0 Presence of cardiac pacemaker; Z90.11 Acquired absence of right breast and nipple; Z79.899 Other long term (current) drug therapy; Z85.3 Personal history of malignant neoplasm of breast; Z92.21 Personal history of antineoplastic chemotherapy; Z85.72 Personal history of non-Hodgkin lymphomas
CPT/HCPCS: 80053; 82728; 83615; 85025; 85045; 96372; G0463; 36591; 90471; 90686

== ENCOUNTER 2020-06-08 10:26 | Outpatient (RCR) | payer MEDICARE, BC ==
[2020-04-07 09:36] LABS: BASOPHILS # (AUTO) 0.1 10^3/uL (0.0-0.1); BASOPHILS % (AUTO) 1 % (0-10); EOSINOPHILS # (AUTO) 0.5 10^3/uL (0.0-0.3); EOSINOPHILS % (AUTO) 3 % (0-10); HEMATOCRIT 33 % (35-52); HEMOGLOBIN 9.9 g/dL (11.5-16.0); LYMPHOCYTES # (AUTO) 0.5 10^3/uL (1.0-4.0); LYMPHOCYTES % (AUTO) 4 % (12-44); MEAN CORPUSCULAR HEMOGLOBIN 28 pg (25-34); MEAN CORPUSCULAR HGB CONC 30 g/dL (32-36); MEAN CORPUSCULAR VOLUME 93 fL (80-99); MEAN PLATELET VOLUME 10.2 fL (9.0-12.2); MONOCYTES % (AUTO) 8 % (0-12); NEUTROPHILS # (AUTO) 11.7 10^3/uL (1.8-7.8); NEUTROPHILS % (AUTO) 84 % (42-75); PLATELET COUNT 368 10^3/uL (130-400); WHITE BLOOD COUNT 13.8 10^3/uL (4.3-11.0)
[2020-04-07 10:07] LABS: ALBUMIN 3.7 GM/DL (3.2-4.5); BILIRUBIN,TOTAL 0.3 MG/DL (0.1-1.0); CALCIUM 8.6 MG/DL (8.5-10.1); CREATININE SERUM 1.25 MG/DL (0.60-1.30); POTASSIUM 5.3 MMOL/L (3.6-5.0); TOTAL PROTEIN 6.3 GM/DL (6.4-8.2)
[2020-05-11 10:53] LABS: BASOPHILS # (AUTO) 0.1 10^3/uL (0.0-0.1); BASOPHILS % (AUTO) 1 % (0-10); EOSINOPHILS # (AUTO) 0.2 10^3/uL (0.0-0.3); EOSINOPHILS % (AUTO) 2 % (0-10); HEMATOCRIT 32 % (35-52); HEMOGLOBIN 9.9 g/dL (11.5-16.0); LYMPHOCYTES # (AUTO) 0.6 10^3/uL (1.0-4.0); LYMPHOCYTES % (AUTO) 4 % (12-44); MEAN CORPUSCULAR HEMOGLOBIN 28 pg (25-34); MEAN CORPUSCULAR HGB CONC 31 g/dL (32-36); MEAN CORPUSCULAR VOLUME 91 fL (80-99); MEAN PLATELET VOLUME 10.4 fL (9.0-12.2); MONOCYTES # (AUTO) 0.8 10^3/uL (0.0-1.0); MONOCYTES % (AUTO) 6 % (0-12); NEUTROPHILS % (AUTO) 87 % (42-75); PLATELET COUNT 340 10^3/uL (130-400); WHITE BLOOD COUNT 13.7 10^3/uL (4.3-11.0)
[~2020-06-08 10:26] MED LIST changes: -FLU QUADRIvalent (3YOA+) 2020-21 0.5 ML (CANCER CTR) IM ONE
[2020-06-08 10:50] LABS: BASOPHILS # (AUTO) 0.1 10^3/uL (0.0-0.1); BASOPHILS % (AUTO) 0 % (0-10); EOSINOPHILS # (AUTO) 0.2 10^3/uL (0.0-0.3); EOSINOPHILS % (AUTO) 2 % (0-10); HEMATOCRIT 34 % (35-52); HEMOGLOBIN 10.5 g/dL (11.5-16.0); LYMPHOCYTES # (AUTO) 0.5 10^3/uL (1.0-4.0); LYMPHOCYTES % (AUTO) 4 % (12-44); MEAN CORPUSCULAR HEMOGLOBIN 27 pg (25-34); MEAN CORPUSCULAR HGB CONC 31 g/dL (32-36); MEAN CORPUSCULAR VOLUME 89 fL (80-99); MEAN PLATELET VOLUME 10.7 fL (9.0-12.2); MONOCYTES # (AUTO) 1.1 10^3/uL (0.0-1.0); MONOCYTES % (AUTO) 8 % (0-12); NEUTROPHILS # (AUTO) 11.4 10^3/uL (1.8-7.8); NEUTROPHILS % (AUTO) 86 % (42-75); PLATELET COUNT 336 10^3/uL (130-400); WHITE BLOOD COUNT 13.4 10^3/uL (4.3-11.0)
== END 2020-07-06 | disposition home or self-care (01) ==
LOC: ONC 10:26
PROVIDERS: ATTEND Internal Medicine Hematology & Oncology
DX: Z45.2 Encounter for adjustment and management of vascular access device (principal); D50.9 Iron deficiency anemia, unspecified; D63.1 Anemia in chronic kidney disease; I12.9 Hypertensive chronic kidney disease with stage 1 through stage 4 chronic kidney disease, or unspecified chronic kidney disease; N18.30 Chronic kidney disease, stage 3 unspecified; I25.10 Atherosclerotic heart disease of native coronary artery without angina pectoris; E03.9 Hypothyroidism, unspecified; K21.9 Gastro-esophageal reflux disease without esophagitis; I49.5 Sick sinus syndrome; Z95.0 Presence of cardiac pacemaker; Z90.11 Acquired absence of right breast and nipple; Z79.899 Other long term (current) drug therapy; Z85.3 Personal history of malignant neoplasm of breast; Z92.21 Personal history of antineoplastic chemotherapy; Z85.72 Personal history of non-Hodgkin lymphomas
CPT/HCPCS: 80053; 82728; 83615; 85025; 96372; G0463; 36591

== ENCOUNTER 2020-09-29 10:46 | Outpatient (RCR) | payer MEDICARE, BC ==
[2020-07-07 11:11] LABS: BASOPHILS # (AUTO) 0.1 10^3/uL (0.0-0.1); BASOPHILS % (AUTO) 1 % (0-10); EOSINOPHILS # (AUTO) 0.5 10^3/uL (0.0-0.3); EOSINOPHILS % (AUTO) 4 % (0-10); HEMATOCRIT 32 % (35-52); HEMOGLOBIN 9.6 g/dL (11.5-16.0); LYMPHOCYTES # (AUTO) 0.6 10^3/uL (1.0-4.0); LYMPHOCYTES % (AUTO) 5 % (12-44); MEAN CORPUSCULAR HEMOGLOBIN 27 pg (25-34); MEAN CORPUSCULAR HGB CONC 30 g/dL (32-36); MEAN CORPUSCULAR VOLUME 90 fL (80-99); MEAN PLATELET VOLUME 10.4 fL (9.0-12.2); MONOCYTES # (AUTO) 1.1 10^3/uL (0.0-1.0); MONOCYTES % (AUTO) 10 % (0-12); NEUTROPHILS # (AUTO) 9.3 10^3/uL (1.8-7.8); NEUTROPHILS % (AUTO) 80 % (42-75); PLATELET COUNT 325 10^3/uL (130-400); WHITE BLOOD COUNT 11.5 10^3/uL (4.3-11.0)
[2020-07-07 11:33] LABS: ALBUMIN 3.6 GM/DL (3.2-4.5); BILIRUBIN,TOTAL 0.3 MG/DL (0.1-1.0); CALCIUM 8.4 MG/DL (8.5-10.1); CREATININE SERUM 1.11 MG/DL (0.60-1.30); POTASSIUM 5.1 MMOL/L (3.6-5.0); TOTAL PROTEIN 5.9 GM/DL (6.4-8.2)
[2020-08-04 10:49] LABS: BASOPHILS % (AUTO) 0 % (0-10); EOSINOPHILS # (AUTO) 0.3 10^3/uL (0.0-0.3); EOSINOPHILS % (AUTO) 2 % (0-10); HEMATOCRIT 34 % (35-52); HEMOGLOBIN 10.5 g/dL (11.5-16.0); LYMPHOCYTES # (AUTO) 0.9 10^3/uL (1.0-4.0); LYMPHOCYTES % (AUTO) 6 % (12-44); MEAN CORPUSCULAR HEMOGLOBIN 28 pg (25-34); MEAN CORPUSCULAR HGB CONC 31 g/dL (32-36); MEAN CORPUSCULAR VOLUME 89 fL (80-99); MEAN PLATELET VOLUME 10.6 fL (9.0-12.2); MONOCYTES % (AUTO) 7 % (0-12); NEUTROPHILS # (AUTO) 13.1 10^3/uL (1.8-7.8); NEUTROPHILS % (AUTO) 85 % (42-75); PLATELET COUNT 302 10^3/uL (130-400); WHITE BLOOD COUNT 15.5 10^3/uL (4.3-11.0)
[2020-09-03 11:28] LABS: BASOPHILS # (AUTO) 0.1 10^3/uL (0.0-0.1); BASOPHILS % (AUTO) 1 % (0-10); EOSINOPHILS # (AUTO) 0.4 10^3/uL (0.0-0.3); EOSINOPHILS % (AUTO) 3 % (0-10); HEMATOCRIT 33 % (35-52); HEMOGLOBIN 10.2 g/dL (11.5-16.0); LYMPHOCYTES # (AUTO) 0.6 10^3/uL (1.0-4.0); LYMPHOCYTES % (AUTO) 4 % (12-44); MEAN CORPUSCULAR HEMOGLOBIN 28 pg (25-34); MEAN CORPUSCULAR HGB CONC 31 g/dL (32-36); MEAN CORPUSCULAR VOLUME 91 fL (80-99); MEAN PLATELET VOLUME 10.5 fL (9.0-12.2); MONOCYTES # (AUTO) 0.7 10^3/uL (0.0-1.0); MONOCYTES % (AUTO) 5 % (0-12); NEUTROPHILS # (AUTO) 12.3 10^3/uL (1.8-7.8); NEUTROPHILS % (AUTO) 88 % (42-75); PLATELET COUNT 312 10^3/uL (130-400)
[~2020-09-29 10:46] MED LIST changes: +DARBEPOETIN 40 MCG/ML (ARANESP) 1 ML VIAL SC SCH; -OMEP40CA27 PO; +OMEP40CA6 PO
[2020-09-29 11:25] LABS: BASOPHILS # (AUTO) 0.1 10^3/uL (0.0-0.1); BASOPHILS % (AUTO) 1 % (0-10); EOSINOPHILS # (AUTO) 0.2 10^3/uL (0.0-0.3); EOSINOPHILS % (AUTO) 2 % (0-10); HEMATOCRIT 33 % (35-52); HEMOGLOBIN 10.3 g/dL (11.5-16.0); LYMPHOCYTES # (AUTO) 0.5 10^3/uL (1.0-4.0); LYMPHOCYTES % (AUTO) 4 % (12-44); MEAN CORPUSCULAR HEMOGLOBIN 29 pg (25-34); MEAN CORPUSCULAR HGB CONC 31 g/dL (32-36); MEAN CORPUSCULAR VOLUME 91 fL (80-99); MEAN PLATELET VOLUME 10.1 fL (9.0-12.2); MONOCYTES % (AUTO) 9 % (0-12); NEUTROPHILS # (AUTO) 9.5 10^3/uL (1.8-7.8); NEUTROPHILS % (AUTO) 84 % (42-75); PLATELET COUNT 311 10^3/uL (130-400); WHITE BLOOD COUNT 11.4 10^3/uL (4.3-11.0)
[2020-09-29 11:55] LABS: ALBUMIN 3.8 GM/DL (3.2-4.5); BILIRUBIN,TOTAL 0.5 MG/DL (0.1-1.0); CREATININE SERUM 1.17 MG/DL (0.60-1.30); POTASSIUM 5.4 MMOL/L (3.6-5.0); TOTAL PROTEIN 6.1 GM/DL (6.4-8.2)
== END 2020-10-05 | disposition home or self-care (01) ==
LOC: ONC 10:46
PROVIDERS: ATTEND Internal Medicine Hematology & Oncology
DX: Z45.2 Encounter for adjustment and management of vascular access device (principal); I12.9 Hypertensive chronic kidney disease with stage 1 through stage 4 chronic kidney disease, or unspecified chronic kidney disease; N18.30 Chronic kidney disease, stage 3 unspecified; D63.1 Anemia in chronic kidney disease; I25.10 Atherosclerotic heart disease of native coronary artery without angina pectoris; E03.9 Hypothyroidism, unspecified; K21.9 Gastro-esophageal reflux disease without esophagitis; I49.5 Sick sinus syndrome; Z95.0 Presence of cardiac pacemaker; Z90.11 Acquired absence of right breast and nipple; Z79.899 Other long term (current) drug therapy; Z85.3 Personal history of malignant neoplasm of breast; Z92.21 Personal history of antineoplastic chemotherapy; Z85.72 Personal history of non-Hodgkin lymphomas
CPT/HCPCS: 80053; 82728; 83615; 85025; 96372; G0463; 36591

== ENCOUNTER 2021-01-20 10:26 | Outpatient (RCR) | payer MEDICARE, BC ==
[2020-10-27 11:41] LABS: BASOPHILS # (AUTO) 0.1 10^3/uL (0.0-0.1); BASOPHILS % (AUTO) 1 % (0-10); EOSINOPHILS # (AUTO) 0.5 10^3/uL (0.0-0.3); EOSINOPHILS % (AUTO) 4 % (0-10); HEMATOCRIT 31 % (35-52); HEMOGLOBIN 9.7 g/dL (11.5-16.0); LYMPHOCYTES # (AUTO) 0.5 10^3/uL (1.0-4.0); LYMPHOCYTES % (AUTO) 4 % (12-44); MEAN CORPUSCULAR HEMOGLOBIN 28 pg (25-34); MEAN CORPUSCULAR HGB CONC 31 g/dL (32-36); MEAN CORPUSCULAR VOLUME 91 fL (80-99); MEAN PLATELET VOLUME 10.7 fL (9.0-12.2); MONOCYTES % (AUTO) 8 % (0-12); NEUTROPHILS # (AUTO) 10.2 10^3/uL (1.8-7.8); NEUTROPHILS % (AUTO) 83 % (42-75); PLATELET COUNT 300 10^3/uL (130-400); WHITE BLOOD COUNT 12.4 10^3/uL (4.3-11.0)
[2020-11-24 10:17] LABS: BASOPHILS # (AUTO) 0.1 10^3/uL (0.0-0.1); BASOPHILS % (AUTO) 1 % (0-10); EOSINOPHILS # (AUTO) 0.3 10^3/uL (0.0-0.3); EOSINOPHILS % (AUTO) 2 % (0-10); HEMATOCRIT 30 % (35-52); HEMOGLOBIN 9.3 g/dL (11.5-16.0); LYMPHOCYTES # (AUTO) 0.5 10^3/uL (1.0-4.0); LYMPHOCYTES % (AUTO) 4 % (12-44); MEAN CORPUSCULAR HEMOGLOBIN 28 pg (25-34); MEAN CORPUSCULAR HGB CONC 31 g/dL (32-36); MEAN CORPUSCULAR VOLUME 91 fL (80-99); MEAN PLATELET VOLUME 10.3 fL (9.0-12.2); MONOCYTES % (AUTO) 8 % (0-12); NEUTROPHILS % (AUTO) 85 % (42-75); PLATELET COUNT 316 10^3/uL (130-400)
[2020-12-22 11:03] LABS: BASOPHILS # (AUTO) 0.1 10^3/uL (0.0-0.1); BASOPHILS % (AUTO) 0 % (0-10); EOSINOPHILS # (AUTO) 0.2 10^3/uL (0.0-0.3); EOSINOPHILS % (AUTO) 2 % (0-10); HEMATOCRIT 31 % (35-52); HEMOGLOBIN 9.6 g/dL (11.5-16.0); LYMPHOCYTES # (AUTO) 0.5 10^3/uL (1.0-4.0); LYMPHOCYTES % (AUTO) 4 % (12-44); MEAN CORPUSCULAR HEMOGLOBIN 28 pg (25-34); MEAN CORPUSCULAR HGB CONC 31 g/dL (32-36); MEAN CORPUSCULAR VOLUME 91 fL (80-99); MEAN PLATELET VOLUME 10.7 fL (9.0-12.2); MONOCYTES # (AUTO) 0.8 10^3/uL (0.0-1.0); MONOCYTES % (AUTO) 6 % (0-12); NEUTROPHILS # (AUTO) 12.8 10^3/uL (1.8-7.8); NEUTROPHILS % (AUTO) 89 % (42-75); PLATELET COUNT 297 10^3/uL (130-400); WHITE BLOOD COUNT 14.4 10^3/uL (4.3-11.0)
[2020-12-22 11:25] LABS: ALBUMIN 3.7 GM/DL (3.2-4.5); BILIRUBIN,TOTAL 0.7 MG/DL (0.1-1.0); CALCIUM 9.1 MG/DL (8.5-10.1); CREATININE SERUM 1.1 MG/DL (0.60-1.30); POTASSIUM 4.8 MMOL/L (3.6-5.0); TOTAL PROTEIN 6.2 GM/DL (6.4-8.2)
[~2021-01-20 10:26] MED LIST changes: -DARBEPOETIN 25 MCG/ML (CANCER CTR) 1 ML VIAL SC SCH
[2021-01-20 10:49] LABS: BASOPHILS # (AUTO) 0.1 10^3/uL (0.0-0.1); BASOPHILS % (AUTO) 0 % (0-10); EOSINOPHILS # (AUTO) 0.1 10^3/uL (0.0-0.3); EOSINOPHILS % (AUTO) 1 % (0-10); HEMATOCRIT 34 % (35-52); HEMOGLOBIN 10.7 g/dL (11.5-16.0); LYMPHOCYTES # (AUTO) 0.5 10^3/uL (1.0-4.0); LYMPHOCYTES % (AUTO) 3 % (12-44); MEAN CORPUSCULAR HEMOGLOBIN 28 pg (25-34); MEAN CORPUSCULAR HGB CONC 31 g/dL (32-36); MEAN CORPUSCULAR VOLUME 91 fL (80-99); MEAN PLATELET VOLUME 11.8 fL (9.0-12.2); MONOCYTES # (AUTO) 0.8 10^3/uL (0.0-1.0); MONOCYTES % (AUTO) 5 % (0-12); NEUTROPHILS # (AUTO) 13.3 10^3/uL (1.8-7.8); NEUTROPHILS % (AUTO) 90 % (42-75); PLATELET COUNT 223 10^3/uL (130-400); WHITE BLOOD COUNT 14.8 10^3/uL (4.3-11.0)
[2021-01-20] MEDS ORDERED: FLU QUAD HIGH DOSE 240 MCG/0.7 ML 2021-22 (FLUZONE) IM ONE (11:00)
== END 2021-01-25 | disposition home or self-care (01) ==
LOC: ONC 10:26
PROVIDERS: ATTEND Internal Medicine Hematology & Oncology
DX: Z45.2 Encounter for adjustment and management of vascular access device (principal); I12.9 Hypertensive chronic kidney disease with stage 1 through stage 4 chronic kidney disease, or unspecified chronic kidney disease; N18.30 Chronic kidney disease, stage 3 unspecified; D63.1 Anemia in chronic kidney disease; I25.10 Atherosclerotic heart disease of native coronary artery without angina pectoris; E03.9 Hypothyroidism, unspecified; K21.9 Gastro-esophageal reflux disease without esophagitis; I49.5 Sick sinus syndrome; D50.9 Iron deficiency anemia, unspecified; I48.91 Unspecified atrial fibrillation; Z95.0 Presence of cardiac pacemaker; Z90.11 Acquired absence of right breast and nipple; Z79.899 Other long term (current) drug therapy; Z85.3 Personal history of malignant neoplasm of breast; Z92.21 Personal history of antineoplastic chemotherapy; Z85.72 Personal history of non-Hodgkin lymphomas; Z79.01 Long term (current) use of anticoagulants
CPT/HCPCS: 36591; 80053; 82728; 85025; 90471; 96372

== ENCOUNTER 2021-03-16 11:02 | Outpatient (RCR) | payer MEDICARE, BC ==
[2021-02-18 10:02] LABS: BASOPHILS # (AUTO) 0.1 10^3/uL (0.0-0.1); BASOPHILS % (AUTO) 0 % (0-10); EOSINOPHILS # (AUTO) 0.1 10^3/uL (0.0-0.3); EOSINOPHILS % (AUTO) 1 % (0-10); HEMATOCRIT 34 % (35-52); HEMOGLOBIN 10.3 g/dL (11.5-16.0); LYMPHOCYTES # (AUTO) 0.6 10^3/uL (1.0-4.0); LYMPHOCYTES % (AUTO) 4 % (12-44); MEAN CORPUSCULAR HEMOGLOBIN 28 pg (25-34); MEAN CORPUSCULAR HGB CONC 31 g/dL (32-36); MEAN CORPUSCULAR VOLUME 91 fL (80-99); MEAN PLATELET VOLUME 10.9 fL (9.0-12.2); MONOCYTES # (AUTO) 0.9 10^3/uL (0.0-1.0); MONOCYTES % (AUTO) 7 % (0-12); NEUTROPHILS # (AUTO) 11.9 10^3/uL (1.8-7.8); NEUTROPHILS % (AUTO) 87 % (42-75); PLATELET COUNT 268 10^3/uL (130-400); WHITE BLOOD COUNT 13.7 10^3/uL (4.3-11.0)
[2021-03-16 12:05] LABS: BASOPHILS # (AUTO) 0.1 10^3/uL (0.0-0.1); BASOPHILS % (AUTO) 1 % (0-10); EOSINOPHILS # (AUTO) 0.1 10^3/uL (0.0-0.3); EOSINOPHILS % (AUTO) 1 % (0-10); HEMATOCRIT 34 % (35-52); HEMOGLOBIN 10.3 g/dL (11.5-16.0); LYMPHOCYTES # (AUTO) 0.5 10^3/uL (1.0-4.0); LYMPHOCYTES % (AUTO) 4 % (12-44); MEAN CORPUSCULAR HEMOGLOBIN 28 pg (25-34); MEAN CORPUSCULAR HGB CONC 31 g/dL (32-36); MEAN CORPUSCULAR VOLUME 92 fL (80-99); MEAN PLATELET VOLUME 10.8 fL (9.0-12.2); MONOCYTES # (AUTO) 0.7 10^3/uL (0.0-1.0); MONOCYTES % (AUTO) 6 % (0-12); NEUTROPHILS # (AUTO) 10.5 10^3/uL (1.8-7.8); NEUTROPHILS % (AUTO) 88 % (42-75); PLATELET COUNT 274 10^3/uL (130-400); WHITE BLOOD COUNT 11.9 10^3/uL (4.3-11.0)
[2021-03-16 12:26] LABS: ALBUMIN 3.8 GM/DL (3.2-4.5); BILIRUBIN,TOTAL 0.5 MG/DL (0.1-1.0); CALCIUM 8.9 MG/DL (8.5-10.1); CREATININE SERUM 0.96 MG/DL (0.60-1.30); POTASSIUM 4.7 MMOL/L (3.6-5.0); TOTAL PROTEIN 6.1 GM/DL (6.4-8.2)
== END 2021-03-18 | disposition home or self-care (01) ==
LOC: ONC 11:02
PROVIDERS: ATTEND Internal Medicine Hematology & Oncology
DX: I12.9 Hypertensive chronic kidney disease with stage 1 through stage 4 chronic kidney disease, or unspecified chronic kidney disease (principal); N18.30 Chronic kidney disease, stage 3 unspecified; D63.1 Anemia in chronic kidney disease; D50.9 Iron deficiency anemia, unspecified; I25.10 Atherosclerotic heart disease of native coronary artery without angina pectoris; E03.9 Hypothyroidism, unspecified; K21.9 Gastro-esophageal reflux disease without esophagitis; I49.5 Sick sinus syndrome; I48.91 Unspecified atrial fibrillation; Z95.0 Presence of cardiac pacemaker; Z90.11 Acquired absence of right breast and nipple; Z79.899 Other long term (current) drug therapy; Z85.3 Personal history of malignant neoplasm of breast; Z92.21 Personal history of antineoplastic chemotherapy; Z85.72 Personal history of non-Hodgkin lymphomas; Z79.01 Long term (current) use of anticoagulants
CPT/HCPCS: 36591; 80053; 82728; 85025; 96372; 99213

== ENCOUNTER 2021-03-30 09:54 | Emergency (ER) | payer MEDICARE, BC ==
[~2021-03-30] VITALS: Ht 172 cm; Wt 95.0 kg
[~2021-03-30 09:54] MED LIST changes: -DARBEPOETIN 40 MCG/ML (ARANESP) 1 ML VIAL SC SCH
[2021-03-30 10:54] LABS: HEMOGLOBIN 9.8 g/dL (11.5-16.0); MEAN CORPUSCULAR HEMOGLOBIN 27 pg (25-34)
[2021-03-30 10:55] LABS: BASOPHILS # (AUTO) 0.1 10^3/uL (0.0-0.1); BASOPHILS % (AUTO) 1 % (0-10); EOSINOPHILS # (AUTO) 0.2 10^3/uL (0.0-0.3); EOSINOPHILS % (AUTO) 2 % (0-10); HEMATOCRIT 32 % (35-52); INR 2.3 (0.8-1.4); LYMPHOCYTES # (AUTO) 0.6 X 10^3 (1.0-4.0); LYMPHOCYTES % (AUTO) 6 % (12-44); MEAN CORPUSCULAR HGB CONC 31 g/dL (32-36); MEAN CORPUSCULAR VOLUME 90 fL (80-99); MEAN PLATELET VOLUME 10.7 fL (9.0-12.2); MONOCYTES # (AUTO) 1.1 X 10^3 (0.0-1.0); MONOCYTES % (AUTO) 10 % (0-12); NEUTROPHILS % (AUTO) 82 % (42-75); PLATELET COUNT 306 10^3/uL (130-400); PROTHROMBIN TIME PATIENT 25.6 SEC (12.2-14.7)
--- NOTE | 2021-03-30 10:57 | ED General ---
General Chief Complaint: Respiratory Problems Stated Complaint: SOB Source of Information: Patient Exam Limitations: No Limitations History of Present Illness Date Seen by Provider: Mar 30, 2021 Time Seen by Provider: 10:30 Initial Comments Here with report of increasing swelling of the legs and face over the last 1 to 2 weeks and orthopnea. Has history of CHF with a bad valve but unable to get surgery for that. Also has history of cardiac disease. She is on spironolactone. Usually does okay but noted some worsening recently. Denies fever, chills or upper respiratory symptoms. She is vaccinated for COVID-19. Denies chest pain, nausea or vomiting. Timing/Duration: Getting Worse, Other (1 to 2 weeks) Severity: Mild, Moderate Associated Systoms: No Chest Pain, No Cough, No Fever/Chills, No Nausea/Vomiting; Shortness of Air; No Weakness Allergies and Home Medications Allergies Coded Allergies: verapamil (Verified Allergy, Severe, 12/31/17) levofloxacin (Verified Allergy, Intermediate, 12/31/17) morphine (Unverified Allergy, Mild, 10/01/13) Patient Home Medication List Home Medication List Reviewed: Yes Acetaminophen (Acetaminophen) 325 Mg Tablet, 650 MG PO Q4H PRN for PAIN-MILD Prescribed by: TABBY MACHADO on 01/04/18 0857 Amoxicillin/Potassium Clav (Augmentin 875-125 Tablet) 1 Each Tablet, 1 EACH PO BID Prescribed by: KEITH PARKS on 08/17/18 192 Carvedilol (Carvedilol) 6.25 Mg Tablet, 6.25 MG PO BID, (Reported) Entered as Reported by: SALVADOR PIERSON on 12/31/17 161 Cholecalciferol (Vitamin D3) (Vitamin D3) 1,000 Unit Capsule, 1,000 UNIT PO DAILY, (Reported) Entered as Reported by: SALVADOR PIERSON on 12/31/17 161 Cyanocobalamin (Vitamin B-12) (Vitamin B-12) 3,000 Mcg Capsule, 3,000 MCG PO DAILY, (Reported) Entered as Reported by: SALVADOR PIERSON on 12/31/171612 Darbepoetin Rafa in [place]ysorbat (Aranesp) 40 Mcg/0.4 Ml Syringe, 40 MCG IJ EVERY 2 WEEKS, (Reported) Entered as Reported by: SALVADOR PIERSON on 12/31/17 161 Hydroxychloroquine Sulfate (Hydroxychloroquine Sulfate) 200 Mg Tablet, 200 MG PO BID, (Reported) Entered as Reported by: SALVADOR PIERSON on 12/31/171612 Iron Polysaccharide Complex (Ferrex 150) 150 Mg Capsule, 150 MG PO BID WITH MEALS Prescribed by: TABBY MACHADO on 01/04/18 0857 Levothyroxine Sodium (Levothyroxine Sodium) 75 Mcg Tablet, 75 MCG PO DAILY, (Reported) Entered as Reported by: SALVADOR PIERSON on 12/31/17 161 Meclizine HCl (Meclizine HCl) 25 Mg Tablet, 25 MG PO TID PRN for DIZZINESS, (Reported) Entered as Reported by: SALVADOR PIERSON on 12/31/171612 Multivitamin (Multivitamins) 1 Each Tablet, 1 TAB PO DAILY, (Reported) Entered as Reported by: SALVADOR PIERSON on 12/31/171612 Nitroglycerin (Nitroglycerin) 0.4 Mg Tab.subl, 0.4 MG SL UD PRN for CHEST PAIN, (Reported) Entered as Reported by: SALVADOR PIERSON on 12/31/171612 Omeprazole (Omeprazole) 40 Mg Capsule.dr, 40 MG PO DAILY, (Reported) Entered as Reported by: SALVADOR PIERSON on 12/31/171612 Ondansetron (Ondansetron Odt) 4 Mg Tab.rapdis, 4-8 MG PO Q6H PRN for NAUSEA/VOMITING-1ST LINE Prescribed by: KEITH PARKS on 08/17/18 1920 Prednisone (Prednisone) 5 Mg Tablet, 5 MG PO DAILY, (Reported) Entered as Reported by: SALVADOR PIERSON on 12/31/17 161 Spironolactone (Spironolactone) 25 Mg Tablet, 25 MG PO HS, (Reported) Entered as Reported by: SALVADOR PIERSON on 12/31/171616 Warfarin Sodium (Warfarin Sodium) 5 Mg Tablet, 5 MG PO 1800, (Reported) Entered as Reported by: SALVADOR PIERSON on 12/31/171616 Review of Systems Review of Systems Constitutional: see HPI; No chills, No fever EENTM: No nose congestion, No throat pain Respiratory: No cough; dyspnea on exertion, orthopnea, short of breath Cardiovascular: No chest pain; edema, Hx of Intervention Gastrointestinal: No nausea, No vomiting Genitourinary: no symptoms reported Musculoskeletal: No back pain, No joint pain Skin: change in color (Has bruises but is on Coumadin); No rash Psychiatric/Neurological: No Symptoms Reported All Other Systems Reviewed Negative Unless Noted: Yes Past Ieoklsi-Lhjwsm-Qhbwnd Hx Patient Social History Tobacco Use?: No Substance use?: No Alcohol Use?: No Pt feels they are or have been: No Seasonal Allergies Seasonal Allergies: No Past Medical History Surgeries: Yes (mastectomy, knees, hip) Hysterectomy, Orthopedic, Thyroidectomy, Tonsillectomy Respiratory: Yes COPD Currently Using CPAP: No Currently Using BIPAP: No Cardiac: Yes (HAS PACEMAKER, "stiff heart") Hypertension Neurological: No Reproductive Disorders: No 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 Genitourinary: Yes UTI-Chronic Gastrointestinal: No Musculoskeletal: Yes Arthritis, Rheumatoid Arthritis Endocrine: Yes (thyroidectomy) HEENT: Yes Cataract, Macular Degeneration Loss of Vision: Denies Hearing Impairment: Hard of Hearing Cancer: Yes Breast, Lymphoma Did You Recieve Any Treatments: Yes What Type of Treatment Did You: Chemotherapy Psychosocial: No Anxiety Integumentary: No Blood Disorders: No Family Medical History Reviewed Nursing Family Hx Diabetes mellitus 19 MOTHER Neoplasm 19 FATHER G8 BROTHER G8 SISTER Cancer, Diabetes, Hypertension Physical Exam Vital Signs Vital Signs - First Documented 03/30/21 03/30/21 10:14 10:16 Temp 36.1 Pulse 70 Resp 20 B/P (MAP) 142/98 (113) O2 Delivery Room Air O2 Flow Rate 2.00 Capillary Refill : Height, Weight, BMI Height: 5'8.00" Weight: 180lbs. 3.2oz. 81.553742vq; 32.00 BMI Method:Stated General Appearance: No Apparent Distress, WD/WN HEENT: PERRL/EOMI, Pharynx Normal Neck: Non Tender, Supple Respiratory: No Accessory Muscle Use, No Respiratory Distress, Crackles (Bibasilar few noted); No Wheezing Cardiovascular: Regular Rate, Rhythm, Systolic Murmur Gastrointestinal: Non Tender, Soft Back: Normal Inspection, No CVA Tenderness, No Vertebral Tenderness Extremity: Normal Range of Motion, Non Tender Neurologic/Psychiatric: Alert, Oriented x3 Skin: Normal Color, Warm/Dry Progress/Results/Core Measures Suspected Sepsis SIRS Temperature: Pulse: 70 Respiratory Rate: 20 Laboratory Tests 03/30/21 10:33: White Blood Count 11.0 Blood Pressure 142 /98 Mean: 113 Laboratory Tests 03/30/21 10:33: Creatinine 1.15, INR Comment 2.3H, Platelet Count 306, Total Bilirubin 0.5 Results/Orders Lab Results Laboratory Tests Test 03/30/21 10:33 03/30/21 10:36 Range/Units White Blood Count 11.0 4.3-11.0 10^3/uL Red Blood Count 3.57 L 3.80-5.11 10^6/uL Hemoglobin 9.8 L 11.5-16.0 g/dL Hematocrit 32 L 35-52 % Mean Corpuscular Volume 90 80-99 fL Mean Corpuscular Hemoglobin 27 25-34 pg Mean Corpuscular Hemoglobin Concent 31 L 32-36 g/dL Red Cell Distribution Width 13.9 10.0-14.5 % Platelet Count 306 130-400 10^3/uL Mean Platelet Volume 10.7 9.0-12.2 fL Neutrophils (%) (Auto) 82 H 42-75 % Lymphocytes (%) (Auto) 6 L 12-44 % Monocytes (%) (Auto) 10 0-12 % Eosinophils (%) (Auto) 2 0-10 % Basophils (%) (Auto) 1 0-10 % Neutrophils # (Auto) 9.0 H 1.8-7.8 X 10^3 Lymphocytes # (Auto) 0.6 L 1.0-4.0 X 10^3 Monocytes # (Auto) 1.1 H 0.0-1.0 X 10^3 Eosinophils # (Auto) 0.2 0.0-0.3 10^3/uL Basophils # (Auto) 0.1 0.0-0.1 10^3/uL Neutrophils % (Manual) 60 % Lymphocytes % (Manual) 4 % Monocytes % (Manual) 7 % Eosinophils % (Manual) 1 % Basophils % (Manual) 1 % Band Neutrophils 25 % Atypical Lymphocytes 2 % Platelet Estimate NORMAL Poikilocytosis 2+ Elliptocytes MODERATE Acanthocytes MODERATE Blood Morphology Comment NORMAL Prothrombin Time 25.6 H 12.2-14.7 SEC INR Comment 2.3 H 0.8-1.4 Sodium Level 140 135-145 MMOL/L Potassium Level 4.6 3.6-5.0 MMOL/L Chloride Level 103 98-107 MMOL/L Carbon Dioxide Level 30 21-32 MMOL/L Anion Gap 7 5-14 MMOL/L Blood Urea Nitrogen 22 H 7-18 MG/DL Creatinine 1.15 0.60-1.30 MG/DL Estimat Glomerular Filtration Rate 45 BUN/Creatinine Ratio 19 Glucose Level 123 H 70-105 MG/DL Calcium Level 8.6 8.5-10.1 MG/DL Corrected Calcium 8.7 8.5-10.1 MG/DL Total Bilirubin 0.5 0.1-1.0 MG/DL Aspartate Amino Transf (AST/SGOT) 12 5-34 U/L Alanine Aminotransferase (ALT/SGPT) 9 0-55 U/L Alkaline Phosphatase 83 40-136 U/L Troponin I < 0.30 <0.30 NG/ML Pro-B-Type Natriuretic Peptide 7194.0 H <75.0 PG/ML Total Protein 5.9 L 6.4-8.2 GM/DL Albumin 3.9 3.2-4.5 GM/DL C-Reactive Protein 3.22 H <0.50 MG/DL My Orders Orders - NOMAN LARIOS MD Chest 1 View Ap/Pa Only (03/30/21 10:28) Cbc With Automated Diff (03/30/21 10:28) Comprehensive Metabolic Panel (03/30/21 10:28) Probnp Fs (03/30/21 10:28) Protime With Inr (03/30/21 10:28) Ekg Tracing (03/30/21 10:42) Troponin I Fs (03/30/21 10:42) Furosemide Injection (Lasix Injection) (03/30/21 11:00) Manual Differential (03/30/21 10:33) Crp Fs (03/30/21 11:09) Medications Given in ED Current Medications Medications Dose Ordered Sig/Suyapa Route Start Time Stop Time Status Last Admin Dose Admin Furosemide 40 mg ONCE ONCE IVP 03/30/21 11:00 03/30/21 11:01 DC 03/30/21 11:43 40 MG Vital Signs/I&O 03/30/21 03/30/21 10:14 10:16 Temp 36.1 Pulse 70 Resp 20 B/P (MAP) 142/98 (113) O2 Delivery Room Air Nasal Cannula O2 Flow Rate 2.00 Capillary Refill : Blood Pressure Mean: 113 Progress Note : Progress Note Seen and evaluated. IV, labs, EKG and chest x-ray ordered. Lasix 40 mg IV ordered. Monitor patient. 1239: Patient has had several good urinations and actually feels much better. BNP is elevated greater than 7000. Patient does not want to come into the hospital and I think we can do this outpatient. I did discuss risk and benefits with patient and family. We will initiate Lasix daily for 4 days with potassium and she will follow-up with Dr Hill, her engineering assistant. Discharged home with return precautions. Patient and family verbalized understanding of instructions and agreement with plan. Chest x-ray reviewed. I believe the concern for infiltrate in the left lower lobe is likely edema as patient does not have fever, cough or other signs of pneumonia. ECG Initial ECG Impression Date: Mar 30, 2021 Initial ECG Impression Time: 11:44 Initial ECG Rate: 68 Initial ECG Rhythm: Normal Sinus Comment Sinus rhythm with PVC. No evidence of ST elevation ID. Similar to previous of 08/17/2018. Normal axis. Interpreted by me. Diagnostic Imaging Diagonstic Imaging: Xray Plain Films/CT/US/NM/MRI: chest Comments [facility]. [place], [place] NAME: FELY HERNANDEZ [facility] REC#: [id number] PT STATUS: REG ER : 1935 PHYSICIAN: NOMAN LARIOS MD ADMIT DATE: 03/30/21/ER FS Draft Date of Exam:03/30/21 CHEST 1 VIEW AP/PA ONLY INDICATION: Shortness of breath. EXAMINATION: Chest 03/30/2021 FINDINGS: The heart is prominent. The pulmonary vasculature is mildly congested. There are coarsened interstitial markings throughout both lungs likely due to edema. There is a more focal infiltrate at the left lung base. There are no effusions. There is no pneumothorax. There is a chest port versus a central line on the right with the tip seen to the mid SVC. Distally it is obscured by the pacemaker which is unremarkable. IMPRESSION: 1. Suspected pulmonary edema. 2. Left base infiltrate. Dictated on workstation # [id number] Dict: 03/30/21 1100 Trans: 03/30/21 1102 CV [id number] Interpreted by: LUCRECIA LÓPEZ MD Electronically signed by: Departure Impression Primary Impression: Acute on chronic heart failure Qualified Codes: I50.9 - Heart failure, unspecified Disposition: HOME, SELF-CARE Condition: Stable Departure-Patient Inst. Decision time for Depature: 12:42 Referrals: JANETH BRISCOE (PCP) Primary Care Physician NO,LOCAL PHYSICIAN (Family) Primary Care Physician Patient Instructions: Heart Failure, Adult (DC), DASH Diet Add. Discharge Instructions: All discharge instructions reviewed with patient and/or family. Voiced understanding. Take medications as directed. Avoid salt in your diet. Follow-up with your engineering assistant next week. Return for worse pain, swelling, fever, vomiting, breathing problems, cough or other concerns as needed. Scripts Potassium Chloride (Potassium Chloride) 20 Meq Tab.er.prt 20 MEQ PO DAILY for 4 Days, #4 TAB 0 Refills Prov: NOMAN LARIOS MD 03/30/21 Furosemide (Furosemide) 40 Mg Tablet 40 MG PO DAILY for 4 Days, #4 TAB 0 Refills Prov: NOMAN LARIOS MD 03/30/21 NOMAN LARIOS MD Mar 30, 2021 10:57
[2021-03-30] MEDS ORDERED: FUROSEMIDE 40 MG/4 ML INJ (LASIX) IVP ONE (11:00)
--- NOTE | 2021-03-30 11:03 | Diagnostic Imaging Report ---
INDICATION: Shortness of breath. EXAMINATION: Chest 03/30/2021 FINDINGS: The heart is prominent. The pulmonary vasculature is mildly congested. There are coarsened interstitial markings throughout both lungs likely due to edema. There is a more focal infiltrate at the left lung base. There are no effusions. There is no pneumothorax. There is a chest port versus a central line on the right with the tip seen to the mid SVC. Distally it is obscured by the pacemaker which is unremarkable. IMPRESSION: 1. Suspected pulmonary edema. 2. Left base infiltrate. Dictated by: Dictated on workstation # [id number]
[2021-03-30 11:19] LABS: ALBUMIN 3.9 GM/DL (3.2-4.5); BILIRUBIN,TOTAL 0.5 MG/DL (0.1-1.0); CALCIUM 8.6 MG/DL (8.5-10.1); CREATININE SERUM 1.15 MG/DL (0.60-1.30); POTASSIUM 4.6 MMOL/L (3.6-5.0); TOTAL PROTEIN 5.9 GM/DL (6.4-8.2)
[2021-03-30 11:45] LABS: BAND NEUTROPHILS 25 %; LYMPHOCYTES % (MANUAL) 4 %; NEUTROPHILS % (MANUAL) 60 %
[2021-03-30 11:46] LABS: ATYPICAL LYMPHOCYTES 2 %; BASOPHILS % (MANUAL) 1 %; EOSINOPHILS % (MANUAL) 1 %; MONOCYTES % (MANUAL) 7 %; PLATELET ESTIMATE NORMAL; POIKILOCYTOSIS 2+; RBC MORPH NORMAL
[2021-03-30 11:47] LABS: ACANTHOCYTES MODERATE; ELLIPT/OVALOCYTES MODERATE
[2021-03-30] MEDS ORDERED: FURO40TA4 PO (12:47)
[2021-03-30] MEDS ORDERED: POTA-179 PO (12:47)
[2021-03-30 12:49] VITALS: BP 134/87
== END 2021-03-30 12:54 | disposition home or self-care (01) ==
LOC: EDUNIT# 09:54 → ER FS 09:55
DX: I11.0 Hypertensive heart disease with heart failure (principal); I50.9 Heart failure, unspecified; J44.9 Chronic obstructive pulmonary disease, unspecified; Z79.01 Long term (current) use of anticoagulants
CPT/HCPCS: 36415; 71045; 80053; 83880; 84484; 85007; 85027; 85610; 86141; 93005

== ENCOUNTER 2021-06-18 12:28 | Emergency (ER) | payer MEDICARE, BC ==
[~2021-06-18] VITALS: Ht 172 cm; Wt 90.0 kg
[~2021-06-18 12:28] MED LIST changes: +FURO40TA4 PO; +POTA-179 PO
[2021-06-18] MEDS ORDERED: DOXYCYCLINE 100 MG (VIBRAMYCIN) TABLET PO STA (12:54)
[2021-06-18 12:57] VITALS: BP 127/65
--- NOTE | 2021-06-18 12:58 | ED Cough/URI ---
General Chief Complaint: Cough/Cold/Flu Symptoms Stated Complaint: COUGH Source: patient, family Exam Limitations: no limitations History of Present Illness Date Seen by Provider: Jun 18, 2021 Time Seen by Provider: 12:29 Initial Comments 85-year-old female with past medical history of A. fib on warfarin, CHF, chronic respiratory failure on 3 L oxygen coming in with family due to worsening cough over the past week. Bringing up clear sputum. Noticed she is been wheezing the past couple days. She is been told she probably has COPD, but has never been formally diagnosed. She does not use any inhalers. Denies any fever, chest pain, abdominal pain, nausea, vomiting, diarrhea, weakness, numbness, or any other concerns. She says she takes Lasix when she gets about 3 pounds above her baseline weight. She was up 3 pounds yesterday so took Lasix, and is now down 1 pound from that. She did take another dose today. Allergies and Home Medications Allergies Coded Allergies: verapamil (Verified Allergy, Severe, 12/31/17) levofloxacin (Verified Allergy, Intermediate, 12/31/17) morphine (Unverified Allergy, Mild, 10/01/13) Patient Home Medication List Home Medication List Reviewed: Yes Acetaminophen (Acetaminophen) 325 Mg Tablet, 650 MG PO Q4H PRN for PAIN-MILD Prescribed by: TABBY MACHADO on 01/04/18 0857 Amoxicillin/Potassium Clav (Augmentin 875-125 Tablet) 1 Each Tablet, 1 EACH PO BID Prescribed by: KIETH PARKS on 08/17/18 1920 Benzonatate (Tessalon Perles) 100 Mg Capsule, 100 MG PO TID PRN for COUGH Prescribed by: ALEX TAYLOR on 06/18/21 1413 Carvedilol (Carvedilol) 6.25 Mg Tablet, 6.25 MG PO BID, (Reported) Entered as Reported by: SALVADOR PIERSON on 12/31/17 1613 Cholecalciferol (Vitamin D3) (Vitamin D3) 1,000 Unit Capsule, 1,000 UNIT PO DAILY, (Reported) Entered as Reported by: SALVADOR PIERSON on 12/31/17 1613 Cyanocobalamin (Vitamin B-12) (Vitamin B-12) 3,000 Mcg Capsule, 3,000 MCG PO DAILY, (Reported) Entered as Reported by: SALVADOR PIERSON on 12/31/17 161 Darbepoetin Rafa in Polysorbat (Aranesp) 40 Mcg/0.4 Ml Syringe, 40 MCG IJ EVERY 2 WEEKS, (Reported) Entered as Reported by: SALVADOR PIERSON on 12/31/17 161 Doxycycline Hyclate (Doxycycline Hyclate) 100 Mg Tablet, 100 MG PO BID Prescribed by: ALEX TAYLOR on 06/18/21 1413 Furosemide (Furosemide) 40 Mg Tablet, 40 MG PO DAILY Prescribed by: NOMAN LARIOS on 03/30/21 1247 Hydroxychloroquine Sulfate (Hydroxychloroquine Sulfate) 200 Mg Tablet, 200 MG PO BID, (Reported) Entered as Reported by: SALVADOR PIERSON on 12/31/17 161 Iron Polysaccharide Complex (Ferrex 150) 150 Mg Capsule, 150 MG PO BID WITH MEALS Prescribed by: TABBY MACHADO on 01/04/18 0857 Levothyroxine Sodium (Levothyroxine Sodium) 75 Mcg Tablet, 75 MCG PO DAILY, (Reported) Entered as Reported by: SALVADOR PIERSON on 12/31/17 161 Meclizine HCl (Meclizine HCl) 25 Mg Tablet, 25 MG PO TID PRN for DIZZINESS, (Reported) Entered as Reported by: SALVADOR PIERSON on 12/31/171612 Multivitamin (Multivitamins) 1 Each Tablet, 1 TAB PO DAILY, (Reported) Entered as Reported by: SALVADOR PIERSON on 12/31/171612 Nitroglycerin (Nitroglycerin) 0.4 Mg Tab.subl, 0.4 MG SL UD PRN for CHEST PAIN, (Reported) Entered as Reported by: SALVADOR PIERSON on 12/31/17 161 Omeprazole (Omeprazole) 40 Mg Capsule.dr, 40 MG PO DAILY, (Reported) Entered as Reported by: SALVADOR PIERSON on 12/31/171612 Ondansetron (Ondansetron Odt) 4 Mg Tab.rapdis, 4-8 MG PO Q6H PRN for NAUSEA/VOMITING-1ST LINE Prescribed by: KEITH PARKS on 08/17/18 1920 Potassium Chloride (Potassium Chloride) 20 Meq Tab.er.prt, 20 MEQ PO DAILY Prescribed by: NOMAN LARIOS on 03/30/21 1247 Prednisone (Prednisone) 5 Mg Tablet, 5 MG PO DAILY, (Reported) Entered as Reported by: SALVADOR PIERSON on 12/31/17 1613 Spironolactone (Spironolactone) 25 Mg Tablet, 25 MG PO HS, (Reported) Entered as Reported by: SALVADOR PIERSON on 12/31/17 161 Warfarin Sodium (Warfarin Sodium) 5 Mg Tablet, 5 MG PO 1800, (Reported) Entered as Reported by: SALVADOR PIERSON on 12/31/17 161 Review of Systems Review of Systems Constitutional: No chills, No fever EENTM: No blurred vision Respiratory: cough Cardiovascular: No chest pain Gastrointestinal: No abdominal pain Genitourinary: no symptoms reported Musculoskeletal: no symptoms reported Skin: no symptoms reported Psychiatric/Neurological: No Symptoms Reported Hematologic/Lymphatic: No Symptoms Reported Immunological/Allergic: no symptoms reported All Other Systems Reviewed Negative Unless Noted: Yes Past Gfdpjik-Iovidh-Embjwn Hx Patient Social History Tobacco Use?: No Seasonal Allergies Seasonal Allergies: No Past Medical History Surgeries: Yes (mastectomy, knees, hip) Hysterectomy, Orthopedic, Thyroidectomy, Tonsillectomy Respiratory: Yes COPD Currently Using CPAP: No Currently Using BIPAP: No Cardiac: Yes (HAS PACEMAKER, "stiff heart") Hypertension Neurological: No Reproductive Disorders: No 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 Genitourinary: Yes UTI-Chronic Gastrointestinal: No Musculoskeletal: Yes Arthritis, Rheumatoid Arthritis Endocrine: Yes (thyroidectomy) HEENT: Yes Cataract, Macular Degeneration Loss of Vision: Denies Hearing Impairment: Hard of Hearing Cancer: Yes Breast, Lymphoma Did You Recieve Any Treatments: Yes What Type of Treatment Did You: Chemotherapy Psychosocial: No Anxiety Integumentary: No Blood Disorders: No Family Medical History Diabetes mellitus 19 MOTHER Neoplasm 19 FATHER G8 BROTHER G8 SISTER Cancer, Diabetes, Hypertension Physical Exam Vital Signs - First Documented 06/18/21 12:57 Temp 36.4 Pulse 82 Resp 20 B/P (MAP) 127/65 (85) Pulse Ox 99 O2 Delivery Room Air Capillary Refill : Height: 5'8.00" Weight: 180lbs. 3.2oz. [id number]; 32.00 BMI Method:Stated General Appearance: WD/WN, no apparent distress Eyes: Bilateral Eye Normal Inspection HEENT: PERRL/EOMI, normal ENT inspection, pharynx normal Neck: non-tender, full range of motion, supple, normal inspection Respiratory: chest non-tender, no accessory muscle use, wheezing Cardiovascular: regular rate, rhythm, no edema, no murmur Gastrointestinal: normal bowel sounds, non tender, soft; No distended, No guarding, No rebound Extremities: normal range of motion, non-tender, normal inspection, no pedal edema, no calf tenderness, normal capillary refill Neurologic/Psychiatric: no motor/sensory deficits, alert, normal mood/affect Skin: normal color, warm/dry Lymphatic: no adenopathy Progress/Results/Core Measures Suspected Sepsis SIRS Temperature: Pulse: Respiratory Rate: Laboratory Tests 06/18/21 13:10: White Blood Count 11.9H Blood Pressure / Mean: Laboratory Tests 06/18/21 13:10: Creatinine 1.23, INR Comment 2.5H, Platelet Count 330, Total Bilirubin 0.6 Results/Orders Lab Results Laboratory Tests Test 06/18/21 13:10 Range/Units White Blood Count 11.9 H 4.3-11.0 10^3/uL Red Blood Count 3.46 L 3.80-5.11 10^6/uL Hemoglobin 9.5 L 11.5-16.0 g/dL Hematocrit 30 L 35-52 % Mean Corpuscular Volume 88 80-99 fL Mean Corpuscular Hemoglobin 28 25-34 pg Mean Corpuscular Hemoglobin Concent 31 L 32-36 g/dL Red Cell Distribution Width 14.0 10.0-14.5 % Platelet Count 330 130-400 10^3/uL Mean Platelet Volume 10.0 9.0-12.2 fL Immature Granulocyte % (Auto) 0 % Neutrophils (%) (Auto) 83 H 42-75 % Lymphocytes (%) (Auto) 5 L 12-44 % Monocytes (%) (Auto) 9 0-12 % Eosinophils (%) (Auto) 3 0-10 % Basophils (%) (Auto) 1 0-10 % Neutrophils # (Auto) 9.8 H 1.8-7.8 10^3/uL Lymphocytes # (Auto) 0.6 L 1.0-4.0 10^3/uL Monocytes # (Auto) 1.0 0.0-1.0 10^3/uL Eosinophils # (Auto) 0.4 H 0.0-0.3 10^3/uL Basophils # (Auto) 0.1 0.0-0.1 10^3/uL Immature Granulocyte # (Auto) 0.1 0.0-0.1 10^3/uL Neutrophils % (Manual) 93 % Lymphocytes % (Manual) 2 % Monocytes % (Manual) 2 % Eosinophils % (Manual) 3 % Platelet Estimate LARGE PLTS Poikilocytosis MODERATE Basophilic Stippling SLIGHT Target Cells SLIGHT Prothrombin Time 27.2 H 12.2-14.7 SEC INR Comment 2.5 H 0.8-1.4 Sodium Level 138 135-145 MMOL/L Potassium Level 5.3 H 3.6-5.0 MMOL/L Chloride Level 100 98-107 MMOL/L Carbon Dioxide Level 27 21-32 MMOL/L Anion Gap 11 5-14 MMOL/L Blood Urea Nitrogen 21 H 7-18 MG/DL Creatinine 1.23 0.60-1.30 MG/DL Estimat Glomerular Filtration Rate 44 BUN/Creatinine Ratio 17 Glucose Level 105 70-105 MG/DL Calcium Level 8.6 8.5-10.1 MG/DL Corrected Calcium 8.7 8.5-10.1 MG/DL Total Bilirubin 0.6 0.1-1.0 MG/DL Aspartate Amino Transf (AST/SGOT) 12 5-34 U/L Alanine Aminotransferase (ALT/SGPT) 10 0-55 U/L Alkaline Phosphatase 97 40-136 U/L Pro-B-Type Natriuretic Peptide 58660.0 H <75.0 PG/ML Total Protein 6.1 L 6.4-8.2 GM/DL Albumin 3.9 3.2-4.5 GM/DL Influenza Type A Antigen NEGATIVE NEGATIVE Influenza Type B Antigen NEGATIVE NEGATIVE My Orders Orders - ALEX TAYLOR MD Cbc With Automated Diff (06/18/21 12:54) Comprehensive Metabolic Panel (06/18/21 12:54) Protime With Inr (06/18/21 12:54) Probnp Fs (06/18/21 12:54) Influenza A & B Antigens (06/18/21 12:54) Chest 1 View Ap/Pa Only (06/18/21 12:54) Doxycycline Hyclate Tablet (Vibramycin T (06/18/21 12:54) Dexamethasone Injection (Decadron Injec (06/18/21 12:54) Albuterol/Ipra Inhalation Soln (Duoneb I (06/18/21 13:00) Manual Differential (06/18/21 13:10) Medications Given in ED Current Medications Medications Dose Ordered Sig/Suy[place] Route Start Time Stop Time Status Last Admin Dose Admin Albuterol/ Ipratropium 3 ml ONCE ONCE INH 06/18/21 13:00 06/18/21 13:01 DC 06/18/21 13:15 3 ML Vital Signs/I&O 06/18/21 12:57 Temp 36.4 Pulse 82 Resp 20 B/P (MAP) 127/65 (85) Pulse Ox 99 O2 Delivery Room Air Capillary Refill : Progress Note : Progress Note Treatment [id number] female coming in due to worsening cough and slight amount of weight gain. ABCs were intact and vitals were stable on presentation. Physical exam with lower extremity edema and bilateral lung field wheezing. She was given a DuoNeb complete resolution of the wheezing. Given concerns for undiagnosed COPD with the worsening cough, she was also given steroids and an antibiotic. Basic labs were obtained and were significant for an elevated BNP which fits her clinical exam as well. She is just now starting Lasix back up as of yesterday. I told her to take this until she is just slightly below her dry weight. Chest x-ray clear. Vitals remained stable and she is otherwise well- appearing. I believe she is stable for discharge with outpatient follow-up. She was sent home with strict return precautions. Diagnostic Imaging Diagonstic Imaging: Xray (chest) Comments [facility], [place] NAME: FELY HERNANDEZ [employer] REC#: [id number] PT STATUS: REG ER : 1935 PHYSICIAN: ALEX TAYLOR MD ADMIT DATE: 06/18/21/ER FS Draft Date of Exam:06/18/21 CHEST 1 VIEW AP/PA ONLY INDICATION: Dyspnea with cough and wheezing. COMPARISON: 03/30/2021. DISCUSSION: A single portable upright view of the chest was obtained. Cardiomegaly is stable. Left-sided pacemaker is stable. No gregory failure. Mild interstitial thickening appears chronic. No new consolidation. Small blunting of the left costophrenic angle could be seen with scarring or a small chronic effusion. No pneumothorax or osseous abnormality. IMPRESSION: Stable chest. Dictated on workstation # [id number] Dict: 06/18/21 1303 Trans: 06/18/21 1309 [id number] Interpreted by: VIET STOUT MD Electronically signed by: Departure Impression Primary Impression: Volume overload Qualified Codes: E87.70 - Fluid overload, unspecified Additional Impressions: CHF (congestive heart failure) Qualified Codes: I50.9 - Heart failure, unspecified Wheezing Disposition: HOME, SELF-CARE Condition: Stable Departure-Patient Inst. Decision time for Depature: 14:11 Referrals: JANETH BRISCOE (PCP) Primary Care Physician MADIHA,LOCAL PHYSICIAN (Family) Primary Care Physician Patient Instructions: Heart Failure ED Add. Discharge Instructions: I believe the vast majority of your symptoms are from extra fluid on your lungs from your heart. I recommend you take your Lasix for several days until you have lost about 5 to 10 pounds. You can also base it off your symptoms and how short of breath you feel. Be sure you are taking potassium daily if you are taking Lasix. I started you on an antibiotic because you could have an underlying infection brewing such as bronchitis or pneumonia, although your chest x-ray is normal today. Call your doctor if you are not feeling better in the next 3 days. Scripts Ipratropium/Albuterol Sulfate (Iprat-Albut 0.5-3(2.5) mg/3 ml) 3 Ml Ampul.neb 3 ML IH Q6H PRN for SHORTNESS OF BREATH for 14 Days, #56 EACH Prov: ALEX TAYLOR MD 06/18/21 Benzonatate (TESSALON PERLES) 100 Mg Capsule 100 MG PO TID PRN for COUGH for 7 Days, #21 CAP Prov: ALEX TAYLOR MD 06/18/21 Doxycycline Hyclate (Doxycycline Hyclate) 100 Mg Tablet 100 MG PO BID for 7 Days, #14 TAB 0 Refills Prov: ALEX TAYLOR MD 06/18/21 ALEX TAYLOR MD Jun 18, 2021 12:58
[2021-06-18] MEDS ORDERED: RT-ALBUTEROL/IPRATROPIUM 3 ML (DUONEB) VIAL INH ONE (13:00)
--- NOTE | 2021-06-18 13:11 | Diagnostic Imaging Report ---
INDICATION: Dyspnea with cough and wheezing. COMPARISON: 03/30/2021. DISCUSSION: A single portable upright view of the chest was obtained. Cardiomegaly is stable. Left-sided pacemaker is stable. No gregory failure. Mild interstitial thickening appears chronic. No new consolidation. Small blunting of the left costophrenic angle could be seen with scarring or a small chronic effusion. No pneumothorax or osseous abnormality. IMPRESSION: Stable chest. Dictated by: Dictated on workstation # [id number]
[2021-06-18 13:16] LABS: BASOPHILS # (AUTO) 0.1 10^3/uL (0.0-0.1); BASOPHILS % (AUTO) 1 % (0-10); EOSINOPHILS # (AUTO) 0.4 10^3/uL (0.0-0.3); EOSINOPHILS % (AUTO) 3 % (0-10); HEMATOCRIT 30 % (35-52); HEMOGLOBIN 9.5 g/dL (11.5-16.0); LYMPHOCYTES # (AUTO) 0.6 10^3/uL (1.0-4.0); LYMPHOCYTES % (AUTO) 5 % (12-44); MEAN CORPUSCULAR HEMOGLOBIN 28 pg (25-34); MEAN CORPUSCULAR HGB CONC 31 g/dL (32-36); MEAN CORPUSCULAR VOLUME 88 fL (80-99); MONOCYTES % (AUTO) 9 % (0-12); NEUTROPHILS # (AUTO) 9.8 10^3/uL (1.8-7.8); NEUTROPHILS % (AUTO) 83 % (42-75); PLATELET COUNT 330 10^3/uL (130-400); WHITE BLOOD COUNT 11.9 10^3/uL (4.3-11.0)
[2021-06-18 13:25] LABS: INR 2.5 (0.8-1.4); PROTHROMBIN TIME PATIENT 27.2 SEC (12.2-14.7)
[2021-06-18 13:35] LABS: EOSINOPHILS % (MANUAL) 3 %; LYMPHOCYTES % (MANUAL) 2 %; MONOCYTES % (MANUAL) 2 %; NEUTROPHILS % (MANUAL) 93 %; PLATELET ESTIMATE LARGE PLTS; TARGET CELLS SLIGHT
[2021-06-18 13:36] LABS: POIKILOCYTOSIS MODERATE
[2021-06-18 13:38] LABS: ALBUMIN 3.9 GM/DL (3.2-4.5); BILIRUBIN,TOTAL 0.6 MG/DL (0.1-1.0); CALCIUM 8.6 MG/DL (8.5-10.1); CREATININE SERUM 1.23 MG/DL (0.60-1.30); POTASSIUM 5.3 MMOL/L (3.6-5.0); TOTAL PROTEIN 6.1 GM/DL (6.4-8.2)
[2021-06-18] MEDS ORDERED: DOXY100T2 PO (14:13)
[2021-06-18] MEDS ORDERED: BENZ100C18 PO (14:13)
[2021-06-18] MEDS ORDERED: IPRA3AMP31 IH (14:15)
== END 2021-06-18 14:35 | disposition home or self-care (01) ==
LOC: EDUNIT# 12:28 → ER FS 12:29
DX: E87.70 Fluid overload, unspecified (principal); I50.9 Heart failure, unspecified; I48.91 Unspecified atrial fibrillation; J96.10 Chronic respiratory failure, unspecified whether with hypoxia or hypercapnia; Z99.81 Dependence on supplemental oxygen; Z79.01 Long term (current) use of anticoagulants
CPT/HCPCS: 36415; 71045; 80053; 83880; 85007; 85027; 85610; 87804

== ENCOUNTER 2021-08-06 12:22 | Emergency (ER) | payer MEDICARE, BC ==
[~2021-08-06] VITALS: Ht 172.7 cm; Wt 82.1 kg
[~2021-08-06 12:22] MED LIST changes: +BENZ100C18 PO; +DOXY100T2 PO; +IPRA3AMP31 IH
--- NOTE | 2021-08-06 12:46 | ED Respiratory ---
General Chief Complaint: Respiratory Problems Stated Complaint: SOA/COUGH/WHEEZING History of Present Illness Date Seen by Provider: August 06, 2021 Time Seen by Provider: 12:44 Initial Comments 85-year-old female with PMH non-Hodgkin's lymphoma/breast cancer/CHF/A. fib with pacemaker, is here with complaints of 3 days of shortness of breath, cough that is worsening, and feeling unwell. Patient states that she started having some mild chest tightness today, without pain. Patient took a sublingual nitro at home and then came with her daughter to the ER. Denies fever, abdominal pain, diarrhea, sore throat, palpitations, dysuria. Patient's daughter stated that patient had a 3 pound weight gain a few days ago and she increased her Lasix from 20 mg daily to 40 mg daily, with resulting weight loss back to baseline. No complaints of edema. Allergies and Home Medications Allergies Coded Allergies: verapamil (Verified Allergy, Severe, 12/31/17) levofloxacin (Verified Allergy, Intermediate, 12/31/17) morphine (Unverified Allergy, Mild, 10/01/13) Patient Home Medication List Home Medication List Reviewed: Yes Acetaminophen (Acetaminophen) 325 Mg Tablet, 650 MG PO Q4H PRN for PAIN-MILD Prescribed by: TABBY MACHADO on 01/04/18 0857 Amoxicillin/Potassium Clav (Augmentin 875-125 Tablet) 1 Each Tablet, 1 EACH PO BID Prescribed by: KEITH PARKS on 08/17/18 1920 Benzonatate (Tessalon Perles) 100 Mg Capsule, 100 MG PO TID PRN for COUGH Prescribed by: ALEX TAYLOR on 06/18/21 1413 Carvedilol (Carvedilol) 6.25 Mg Tablet, 6.25 MG PO BID, (Reported) Entered as Reported by: SALVADOR PIERSON on 12/31/17 161 Cholecalciferol (Vitamin D3) (Vitamin D3) 1,000 Unit Capsule, 1,000 UNIT PO DAILY, (Reported) Entered as Reported by: ASLVADOR PIERSON on 12/31/17 161 Cyanocobalamin (Vitamin B-12) (Vitamin B-12) 3,000 Mcg Capsule, 3,000 MCG PO DAILY, (Reported) Entered as Reported by: SALVADOR PIERSON on 12/31/17 1613 Darbepoetin Rafa in [place]ys[place] (Aranesp) 40 Mcg/0.4 Ml Syringe, 40 MCG IJ EVERY 2 WEEKS, (Reported) Entered as Reported by: SALVADOR PIERSON on 12/31/17 161 Doxycycline Hyclate (Doxycycline Hyclate) 100 Mg Tablet, 100 MG PO BID Prescribed by: ALEX TAYLOR on 06/18/21 1413 Furosemide (Furosemide) 40 Mg Tablet, 40 MG PO DAILY Prescribed by: NOMAN LARIOS on 03/30/21 1247 Hydroxychloroquine Sulfate (Hydroxychloroquine Sulfate) 200 Mg Tablet, 200 MG PO BID, (Reported) Entered as Reported by: SALVADOR PIERSON on 12/31/17 161 Ipratropium/Albuterol Sulfate (Iprat-Albut 0.5-3(2.5) mg/3 ml) 3 Ml Ampul.neb, 3 ML IH Q6H PRN for SHORTNESS OF BREATH Prescribed by: ALEX TAYLOR on 06/18/21 141 Iron Polysaccharide Complex (Ferrex 150) 150 Mg Capsule, 150 MG PO BID WITH MEALS Prescribed by: TABBY MACHADO on 01/04/18 0857 Levothyroxine Sodium (Levothyroxine Sodium) 75 Mcg Tablet, 75 MCG PO DAILY, (Reported) Entered as Reported by: SALVADOR PIERSON on 12/31/171612 Meclizine HCl (Meclizine HCl) 25 Mg Tablet, 25 MG PO TID PRN for DIZZINESS, (Reported) Entered as Reported by: SALVADOR PIERSON on 12/31/171612 Multivitamin (Multivitamins) 1 Each Tablet, 1 TAB PO DAILY, (Reported) Entered as Reported by: SALVADOR PIERSON on 12/31/171612 Nitroglycerin (Nitroglycerin) 0.4 Mg Tab.subl, 0.4 MG SL UD PRN for CHEST PAIN, (Reported) Entered as Reported by: SALVADOR PIERSON on 12/31/17 161 Omeprazole (Omeprazole) 40 Mg Capsule.dr, 40 MG PO DAILY, (Reported) Entered as Reported by: SALVADOR PIERSON on 12/31/17 161 Ondansetron (Ondansetron Odt) 4 Mg Tab.rapdis, 4-8 MG PO Q6H PRN for NAUSEA/VOMITING-1ST LINE Prescribed by: KEITH PARKS on 08/17/18 1920 Potassium Chloride (Potassium Chloride) 20 Meq Tab.er.prt, 20 MEQ PO DAILY Prescribed by: NOMAN LARIOS on 03/30/21 1247 Prednisone (Prednisone) 5 Mg Tablet, 5 MG PO DAILY, (Reported) Entered as Reported by: SALVADOR PIERSON on 12/31/17 1613 Spironolactone (Spironolactone) 25 Mg Tablet, 25 MG PO HS, (Reported) Entered as Reported by: SALVADOR PIERSON on 12/31/17 161 Warfarin Sodium (Warfarin Sodium) 5 Mg Tablet, 5 MG PO 1800, (Reported) Entered as Reported by: SALVADOR PIERSON on 12/31/17 161 Review of Systems Review of Systems Constitutional: no symptoms reported EENTM: no symptoms reported Respiratory: cough, dyspnea on exertion, wheezing Cardiovascular: chest pain Gastrointestinal: no symptoms reported Genitourinary: no symptoms reported Musculoskeletal: no symptoms reported Skin: no symptoms reported Psychiatric/Neurological: No Symptoms Reported Hematologic/Lymphatic: No Symptoms Reported Immunological/Allergic: no symptoms reported Past Jgqzajs-Wfjvrp-Koaztm Hx Seasonal Allergies Seasonal Allergies: No Past Medical History Surgeries: Yes (mastectomy, knees, hip) Hysterectomy, Orthopedic, Thyroidectomy, Tonsillectomy Respiratory: Yes COPD Currently Using CPAP: No Currently Using BIPAP: No Cardiac: Yes (HAS PACEMAKER, "stiff heart") Hypertension Neurological: No Reproductive Disorders: 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 Genitourinary: Yes UTI-Chronic Gastrointestinal: No Musculoskeletal: Yes Arthritis, Rheumatoid Arthritis Endocrine: Yes (thyroidectomy) HEENT: Yes Cataract, Macular Degeneration Loss of Vision: Denies Hearing Impairment: Hard of Hearing Cancer: Yes Breast, Lymphoma Did You Recieve Any Treatments: Yes What Type of Treatment Did You: Chemotherapy Psychosocial: No Anxiety Integumentary: No Blood Disorders: No Family Medical History Diabetes mellitus 19 MOTHER Neoplasm 19 FATHER G8 BROTHER G8 SISTER Cancer, Diabetes, Hypertension Physical Exam Vital Signs - First Documented Capillary Refill : Height: 5'8.00" Weight: 180lbs. 3.2oz. 81.095381jr; 30.00 BMI Method:Stated General Appearance: no apparent distress HEENT: PERRL/EOMI Neck: non-tender, full range of motion, supple Respiratory: chest non-tender, no respiratory distress, crackles, rales, rhonchi, wheezing (very mild, expiratory,occassional) Cardiovascular: normal peripheral pulses, regular rate, rhythm, other (very mil d pedal edema, +1) Gastrointestinal: non tender, soft Neurologic/Psychiatric: no motor/sensory deficits, alert, normal mood/affect, oriented x 3 Skin: normal color Focused Exam Lactate Level 08/06/21 12:40: Lactic Acid Level 0.87 Lactic Acid Level Laboratory Tests Test 08/06/21 12:40 Lactic Acid Level 0.87 MMOL/L (0.50-2.00) Progress/Results/Core Measures Suspected Sepsis SIRS Temperature: Pulse: Respiratory Rate: Laboratory Tests 08/06/21 12:36: White Blood Count 11.5H Blood Pressure / Mean: 08/06/21 12:40: Lactic Acid Level 0.87 Laboratory Tests 08/06/21 12:36: Creatinine 1.24, INR Comment 1.8H, Platelet Count 295, Total Bilirubin 0.5 Results/Orders Lab Results Laboratory Tests Test 08/06/21 12:36 08/06/21 12:40 08/06/21 13:20 Range/Units White Blood Count 11.5 H 4.3-11.0 10^3/uL Red Blood Count 3.58 L 3.80-5.11 10^6/uL Hemoglobin 9.6 L 11.5-16.0 g/dL Hematocrit 31 L 35-52 % Mean Corpuscular Volume 87 80-99 fL Mean Corpuscular Hemoglobin 27 25-34 pg Mean Corpuscular Hemoglobin Concent 31 L 32-36 g/dL Red Cell Distribution Width 14.0 10.0-14.5 % Platelet Count 295 130-400 10^3/uL Mean Platelet Volume 10.9 9.0-12.2 fL Immature Granulocyte % (Auto) 1 % Neutrophils (%) (Auto) 82 H 42-75 % Lymphocytes (%) (Auto) 4 L 12-44 % Monocytes (%) (Auto) 10 0-12 % Eosinophils (%) (Auto) 3 0-10 % Basophils (%) (Auto) 1 0-10 % Neutrophils # (Auto) 9.4 H 1.8-7.8 10^3/uL Lymphocytes # (Auto) 0.5 L 1.0-4.0 10^3/uL Monocytes # (Auto) 1.1 H 0.0-1.0 10^3/uL Eosinophils # (Auto) 0.3 0.0-0.3 10^3/uL Basophils # (Auto) 0.1 0.0-0.1 10^3/uL Immature Granulocyte # (Auto) 0.1 0.0-0.1 10^3/uL Neutrophils % (Manual) 86 % Lymphocytes % (Manual) 8 % Monocytes % (Manual) 3 % Eosinophils % (Manual) 3 % Hypochromasia SLIGHT Poikilocytosis MODERATE Target Cells SLIGHT Elliptocytes MODERATE Prothrombin Time 21.4 H 12.2-14.7 SEC INR Comment 1.8 H 0.8-1.4 Activated Partial Thromboplast Time 57 H 24-35 SEC D-Dimer 1.76 H 0.00-0.49 UG/ML Sodium Level 138 135-145 MMOL/L Potassium Level 4.8 3.6-5.0 MMOL/L Chloride Level 99 98-107 MMOL/L Carbon Dioxide Level 27 21-32 MMOL/L Anion Gap 12 5-14 MMOL/L Blood Urea Nitrogen 30 H 7-18 MG/DL Creatinine 1.24 0.60-1.30 MG/DL Estimat Glomerular Filtration Rate 43 BUN/Creatinine Ratio 24 Glucose Level 99 70-105 MG/DL Calcium Level 8.9 8.5-10.1 MG/DL Corrected Calcium 9.0 8.5-10.1 MG/DL Magnesium Level 1.6 1.6-2.4 MG/DL Total Bilirubin 0.5 0.1-1.0 MG/DL Aspartate Amino Transf (AST/SGOT) 14 5-34 U/L Alanine Aminotransferase (ALT/SGPT) 11 0-55 U/L Alkaline Phosphatase 89 40-136 U/L Troponin I < 0.30 <0.30 NG/ML Pro-B-Type Natriuretic Peptide 69514.0 H <75.0 PG/ML Total Protein 6.1 L 6.4-8.2 GM/DL Albumin 3.9 3.2-4.5 GM/DL Lactic Acid Level 0.87 0.50-2.00 MMOL/L Urine Color YELLOW Urine Clarity CLEAR Urine pH 6.0 5-9 Urine Specific [place] <=1.005 1.016-1.022 Urine Protein NEGATIVE NEGATIVE Urine Glucose (UA) NEGATIVE NEGATIVE Urine Ketones NEGATIVE NEGATIVE Urine Nitrite NEGATIVE NEGATIVE Urine Bilirubin NEGATIVE NEGATIVE Urine Urobilinogen 0.2 < = 1.0 MG/DL Urine Leukocyte Esterase NEGATIVE NEGATIVE Urine RBC (Auto) NEGATIVE NEGATIVE Urine RBC 5-10 H /HPF Urine WBC NONE /HPF Urine Squamous Epithelial Cells 2-5 /HPF Urine Crystals NONE /LPF Urine Bacteria TRACE /HPF Urine Casts NONE /LPF Urine Mucus NEGATIVE /LPF Urine Culture Indicated NO My Orders Orders - MUMTA[address] MD Cbc With Automated Diff (08/06/21 12:56) Comprehensive Metabolic Panel (08/06/21 12:56) Fibrin Degradation Products (08/06/21 12:56) Lactic Acid Analyzer (08/06/21 12:56) Magnesium (08/06/21 12:56) Protime With Inr (08/06/21 12:56) Partial Thromboplastin Time (08/06/21 12:56) Probnp Fs (08/06/21 12:56) Troponin I Fs (08/06/21 12:56) Chest 1 View Ap/Pa Only (08/06/21 12:56) Ekg Tracing (08/06/21 13:01) Ipratropium 0.02% Neb Solution (Atrovent (08/06/21 13:15) Methylprednisolone Sod Succ (Solu-Medrol (08/06/21 13:02) Svn Small Volume Nebulizer (08/06/21 13:02) Manual Differential (08/06/21 12:36) Furosemide Injection (Lasix Injection) (08/06/21 13:55) Ct Angio Chest W (08/06/21 13:57) Iohexol Injection (Omnipaque 350 Mg/Ml 1 (08/06/21 14:15) Received Contrast (Hold Metformin- Contr (08/06/21 14:15) Ns (Ivpb) (Sodium Chloride 0.9% Ivpb Bag (08/06/21 14:15) Sodium Chloride Flush (Catheter Flush Sy (08/06/21 14:15) Ua Culture If Indicated (08/06/21 14:38) Medications Given in ED Current Medications Medications Dose Ordered Sig/[place] Route Start Time Stop Time Status Last Admin Dose Admin Iohexol 100 ml ONCE ONCE IV 08/06/21 14:15 08/06/21 14:16 DC 08/06/21 14:34 80 ML Ipratropium [place] 0.5 mg ONCE ONCE IH 08/06/21 13:15 08/06/21 13:16 DC 08/06/21 13:35 0.5 MG Sodium Chloride 10 ml NEEDED PRN IV 08/06/21 14:15 08/06/21 14:34 10 ML Sodium Chloride 100 ml ONCE ONCE IV 08/06/21 14:15 08/06/21 14:16 DC 08/06/21 14:34 80 ML Vital Signs/I&O 08/06/21 08/06/21 12:43 12:43 Temp 36.7 Pulse 62 Resp 20 B/P (MAP) 122/66 (84) Pulse Ox 98 O2 Delivery Room Air Nasal Cannula O2 Flow Rate 2.00 2.00 Capillary Refill : Progress Note : Progress Note 1. ACUTE CHF EXACERBATION: - Pt may have had pulmonary edema and this may have triggered her symptoms, but pt took a sublingual nitro before coming to the ER and that may have cleared it up. Pt does not clinically appear to be fluid overloaded. - CXR: unremarkable - EKG: no ischemia - BNP: 12,00. 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 2. ELEVATED D-DIMER: - D-dimer is 1.76 - CTA CHEST 3. EARLY PNEUMONIA/ SMALL LEFT PLEURAL EFFUSION: - Seen on CTA , not CXR - WBC mild elevation of WBC: 11.5 with a left shift - Ceftriaxone 2gm iv STAT Diagnostic Imaging Diagonstic Imaging: Xray, CT Plain Films/CT/US/NM/MRI: chest Comments [facility], [place] NAME: FELY HERNANDEZ [facility] REC#: [id number] PT STATUS: REG ER : 1937 PHYSICIAN: [address] MD ADMIT DATE: 08/06/21/ER FS Draft Date of Exam:08/06/21 CHEST 1 VIEW AP/PA ONLY History: Chest pain, shortness of breath COMPARISON: 06/18/2021 TECHNIQUE: Frontal view the chest FINDINGS: There is moderate cardiomegaly, similar to the prior exam. There is central vascular congestion which appears stable since the prior study. There is a minimal left pleural effusion. No pneumothorax is seen. The right Port-A-Cath tip projects over the cavoatrial junction. The pacemaker leads appear stable. IMPRESSION: 1. Cardiomegaly and central vascular congestion, stable since the prior study. 2. Small left pleural effusion. Dictated on workstation # [id number] Dict: 08/06/21 1322 Trans: 08/06/21 1340 [facility] [id number] Interpreted by: PAOLO ROB MD Electronically signed by: Departure Communication (Admissions) Time/Spoke to Admitting Phy: 15:[address] Malhotra and accepted for transfer Impression Primary Impression: Acute exacerbation of CHF (congestive heart failure) Qualified Codes: I50.9 - Heart failure, unspecified Additional Impressions: Elevated d-dimer Pleural effusion, left Pneumonia Disposition: XF SHT-TRM HOSP Condition: Stable Admissions Decision to Admit Reason: Admit from ER (General) Decision to Admit/Date: August 06, 2021 Time/Decision to Admit Time: 14:15 Transfer Transfer Reason: Exceeds level of care Time Spoke to Accepting Phy: 15:39 Transfer Progress Notes Accepted for transfer Transfer Facility: [facility] Method of Transfer: EMS Departure-Patient Inst. Referrals: JANETH BRISCOE (PCP/Family) Primary Care Physician M[address]TA[address] MD August 06, 2021 12:46
[2021-08-06] MEDS ORDERED: methylPREDNISolone 125 MG (Solu-MEDROL) VIAL IV STA (13:02)
[2021-08-06 13:03] LABS: BASOPHILS # (AUTO) 0.1 10^3/uL (0.0-0.1); BASOPHILS % (AUTO) 1 % (0-10); EOSINOPHILS # (AUTO) 0.3 10^3/uL (0.0-0.3); EOSINOPHILS % (AUTO) 3 % (0-10); HEMATOCRIT 31 % (35-52); HEMOGLOBIN 9.6 g/dL (11.5-16.0); INR 1.8 (0.8-1.4); LYMPHOCYTES # (AUTO) 0.5 10^3/uL (1.0-4.0); LYMPHOCYTES % (AUTO) 4 % (12-44); MEAN CORPUSCULAR HEMOGLOBIN 27 pg (25-34); MEAN CORPUSCULAR HGB CONC 31 g/dL (32-36); MEAN CORPUSCULAR VOLUME 87 fL (80-99); MEAN PLATELET VOLUME 10.9 fL (9.0-12.2); MONOCYTES # (AUTO) 1.1 10^3/uL (0.0-1.0); MONOCYTES % (AUTO) 10 % (0-12); NEUTROPHILS # (AUTO) 9.4 10^3/uL (1.8-7.8); NEUTROPHILS % (AUTO) 82 % (42-75); PLATELET COUNT 295 10^3/uL (130-400); PROTHROMBIN TIME PATIENT 21.4 SEC (12.2-14.7); WHITE BLOOD COUNT 11.5 10^3/uL (4.3-11.0)
[2021-08-06 13:06] LABS: ALANINE AMINOTRANSFERASE 11 U/L (0-55); ALBUMIN 3.9 GM/DL (3.2-4.5); ALKALINE PHOSPHATASE 89 U/L (40-136); BILIRUBIN,TOTAL 0.5 MG/DL (0.1-1.0); BUN/CREATININE RATIO 24; CALCIUM 8.9 MG/DL (8.5-10.1); CARBON DIOXIDE 27 MMOL/L (21-32); CHLORIDE 99 MMOL/L (98-107); CREATININE SERUM 1.24 MG/DL (0.60-1.30); GFR ESTIMATED 43; GLUCOSE 99 MG/DL (70-105); MAGNESIUM 1.6 MG/DL (1.6-2.4); POTASSIUM 4.8 MMOL/L (3.6-5.0); SODIUM 138 MMOL/L (135-145); TOTAL PROTEIN 6.1 GM/DL (6.4-8.2)
[2021-08-06] MEDS ORDERED: RT-IPRATROPIUM (ATROVENT) 0.5MG/2.5ML AMP IH ONE (13:15)
[2021-08-06 13:19] LABS: FIBRIN DEGRADATION PRODUCTS 1.76 UG/ML (0.00-0.49)
[2021-08-06 13:24] LABS: EOSINOPHILS % (MANUAL) 3 %; LYMPHOCYTES % (MANUAL) 8 %; MONOCYTES % (MANUAL) 3 %; NEUTROPHILS % (MANUAL) 86 %
[2021-08-06 13:25] LABS: ELLIPT/OVALOCYTES MODERATE; HYPOCHROMASIA SLIGHT; POIKILOCYTOSIS MODERATE; TARGET CELLS SLIGHT
--- NOTE | 2021-08-06 13:41 | Diagnostic Imaging Report ---
History: Chest pain, shortness of breath COMPARISON: 06/18/2021 TECHNIQUE: Frontal view the chest FINDINGS: There is moderate cardiomegaly, similar to the prior exam. There is central vascular congestion which appears stable since the prior study. There is a minimal left pleural effusion. No pneumothorax is seen. The right Port-A-Cath tip projects over the cavoatrial junction. The pacemaker leads appear stable. IMPRESSION: 1. Cardiomegaly and central vascular congestion, stable since the prior study. 2. Small left pleural effusion. Dictated by: Dictated on workstation # [id number]
[2021-08-06] MEDS ORDERED: FUROSEMIDE 40 MG/4 ML INJ (LASIX) IVP STA (13:55)
[2021-08-06] MEDS ORDERED: NS 100 ML (IVPB) BAG IV ONE (14:15)
[2021-08-06] MEDS ORDERED: CATHETER FLUSH 10 ML SYR IV PRN (14:15)
[2021-08-06] MEDS ORDERED: IOHEXOL 350 MG/ML 100 ML (OMNIPAQUE 350) VIAL IV ONE (14:15)
[2021-08-06] MEDS ORDERED: HOLD METFORMIN - RECEIVED CONTRAST 20 ML VIAL IV SCH (14:15)
[2021-08-06 14:42] LABS: BILIRUBIN,URINE NEGATIVE (NEGATIVE); CLARITY,URINE CLEAR; COLOR,URINE YELLOW; GLUCOSE, URINE (UA) NEGATIVE (NEGATIVE); KETONES,URINE NEGATIVE (NEGATIVE); LEUKOCYTE ESTERASE ,URINE NEGATIVE (NEGATIVE); NITRITE,URINE NEGATIVE (NEGATIVE); PROTEIN,URINE NEGATIVE (NEGATIVE)
[2021-08-06 14:45] LABS: BACTERIA,URINE TRACE /HPF
--- NOTE | 2021-08-06 15:00 | Diagnostic Imaging Report ---
PROCEDURE: CT angiography of the chest with contrast. TECHNIQUE: Multiple contiguous axial images were obtained through the chest after uneventful bolus administration of intravenous contrast. 3D reconstructed CTA MIP acquisitions were also performed. Auto Exposure Controls were utilized during the CT exam to meet ALARA standards for radiation dose reduction. DATE: August 06, 2021. COMPARISON: Chest radiographs October 01, 2013. INDICATION: 85-year-old female, shortness of breath and wheezing. FINDINGS: There are mild linear opacities in the right lower lobe consistent with atelectasis. There is a small left pleural effusion. There is nonspecific dependent airspace consolidation in the left lower lobe which does not enhance to specifically suggest atelectasis. There is concern for subsegmental left lower lobe pulmonary emboli. There is no additional identified potential pulmonary embolus. The main pulmonary artery diameter measures 3.4 cm which is abnormally dilated compatible with pulmonary artery hypertension. The heart is not grossly enlarged. There is no pericardial effusion. There is no identified abnormally enlarged mediastinal, hilar or axillary lymph node meeting CT size criteria for adenopathy. The right breast appears absent. There is distention of the gallbladder without visible gallstone in the included [id number]. There are atherosclerotic calcifications. There is scoliosis. There are multilevel degenerative changes of the spine. There is advanced bilateral glenohumeral arthritis. The left humeral head is anteriorly subluxed. There is no identified acute bony abnormality. IMPRESSION: CT chest: 1. Lack of contrast opacification of left lower lobe subsegmental pulmonary artery vessels most compatible with pulmonary emboli at this location. No additional identified pulmonary embolus. 2. Small left pleural effusion and nonspecific dependent airspace consolidation in the left lower lobe which could relate to infarct, aspiration or pneumonia. 3. Abnormally dilated main pulmonary artery diameter compatible with pulmonary artery hypertension. Dictated by: Dictated on workstation # [id number]
[2021-08-06] MEDS ORDERED: ACETAMINOPHEN 325 MG TABLET PO ONE (15:15)
[2021-08-06] MEDS ORDERED: cefTRIAXone 2,000 MG in NS (IVPB) 50 ML IV STA (15:25)
[2021-08-06] MEDS ORDERED: LORazepam 0.5 MG (ATIVAN) TABLET PO STA (15:44)
[2021-08-06] MEDS ORDERED: LORazepam 0.5 MG (ATIVAN) TABLET ONE (15:51)
[2021-08-06 16:35] VITALS: BP 131/64
== END 2021-08-06 16:30 | disposition short-term general hospital (02) ==
LOC: EDUNIT# 12:22 → ER FS 12:25
DX: I11.0 Hypertensive heart disease with heart failure (principal); I50.9 Heart failure, unspecified; J18.9 Pneumonia, unspecified organism; J90 Pleural effusion, not elsewhere classified; R79.1 Abnormal coagulation profile
CPT/HCPCS: 36415; 71045; 71275; 80053; 81000; 83605; 83735; 83880; 84484; 85007; 85027; 85379; 85610; 85730; 93005

== ENCOUNTER → 2021-08-18 | Outpatient (CLI) | payer MEDICARE, BC ==
[~2021-08-18] MED LIST changes: +ACET-9 PO
[2021-08-18 17:04] LABS: BASOPHILS # (AUTO) 0.1 10^3/uL (0.0-0.1); BASOPHILS % (AUTO) 1 % (0-10); EOSINOPHILS # (AUTO) 0.3 10^3/uL (0.0-0.3); EOSINOPHILS % (AUTO) 3 % (0-10); HEMATOCRIT 28 % (35-52); HEMOGLOBIN 8.8 g/dL (11.5-16.0); LYMPHOCYTES # (AUTO) 0.7 10^3/uL (1.0-4.0); LYMPHOCYTES % (AUTO) 5 % (12-44); MEAN CORPUSCULAR HEMOGLOBIN 27 pg (25-34); MEAN CORPUSCULAR HGB CONC 31 g/dL (32-36); MEAN CORPUSCULAR VOLUME 86 fL (80-99); MEAN PLATELET VOLUME 11.2 fL (9.0-12.2); MONOCYTES # (AUTO) 1.1 10^3/uL (0.0-1.0); MONOCYTES % (AUTO) 9 % (0-12); NEUTROPHILS # (AUTO) 10.4 10^3/uL (1.8-7.8); NEUTROPHILS % (AUTO) 82 % (42-75); PLATELET COUNT 314 10^3/uL (130-400); WHITE BLOOD COUNT 12.6 10^3/uL (4.3-11.0)
[2021-08-18 17:23] LABS: BAND NEUTROPHILS 2 %; BASOPHILS % (MANUAL) 0 %; EOSINOPHILS % (MANUAL) 1 %; LYMPHOCYTES % (MANUAL) 6 %; MONOCYTES % (MANUAL) 7 %; NEUTROPHILS % (MANUAL) 84 %
[2021-08-18 17:24] LABS: ANISOCYTOSIS SLIGHT; POIKILOCYTOSIS SLIGHT
[2021-08-18 17:29] LABS: ALBUMIN 3.7 GM/DL (3.2-4.5); CALCIUM 8.8 MG/DL (8.5-10.1); CREATININE SERUM 1.45 MG/DL (0.60-1.30); POTASSIUM 4.9 MMOL/L (3.6-5.0)
[2021-08-19 12:54] LABS: PHOSPHORUS 3.8 MG/DL (2.3-4.7)
== END ==
LOC: IHC 16:47
PROVIDERS: ATTEND Family Medicine
DX: E87.6 Hypokalemia (principal); I50.22 Chronic systolic (congestive) heart failure
CPT/HCPCS: 80069; 83735; 85007; 85027

== ENCOUNTER 2021-08-21 12:05 | Emergency (ER) | payer MEDICARE, BC ==
[~2021-08-21] VITALS: Ht 172.7 cm; Wt 77.5 kg
[~2021-08-21 12:05] MED LIST changes: -ACET-9 PO
[2021-08-21 13:32] LABS: BASOPHILS # (AUTO) 0.1 10^3/uL (0.0-0.1); BASOPHILS % (AUTO) 1 % (0-10); EOSINOPHILS # (AUTO) 0.1 10^3/uL (0.0-0.3); EOSINOPHILS % (AUTO) 1 % (0-10); HEMATOCRIT 30 % (35-52); LYMPHOCYTES # (AUTO) 0.4 10^3/uL (1.0-4.0); LYMPHOCYTES % (AUTO) 4 % (12-44); MEAN CORPUSCULAR HEMOGLOBIN 27 pg (25-34); MEAN CORPUSCULAR HGB CONC 30 g/dL (32-36); MEAN CORPUSCULAR VOLUME 89 fL (80-99); MEAN PLATELET VOLUME 10.4 fL (9.0-12.2); MONOCYTES # (AUTO) 1.1 10^3/uL (0.0-1.0); MONOCYTES % (AUTO) 9 % (0-12); NEUTROPHILS # (AUTO) 10.4 10^3/uL (1.8-7.8); NEUTROPHILS % (AUTO) 86 % (42-75); PLATELET COUNT 315 10^3/uL (130-400); WHITE BLOOD COUNT 12.1 10^3/uL (4.3-11.0)
[2021-08-21 13:39] LABS: ALBUMIN 3.8 GM/DL (3.2-4.5)
[2021-08-21 13:40] LABS: POTASSIUM 4.6 MMOL/L (3.6-5.0)
[2021-08-21 13:41] LABS: CALCIUM 8.8 MG/DL (8.5-10.1)
[2021-08-21 13:42] LABS: TOTAL PROTEIN 6.1 GM/DL (6.4-8.2)
[2021-08-21 13:44] LABS: BILIRUBIN,TOTAL 0.6 MG/DL (0.1-1.0)
[2021-08-21 13:45] LABS: CREATININE SERUM 1.34 MG/DL (0.60-1.30)
--- NOTE | 2021-08-21 13:48 | ED General ---
General Chief Complaint: Abdominal/GI Problems Stated Complaint: DIZZINESS, VOMITING Nursing Triage Note: PT TO RM 8 BY WC WITH COMPLAINT OF DIZZINESS, WEAKNESS, NAUSEA, VOMITING, AND BACK PAIN. PT WAS PRESCRIBED TRAMADOL FOR BACK PAIN. STATES SHE HAS BEEN VOMITING AFTER TAKING TRAMADOL. FAMILY STATES PT WAS ADMITTED AT [facility] OVER A WEEK AGO FOR CHF AND HAD CHANGES IN LASIX. STATES PTS LASIX WAS INCREASED TO 40MG. STATES PT WAS PUT ON A FLUID RESTRICTION AND WAS INSTRUCTED NOT TO TAKE POTASSIUM ANY MORE. Source of Information: Patient, Family (daughter and son) Exam Limitations: No Limitations History of Present Illness Date Seen by Provider: Aug 21, 2021 Time Seen by Provider: 12:40 Initial Comments Patient is an 85-year-old female who lives alone history of congestive heart failure, severe aortic stenosis who presents with her family chief complaint of feeling dizzy, weak, nauseous having some vomiting and low back pain. Patient r ecently started tramadol for some chronic low back pain and believes this is the etiology of her nausea and vomiting. Patient has recently undergone evaluation for TAVR procedure. She elected not to do this secondary to the risk involved. During the course of this work-up she was admitted to [facility] and her Lasix was changed. Her potassium was discontinued and her Lasix was doubled. Since that admission she is having progressive worsening weakness. She denies chest pain. She is not having shortness of breath but she is not really doing any activities either. No fevers or chills, no productive cough. She is on a fluid restriction, allowed only 3 bottles of water daily. She states her urination is normal. Bowels are normal. No fevers, chills or congestion. 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 She also has a history of what sounds like possibly myelodysplastic syndrome. She follows here at the [facility]. She has an Jqjqbz-h-Ozgj. All other review of systems reviewed and negative except as stated. Timing/Duration: Other (a few weeks) Severity: Severe Modifying Factors: worse with Movement; improves with Rest Associated Systoms: Malaise, Nausea/Vomiting, Weakness Allergies and Home Medications Allergies Coded Allergies: verapamil (Verified Allergy, Severe, 12/31/17) levofloxacin (Verified Allergy, Intermediate, 12/31/17) morphine (Unverified Allergy, Mild, 10/01/13) Patient Home Medication List Home Medication List Reviewed: Yes Acetaminophen (Acetaminophen) 325 Mg Tablet, 650 MG PO Q4H PRN for PAIN-MILD Prescribed by: TABBY MACHADO on 01/04/18 0857 Acetaminophen with Codeine (Acetaminophen-Cod #2 Tablet) 300 Mg-15 Mg Tablet, 1 EACH PO Q6H PRN for pain Prescribed by: CHRIS THOMPSON on 08/21/21 1529 Amoxicillin/Potassium Clav (Augmentin 875-125 Tablet) 1 Each Tablet, 1 EACH PO BID Prescribed by: KEITH PARKS on 08/17/18 1920 Benzonatate (Tessalon Perles) 100 Mg Capsule, 100 MG PO TID PRN for COUGH Prescribed by: ALEX TAYLOR on 06/18/21 1413 Carvedilol (Carvedilol) 6.25 Mg Tablet, 6.25 MG PO BID, (Reported) Entered as Reported by: SALVADOR PIERSON on 12/31/17 161 Cholecalciferol (Vitamin D3) (Vitamin D3) 1,000 Unit Capsule, 1,000 UNIT PO DAILY, (Reported) Entered as Reported by: SALVADOR PIERSON on 12/31/17 161 Cyanocobalamin (Vitamin B-12) (Vitamin B-12) 3,000 Mcg Capsule, 3,000 MCG PO DAILY, (Reported) Entered as Reported by: SALVADOR PIERSON on 12/31/17 161 Darbepoetin Rafa in Polysorbat (Aranesp) 40 Mcg/0.4 Ml Syringe, 40 MCG IJ EVERY 2 WEEKS, (Reported) Entered as Reported by: SALVADOR PIERSON on 12/31/17 161 Doxycycline Hyclate (Doxycycline Hyclate) 100 Mg Tablet, 100 MG PO BID Prescribed by: ALEX TAYLOR on 06/18/21 1413 Furosemide (Furosemide) 40 Mg Tablet, 40 MG PO DAILY Prescribed by: NOMAN LARIOS on 03/30/21 1247 Hydroxychloroquine Sulfate (Hydroxychloroquine Sulfate) 200 Mg Tablet, 200 MG PO BID, (Reported) Entered as Reported by: SALVADOR PIERSON on 12/31/17 161 Ipratropium/Albuterol Sulfate (Iprat-Albut 0.5-3(2.5) mg/3 ml) 3 Ml Ampul.neb, 3 ML IH Q6H PRN for SHORTNESS OF BREATH Prescribed by: ALEX TAYLOR on 06/18/21 1415 Iron Polysaccharide Complex (Ferrex 150) 150 Mg Capsule, 150 MG PO BID WITH MEALS Prescribed by: TABBY MACHADO on 01/04/18 0857 Levothyroxine Sodium (Levothyroxine Sodium) 75 Mcg Tablet, 75 MCG PO DAILY, (Reported) Entered as Reported by: SALVADOR PIERSON on 12/31/17 161 Meclizine HCl (Meclizine HCl) 25 Mg Tablet, 25 MG PO TID PRN for DIZZINESS, (Reported) Entered as Reported by: SALVADOR PIERSON on 12/31/17 161 Meclizine HCl (Meclizine HCl) 25 Mg Tablet, 25 MG PO Q6H PRN for dizziness/nausea Prescribed by: CHRIS THOMPSON on 08/21/21 1529 Multivitamin (Multivitamins) 1 Each Tablet, 1 TAB PO DAILY, (Reported) Entered as Reported by: SALVADOR PIERSON on 12/31/17 161 Nitroglycerin (Nitroglycerin) 0.4 Mg Tab.subl, 0.4 MG SL UD PRN for CHEST PAIN, (Reported) Entered as Reported by: SALVADOR PIERSON on 12/31/17 161 Omeprazole (Omeprazole) 40 Mg Capsule.dr, 40 MG PO DAILY, (Reported) Entered as Reported by: SALVADOR PIERSON on 12/31/17 161 Ondansetron (Ondansetron Odt) 4 Mg Tab.rapdis, 4-8 MG PO Q6H PRN for NAUSEA/VOMITING-1ST LINE Prescribed by: KEITH PARKS on 08/17/18 1920 Potassium Chloride (Potassium Chloride) 20 Meq Tab.er.prt, 20 MEQ PO DAILY Prescribed by: NOMAN LARIOS on 03/30/21 1247 Prednisone (Prednisone) 5 Mg Tablet, 5 MG PO DAILY, (Reported) Entered as Reported by: SALVADOR PIERSON on 12/31/17 161 Spironolactone (Spironolactone) 25 Mg Tablet, 25 MG PO HS, (Reported) Entered as Reported by: SALVADOR PIERSON on 12/31/17 161 Warfarin Sodium (Warfarin Sodium) 5 Mg Tablet, 5 MG PO 1800, (Reported) Entered as Reported by: SALVADOR PIERSON on 12/31/17 1617 Review of Systems Review of Systems Constitutional: see HPI, dizziness, malaise, weakness EENTM: no symptoms reported Respiratory: no symptoms reported Cardiovascular: no symptoms reported Gastrointestinal: nausea, vomiting Genitourinary: no symptoms reported Musculoskeletal: back pain Skin: no symptoms reported Psychiatric/Neurological: Weakness All Other Systems Reviewed Negative Unless Noted: Yes Past Xlbanah-Pimxpg-Qqbbbj Hx Patient Social History Tobacco Use?: No Use of E-Cig and/or Vaping dev: No Substance use?: No Alcohol Use?: No Pt feels they are or have been: No Immunizations Up To Date Influenza Vaccine Up-to-Date: Yes; Up-to-Date Seasonal Allergies Seasonal Allergies: No Past Medical History Surgery/Hospitalization HX: CHF; Breast cancer; CKD; Rheumatoid arthritis; CAD; hypothyroidism; HTN; Anemia; Right masectomy Surgeries: Yes (mastectomy, knees, hip) Hysterectomy, Orthopedic, Thyroidectomy, Tonsillectomy Respiratory: Yes COPD Currently Using CPAP: No Currently Using BIPAP: No Cardiac: Yes (HAS PACEMAKER, "stiff heart") Hypertension Neurological: No Reproductive Disorders: No 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 Genitourinary: Yes UTI-Chronic Gastrointestinal: No Musculoskeletal: Yes Arthritis, Rheumatoid Arthritis Endocrine: Yes (thyroidectomy) HEENT: Yes Cataract, Macular Degeneration Loss of Vision: Denies Hearing Impairment: Hard of Hearing Cancer: Yes Breast, Lymphoma Did You Recieve Any Treatments: Yes What Type of Treatment Did You: Chemotherapy Psychosocial: No Anxiety Integumentary: No Blood Disorders: No Family Medical History Diabetes mellitus 19 MOTHER Neoplasm 19 FATHER G8 BROTHER G8 SISTER Cancer, Diabetes, Hypertension Physical Exam Vital Signs Vital Signs - First Documented 08/21/21 12:30 Temp 36.1 Pulse 61 Resp 16 B/P (MAP) 117/67 (84) Pulse Ox 98 O2 Delivery Nasal Cannula O2 Flow Rate 2.00 Capillary Refill : Less Than 3 Seconds Height, Weight, BMI Height: 5'8.00" Weight: 180lbs. 3.2oz. 81.202651cf; 25.00 BMI Method:Stated General Appearance: No Apparent Distress, WD/WN Eyes: Bilateral Eye Normal Inspection, Bilateral Eye PERRL, Bilateral Eye EOMI, Bilateral Eye Conjunctivae Pale HEENT: Other (dry and pale oral mucoa) Neck: Full Range of Motion Respiratory: Lungs Clear, Normal Breath Sounds, No Accessory Muscle Use, No Respiratory Distress Cardiovascular: Regular Rate, Rhythm, Normal Peripheral Pulses, Other (Loud/harsh AOV murmur) Gastrointestinal: Non Tender, Soft Extremity: Normal Inspection, Normal Range of Motion, Non Tender, No Pedal Edema Neurologic/Psychiatric: Alert, Oriented x3, No Motor/Sensory Deficits, Normal Mood/Affect, guest experience captain II-XII Norm as Tested Skin: Warm/Dry, Pallor Progress/Results/Core Measures Suspected Sepsis SIRS Temperature: Pulse: 61 Respiratory Rate: 16 Laboratory Tests 08/21/21 13:20: White Blood Count 12.1H Blood Pressure 117 /67 Mean: 84 Laboratory Tests 08/21/21 13:20: Creatinine 1.34H, Platelet Count 315, Total Bilirubin 0.6 Results/Orders Lab Results Laboratory Tests Test 08/21/21 13:20 08/21/21 15:17 Range/Units White Blood Count 12.1 H 4.3-11.0 10^3/uL Red Blood Count 3.34 L 3.80-5.11 10^6/uL Hemoglobin 9.0 L 11.5-16.0 g/dL Hematocrit 30 L 35-52 % Mean Corpuscular Volume 89 80-99 fL Mean Corpuscular Hemoglobin 27 25-34 pg Mean Corpuscular Hemoglobin Concent 30 L 32-36 g/dL Red Cell Distribution Width 13.8 10.0-14.5 % Platelet Count 315 130-400 10^3/uL Mean Platelet Volume 10.4 9.0-12.2 fL Immature Granulocyte % (Auto) 0 % Neutrophils (%) (Auto) 86 H 42-75 % Lymphocytes (%) (Auto) 4 L 12-44 % Monocytes (%) (Auto) 9 0-12 % Eosinophils (%) (Auto) 1 0-10 % Basophils (%) (Auto) 1 0-10 % Neutrophils # (Auto) 10.4 H 1.8-7.8 10^3/uL Lymphocytes # (Auto) 0.4 L 1.0-4.0 10^3/uL Monocytes # (Auto) 1.1 H 0.0-1.0 10^3/uL Eosinophils # (Auto) 0.1 0.0-0.3 10^3/uL Basophils # (Auto) 0.1 0.0-0.1 10^3/uL Immature Granulocyte # (Auto) 0.0 0.0-0.1 10^3/uL Neutrophils % (Manual) 82 % Lymphocytes % (Manual) 6 % Monocytes % (Manual) 7 % Band Neutrophils 5 % Hypochromasia SLIGHT Poikilocytosis MODERATE Helmet Cells SLIGHT Elliptocytes SLIGHT Schistocytes SLIGHT Sodium Level 135 135-145 MMOL/L Potassium Level 4.6 3.6-5.0 MMOL/L Chloride Level 94 L 98-107 MMOL/L Carbon Dioxide Level 28 21-32 MMOL/L Anion Gap 13 5-14 MMOL/L Blood Urea Nitrogen 27 H 7-18 MG/DL Creatinine 1.34 H 0.60-1.30 MG/DL Estimat Glomerular Filtration Rate 39 BUN/Creatinine Ratio 20 Glucose Level 101 70-105 MG/DL Calcium Level 8.8 8.5-10.1 MG/DL Corrected Calcium 9.0 8.5-10.1 MG/DL Total Bilirubin 0.6 0.1-1.0 MG/DL Aspartate Amino Transf (AST/SGOT) 16 5-34 U/L Alanine Aminotransferase (ALT/SGPT) 13 0-55 U/L Alkaline Phosphatase 74 40-136 U/L Total Protein 6.1 L 6.4-8.2 GM/DL Albumin 3.8 3.2-4.5 GM/DL Urine Color YELLOW Urine Clarity CLEAR Urine pH 5.5 5-9 Urine Specific Sesser 1.010 L 1.016-1.022 Urine Protein NEGATIVE NEGATIVE Urine Glucose (UA) NEGATIVE NEGATIVE Urine Ketones NEGATIVE NEGATIVE Urine Nitrite NEGATIVE NEGATIVE Urine Bilirubin NEGATIVE NEGATIVE Urine Urobilinogen 0.2 < = 1.0 MG/DL Urine Leukocyte Esterase NEGATIVE NEGATIVE Urine RBC (Auto) NEGATIVE NEGATIVE Urine RBC NONE /HPF Urine WBC 0-2 /HPF Urine Squamous Epithelial Cells 0-2 /HPF Urine Renal Epithelial Cells NONE /HPF Urine Crystals NONE /LPF Urine Bacteria NEGATIVE /HPF Urine Casts NONE /LPF Urine Mucus NEGATIVE /LPF Urine Culture Indicated NO My Orders Orders - CHRIS THOMPSON MD Comprehensive Metabolic Panel (08/21/21 12:51) Ua Culture If Indicated (08/21/21 12:51) Cbc With Automated Diff (08/21/21 12:51) Ed Iv/Invasive Line Start (08/21/21 12:51) Ekg Tracing (08/21/21 13:11) Chest 1 View, Ap/Pa Only (08/21/21 13:11) Manual Differential (08/21/21 13:20) Vital Signs/I&O 08/21/21 08/21/21 12:30 16:18 Temp 36.1 Pulse 61 64 Resp 16 18 B/P (MAP) 117/67 (84) 122/68 Pulse Ox 98 92 O2 Delivery Nasal Cannula Nasal Cannula O2 Flow Rate 2.00 0 0 Capillary Refill : Less Than 3 Seconds Blood Pressure Mean: 84 Progress Note : Time: 15:23 Progress Note Reassessed patient, vital signs are stable. We just sent off for urine test. Her labs actually look really good despite being off of her potassium. She is not low she is at 4.6. Hemoglobin is good, the rest of her electrolytes and renal function are good. Pending UA we will see if she needs antibiotics. She is requesting prescriptions for some pain medicine, going to try her on a little Tylenol with codeine and refill her meclizine. Recommended close follow-up with her primary care physician in a week to possibly have her potassium rechecked again. Otherwise standard return precautions and plan of been discussed with the family, all questions are sought and answered ECG Initial ECG Impression Date: Aug 21, 2021 Initial ECG Impression Time: 13:19 Initial ECG Rate: 62 Initial ECG Rhythm: Normal Sinus Initial ECG Intervals: Normal Initial ECG Impression: Normal (`) Diagnostic Imaging Diagonstic Imaging: Xray Plain Films/CT/US/NM/MRI: chest Comments [facility], [facility]. [place], [place] NAME: FELY HERNANDEZ [facility] REC#: [id number] PT STATUS: REG ER : 1935 PHYSICIAN: CHRIS THOMPSON MD ADMIT DATE: 08/21/21/ER Draft Date of Exam:08/21/21 CHEST 1 VIEW, AP/PA ONLY INDICATION: Weakness, history of congestive heart failure.. TECHNIQUE: Single view chest 1:40 PM. CORRELATION STUDY: 08/06/2021 FINDINGS: Left-sided dual-chamber pacemaker as well as right IJ catheter remain in place. Rather pronounced cardiac enlargement demonstrated but overall perhaps slightly less severe. The severity of vascular congestion and overall edema also appears improved. The previously noted interstitial prominence also is decreased. No consolidating infiltrate. IMPRESSION: 1. Findings of congestive heart failure have overall improved from previous study. Unchanged rather pronounced cardiac enlargement. Dictated on workstation # [id number] Dict: 08/21/21 1342 Trans: 08/21/21 1351 CVB [id number] Interpreted by: MERY MERCEDES DO Electronically signed by: Departure Impression Primary Impression: Generalized weakness Additional Impressions: History of aortic stenosis Nausea and vomiting Qualified Codes: R11.2 - Nausea with vomiting, unspecified Back pain Qualified Codes: M54.50 - Low back pain, unspecified; G89.29 - Other chronic pain Disposition: 01 HOME, SELF-CARE Condition: Stable Departure-Patient Inst. Decision time for Depature: 15:25 Referrals: JANETH BRISCOE (PCP/Family) Primary Care Physician Patient Instructions: Weakness ED, Nausea and Vomiting, Adult ED Add. Discharge Instructions: Try and drink enough fluids to stay hydrated. Use your Zofran every 8 hours as needed for nausea. You can also use the meclizine every 6 for nausea and dizziness. I have sent a prescription of Tylenol with Codeine to [facility] pharmacy here in [place]. You can take 1 every 6 hours with 1 extra strength Tylenol and hopefully that will help your pain. You can alternate lidocaine patches and heating pads to the sore area of your back. Follow-up in 1 week with your primary care physician. Be sure and bring your back pain to her attention so that they can maybe come up with some other methods of pain management. Return to the emergency department for worsening shortness of breath, chest pain, passing out spell or any other emergent concerning symptoms Scripts Meclizine HCl (Meclizine HCl) 25 Mg Tablet 25 MG PO Q6H PRN for dizziness, nausea, #20 TAB Prov: CHRIS THOMPSON MD 08/21/21 Acetaminophen with Codeine (Acetaminophen-Cod #2 Tablet) 300 Mg-15 Mg Tablet 1 EACH PO Q6H PRN for PAIN-MODERATE (5-7), #20 TAB Prov: CHRIS THOMPSON MD 08/21/21 CHRIS THOMPSON MD Aug 21, 2021 13:48
--- NOTE | 2021-08-21 13:52 | Diagnostic Imaging Report ---
INDICATION: Weakness, history of congestive heart failure.. TECHNIQUE: Single view chest 1:40 PM. CORRELATION STUDY: 08/06/2021 FINDINGS: Left-sided dual-chamber pacemaker as well as right IJ catheter remain in place. Rather pronounced cardiac enlargement demonstrated but overall perhaps slightly less severe. The severity of vascular congestion and overall edema also appears improved. The previously noted interstitial prominence also is decreased. No consolidating infiltrate. IMPRESSION: 1. Findings of congestive heart failure have overall improved from previous study. Unchanged rather pronounced cardiac enlargement. Dictated by: Dictated on workstation # [id number]
[2021-08-21 14:12] LABS: BAND NEUTROPHILS 5 %; ELLIPT/OVALOCYTES SLIGHT; HYPOCHROMASIA SLIGHT; LYMPHOCYTES % (MANUAL) 6 %; MONOCYTES % (MANUAL) 7 %; NEUTROPHILS % (MANUAL) 82 %; POIKILOCYTOSIS MODERATE
[2021-08-21 14:13] LABS: HELMET/BITE CELLS SLIGHT; SCHISTOCYTES SLIGHT
[2021-08-21 15:22] LABS: BILIRUBIN,URINE NEGATIVE (NEGATIVE); CLARITY,URINE CLEAR; COLOR,URINE YELLOW; GLUCOSE, URINE (UA) NEGATIVE (NEGATIVE); KETONES,URINE NEGATIVE (NEGATIVE); LEUKOCYTE ESTERASE ,URINE NEGATIVE (NEGATIVE); NITRITE,URINE NEGATIVE (NEGATIVE); PH,URINE 5.5 (5-9); PROTEIN,URINE NEGATIVE (NEGATIVE)
[2021-08-21] MEDS ORDERED: ACET-9 PO ×2 (15:29→17:26)
[2021-08-21] MEDS ORDERED: MECL-149 PO ×2 (15:29→17:26)
[2021-08-21 15:30] LABS: BACTERIA,URINE NEGATIVE /HPF; SQUAMOUS EPITHELIAL CELL,UR 0-2 /HPF; WBC,URINE 0-2 /HPF
[2021-08-21 16:18] VITALS: BP 122/68
== END 2021-08-21 16:18 | disposition home or self-care (01) ==
LOC: EDUNIT# 12:05 → ER 12:08
DX: R53.1 Weakness (principal); R11.2 Nausea with vomiting, unspecified; G89.29 Other chronic pain; M54.50 Low back pain, unspecified; Z86.79 Personal history of other diseases of the circulatory system
CPT/HCPCS: 36415; 71045; 80053; 81000; 85007; 85027; 93005

== ENCOUNTER → 2021-09-01 | Outpatient (CLI) | payer MEDICARE, BC ==
[~2021-09-01] MED LIST changes: +ACET-9 PO
[2021-09-01 14:38] LABS: CALCIUM 8.8 MG/DL (8.5-10.1); CREATININE SERUM 1.35 MG/DL (0.60-1.30); POTASSIUM 4.3 MMOL/L (3.6-5.0)
== END ==
LOC: IHC 13:11
PROVIDERS: ATTEND Family Medicine
DX: E87.6 Hypokalemia (principal)
CPT/HCPCS: 80048

== ENCOUNTER 2022-02-12 11:50 | Emergency (ER) | payer MEDICARE, BC ==
[2022-02-12] MEDS ORDERED: KETOROLAC 30 MG/ML VIAL IM STA (12:09)
[2022-02-12] MEDS ORDERED: ORPHENADRINE 60 MG/2 ML (NORFLEX) AMP (ED ONLY) IM STA (12:09)
[2022-02-12 12:20] LABS: BILIRUBIN,URINE NEGATIVE (NEGATIVE); CLARITY,URINE CLEAR; COLOR,URINE YELLOW; GLUCOSE, URINE (UA) NEGATIVE (NEGATIVE); KETONES,URINE NEGATIVE (NEGATIVE); LEUKOCYTE ESTERASE ,URINE TRACE (NEGATIVE); NITRITE,URINE NEGATIVE (NEGATIVE); PROTEIN,URINE NEGATIVE (NEGATIVE)
[2022-02-12 12:26] LABS: BACTERIA,URINE MODERATE /HPF; SQUAMOUS EPITHELIAL CELL,UR 25-50 /HPF
--- NOTE | 2022-02-12 12:59 | ED Back Pain ---
General Chief Complaint: Back Problems Stated Complaint: LOWER BACK PAIN Nursing Triage Note: Patient presents to the ED with c/o lower back pain. Reports that she had a fall 4 weeks ago. States she caught herself and twisted her back. Was adjusted by a chiropractor. Seen her PCP last week and was given a steriod injection and a prescription for Flexeril. Reports she is out of the muscle relaxer. States pain is worse today. Has been taking old prescription of Tramadol for pain. States that medication helps some. Source of Information: Patient, Family History of Present Illness Date Seen by Provider: Feb 12, 2022 Time Seen by Provider: 11:53 Initial Comments 86-year-old female presenting with complaints of low back pain radiating down her right leg for 4 weeks. She states that approximately 4 weeks ago she had started to fall and caught herself but did not hit her low back on the arm of the sofa. She states since then she has had pain and she had gone to a chiropractor. That helped her lower back but she continues to have pain going down her right leg. She had gone to the clinic in [place] and they gave her steroid shot and muscle relaxer. However she is now out of the cyclobenzaprine from the clinic and states when she called to get more they told her that no one was available to write the prescription. She woke up this morning and felt like the pain was worse so she had family bring her to the emergency department. She had tried taking some tramadol that she had leftover from previous prescription. This was helping some with her pain. She denies any pain or burning with urination. She has no new numbness or weakness in her legs. She denies loss of bowel or bladder control. Location: Lumbar Spine Timing/Duration: Other (over 4 weeks but felt it was worse today) Severity: Severe Pain/Injury Location: Back (low back and radiates down right leg) Radiation: Upper Legs (right leg) Method of Injury: Fall Modifying Factors: Worse With Movement Associated Symptoms: muscle spasms; No fever, No weakness, No numbness in legs/feet, No tingling in legs/feet, No sensory/motor loss; lower back pain; No loss of bladder control, No loss of bowel control Allergies and Home Medications Allergies Coded Allergies: verapamil (Verified Allergy, Severe, 12/31/17) levofloxacin (Verified Allergy, Intermediate, 12/31/17) morphine (Unverified Allergy, Mild, 10/01/13) Patient Home Medication List Home Medication List Reviewed: Yes Acetaminophen (Acetaminophen) 325 Mg Tablet, 650 MG PO Q4H PRN for PAIN-MILD Prescribed by: TABBY MACHADO on 01/04/18 0857 Acetaminophen with Codeine (Acetaminophen-Cod #2 Tablet) 300 Mg-15 Mg Tablet, 1 EACH PO Q6H PRN for PAIN-MODERATE (5-7) Prescribed by: CHRIS THOMPSON on 08/21/21 1726 Amoxicillin/Potassium Clav (Augmentin 875-125 Tablet) 1 Each Tablet, 1 EACH PO BID Prescribed by: KEITH PARKS on 08/17/18 1920 Benzonatate (Tessalon Perles) 100 Mg Capsule, 100 MG PO TID PRN for COUGH Prescribed by: ALEX TAYLOR on 06/18/21 1413 Carvedilol (Carvedilol) 6.25 Mg Tablet, 6.25 MG PO BID, (Reported) Entered as Reported by: SALVADOR PIERSON on 12/31/17 161 Cholecalciferol (Vitamin D3) (Vitamin D3) 1,000 Unit Capsule, 1,000 UNIT PO DAILY, (Reported) Entered as Reported by: SALVADOR PIERSON on 12/31/17 161 Cyanocobalamin (Vitamin B-12) (Vitamin B-12) 3,000 Mcg Capsule, 3,000 MCG PO DAILY, (Reported) Entered as Reported by: SALVADOR PIERSON on 12/31/17 161 Darbepoetin Rafa in [place]ysorbat (Aranesp) 40 Mcg/0.4 Ml Syringe, 40 MCG IJ EVERY 2 WEEKS, (Reported) Entered as Reported by: SALVADOR PIERSON on 12/31/17 161 Doxycycline Hyclate (Doxycycline Hyclate) 100 Mg Tablet, 100 MG PO BID Prescribed by: ALEX TAYLOR on 06/18/21 1413 Furosemide (Furosemide) 40 Mg Tablet, 40 MG PO DAILY Prescribed by: NOMAN LARIOS on 03/30/21 1247 Hydroxychloroquine Sulfate (Hydroxychloroquine Sulfate) 200 Mg Tablet, 200 MG PO BID, (Reported) Entered as Reported by: SALVADOR PIERSON on 12/31/17 1613 Ipratropium/Albuterol Sulfate (Iprat-Albut 0.5-3(2.5) mg/3 ml) 3 Ml Ampul.neb, 3 ML IH Q6H PRN for SHORTNESS OF BREATH Prescribed by: ALEX TAYLOR on 06/18/21 1415 Iron Polysaccharide Complex (Ferrex 150) 150 Mg Capsule, 150 MG PO BID WITH MEALS Prescribed by: TABBY MACHADO on 01/04/18 0857 Levothyroxine Sodium (Levothyroxine Sodium) 75 Mcg Tablet, 75 MCG PO DAILY, (Reported) Entered as Reported by: SALVADOR IPERSON on 12/31/17 161 Meclizine HCl (Meclizine HCl) 25 Mg Tablet, 25 MG PO TID PRN for DIZZINESS, (Reported) Entered as Reported by: SALVADOR PIERSON on 12/31/17 161 Meclizine HCl (Meclizine HCl) 25 Mg Tablet, 25 MG PO Q6H PRN for dizziness, nausea Prescribed by: CHRIS THOMPSON on 08/21/21 1726 Methocarbamol (Methocarbamol) 750 Mg Tablet, 750 MG PO Q8H PRN for muscle spasms/back pain Prescribed by: LAZARO ELIAS on 02/12/22 1312 Multivitamin (Multivitamins) 1 Each Tablet, 1 TAB PO DAILY, (Reported) Entered as Reported by: SALVADOR PIERSON on 12/31/17 161 Nitroglycerin (Nitroglycerin) 0.4 Mg Tab.subl, 0.4 MG SL UD PRN for CHEST PAIN, (Reported) Entered as Reported by: SALVADOR PIERSON on 12/31/17 161 Omeprazole (Omeprazole) 40 Mg Capsule.dr, 40 MG PO DAILY, (Reported) Entered as Reported by: SALVADOR PIERSON on 12/31/17 161 Ondansetron (Ondansetron Odt) 4 Mg Tab.rapdis, 4-8 MG PO Q6H PRN for NAUSEA/VOMITING-1ST LINE Prescribed by: KEITH PARKS on 08/17/18 1920 Potassium Chloride (Potassium Chloride) 20 Meq Tab.er.prt, 20 MEQ PO DAILY Prescribed by: NOMAN LARIOS on 03/30/21 1247 Prednisone (Prednisone) 5 Mg Tablet, 5 MG PO DAILY, (Reported) Entered as Reported by: SALVADOR PIERSON on 12/31/17 1613 Spironolactone (Spironolactone) 25 Mg Tablet, 25 MG PO HS, (Reported) Entered as Reported by: SALVADOR PIERSON on 12/31/17 1617 Tramadol HCl (Tramadol HCl) 50 Mg Tablet, 50 MG PO Q6H PRN for PAIN-SEVERE (8- 10) Prescribed by: LAZARO ELIAS on 02/12/22 1313 Warfarin Sodium (Warfarin Sodium) 5 Mg Tablet, 5 MG PO 1800, (Reported) Entered as Reported by: SALVADOR PIERSON on 12/31/17 1617 Review of Systems Constitutional: No chills, No fever EENTM: no symptoms reported Respiratory: short of breath (chronic and no worse that usual.) Cardiovascular: no symptoms reported Gastrointestinal: no symptoms reported Genitourinary: no symptoms reported Musculoskeletal: see HPI Skin: No change in color Psychiatric/Neurological: Denies Numbness, Denies Paresthesia Past Vvxdzqn-Htlywa-Ewpyiu Hx Patient Social History Tobacco Use?: No Use of E-Cig and/or Vaping dev: No Substance use?: No Alcohol Use?: No Pt feels they are or have been: No Seasonal Allergies Seasonal Allergies: No Past Medical History Surgery/Hospitalization HX: CHF; Breast cancer; CKD; Rheumatoid arthritis; CAD; hypothyroidism; HTN; Anemia; Right masectomy Surgeries: Yes (mastectomy, knees, hip) Hysterectomy, Orthopedic, Thyroidectomy, Tonsillectomy Respiratory: Yes COPD Currently Using CPAP: No Currently Using BIPAP: No Cardiac: Yes (HAS PACEMAKER, "stiff heart") Hypertension Neurological: No Reproductive Disorders: No 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 Genitourinary: Yes UTI-Chronic Gastrointestinal: No Musculoskeletal: Yes Arthritis, Rheumatoid Arthritis Endocrine: Yes (thyroidectomy) HEENT: Yes Cataract, Macular Degeneration Loss of Vision: Denies Hearing Impairment: Hard of Hearing Cancer: Yes Breast, Lymphoma Did You Recieve Any Treatments: Yes What Type of Treatment Did You: Chemotherapy Psychosocial: No Anxiety Integumentary: No Blood Disorders: No Family Medical History Diabetes mellitus 19 MOTHER Neoplasm 19 FATHER G8 BROTHER G8 SISTER Cancer, Diabetes, Hypertension Physical Exam Vital Signs Vital Signs - First Documented 02/12/22 12:09 Temp 35.9 Pulse 77 Resp 18 B/P (MAP) 126/87 (100) Pulse Ox 96 O2 Delivery Nasal Cannula O2 Flow Rate 2.00 Capillary Refill : Less Than 3 Seconds Height, Weight, BMI Height: 5'8.00" Weight: 180lbs. 3.2oz. 81.051993px; 25.00 BMI Method:Stated General Appearance: No Apparent Distress, Chronically ill Back: No CVA Tenderness (L), No CVA Tenderness (R); Muscle Spasm, Vertebral Tenderness (lumbar spine and then pain with palpation over right SI joint as well. no crepitus or step off noted) Extremity: Normal Capillary Refill, Pedal Edema (trace to 1+ pitting edema BLE) Neurologic/Psychiatric: Alert, Oriented x3, academic affairs director II-XII Norm as Tested Skin: Normal Color, Warm/Dry Progress/Results/Core Measures Results/Orders Lab Results Laboratory Tests Test 02/12/22 12:00 Range/Units Urine Color YELLOW Urine Clarity CLEAR Urine pH 6.0 5-9 Urine Specific [place] 1.025 H 1.016-1.022 Urine Protein NEGATIVE NEGATIVE Urine Glucose (UA) NEGATIVE NEGATIVE Urine Ketones NEGATIVE NEGATIVE Urine Nitrite NEGATIVE NEGATIVE Urine Bilirubin NEGATIVE NEGATIVE Urine Urobilinogen 0.2 < = 1.0 MG/DL Urine Leukocyte Esterase TRACE H NEGATIVE Urine RBC (Auto) NEGATIVE NEGATIVE Urine RBC 5-10 H /HPF Urine WBC 10-25 H /HPF Urine Squamous Epithelial Cells 25-50 H /HPF Urine Crystals NONE /LPF Urine Bacteria MODERATE H /HPF Urine Casts NONE /LPF Urine Mucus NEGATIVE /LPF Urine Culture Indicated NO My Orders Orders - LAZARO ELIAS MD Ua Culture If Indicated (02/12/22 11:59) Ct Lumbar Spine Wo (02/12/22 12:09) Ct Pelvis Wo (02/12/22 12:09) Ketorolac Injection (Toradol Injection) (02/12/22 12:09) Orphenadrine Inj (Ed Only) (Norflex Inje (02/12/22 12:09) Vital Signs/I&O 02/12/22 02/12/22 12:09 13:16 Temp 35.9 35.9 Pulse 77 66 Resp 18 18 B/P (MAP) 126/87 (100) 108/65 Pulse Ox 96 97 O2 Delivery Nasal Cannula Nasal Cannula O2 Flow Rate 2.00 2.00 2.00 Blood Pressure Mean: 100 Progress Progress Note #1: Progress Note Since she recently had steroid shots and muscle relaxer will try low dose Toradol for pain and Norflex for muscle spasms while waiting on UA and CT scan of Lumbar and pelvis without contrast. Check UA to look for UTI or hematuria as potential causes of her pain being worse today. CT scan to look for compression fracture or cord compression or pelvis fracture Progress Note #2: Time: 13:[address] Lumbar spine and Pelvis without contrast read by radiologist as no acute fractures or displacements. No compression of spinal cord. She does have increased stool present throughout her bowels. Will continue with symptomatic treatment and have her follow up with pcp as they may need to have her get physical therapy or pain management to help with her back pain and sciatica. Diagnostic Imaging Diagonstic Imaging: CT Plain Films/CT/US/NM/MRI: pelvis Comments [facility]. [place], [place] NAME: VERONICACHANDRAFELY Cristiano [facility] REC#: [id number] PT STATUS: REG ER : 1935 PHYSICIAN: LAZARO ELIAS MD ADMIT DATE: 02/12/22/ER FS Draft Date of Exam:02/12/22 CT PELVIS WO EXAMINATION: CT pelvis without intravenous contrast. TECHNIQUE: Multiple contiguous axial images were obtained through the pelvis without the administration of intravenous contrast. All CT scans use one or more of the following dose optimizing techniques: automated exposure control, MA and/or KvP adjustment based on patient size and exam type or iterative reconstruction. HISTORY: Low back pain COMPARISON: None available. FINDINGS: Visualized portions of the kidneys are normal. There is no hydronephrosis. Urinary bladder is normal. Visualized bowel is normal in caliber without obstruction or inflammation. No free fluid or air. No pelvic lymphadenopathy. Aorta is normal in caliber without aneurysm. There are no suspicious osseus lesions. There is a left hip arthroplasty. IMPRESSION: 1. No pelvic fracture. Dictated on workstation # [id number] Dict: 02/12/22 1253 Trans: 02/12/22 1300 [facility] [id number] Interpreted by: HARIS GU MD Electronically signed by: Diagonstic Imaging: CT Plain Films/CT/US/NM/MRI: other (lumbar spine) Comments NAME: FELY HERNANDEZ [facility] REC#: [id number] PT STATUS: REG ER : 1935 PHYSICIAN: LAZARO ELIAS MD ADMIT DATE: 02/12/22/ER FS Draft Date of Exam:02/12/22 CT LUMBAR SPINE WO EXAMINATION: CT lumbar spine without contrast. TECHNIQUE: Multiple contiguous axial images were obtained through the lumbar spine without the use of intravenous contrast. Sagittal and coronal reformations were then performed. All CT scans use one or more of the following dose optimizing techniques: automated exposure control, MA and/or KvP adjustment based on patient size and exam type or iterative reconstruction. HISTORY: Low back pain COMPARISON: None available. FINDINGS: There is levoscoliosis of the lumbar spine. There is left lateral listhesis of L3 on L4. Vertebral body heights are normal and no fracture is seen. Facet joints are normal. Disk heights are normal. There is no spinal canal stenosis. There are small bilateral pleural effusions. Heart is enlarged. A pacemaker is present. The aorta is normal. There is a left hip arthroplasty. IMPRESSION: 1. No lumbar spine fracture. Dictated on workstation # [id number] Dict: 02/12/22 1250 Trans: 02/12/22 1300 [facility] [id number] Interpreted by: HARIS GU MD Electronically signed by: Departure Impression Primary Impression: Low back pain with right-sided sciatica Qualified Codes: M54.41 - Lumbago with sciatica, right side; G89.29 - Other chronic pain Additional Impression: Constipation Qualified Codes: K59.00 - Constipation, unspecified Disposition: HOME, SELF-CARE Condition: Stable Departure-Patient Inst. Decision time for Depature: 13:07 Referrals: JANETH BRISCOE (PCP/Family) Primary Care Physician Patient Instructions: Low Back Pain ED, Sciatica ED Add. Discharge Instructions: No fractures seen in low back or pelvis on CT scan imaging. Continue with muscle relaxer and pain medicine to help with your symptoms. Check back with clinic for continued pain. You may benefit from physical therapy to help with your pain and sciatica. Consider taking a laxative such as Miralax daily or every other day to help with constipation as you do have a large amount of stool throughout the colon. All discharge instructions reviewed with patient and/or family. Voiced understanding. Scripts Methocarbamol (Methocarbamol) 750 Mg Tablet 750 MG PO Q8H PRN for muscle spasms/back pain for 7 Days, #21 TAB 0 Refills Prov: LAZARO ELIAS MD 02/12/22 Tramadol HCl (Tramadol HCl) 50 Mg Tablet 50 MG PO Q6H PRN for PAIN-SEVERE (8-10) for 5 Days, #20 TAB 0 Refills Prov: LAZARO ELIAS MD 02/12/22 LAZARO ELIAS MD Feb 12, 2022 12:59
[2022-02-12] MEDS ORDERED: TRM50T PO (13:12)
[2022-02-12] MEDS ORDERED: METH-732 PO (13:12)
[2022-02-12 13:16] VITALS: BP 108/65
== END 2022-02-12 13:15 | disposition home or self-care (01) ==
LOC: EDUNIT# 11:50 → ER FS 11:52
DX: M54.41 Lumbago with sciatica, right side (principal); K59.00 Constipation, unspecified; Z88.5 Allergy status to narcotic agent; W18.30XA Fall on same level, unspecified, initial encounter
CPT/HCPCS: 72131; 72192; 81000

== ENCOUNTER 2022-03-15 09:24 | Inpatient (IN) | payer MEDICARE, BC ==
[~2022-03-15] VITALS: Ht 172.7 cm; Wt 73.3 kg
[~2022-03-15 09:24] MED LIST changes: +METH-732 PO; +TRM50T PO
[2022-03-15 09:43] LABS: BASOPHILS # (AUTO) 0.1 10^3/uL (0.0-0.1); BASOPHILS % (AUTO) 1 % (0-10); EOSINOPHILS # (AUTO) 0.1 10^3/uL (0.0-0.3); EOSINOPHILS % (AUTO) 1 % (0-10); HEMATOCRIT 30 % (35-52); HEMOGLOBIN 9.3 g/dL (11.5-16.0); LYMPHOCYTES # (AUTO) 1.2 10^3/uL (1.0-4.0); LYMPHOCYTES % (AUTO) 7 % (12-44); MEAN CORPUSCULAR HEMOGLOBIN 27 pg (25-34); MEAN CORPUSCULAR HGB CONC 31 g/dL (32-36); MEAN CORPUSCULAR VOLUME 86 fL (80-99); MEAN PLATELET VOLUME 10.6 fL (9.0-12.2); MONOCYTES # (AUTO) 1.3 10^3/uL (0.0-1.0); MONOCYTES % (AUTO) 8 % (0-12); NEUTROPHILS # (AUTO) 13.7 10^3/uL (1.8-7.8); NEUTROPHILS % (AUTO) 84 % (42-75); PLATELET COUNT 318 10^3/uL (130-400); WHITE BLOOD COUNT 16.4 10^3/uL (4.3-11.0)
[2022-03-15] MEDS ORDERED: RT-ALBUTEROL/IPRATROPIUM 3 ML (DUONEB) VIAL IH ONE (09:45)
--- NOTE | 2022-03-15 09:45 | ED Respiratory ---
General Chief Complaint: Respiratory Problems Stated Complaint: SOB Source: patient, family, EMS Exam Limitations: no limitations History of Present Illness Date Seen by Provider: Mar 15, 2022 Time Seen by Provider: 09:25 Initial Comments 86yoF with PMH of severe aortic stenosis (patient has elected to not go forward with a TAVR), pAfib on Warfarin, RA, CHF, COPD, and chronic respiratory failure on 4L O2 coming in via EMS from home due to shortness of breath. Woke up around 2 AM with a dry hacking cough, felt like she could not catch her breath at that time. Called her son who is a digital director, and they contacted 911. On arrival she was 99% on her 4 L, they noted some wheezing and diminished breath sounds in her lower lung bush. They gave her 40 mg of IV Lasix since she has not taken her daily Lasix yet today. She does not believe she is gained any water weight, no fever that she knows of, no chest pain, abdominal pain, nausea, vomiting, diarrhea, weakness, numbness, headache, or any other concerns. Did go to [place] with other family members, is unsure if anybody was sick. Otherwise denying any other acute complaints. Per the patient's son, on the phone she was speaking in 3 word sentences before needing to take breaks for breathing which is unusual for her. Allergies and Home Medications Allergies Coded Allergies: verapamil (Verified Allergy, Severe, 12/31/17) levofloxacin (Verified Allergy, Intermediate, 12/31/17) morphine (Unverified Allergy, Mild, 10/01/13) Patient Home Medication List Home Medication List Reviewed: Yes Acetaminophen (Acetaminophen) 325 Mg Tablet, 650 MG PO Q4H PRN for PAIN-MILD Prescribed by: TABBY MACHADO on 01/04/18 0857 Acetaminophen with Codeine (Acetaminophen-Cod #2 Tablet) 300 Mg-15 Mg Tablet, 1 EACH PO Q6H PRN for PAIN-MODERATE (5-7) Prescribed by: CHRIS THOMPSON on 08/21/21 1726 Amoxicillin/Potassium Clav (Augmentin 875-125 Tablet) 1 Each Tablet, 1 EACH PO BID Prescribed by: KEITH PARKS on 08/17/18 192 Benzonatate (Tessalon Perles) 100 Mg Capsule, 100 MG PO TID PRN for COUGH Prescribed by: ALEX TAYLOR on 06/18/21 1413 Carvedilol (Carvedilol) 6.25 Mg Tablet, 6.25 MG PO BID, (Reported) Entered as Reported by: SALVADOR PIERSON on 12/31/17 161 Cholecalciferol (Vitamin D3) (Vitamin D3) 1,000 Unit Capsule, 1,000 UNIT PO DAILY, (Reported) Entered as Reported by: SALVADOR PIERSON on 12/31/17 161 Cyanocobalamin (Vitamin B-12) (Vitamin B-12) 3,000 Mcg Capsule, 3,000 MCG PO DAILY, (Reported) Entered as Reported by: SALVADOR PIERSON on 12/31/17 161 Darbepoetin Rafa in [place]ysorbat (Aranesp) 40 Mcg/0.4 Ml Syringe, 40 MCG IJ EVERY 2 WEEKS, (Reported) Entered as Reported by: SALVADOR PIERSON on 12/31/17 161 Doxycycline Hyclate (Doxycycline Hyclate) 100 Mg Tablet, 100 MG PO BID Prescribed by: ALEX TAYLOR on 06/18/21 141 Furosemide (Furosemide) 40 Mg Tablet, 40 MG PO DAILY Prescribed by: NOMAN LARIOS on 03/30/21 1247 Hydroxychloroquine Sulfate (Hydroxychloroquine Sulfate) 200 Mg Tablet, 200 MG PO BID, (Reported) Entered as Reported by: SALVADOR PIERSON on 12/31/17 161 Ipratropium/Albuterol Sulfate (Iprat-Albut 0.5-3(2.5) mg/3 ml) 3 Ml Ampul.neb, 3 ML IH Q6H PRN for SHORTNESS OF BREATH Prescribed by: ALEX TAYLOR on 06/18/21 1415 Iron Polysaccharide Complex (Ferrex 150) 150 Mg Capsule, 150 MG PO BID WITH MEALS Prescribed by: TABBY MACHADO on 01/04/18 0857 Levothyroxine Sodium (Levothyroxine Sodium) 75 Mcg Tablet, 75 MCG PO DAILY, (Reported) Entered as Reported by: SALVADOR PIERSON on 12/31/17 161 Meclizine HCl (Meclizine HCl) 25 Mg Tablet, 25 MG PO TID PRN for DIZZINESS, (Reported) Entered as Reported by: SALVADOR PIERSON on 12/31/17 1613 Meclizine HCl (Meclizine HCl) 25 Mg Tablet, 25 MG PO Q6H PRN for dizziness, nausea Prescribed by: CHRIS THOMPSON on 08/21/21 1726 Methocarbamol (Methocarbamol) 750 Mg Tablet, 750 MG PO Q8H PRN for muscle spasms/back pain Prescribed by: LAZARO ELIAS on 02/12/22 1312 Multivitamin (Multivitamins) 1 Each Tablet, 1 TAB PO DAILY, (Reported) Entered as Reported by: SALVADOR PIERSON on 12/31/17 161 Nitroglycerin (Nitroglycerin) 0.4 Mg Tab.subl, 0.4 MG SL UD PRN for CHEST PAIN, (Reported) Entered as Reported by: SALVADOR PIERSON on 12/31/17 161 Omeprazole (Omeprazole) 40 Mg Capsule.dr, 40 MG PO DAILY, (Reported) Entered as Reported by: SALVADOR PIERSON on 12/31/17 161 Ondansetron (Ondansetron Odt) 4 Mg Tab.rapdis, 4-8 MG PO Q6H PRN for NAUSEA/VOMITING-1ST LINE Prescribed by: KEITH PARKS on 08/17/18 1920 Potassium Chloride (Potassium Chloride) 20 Meq Tab.er.prt, 20 MEQ PO DAILY Prescribed by: NOMAN LARIOS on 03/30/21 1247 Prednisone (Prednisone) 5 Mg Tablet, 5 MG PO DAILY, (Reported) Entered as Reported by: SALVADOR PIERSON on 12/31/17 161 Spironolactone (Spironolactone) 25 Mg Tablet, 25 MG PO HS, (Reported) Entered as Reported by: SALVADOR PIERSON on 12/31/17 161 Tramadol HCl (Tramadol HCl) 50 Mg Tablet, 50 MG PO Q6H PRN for PAIN-SEVERE (8- 10) Prescribed by: LAZARO ELISA on 02/12/22 1313 Warfarin Sodium (Warfarin Sodium) 5 Mg Tablet, 5 MG PO 1800, (Reported) Entered as Reported by: SALVADOR PIERSON on 12/31/17 161 Review of Systems Review of Systems Constitutional: No fever EENTM: No blurred vision Respiratory: cough, short of breath Cardiovascular: No chest pain Gastrointestinal: No abdominal pain Genitourinary: no symptoms reported Musculoskeletal: no symptoms reported Skin: no symptoms reported Psychiatric/Neurological: No Symptoms Reported Hematologic/Lymphatic: No Symptoms Reported Immunological/Allergic: no symptoms reported All Other Systems Reviewed Negative Unless Noted: Yes Past Mqunuom-Xbrkcj-Bdgckn Hx Patient Social History Tobacco Use?: No (Spouse was a smoker with significant secondhand inhalation) Substance use?: No Seasonal Allergies Seasonal Allergies: No Past Medical History Surgery/Hospitalization HX: CHF; Breast cancer; CKD; Rheumatoid arthritis; CAD; hypothyroidism; HTN; Anemia; Right mastectomy Surgeries: Yes (mastectomy, knees, hip) Hysterectomy, Orthopedic, Thyroidectomy, Tonsillectomy Respiratory: Yes COPD Currently Using CPAP: No Currently Using BIPAP: No Cardiac: Yes (HAS PACEMAKER, "stiff heart") Hypertension Neurological: No Reproductive Disorders: No 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 Genitourinary: Yes UTI-Chronic Gastrointestinal: No Musculoskeletal: Yes Arthritis, Rheumatoid Arthritis Endocrine: Yes (thyroidectomy) HEENT: Yes Cataract, Macular Degeneration Loss of Vision: Denies Hearing Impairment: Hard of Hearing Cancer: Yes Breast, Lymphoma Did You Recieve Any Treatments: Yes What Type of Treatment Did You: Chemotherapy Psychosocial: No Anxiety Integumentary: No Blood Disorders: No Family Medical History Diabetes mellitus 19 MOTHER Neoplasm 19 FATHER G8 BROTHER G8 SISTER Cancer, Diabetes, Hypertension Physical Exam Vital Signs - First Documented 03/15/22 09:24 Temp 37.0 Pulse 86 Resp 17 B/P (MAP) 126/74 (91) Pulse Ox 99 O2 Delivery Nasal Cannula O2 Flow Rate 4.00 Capillary Refill : Height: 5'8.00" Weight: 180lbs. 3.2oz. 81.456392we; 25.00 BMI Method:Stated General Appearance: WD/WN, no apparent distress Eyes: Bilateral Eye Normal Inspection HEENT: PERRL/EOMI, normal ENT inspection, pharynx normal Neck: non-tender, full range of motion, supple, normal inspection Respiratory: chest non-tender, crackles, other (Increased respiratory rate) Cardiovascular: systolic murmur, irregularly irregular, other (Trace edema in the lower extremities) Gastrointestinal: normal bowel sounds, non tender, soft; No distended, No guard ing, No rebound Extremities: normal range of motion, non-tender, normal inspection, no calf tenderness, normal capillary refill, pedal edema Neurologic/Psychiatric: no motor/sensory deficits, alert, normal mood/affect Skin: normal color, warm/dry Lymphatic: no adenopathy Progress/Results/Core Measures Suspected Sepsis SIRS Temperature: Pulse: Respiratory Rate: Laboratory Tests 03/15/22 09:30: White Blood Count 16.4H Blood Pressure / Mean: Laboratory Tests 03/15/22 09:30: Creatinine 1.16, INR Comment 1.9H, Platelet Count 318, Total Bilirubin 0.6 Results/Orders Lab Results Laboratory Tests Test 03/15/22 09:30 Range/Units White Blood Count 16.4 H 4.3-11.0 10^3/uL Red Blood Count 3.48 L 3.80-5.11 10^6/uL Hemoglobin 9.3 L 11.5-16.0 g/dL Hematocrit 30 L 35-52 % Mean Corpuscular Volume 86 80-99 fL Mean Corpuscular Hemoglobin 27 25-34 pg Mean Corpuscular Hemoglobin Concent 31 L 32-36 g/dL Red Cell Distribution Width 15.4 H 10.0-14.5 % Platelet Count 318 130-400 10^3/uL Mean Platelet Volume 10.6 9.0-12.2 fL Immature Granulocyte % (Auto) 0 % Neutrophils (%) (Auto) 84 H 42-75 % Lymphocytes (%) (Auto) 7 L 12-44 % Monocytes (%) (Auto) 8 0-12 % Eosinophils (%) (Auto) 1 0-10 % Basophils (%) (Auto) 1 0-10 % Neutrophils # (Auto) 13.7 H 1.8-7.8 10^3/uL Lymphocytes # (Auto) 1.2 1.0-4.0 10^3/uL Monocytes # (Auto) 1.3 H 0.0-1.0 10^3/uL Eosinophils # (Auto) 0.1 0.0-0.3 10^3/uL Basophils # (Auto) 0.1 0.0-0.1 10^3/uL Immature Granulocyte # (Auto) 0.0 0.0-0.1 10^3/uL Neutrophils % (Manual) 88 % Lymphocytes % (Manual) 5 % Monocytes % (Manual) 3 % Eosinophils % (Manual) 2 % Basophils % (Manual) 0 % Band Neutrophils 2 % Poikilocytosis SLIGHT Prothrombin Time 21.8 H 12.2-14.7 SEC INR Comment 1.9 H 0.8-1.4 Activated Partial Thromboplast Time 38 H 24-35 SEC Sodium Level 140 135-145 MMOL/L Potassium Level 4.6 3.6-5.0 MMOL/L Chloride Level 104 98-107 MMOL/L Carbon Dioxide Level 27 21-32 MMOL/L Anion Gap 9 5-14 MMOL/L Blood Urea Nitrogen 27 H 7-18 MG/DL Creatinine 1.16 0.60-1.30 MG/DL Estimat Glomerular Filtration Rate 46 BUN/Creatinine Ratio 23 Glucose Level 110 H 70-105 MG/DL Calcium Level 8.8 8.5-10.1 MG/DL Corrected Calcium 9.2 8.5-10.1 MG/DL Magnesium Level 1.6 1.6-2.4 MG/DL Total Bilirubin 0.6 0.1-1.0 MG/DL Aspartate Amino Transf (AST/SGOT) 19 5-34 U/L Alanine Aminotransferase (ALT/SGPT) 16 0-55 U/L Alkaline Phosphatase 78 40-136 U/L Troponin I < 0.30 <0.30 NG/ML Pro-B-Type Natriuretic Peptide > 80645.0 H <450.0 PG/ML Total Protein 5.8 L 6.4-8.2 GM/DL Albumin 3.5 3.2-4.5 GM/DL Lipase 69 8-78 U/L Influenza Type A (RT-PCR) Not Detected Not Detecte Influenza Type B (RT-PCR) Not Detected Not Detecte SARS-CoV-2 RNA (RT-PCR) Not Detected Not Detecte My Orders Orders - ALEX TAYLOR MD Cbc With Automated Diff (03/15/22 09:35) Magnesium (03/15/22:35) Chest 1 View Ap/Pa Only (03/15/22:35) Ekg Tracing (03/15/22:35) Comprehensive Metabolic Panel (03/15/22:35) Protime With Inr (03/15/22:35) Partial Thromboplastin Time (03/15/22:35) O2 (03/15/22:35) Monitor-Rhythm Ecg Trace Only (03/15/22:35) Ed Iv/Invasive Line Start (03/15/22:35) Lipase (12/28/22 09:35) Troponin I Fs (03/15/22 09:35) Probnp Fs (03/15/22 09:35) Influenza A And B By Pcr (03/15/22 09:35) Covid 19 Inhouse Test (03/15/22 09:35) Albuterol/Ipra Inhalation Soln (Duoneb I (03/15/22 09:45) Manual Differential (03/15/22 09:30) Ceftriaxone 1 Gm Pre-Mix (Rocephin 1 Gm (03/15/22 10:15) Ed Admission (Communication) (03/15/22 10:46) Medications Given in ED Current Medications Medications Dose Ordered Sig/Suyapa Route Start Time Stop Time Status Last Admin Dose Admin Albuterol/ Ipratropium 3 ml ONCE ONCE IH 03/15/22 09:45 03/15/22 09:46 DC 03/15/22 09:43 3 ML Ceftriaxone Sodium/Dextrose 50 ml @ 100 mls/hr ONCE ONCE IV 03/15/22 10:15 03/15/22 10:44 DC 03/15/22 10:18 100 MLS/HR Vital Signs/I&O 03/15/22 03/15/22 03/15/22 09:24 09:40 11:21 Temp 37.0 36.9 Pulse 86 81 Resp 17 18 B/P (MAP) 126/74 (91) 144/87 Pulse Ox 99 99 99 O2 Delivery Nasal Cannula Nasal Cannula Nasal Cannula O2 Flow Rate 4.00 4.00 4.00 Capillary Refill : Progress Note : Progress Note 86-year-old female with above history coming in due to shortness of breath. ABCs were intact and vitals were stable on presentation on her baseline oxygen. Physical exam with crackles in her lung bush and lower extremity edema. EKG with no acute ischemic changes, appears similar to prior. Chest x-ray with pulmonary edema and signs of heart failure. An IV was placed and basic labs were obtained including cardiac biomarkers. Her BNP is greater than 35,000, troponin negative, creatinine normal, leukocytosis with white blood cell count of 16.4, COVID and flu test negative, INR 1.9 on warfarin. I discussed the patient's case with her in the family. I discussed that her severe aortic stenosis will be a terminal illness for her eventually, especially if she is not a candidate for aortic valve replacement. I discussed the patient's CODE STATUS, and currently she would like to be full code, but does not want to be on a ventilator for any type of prolonged period of time. She only wants treatment if it is reversible. Discussed hospice care with the family, and they are interested, but the patient is not quite ready at this time. I then contacted Dr. Ritchie, the patient will be admitted under observation status to the cardiac stepdown for further evaluation and management. Contacted Dr. Royal for consultation. Of note, given the patient's increasing cough, leukocytosis, and chest x-ray with a lot of pulmonary edema which could mask infection, she was given a dose of ceftriaxone while in the ER. ECG Initial ECG Impression Date: Mar 15, 2022 Initial ECG Impression Time: 09:42 Initial ECG Rate: 80 Initial ECG Rhythm: Normal Sinus Comment Narrow QRS, normal axis, no significant ST changes, supraventricular premature complexes present Diagnostic Imaging Diagonstic Imaging: Xray Plain Films/CT/US/NM/MRI: chest Comments [facility], [place] NAME: FELY HERNANDEZ [facility] REC#: [id number] PT STATUS: REG ER : 1935 PHYSICIAN: ALEX TAYLOR MD ADMIT DATE: 03/15/22/ER FS Draft Date of Exam:03/15/22 CHEST 1 VIEW AP/PA ONLY INDICATION: Shortness of breath. COMPARISON: 08/21/2021. FINDINGS: The heart is enlarged and may be slightly increased in caliber from prior exam. There is some mild distention of the vascularity. There is new peripheral subpleural linear interstitial opacities and Neftaly B's, likely reflective of interstitial edema. No lobar consolidation. There is reciprocal thoracolumbar degenerative scoliotic curvature and a stable pacemaker, chronic. IMPRESSION: 1. Likely failure pattern with increased heart size, venous caliber, and Neftaly B lines, consistent with interstitial edema. 2. No pleural fluid. 3. Pacemaker device and a right-sided IJ catheter are stable. Dictated on workstation # [id number] Dict: 03/15/22 1021 Trans: 03/15/22 1026 [id number] Interpreted by: EFRAIN RICHARDSON Electronically signed by: Departure Impression Primary Impression: Acute on chronic heart failure Qualified Codes: I50.23 - Acute on chronic systolic (congestive) heart failure Additional Impressions: Aortic stenosis, severe Respiratory failure Qualified Codes: J96.11 - Chronic respiratory failure with hypoxia Disposition: 30 STILL A PATIENT Condition: Stable Admissions Decision to Admit/Date: Mar 15, 2022 Time/Decision to Admit Time: 10:10 Transfer Method of Transfer: EMS Departure-Patient Inst. Referrals: JANETH BRISCOE (PCP) Primary Care Physician [facility] (Family) Primary Care Physician ALEX TAYLOR MD Mar 15, 2022 09:45
[2022-03-15 10:04] LABS: INR 1.9 (0.8-1.4); PROTHROMBIN TIME PATIENT 21.8 SEC (12.2-14.7)
[2022-03-15 10:15] LABS: BAND NEUTROPHILS 2 %; BASOPHILS % (MANUAL) 0 %; EOSINOPHILS % (MANUAL) 2 %; LYMPHOCYTES % (MANUAL) 5 %; MONOCYTES % (MANUAL) 3 %; NEUTROPHILS % (MANUAL) 88 %; POIKILOCYTOSIS SLIGHT
[2022-03-15] MEDS ORDERED: cefTRIAXone 1 GM PRE-MIX 50 ML IV ONE (10:15)
[2022-03-15 10:23] LABS: POTASSIUM 4.6 MMOL/L (3.6-5.0)
[2022-03-15 10:24] LABS: ALBUMIN 3.5 GM/DL (3.2-4.5); BILIRUBIN,TOTAL 0.6 MG/DL (0.1-1.0); CALCIUM 8.8 MG/DL (8.5-10.1); CREATININE SERUM 1.16 MG/DL (0.60-1.30); MAGNESIUM 1.6 MG/DL (1.6-2.4); TOTAL PROTEIN 5.8 GM/DL (6.4-8.2)
--- NOTE | 2022-03-15 10:27 | Diagnostic Imaging Report ---
INDICATION: Shortness of breath. COMPARISON: 08/21/2021. FINDINGS: The heart is enlarged and may be slightly increased in caliber from prior exam. There is some mild distention of the vascularity. There is new peripheral subpleural linear interstitial opacities and Neftaly B's, likely reflective of interstitial edema. No lobar consolidation. There is reciprocal thoracolumbar degenerative scoliotic curvature and a stable pacemaker, chronic. IMPRESSION: 1. Likely failure pattern with increased heart size, venous caliber, and Neftaly B lines, consistent with interstitial edema. 2. No pleural fluid. 3. Pacemaker device and a right-sided IJ catheter are stable. Dictated by: Dictated on workstation # [id number]
[2022-03-15 12:00] VITALS: BP 101/78
[2022-03-15] MEDS ORDERED: ONDANSETRON 4 MG/2 ML (SDV) Z0FRAN IV PRN (12:15)
[2022-03-15] MEDS ORDERED: diphenhydrAMINE 25 MG TAB (BENADRYL) PO PRN (12:15)
[2022-03-15] MEDS ORDERED: HYDROmorphone 2 MG/ML VIAL (DILAUDID) IV PRN (12:15)
[2022-03-15] MEDS ORDERED: MELATONIN 3 MG TABLET PO PRN (12:15)
[2022-03-15] MEDS ORDERED: BISACODYL 10 MG SUPP (DULCOLAX) PR PRN (12:15)
[2022-03-15] MEDS ORDERED: polyethylene glycoL POWDER 17 GM (MIRALAX) PACK PO PRN (12:15)
[2022-03-15] MEDS ORDERED: diphenhydrAMINE 50 MG/ML INJ (BENADRYL) IVP PRN (12:15)
[2022-03-15] MEDS ORDERED: ONDANSETRON 4 MG (ZOFRAN) ORAL DISSOLVE TAB PO PRN ×2 (12:15→14:45)
[2022-03-15] MEDS ORDERED: ANTACID SUSP 30 ML UDC (MYLANTA) PO PRN (12:15)
[2022-03-15] MEDS ORDERED: ACETAMINOPHEN 325 MG TABLET PO PRN ×2 (12:15→14:45)
[2022-03-15] MEDS ORDERED: AZITHROMYCIN INJECTION 500 MG in NS (IVPB) 250 ML IV ONE (12:30)
[2022-03-15] MEDS ORDERED: ENOXAPARIN 40 MG/0.4 ML (LOVENOX) SYR SC SCH (13:00)
[2022-03-15 13:35] VITALS: BP 101/78
[2022-03-15] MEDS ORDERED: RT-ALBUTEROL/IPRATROPIUM 3 ML (DUONEB) VIAL INH PRN (14:00)
[2022-03-15] MEDS ORDERED: CYCL5TAB PO (14:26)
[2022-03-15] MEDS ORDERED: FOLI1TAB33 PO (14:26)
[2022-03-15] MEDS ORDERED: LORA-404 PO (14:26)
[2022-03-15] MEDS ORDERED: ATOR80TA76 PO (14:26)
[2022-03-15] MEDS ORDERED: CALC600T91 PO (14:26)
[2022-03-15] MEDS ORDERED: DARB200V IJ (14:26)
[2022-03-15] MEDS ORDERED: BENZONATATE 100 MG (TESSALON) CAPSULE PO PRN ×2 (14:45→17:30)
[2022-03-15] MEDS ORDERED: MECLIZINE 25 MG (ANTIVERT) TAB PO PRN (14:45)
[2022-03-15] MEDS ORDERED: NITROGLYCERIN 0.4 MG SL TABS BTL 25'S SL PRN (14:45)
--- NOTE | 2022-03-15 15:18 | History & Physical-Hospitalist ---
History of Present Illness HPI/Chief Complaint Chief complaint: Exacerbation of congestive heart failure HPI: This is an 86-year-old female with known aortic stenosis and heart failure who presented to the ER with shortness of breath and volume overload. Lasix was given which improved the situation. She has chronic respiratory failure remains on oxygen 2-4 L at all times. She did not ever contemplate valve replacement due to fear of too complicated procedure at her age. Cardiology will be consulted. She is breathing better. Multiple family members at bedside. Source: patient, family Exam Limitations: clinical condition Date Seen 03/15/22 Time Seen by a Provider: 18:00 Attending Physician Jennifer Goddard PCP Admitting Physician: Brianna Ritchie DO Attending Physician: Brianna Ritchie DO Referring Physician Date of Admission Mar 15, 2022 at 12:04 Home Medications & Allergies Home Medications Reviewed patient Home Medication Reconciliation performed by pharmacy medication reconciliations hot cell technician and/or nursing. Patients Allergies have been reviewed. Allergies Allergies Coded Allergies verapamil (Verified Allergy, Severe, 12/31/17) levofloxacin (Verified Allergy, Intermediate, 12/31/17) morphine (Unverified Allergy, Mild, 10/01/13) Past Uaytxgn-Sobudp-Ivwfkg Hx Patient Social History Marrital Status: single Employed/Student: retired Tobacco Use?: No Use of E-Cig and/or Vaping dev: No Substance use?: No Alcohol Use?: No Pt feels they are or have been: No Immunizations Up To Date Date of Influenza Vaccine: Dec 27, 2017 Tetanus Booster (TDap): Unknown Date of Pneumonia Vaccine: Dec 31, 2014 Seasonal Allergies Seasonal Allergies: No Current Status status: No Advance Directives: No Communicates: Verbally Primary Language: Stateless Preferred Spoken Language: Stateless Is interpretation needed?: No Past Medical History Surgeries: Hysterectomy, Orthopedic, Thyroidectomy, Tonsillectomy COPD Currently Using CPAP: No Currently Using BIPAP: No Chronic Edema/Swelling, Hypertension, 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 UTI-Chronic Arthritis, Rheumatoid Arthritis Cataract, Macular Degeneration Loss of Vision: Denies Hearing Impairment: Hard of Hearing Breast, Lymphoma Did You Recieve Any Treatments: Yes What Type of Treatment Did You: Chemotherapy Anxiety Blood Disorders: No CHF, diastolic, pacemaker in place CKD not requiring dialysis RA Breast CA 1987 Non-Hodgkins Lymphoma 2005, in remission Family Medical History Diabetes mellitus 19 MOTHER Neoplasm 19 FATHER G8 BROTHER G8 SISTER Cancer, Diabetes, Hypertension Review of Systems Constitutional: see HPI Respiratory: dyspnea on exertion, short of breath Physical Exam Physical Exam Vital Signs Vital Signs - First Documented 03/15/22 09:24 Temp 37.0 Pulse 86 Resp 17 B/P (MAP) 126/74 (91) Pulse Ox 99 O2 Delivery Nasal Cannula O2 Flow Rate 4.00 Capillary Refill : Less Than 3 Seconds Height, Weight, BMI Height: 5'8.00" Weight: 180lbs. 3.2oz. 81.280553fb; 23.43 BMI Method:Stated General Appearance: No Apparent Distress, Anxious, Chronically ill Eyes: Right Eye Normal Inspection, Right Eye PERRL HEENT: PERRL/EOMI, Normal ENT Inspection, Pharynx Normal, Moist Mucous Membranes Neck: Full Range of Motion, Normal Inspection, Non Tender Respiratory: Chest Non Tender, Lungs Clear, No Accessory Muscle Use, No Respiratory Distress, Decreased Breath Sounds Cardiovascular: No Gallop, No JVD, Normal Peripheral Pulses, Diastolic Murmur, Systolic Murmur, Irregularly Irregular, Tachycardia Gastrointestinal: Normal Bowel Sounds, No Organomegaly, No Pulsatile Mass, Non Tender, Soft Back: Normal Inspection, No CVA Tenderness, No Vertebral Tenderness Extremity: Normal Capillary Refill, Normal Inspection, Normal Range of Motion, Non Tender, No Calf Tenderness, Pedal Edema Neurologic/Psychiatric: Alert, Oriented x3, No Motor/Sensory Deficits, Normal Mood/Affect Skin: Normal Color, Warm/Dry Lymphatic: No Adenopathy Results Results/Procedures Labs Laboratory Tests 03/15/22 09:30 Patient resulted labs reviewed. Assessment/Plan Admission Diagnosis Assessment: Acute on chronic respiratory failure Severe aortic stenosis end-stage Volume overload Advanced age Leukocytosis suspect bacterial pneumonia Chronic kidney disease Plan: IV diuresis Cardiology consult Supportive care Admission Status: Observation Diagnosis/Problems Diagnosis/Problems (1) Acute on chronic heart failure Status: Acute Qualifiers: Heart failure type: systolic Qualified Codes: I50.23 - Acute on chronic systolic (congestive) heart failure (2) Aortic stenosis, severe Status: Acute (3) Respiratory failure Status: Acute Qualifiers: Chronicity: chronic Respiratory failure complication: hypoxia Qualified Codes: J96.11 - Chronic respiratory failure with hypoxia BRIANNA RITCHIE DO Mar 15, 2022 15:18
--- NOTE | 2022-03-15 15:29 | Consultation-Cardiology ---
HPI-Cardiology Cardiology Consultation Date of Consultation 03/15/22 Date of Admission Time Seen by Provider: 14:00 Indication: Dyspnea, CHF, HPI Patient is a very pleasant 86 y/o female with history of severe , CAD, SSS/PAF. Primary head soft sugar operator is Dr. Abad. Presented to the ER with complaints of increased dyspnea and orthopnea. Son reports she sounded very short of breath on the phone. Work up done in ER showing elevated proBNP and CXR suggestive of CHF. Upon interviewing the patient, she reports she if feeling better. Denies any chest pain. Reports some dyspnea for the past couple days. Denies any F/C/NS. Family reports she underwent cardiac catheterization with stent placement x 2 approx 1 1/2 years ago. At the time, she was evaluated for poss ible AVR and decided against the surgery at the time. Home Medications & Allergies Allergies: Coded Allergies: verapamil (Verified Allergy, Severe, 12/31/17) levofloxacin (Verified Allergy, Intermediate, 12/31/17) morphine (Unverified Allergy, Mild, 10/01/13) Home Medication List Reviewed: Yes [id number] Hx Patient Social History Employed/Student: retired Recent Hopitalizations: Yes Have you traveled recently?: No Alcohol Use?: No Immunizations Up To Date Date of Pneumonia Vaccine: Dec 31, 2014 Date of Influenza Vaccine: Dec 27, 2017 Past Medical History CAD, SSS/PAF, , HTN Family Medical History Significant Family History: Cancer, Diabetes, Hypertension Family History: Diabetes mellitus 19 MOTHER Neoplasm 19 FATHER G8 BROTHER G8 SISTER Review of Systems-General Review of Systems Constitutional: see HPI; No fever; weakness EENTM: see HPI; No blurred vision, No double vision Respiratory: see HPI, cough, dyspnea on exertion, orthopnea, short of breath, wheezing Cardiovascular: see HPI; No chest pain, No edema; Hx of Intervention; No syncope; vascular heart diseas Gastrointestinal: No abdominal pain Genitourinary: no symptoms reported Musculoskeletal: no symptoms reported Skin: no symptoms reported Psychiatric/Neurological: No Symptoms Reported All Other Systems Reviewed Negative Unless Noted: Yes Reviewed Test Results Reviewed Test Results Lab Laboratory Tests 03/15/22 09:30: White Blood Count 16.4H, Red Blood Count 3.48L, Hemoglobin 9.3L, Hematocrit 30L, Mean Corpuscular Volume 86, Mean Corpuscular Hemoglobin 27, Mean Corpuscular Hemoglobin Concent 31L, Red Cell Distribution Width 15.4H, Platelet Count 318, Mean Platelet Volume 10.6, Immature Granulocyte % (Auto) 0, Neutrophils (%) (Auto) 84H, Lymphocytes (%) (Auto) 7L, Monocytes (%) (Auto) 8, Eosinophils (%) (Auto) 1, Basophils (%) (Auto) 1, Neutrophils # (Auto) 13.7H, Lymphocytes # (Auto) 1.2, Monocytes # (Auto) 1.3H, Eosinophils # (Auto) 0.1, Basophils # (Auto) 0.1, Immature Granulocyte # (Auto) 0.0, Neutrophils % (Manual) 88, Lymphocytes % (Manual) 5, Monocytes % (Manual) 3, Eosinophils % (Manual) 2, B asophils % (Manual) 0, Band Neutrophils 2, Poikilocytosis SLIGHT, Prothrombin Time 21.8H, INR Comment 1.9H, Activated Partial Thromboplast Time 38H, Sodium Level 140, Potassium Level 4.6, Chloride Level 104, Carbon Dioxide Level 27, Anion Gap 9, Blood Urea Nitrogen 27H, Creatinine 1.16, Estimat Glomerular Filtration Rate 46, BUN/Creatinine Ratio 23, Glucose Level 110H, Calcium Level 8.8, Corrected Calcium 9.2, Magnesium Level 1.6, Total Bilirubin 0.6, Aspartate Amino Transf (AST/SGOT) 19, Alanine Aminotransferase (ALT/SGPT) 16, Alkaline Phosphatase 78, Troponin I < 0.30, Pro-B-Type Natriuretic Peptide > 42019.0H, Total Protein 5.8L, Albumin 3.5, Lipase 69, Influenza Type A (RT-PCR) Not Detected, Influenza Type B (RT-PCR) Not Detected, SARS-CoV-2 RNA (RT-PCR) Not Detected Physical Exam Physical Exam Vital Signs Vital Signs - First Documented 03/15/22 09:24 Temp 37.0 Pulse 86 Resp 17 B/P (MAP) 126/74 (91) Pulse Ox 99 O2 Delivery Nasal Cannula O2 Flow Rate 4.00 Capillary Refill : Less Than 3 Seconds Height, Weight, BMI Height: 5'8.00" Weight: 180lbs. 3.2oz. [id number]; 23.43 BMI Method:Stated General Appearance: No Apparent Distress, WD/WN, Anxious Eyes: Bilateral Eye Normal Inspection HEENT: PERRL/EOMI, Normal ENT Inspection Neck: Non Tender, Supple Respiratory: Chest Non Tender, Decreased Breath Sounds Cardiovascular: Regular Rate, Rhythm, Systolic Murmur, Other (trace edema) Gastrointestinal: Non Tender, Soft A/P-Cardiology Admission Diagnosis Severe CHF CAD SSS/PAF Assessment/Plan Severe Aortic stenosis, was evaluated for possible valve replacement approx 1 1/2 year ago at [place]. Patient at the time decided to continue with medical management. Patient having worsening symptoms, will reevaluate 2D Echo, discussed the need for f/u with her primary head soft sugar operator and Dr. Bautista to discuss risk and benefits of possible TAVR. CHF, elevated proBNP, patient having orthopnea. Neftaly B lines noted on CXR. Will evaluate 2D Echo, continue to to diurese and continue to monitor. Maintained on beta maikel and spirinolactone as outpatient. Unable to tolerate OMAR-I or ARB secondary to CKD. Questionable pneumonia, noted to have leukocytosis and increased cough, started on antibiotic, management per medical services. Coronary artery disease, reporting [facility] with stent placement x 2 approx 1 1/[address] Abad. SSS/PAF, s/p PPM implantation. CKD, continue to monitor renal function closely. Anemia of chronic disease Rhematoid arthritis Hypothyroidism Hx of nonHodgkins lymphoma Hx of breast CA Thank you for allowing us to participate in the management of Ms. Talbert. This is Tamra Joseph PA-C, as a scribe for Dr. Royal. Patient was seen and evaluated with Tamra, feeling better, improving and responding to diuretic I had a long discussion with the patient and her family regarding the need for her aortic valve replacement especially with the critical aortic valve stenosis and valve area 0.54. Patient is hesitant, concerned about complication, risk of sudden or stroke. I explained to her the importance of maximizing medical therapy and discussing the procedure with the surgeon and with her head soft sugar operator TAMRA GUTIERREZ Mar 15, 2022 15:29 SUSANNAH ROYAL MD Mar 15, 2022 17:05
[2022-03-15 15:50] VITALS: BP 112/76
[2022-03-15] MEDS: ALPRAZolam 0.5 MG (XANAX) TAB PO PRN ×2 (16:32→21:49)
[2022-03-15] MEDS ORDERED: PATIENT MAY USE OWN MEDS, ALL MC SCH (17:00)
[2022-03-15] MEDS ORDERED: FUROSEMIDE 40 MG/4 ML INJ (LASIX) IVP SCH (17:00)
[2022-03-15] MEDS: warFARin 5 MG (COUMADIN) TAB PO SCH (17:48)
[2022-03-15 19:42] VITALS: BP 96/74
[2022-03-15] MEDS: DOCUSATE SODIUM 100 MG (COLACE) CAP PO SCH (20:00)
[2022-03-15] MEDS: HYDROXYCHLOROQUINE 200 MG (PLAQUENIL) TAB PO SCH (20:00)
[2022-03-15] MEDS ORDERED: SPIRONOLACTONE 25 MG (ALDACTONE) TAB PO SCH (21:00)
[2022-03-16] VITALS (8 sets, daily range): BP systolic 75–107; BP diastolic 58–100
[2022-03-16] MEDS: CYANOCOBALAMIN 1,000 MCG (VITAMIN B-12) TABLET PO SCH (05:43)
[2022-03-16] MEDS: MULTIVIT W/MINERALS TAB (THERAGRAN M) PO SCH (05:44)
[2022-03-16] MEDS: ALPRAZolam 0.5 MG (XANAX) TAB PO PRN ×2 (05:44→21:14)
[2022-03-16] MEDS: LEVOTHYROXINE 75 MCG (LEVOTHROID) TABLET PO SCH (05:44)
[2022-03-16 05:59] LABS: BASOPHILS # (AUTO) 0.1 10^3/uL (0.0-0.1); BASOPHILS % (AUTO) 1 % (0-10); EOSINOPHILS # (AUTO) 0.1 10^3/uL (0.0-0.3); EOSINOPHILS % (AUTO) 1 % (0-10); HEMATOCRIT 30 % (35-52); HEMOGLOBIN 9.3 g/dL (11.5-16.0); LYMPHOCYTES # (AUTO) 1.3 10^3/uL (1.0-4.0); LYMPHOCYTES % (AUTO) 14 % (12-44); MEAN CORPUSCULAR HEMOGLOBIN 26 pg (25-34); MEAN CORPUSCULAR HGB CONC 31 g/dL (32-36); MEAN CORPUSCULAR VOLUME 86 fL (80-99); MEAN PLATELET VOLUME 11.1 fL (9.0-12.2); MONOCYTES % (AUTO) 11 % (0-12); NEUTROPHILS # (AUTO) 6.7 10^3/uL (1.8-7.8); NEUTROPHILS % (AUTO) 74 % (42-75); PLATELET COUNT 284 10^3/uL (130-400); WHITE BLOOD COUNT 9.1 10^3/uL (4.3-11.0)
[2022-03-16 06:07] LABS: INR 1.6 (0.8-1.4); PROTHROMBIN TIME PATIENT 19.2 SEC (12.2-14.7)
[2022-03-16 06:09] LABS: ALBUMIN 3.1 GM/DL (3.2-4.5)
[2022-03-16 06:10] LABS: POTASSIUM 4.2 MMOL/L (3.6-5.0)
[2022-03-16 06:11] LABS: CALCIUM 8.5 MG/DL (8.5-10.1)
[2022-03-16 06:12] LABS: TOTAL PROTEIN 5.1 GM/DL (6.4-8.2)
[2022-03-16 06:14] LABS: BILIRUBIN,TOTAL 0.8 MG/DL (0.1-1.0)
[2022-03-16 06:16] LABS: CREATININE SERUM 1.24 MG/DL (0.60-1.30)
--- NOTE | 2022-03-16 08:39 | Cardiology Progress Note ---
Subjective Date Seen by Provider: Mar 16, 2022 Time Seen by Provider: 08:38 Subjective/Events-last exam Patient was seen at bedside, laying down comfortably, feeling better. Review of Systems General: No Chills, No Night Sweats, No Fatigue, No Malaise, No Appetite, No Other HEENT: No Head Aches, No Visual Changes, No Eye Pain, No Ear Pain, No Dysphasia, No Sinus Congestion, No Post Nasal Drip, No Sore Throat, No Other Pulmonary: Dyspnea; No Cough, No Pleuritic Chest Pain, No Other Cardiovascular: No: Chest Pain, Palpitations, Orthopnea, Paroxysmal Noc. Dyspnea, Edema, Lt Headedness, Other Objective-Cardiology Exam Last Set of Vital Signs Vital Signs 03/16/22 08:00 Temp 36.7 Pulse 74 Resp 16 B/P (MAP) 107/100 (102) Pulse Ox 99 O2 Delivery Nasal Cannula O2 Flow Rate 1.00 I&O Intake and Output 03/16/22 00:00 Intake Total 1000 ml Output Total 2075 ml Balance -1075 ml Intake Oral 950 ml IV Total 50 ml Output Urine Total 2075 ml Daily Weight Change No General: Alert, Oriented X3, Cooperative HEENT: Atraumatic, PERRLA Neck: Supple, No JVD, No Thyromegaly Lungs: Clear to Auscultation, Normal Air Movement Heart: Regular Rate, Normal S1, Normal S2, Other (Aortic stenosis murmur) Abdomen: Normal Bowel Sounds, Soft, No Tenderness, No Hepatosplenomegaly, No Masses Extremities: No Clubbing, No Cyanosis, No Edema, Normal Pulses, No Tenderness/Swelling Skin: No Rashes, No Breakdown, No Significant Lesion Neuro: Normal Gait, Normal Speech, Strength at 5/5 X4 Ext, Normal Tone, Sensation Intact Psych/Mental Status: Mental Status NL, Mood NL Results Lab Laboratory Tests 03/15/22 09:30 03/16/22 05:26 A/P-Cardiology Admission Diagnosis Severe CHF CAD SSS/PAF Assessment/Plan Severe Aortic stenosis, was evaluated for possible valve replacement approx 1 1/2 year ago at [place]. Patient at the time decided to continue with medical management. Patient having worsening symptoms, will reevaluate 2D Echo, discussed the need for f/u with her primary kalsominer and Dr. Bautista to discuss risk and benefits of possible TAVR. Patient is very hesitant to have any procedure done, requesting conservative management, had a long discussion with the patient and her son again today. Still insisting on conservative management Hypotension, probably secondary to severe/critical aortic valve stenosis, cannot tolerate aggressive diuresis due to to hypotension. CHF, elevated proBNP, patient having orthopnea. Neftaly B lines noted on CXR. Responded well to IV Lasix but was unable to continue on the diuretic due to hypotension at this point. Questionable pneumonia, noted to have leukocytosis and increased cough, started on antibiotic, management per medical services. Coronary artery disease, reporting [facility] with stent placement x 2 approx 1 1/2 years ago[address] with [address] Abad. SSS/PAF, s/p PPM implantation. CKD, continue to monitor renal function closely. Anemia of chronic disease Rhematoid arthritis Hypothyroidism Hx of nonHodgkins lymphoma Hx of breast CA SUSANNAH AZAR MD Mar 16, 2022 08:39
[2022-03-16] MEDS ORDERED: AZITHROMYCIN INJECTION 250 MG in NS (IVPB) 250 ML IV SCH (09:00)
[2022-03-16] MEDS: DOCUSATE SODIUM 100 MG (COLACE) CAP PO SCH ×2 (09:26→21:14)
[2022-03-16] MEDS: predniSONE 5 MG TAB PO SCH (09:27)
[2022-03-16] MEDS: HYDROXYCHLOROQUINE 200 MG (PLAQUENIL) TAB PO SCH ×2 (09:28→21:15)
[2022-03-16] MEDS: FUROSEMIDE 40 MG (LASIX) TAB PO SCH (09:28)
[2022-03-16] MEDS: cefTRIAXone 1 GM PRE-MIX 50 ML IV SCH (09:29)
[2022-03-16] MEDS: PANTOPRAZOLE 40 MG (PROTONIX) TAB PO SCH (09:32)
[2022-03-16] MEDS ORDERED: DARB100V IJ (10:11)
[2022-03-16] MEDS ORDERED: TRM50T PO (10:11)
[2022-03-16] MEDS ORDERED: POLY30DR6 OP (10:11)
[2022-03-16] MEDS ORDERED: ACET325T38 PO (10:11)
[2022-03-16] MEDS ORDERED: ONDA4TAB11 SL (10:11)
[2022-03-16] MEDS ORDERED: BENZ100C18 PO (10:11)
[2022-03-16] MEDS ORDERED: FURO40TA4 PO (10:11)
[2022-03-16] MEDS ORDERED: WARF3TAB56 PO (10:14)
[2022-03-16] MEDS ORDERED: SPIRONOLACTONE 25 MG (ALDACTONE) TAB PO PRN (10:45)
--- NOTE | 2022-03-16 13:13 | Occ Therapy Progress Note ---
Therapy Progress Note OT orders received. Pt sitting in recliner with family present at therapist arrival. Per family, pt is to have hospice consult later today. They decline OT services at this time as pt already has needed DME, adaptive equipment/strategies, and assist from family. OT educated family that if they change there minds a new order can be sent. 1 visit 10 min Gabbie Ortega OT Mar 16, 2022 13:13
--- NOTE | 2022-03-16 13:54 | Physical Therapy Progress Note ---
Therapy Progress Note Patient is up in recliner via nursing staff. Patient and family request for PT to begin in a.m. due to patient currently has her pain under control. Patient reports she is non ambulatory PLOF and utilizes power chair in home with sliding transfers. Family confirms. PT to evaluate patient tomorrow a.m. 1 visit MARCIN MURDOCK PT Mar 16, 2022 13:54
--- NOTE | 2022-03-16 14:46 | Progress Note - Hospitalist ---
MARLENY LÓPEZ 03/16/22 1446: Subjective HPI/CC On Admission Date Seen by Provider: Mar 16, 2022 Time Seen by Provider: 09:45 Chief complaint: Exacerbation of congestive heart failure HPI: This is an 86-year-old female with known aortic stenosis and heart failure who presented to the ER with shortness of breath and volume overload. Lasix was given which improved the situation. She has chronic respiratory failure remains on oxygen 2-4 L at all times. She did not ever contemplate valve replacement due to fear of too complicated procedure at her age. Cardiology will be consulted. She is breathing better. Multiple family members at bedside. Subjective/Events-last exam Elvi reported feeling much better today, and that she is able to breath more. She and her son mentioned concerns about her hypotension, she really is frightened of having a valve replacement surgery. Hospice was discussed and her son tried to explain it as a nurse visit, but the doctor explained realistically the severity of her condition and how she is entering end stage of her organ function. Son said that he and his sister would speak more about it with her, and invited a manufacturer representative from hospice to come further explain details. She will stay another day to continue monitoring Review of Systems General: Fatigue HEENT: No Head Aches, No Visual Changes, No Eye Pain, No Ear Pain, No Dysphasia, No Sinus Congestion, No Post Nasal Drip, No Sore Throat Pulmonary: Dyspnea, Cough Cardiovascular: No: Chest Pain, Edema, Lt Headedness Gastrointestinal: No: Nausea, Vomiting, Abdominal Pain, Diarrhea Genitourinary: No Dysuria, No Frequency, No Incontinence, No Hematuria, No Retention, No Other Musculoskeletal: No: neck pain, shoulder pain, arm pain, back pain, hand pain, leg pain, foot pain Neurological: No: Weakness, Numbness, Incoordination, Change in speech, Confusion, Seizures, Other Objective Exam Vital Signs Vital Signs Date Time Temp Pulse Resp B/P (MAP) Pulse Ox O2 Delivery O2 Flow Rate FiO2 03/16/22 13:00 75 03/16/22 11:00 15 94/69 (77) 96 Nasal Cannula 1.00 03/16/22 08:00 36.7 Capillary Refill : Less Than 3 Seconds General Appearance: No Apparent Distress, Chronically ill, Thin Neck: Full Range of Motion, Normal Inspection, Non Tender, Supple Respiratory: Chest Non Tender, No Accessory Muscle Use, Decreased Breath Sounds Cardiovascular: No Edema, No Gallop, No JVD, Systolic Murmur, Irregularly Irregular Gastrointestinal: Normal Bowel Sounds, No Organomegaly, No Pulsatile Mass, Non Tender, Soft Back: Normal Inspection, No CVA Tenderness, No Vertebral Tenderness Extremity: Normal Capillary Refill, Normal Inspection, Normal Range of Motion, Non Tender, No Calf Tenderness Neurologic/Psychiatric: Alert, Oriented x3, No Motor/Sensory Deficits, Normal Mood/Affect Skin: Normal Color, Warm/Dry Lymphatic: No Adenopathy Results/Procedures Lab Laboratory Tests 03/16/22 05:26 Patient resulted labs reviewed. Assessment/Plan Assessment and Plan Assess & Plan/Chief Complaint Assessment: Acute on chronic respiratory failure Severe aortic stenosis end-stage Volume overload Advanced age Leukocytosis suspect bacterial pneumonia Chronic kidney disease aFib Anemia Hypotension Plan: IV diuresis Cardiology consult Supportive care supplemental Oxygen Abx regimen Hospice Consult BRIANNA PINEDA DO 03/17/22 0454: Supervisory-Addendum Brief Verification & Attestation Participated in pt care: history, MDM, physical Personally performed: exam, history, MDM, supervision of care Care discussed with: Medical Student Procedures: n/a Results interpretation: Verified all documentation Verification and Attestation of Medical Student E/M Service A medical student performed and documented this service in my presence. I reviewed and verified all information documented by the medical student and made modifications to such information, when appropriate. I personally performed the physical exam and medical decision making. Brianna Pineda Mar 17, 2022,04:54 MARLENY LÓPEZ Mar 16, 2022 14:46 BRIANNA PINEDA DO Mar 17, 2022 04:54
[2022-03-16] MEDS: warFARin 5 MG (COUMADIN) TAB PO SCH (17:01)
[2022-03-17] VITALS: BP 96/67
[2022-03-17 04:00] VITALS: BP 110/62
[2022-03-17] MEDS: LEVOTHYROXINE 75 MCG (LEVOTHROID) TABLET PO SCH (06:12)
[2022-03-17] MEDS: MULTIVIT W/MINERALS TAB (THERAGRAN M) PO SCH (06:12)
[2022-03-17] MEDS: CYANOCOBALAMIN 1,000 MCG (VITAMIN B-12) TABLET PO SCH (06:12)
[2022-03-17 06:19] LABS: BASOPHILS % (AUTO) 1 % (0-10); EOSINOPHILS # (AUTO) 0.4 10^3/uL (0.0-0.3); EOSINOPHILS % (AUTO) 5 % (0-10); HEMATOCRIT 29 % (35-52); HEMOGLOBIN 8.9 g/dL (11.5-16.0); LYMPHOCYTES # (AUTO) 1.3 10^3/uL (1.0-4.0); LYMPHOCYTES % (AUTO) 15 % (12-44); MEAN CORPUSCULAR HEMOGLOBIN 26 pg (25-34); MEAN CORPUSCULAR HGB CONC 31 g/dL (32-36); MEAN CORPUSCULAR VOLUME 84 fL (80-99); MEAN PLATELET VOLUME 11.1 fL (9.0-12.2); MONOCYTES % (AUTO) 12 % (0-12); NEUTROPHILS # (AUTO) 5.6 10^3/uL (1.8-7.8); NEUTROPHILS % (AUTO) 67 % (42-75); PLATELET COUNT 262 10^3/uL (130-400); WHITE BLOOD COUNT 8.3 10^3/uL (4.3-11.0)
[2022-03-17 06:33] LABS: PROTHROMBIN TIME PATIENT 22.7 SEC (12.2-14.7)
[2022-03-17 06:36] LABS: CALCIUM 8.2 MG/DL (8.5-10.1)
[2022-03-17 06:37] LABS: TOTAL PROTEIN 4.9 GM/DL (6.4-8.2)
[2022-03-17 06:39] LABS: BILIRUBIN,TOTAL 0.7 MG/DL (0.1-1.0)
[2022-03-17 06:41] LABS: CREATININE SERUM 1.3 MG/DL (0.60-1.30)
[2022-03-17 07:34] VITALS: BP 102/71
[2022-03-17] MEDS: DOCUSATE SODIUM 100 MG (COLACE) CAP PO SCH (07:51)
[2022-03-17] MEDS: FUROSEMIDE 40 MG (LASIX) TAB PO SCH (07:52)
[2022-03-17] MEDS: PANTOPRAZOLE 40 MG (PROTONIX) TAB PO SCH (07:52)
[2022-03-17] MEDS: predniSONE 5 MG TAB PO SCH (07:52)
[2022-03-17] MEDS: HYDROXYCHLOROQUINE 200 MG (PLAQUENIL) TAB PO SCH (07:53)
[2022-03-17] MEDS: ALPRAZolam 0.5 MG (XANAX) TAB PO PRN (07:54)
[2022-03-17] MEDS ORDERED: AZITHROMYCIN 250 MG TAB (ZITHROMAX) PO SCH (09:00)
--- NOTE | 2022-03-17 10:17 | Physical Therapy Progress Note ---
Therapy Progress Note Patient declined all PT intervention due to patient states she is going to go home on hospice. RN confirms. PT attempted to educate patient on importance of exercise to keep her arthritic joints moving, however, patient continued to decline PT. RN notified. 1 ref MARCIN MURDOCK PT Mar 17, 2022 10:17
[2022-03-17] MEDS: cefTRIAXone 1 GM PRE-MIX 50 ML IV SCH (10:23)
--- NOTE | 2022-03-17 11:10 | Cardiology Progress Note ---
Subjective Date Seen by Provider: Mar 17, 2022 Time Seen by Provider: 11:09 Subjective/Events-last exam Patient was seen at bedside, sitting comfortably, feeling better, breathing better Review of Systems General: No Chills, No Night Sweats; Fatigue; No Malaise, No Appetite, No Other HEENT: No Head Aches, No Visual Changes, No Eye Pain, No Ear Pain, No Dysphasia, No Sinus Congestion, No Post Nasal Drip, No Sore Throat, No Other Pulmonary: Dyspnea; No Cough, No Pleuritic Chest Pain, No Other Cardiovascular: No: Chest Pain, Palpitations, Orthopnea, Paroxysmal Noc. Dyspnea, Edema, Lt Headedness, Other Objective-Cardiology Exam Last Set of Vital Signs Vital Signs 03/17/22 03/17/22 07:34 08:00 Temp 36.4 Pulse 86 Resp 12 B/P (MAP) 102/71 (81) Pulse Ox 97 O2 Delivery Nasal Cannula O2 Flow Rate 1.00 I&O Intake and Output 03/17/22 00:00 Intake Total 1340 ml Output Total 950 ml Balance 390 ml Intake Oral 1040 ml IV Total 300 ml Output Urine Total 950 ml General: Alert, Oriented X3, Cooperative HEENT: Atraumatic, PERRLA Neck: Supple, No JVD, No Thyromegaly Lungs: Clear to Auscultation, Normal Air Movement Heart: Regular Rate, Normal S1, Normal S2, Other (Aortic stenosis murmur) Abdomen: Normal Bowel Sounds, Soft, No Tenderness, No Hepatosplenomegaly, No Masses Extremities: No Clubbing, No Cyanosis, No Edema, Normal Pulses, No Tenderness/Swelling Skin: No Rashes, No Breakdown, No Significant Lesion Neuro: Normal Gait, Normal Speech, Strength at 5/5 X4 Ext, Normal Tone, Sensation Intact Psych/Mental Status: Mental Status NL, Mood NL Results Lab Laboratory Tests 03/17/22 05:20 A/P-Cardiology Admission Diagnosis Severe CHF CAD SSS/PAF Assessment/Plan Severe/critical aortic stenosis, was evaluated for possible valve replacement approx 1 1/2 year ago at [place]. Patient at the time decided to continue with medical management. Patient having worsening symptoms, will reevaluate 2D Echo, discussed the need for f/u with her primary cutter gas and Dr. Bautista to discuss risk and benefits of possible TAVR. Patient is very hesitant to have any procedure done, requesting conservative management, had a long discussion with the patient and her son again today. Still insisting on conservative management Patient is going home with [facility] home care Hypotension, probably secondary to severe/critical aortic valve stenosis, cannot tolerate aggressive diuresis due to to hypotension. CHF, elevated proBNP, patient having orthopnea. Neftaly B lines noted on CXR. Responded well to IV Lasix but was unable to continue on the diuretic due to hypotension at this point. Questionable pneumonia, noted to have leukocytosis and increased cough, started on antibiotic, management per medical services. Coronary artery disease, reporting [facility] with stent placement x 2 approx 1 1/2 years ago[address] Abad. SSS/PAF, s/p PPM implantation. CKD, continue to monitor renal function closely. Anemia of chronic disease Rhematoid arthritis Hypothyroidism Hx of nonHodgkins lymphoma Hx of breast CA SUSANNAH AZAR MD Mar 17, 2022 11:10
[2022-03-17] MEDS ORDERED: CEFD300C3 PO (11:20)
--- NOTE | 2022-03-17 11:22 | Discharge Summary ---
Discharge Summary Hospital Course Was the Problem List Reviewed?: Yes Problems/Dx: (1) Acute on chronic heart failure Status: Acute Qualifiers: Qualified Codes: I50.23 - Acute on chronic systolic (congestive) heart failure (2) Aortic stenosis, severe Status: Acute (3) Respiratory failure Status: Acute Qualifiers: Qualified Codes: J96.11 - Chronic respiratory failure with hypoxia Hospital Course Date of Admission: Mar 16, 2022 at 12:53 Admission Diagnosis : Family Physician/Provider: [place] Date of Discharge: 03/17/22 Discharge Diagnosis: [ ] Hospital Course: Hospital Course: 03/15/22- Elvi is an 86-year-old female with known aortic stenosis and heart failure who presented to the ER with shortness of breath and volume overload. Lasix was given which improved the situation. She has chronic respiratory failure remains on oxygen 2-4 L at all times. She did not ever contemplate valve replacement due to fear of too complicated procedure at her age. Elvi reported feeling much better 03/16/22, and that she was able to breath more. She and her son mentioned concerns about her hypotension, she really is frightened of having a valve replacement surgery. Hospice was discussed and her son tried to explain it as a nurse visit, but the doctor explained realistically the severity of her condition and how she is entering end stage of her organ function. Son said that he and his sister would speak more about it with her, and invited a sales representative gas service from hospice to come further explain details. 03/17/22- Elvi was more accepting of her situation after having a night to think about it, she was seen with her sister and had accepted to be seen by hospice. She still says she will follow up with cardiology to see if she is a candidate for TAVR. Both the internal med doctor and Reservations Agent deemed her able to be D/Cd, she was advised on meds and oxygen needs. MARLENY LÓPEZ Labs and Pending Lab Test: Laboratory Tests 03/17/22 05:20: White Blood Count 8.3, Red Blood Count 3.40L, Hemoglobin 8.9L, Hematocrit 29L, Mean Corpuscular Volume 84, Mean Corpuscular Hemoglobin 26, Mean Corpuscular Hemoglobin Concent 31L, Red Cell Distribution Width 14.9H, Platelet Count 262, Mean Platelet Volume 11.1, Immature Granulocyte % (Auto) 1, Neutrophils (%) (Auto) 67, Lymphocytes (%) (Auto) 15, Monocytes (%) (Auto) 12, Eosinophils (%) (Auto) 5, Basophils (%) (Auto) 1, Neutrophils # (Auto) 5.6, Lymphocytes # (Auto) 1.3, Monocytes # (Auto) 1.0, Eosinophils # (Auto) 0.4H, Basophils # (Auto) 0.0, Immature Granulocyte # (Auto) 0.0, Prothrombin Time 22.7H, INR Comment 2.0H, Sodium Level 138, Potassium Level 4.0, Chloride Level 99, Carbon Dioxide Level 29, Anion Gap 10, Blood Urea Nitrogen 30H, Creatinine 1.30, Estimat Glomerular Filtration Rate 41, BUN/Creatinine Ratio 23, Glucose Level 85, Calcium Level 8.2L, Corrected Calcium 9.0, Total Bilirubin 0.7, Aspartate Amino Transf (AST/SGOT) 18, Alanine Aminotransferase (ALT/SGPT) 17, Alkaline Phosphatase 54, Total Protein 4.9L, Albumin 3.0L Home Meds Active Cefdinir 300 Mg Capsule 300 Mg PO BID Reported Warfarin Sodium 3 Mg Tablet 3 Mg PO 2000 Visine Dry Eye Relief (Polyethylene Glycol 400) 1 % Drops 1 Drop OP DAILY PRN Aranesp (Darbepoetin Rafa in Polysorbat) 100 Mcg/Ml Vial 80 Mcg IJ [id number] Tylenol (Acetaminophen) 325 Mg Tablet 650 Mg PO Q6H PRN Furosemide 40 Mg Tablet 40 Mg PO DAILY Tessalon Perles (Benzonatate) 100 Mg Capsule 100 Mg PO TID PRN Tramadol HCl 50 Mg Tablet 50 Mg PO Q6H PRN Ondansetron Odt (Ondansetron) 4 Mg Tab.rapdis 4 Mg SL Q4H PRN Cyclobenzaprine HCl 5 Mg Tablet 5-10 Mg PO BID PRN Calcium (Calcium Carbonate) 600 Mg Calcium (1500 Mg) Tablet 600 Mg PO DAILY Ativan (Lorazepam) 0.5 Mg Tablet 0.5 Mg PO Q6H PRN Folic Acid 1 Mg Tablet 1 Mg PO DAILY Atorvastatin Calcium 80 Mg Tablet 80 Mg PO HS Spironolactone 25 Mg Tablet 25 Mg PO HS PRN Vitamin B-12 (Cyanocobalamin (Vitamin B-12)) 3,000 Mcg Capsule 3,000 Mcg PO DAILY Meclizine HCl 25 Mg Tablet 25 Mg PO TID PRN Prednisone 5 Mg Tablet 5 Mg PO DAILY Nitroglycerin 0.4 Mg Tab.subl 0.4 Mg SL UD PRN Omeprazole 40 Mg Capsule.dr 40 Mg PO DAILY Carvedilol 6.25 Mg Tablet 6.25 Mg PO BID Hydroxychloroquine Sulfate 200 Mg Tablet 200 Mg PO BID Levothyroxine Sodium 75 Mcg Tablet 75 Mcg PO DAILY Multivitamins (Multivitamin) 1 Each Tablet 1 Tab PO DAILY Assessment/Pt Instructions Hospice Discharge Planning: <30 minutes discharge planning Discharge Instructions Discharge Diet: No Restrictions Discharge Physical Examination Vital Signs Vital Signs Date Time Temp Pulse Resp B/P (MAP) Pulse Ox O2 Delivery O2 Flow Rate FiO2 03/17/22 08:00 Nasal Cannula 1.00 03/17/22 07:34 36.4 86 12 102/71 (81) 97 General Appearance: No Apparent Distress, WD/WN, Chronically ill Allergies: Coded Allergies: verapamil (Verified Allergy, Severe, 12/31/17) levofloxacin (Verified Allergy, Intermediate, 12/31/17) morphine (Unverified Allergy, Mild, 10/01/13) Discharge Summary Date of Admission Mar 16, 2022 at 12:53 Date of Discharge Discharge Date: Mar 17, 2022 Admission Diagnosis Assessment: Acute on chronic respiratory failure Severe aortic stenosis end-stage Volume overload Advanced age Leukocytosis suspect bacterial pneumonia Chronic kidney disease Plan: IV diuresis Cardiology consult Supportive care Discharge Diagnosis (1) Acute on chronic heart failure Status: Acute Qualifiers: Qualified Codes: I50.23 - Acute on chronic systolic (congestive) heart failure (2) Aortic stenosis, severe Status: Acute (3) Respiratory failure Status: Acute Qualifiers: Qualified Codes: J96.11 - Chronic respiratory failure with hypoxia MICHAEL PINEDA DO Mar 17, 2022 11:22
[2022-03-17 12:00] VITALS: BP 86/50
--- NOTE | 2022-03-17 12:40 | Progress Note ---
MARLENY LÓPEZ 03/17/22 1240: Progress Note Hospital Course: 03/15/22- Elvi is an 86-year-old female with known aortic stenosis and heart failure who presented to the ER with shortness of breath and volume overload. Lasix was given which improved the situation. She has chronic respiratory failure remains on oxygen 2-4 L at all times. She did not ever contemplate valve replacement due to fear of too complicated procedure at her age. Elvi reported feeling much better 03/16/22, and that she was able to breath more. She and her son mentioned concerns about her hypotension, she really is frightened of having a valve replacement surgery. Hospice was discussed and her son tried to explain it as a nurse visit, but the doctor explained realistically the severity of her condition and how she is entering end stage of her organ function. Son said that he and his sister would speak more about it with her, and invited a technical services representative from hospice to come further explain details. - Elvi was more accepting of her situation after having a night to think about it, she was seen with her sister and had accepted to be seen by hospice. She still says she will follow up with cardiology to see if she is a candidate for TAVR. Both the internal med doctor and Ge[employer] Electrical Engineer deemed her able to be D/Cd, she was advised on meds and oxygen needs. BRIANNA PINEDA DO 03/17/222126: Supervisory-Addendum Brief Verification & Attestation Participated in pt care: history, MDM, physical Personally performed: exam, history, MDM, supervision of care Care discussed with: Medical Student Procedures: n/a Results interpretation: Verified all documentation Verification and Attestation of Medical Student E/M Service A medical student performed and documented this service in my presence. I reviewed and verified all information documented by the medical student and made modifications to such information, when appropriate. I personally performed the physical exam and medical decision making. Brianna Pineda, Mar 17, 2022,21:27 MARLENY LÓPEZ Mar 17, 2022 12:40 BRIANNA PINEDA DO Mar 17, 2022 21:27
[2022-03-17 16:15] VITALS: BP 86/50
== END 2022-03-17 16:15 | disposition hospice, home (50) | DRG 306 ==
LOC: EDUNIT# 09:24 → ER FS 09:25 → CSD 12:04 → OBSVTOIN 03-16 12:53
PROVIDERS: ADMIT Internal Medicine; ATTEND Internal Medicine
DX: I35.0 Nonrheumatic aortic (valve) stenosis (principal); I50.23 Acute on chronic systolic (congestive) heart failure; J96.21 Acute and chronic respiratory failure with hypoxia; I13.0 Hypertensive heart and chronic kidney disease with heart failure and stage 1 through stage 4 chronic kidney disease, or unspecified chronic kidney disease; E87.70 Fluid overload, unspecified; N18.9 Chronic kidney disease, unspecified; D72.829 Elevated white blood cell count, unspecified; D64.9 Anemia, unspecified; I95.9 Hypotension, unspecified; Z99.81 Dependence on supplemental oxygen; Z88.1 Allergy status to other antibiotic agents; Z88.5 Allergy status to narcotic agent; J44.9 Chronic obstructive pulmonary disease, unspecified; M06.9 Rheumatoid arthritis, unspecified; H35.30 Unspecified macular degeneration; Z85.3 Personal history of malignant neoplasm of breast; Z85.72 Personal history of non-Hodgkin lymphomas; Z92.21 Personal history of antineoplastic chemotherapy; F41.9 Anxiety disorder, unspecified; Z95.0 Presence of cardiac pacemaker; I25.10 Atherosclerotic heart disease of native coronary artery without angina pectoris; E03.9 Hypothyroidism, unspecified; Z90.11 Acquired absence of right breast and nipple; Z20.822 Contact with and (suspected) exposure to COVID-19; I49.5 Sick sinus syndrome; I48.0 Paroxysmal atrial fibrillation; D63.1 Anemia in chronic kidney disease
CPT/HCPCS: 36415; 71045; 80053; 83690; 83735; 83880; 84484; 85007; 85025; 85027; 85610; 85730; 87636; 93005; 93041; 93306; 96365